=== PATIENT | female | born 1960 | race Two or more races ===

== ENCOUNTER → 2020-08-02 14:58 | Outpatient (BNVA) | payer MEDICARE, MEDICAID, SELFPAY | PROVIDERS: PCP Internal Medicine Medical Oncology; Visit Provider Surgery Vascular Surgery | DX: I83.11 Varicose veins of right lower extremity with inflammation (principal); I73.9 Peripheral vascular disease, unspecified | CPT/HCPCS: 99202 ==

== ENCOUNTER 2020-08-20 17:43 | Outpatient (REF) | payer MEDICARE, MEDICAID, SELFPAY ==
--- NOTE | 2020-08-20 | XR_ITS ---
EXAMINATION: XR FOOT, LEFT CLINICAL INFORMATION: Left foot pain COMPARISON: Radiographs left ankle 07/08/2012 TECHNIQUE: AP, lateral, and oblique views of the left foot. FINDINGS: There is no acute or healing fracture, dislocation, or destructive process. Bulky posterior and plantar calcaneal spurs are present along with faint mineralization in the distal Achilles 1.8 cm length. The retrocalcaneal recess is preserved. There is mild joint narrowing second, third, and fourth toe PIP and DIP joints. There are probable old posttraumatic deformity involving the fifth toe with fusion middle and distal phalanges and attenuated head proximal phalanx. There are borderline degenerative changes great toe MTP and interphalangeal joint. There is no erosive change or chondrocalcinosis. XR/XR foot LT min 3V IMPRESSION: 1. Bulky posterior and plantar calcaneal spurs. Mineralization/tendinosis distal Achilles. 2. Mild degenerative changes with joint narrowing interphalangeal joints. No erosive change. 3. Probable old healed injury fifth toe. No acute or healing fracture or dislocation.
== END 2020-08-20 17:44 | disposition home or self-care (01) ==
LOC: HO.XRAY 17:43
PROVIDERS: PCP Internal Medicine Medical Oncology; Visit Provider Internal Medicine Medical Oncology
DX: M79.672 Pain in left foot (principal)
CPT/HCPCS: 73630

== ENCOUNTER 2020-08-27 08:35 | Outpatient (REF) | payer MEDICARE, MEDICAID, SELFPAY ==
--- NOTE | 2020-08-27 08:42 | US_ITS ---
EXAMINATION: RIGHT and LEFT LOWER EXTREMITY VENOUS ULTRASOUND (Reflux Exam) CLINICAL INDICATION: Right leg pain and varicose veins. COMPARISON: None. TECHNIQUE: Color flow triplex imaging and compression Doppler was performed to evaluate both the deep and the superficial systems bilaterally. To evaluate the superficial system, the examination was performed in the upright position. Color-flow Doppler ultrasound and compression ultrasound were utilized. In addition, maneuvers were utilized to demonstrate reflux. FINDINGS: 1. DEEP VENOUS ULTRASOUND OF THE RIGHT LOWER EXTREMITY: Respiratory variation, normal compression and augmented flow are noted in the right common femoral vein as well as the right popliteal vein and there is no evidence of deep venous thrombosis at these locations. There is no evidence of reflux in the deep system in either the common femoral vein or the popliteal vein. There is no evidence of a Moreland's cyst. 2. SUPERFICIAL ULTRASOUND WITH DOPPLER OF RIGHT LOWER EXTREMITY: The right great saphenous vein at the saphenofemoral junction measures 5 mm, at the mid thigh 3 mm, irtze-[id number]-evxf 2 mm, ujwce-egm-ffxw 2 mm, at mid calf 2 mm and at the ankle measures 2 mm. There is no reflux demonstrated in the right great saphenous vein. The right small saphenous vein measures 2-4 mm and shows no reflux. 3. DEEP VENOUS ULTRASOUND OF THE LEFT LOWER EXTREMITY: Respiratory variation, normal compression and augmented flow are noted in the left common femoral vein as well as the left popliteal vein and there is no evidence of deep venous thrombosis at these locations. There is no evidence of reflux in the deep system in either the common femoral vein or the popliteal vein. . There is no evidence of a Moreland's cyst. 4. SUPERFICIAL ULTRASOUND WITH DOPPLER OF LEFT LOWER EXTREMITY: Left great saphenous vein at the saphenofemoral junction measures 6 mm, at the mid thigh to mm, yuhyl-dcs-mrxy 3 mm, ffbsr-ddq-zxxb 2 mm, at mid calf to mm and at the ankle measures 2 mm. There is no reflux demonstrated in the left great saphenous vein. The left small saphenous vein measures 2 mm and shows no reflux. US/US venous duplex LE BI IMPRESSION: 1. No evidence of reflux or thrombus in the common femoral veins or popliteal veins bilaterally. 2. The saphenous systems are competent bilaterally.
--- NOTE | 2020-08-27 08:42 | US_ITS ---
EXAMINATION: COLOR-FLOW DUPLEX IMAGING OF THE BILATERAL LOWER EXTREMITY ARTERIAL SYSTEM. VELOCITY MEASUREMENTS THROUGHOUT THE FEMORAL ARTERIES WITH ANKLE-BRACHIAL PERIPHERAL ARTERIAL TESTING. CLINICAL INFORMATION: This is a 59-year-old female with peripheral arterial disease. Claudication. Atherosclerosis. Interventional Radiologist: Low Marley M.D., F.S.I.R., F.A.C.R. RIGHT FEMORAL RUNOFF VELOCITIES: The right common femoral artery measures 148 cm/s and triphasic. The right profunda femoral artery is 138 cm/s and is triphasic. Right proximal superficial femoral artery measures 137 cm/s and triphasic. Mid superficial femoral artery is 120 cm/s and triphasic. Distal right superficial femoral artery measures 116 cm/s and is triphasic. Right popliteal velocity measures 77 cm/s and is triphasic. The posterior tibial artery velocity measures 108 cm/s and was triphasic. The right ankle-brachial index is 1.17. The right toe brachial index is 0.71. The waveforms appeared normal at the ankle. The right posterior tibial pressure measures 183 mmHg. LEFT FEMORAL RUNOFF VELOCITIES: The left common femoral artery measures 127 cm/s and biphasic. The left profunda femoral artery is 101 cm/s and is triphasic. Left proximal superficial femoral artery measures 116 cm/s and triphasic. Mid superficial femoral artery is 100 cm/s and biphasic. Distal left superficial femoral artery measures 89 cm/s and is triphasic. Left popliteal velocity measures 73 cm/s and is triphasic. The posterior tibial artery velocity measures 54 cm/s and was monophasic. The left ankle-brachial index is 0.78. The left toe brachial index is 0.23. The waveforms appeared depressed at the ankle. The left posterior tibial pressure measures 112 mmHg. A cardiac arrhythmia is noted during the duplex portion of the study. US/US arterial duplex LE BI IMPRESSION: 1. Abnormal peripheral arterial testing with abnormal left ankle-brachial index and velocity measurements. 2. There is likely a high-grade stenosis in the left distal outflow disease in the left lower extremity. This is likely in the tibial vessels and small vessels in the foot. 3. Normal right lower extremity inflow and outflow. However, the right toe brachial index may be slightly depressed. This may be indicative of small vessel disease on the right.
== END 2020-08-27 08:36 | disposition home or self-care (01) ==
LOC: HO.US 08:35
PROVIDERS: Visit Provider Surgery Vascular Surgery
DX: I87.2 Venous insufficiency (chronic) (peripheral) (principal); I73.9 Peripheral vascular disease, unspecified
CPT/HCPCS: 93923; 93925; 93970

== ENCOUNTER → 2020-09-04 11:00 | Outpatient (BNVA) | payer MEDICARE, MEDICAID, SELFPAY | PROVIDERS: PCP Internal Medicine Medical Oncology; Visit Provider Surgery Vascular Surgery | DX: I83.11 Varicose veins of right lower extremity with inflammation (principal); I73.9 Peripheral vascular disease, unspecified | CPT/HCPCS: 99212 ==

== ENCOUNTER 2020-10-10 10:51 | Outpatient (REF) | payer MEDICARE, MEDICAID, SELFPAY ==
--- NOTE | ~2020-10-10 | MM_ITS ---
EXAMINATION: MM SCREENING DIGITAL BREAST TOMOSYNTHESIS, BILATERAL CLINICAL INFORMATION: Screening. Asymptomatic. No known family history breast cancer. The lifetime risk of breast cancer based on the Tyrer-Cuzick Model is 6%. COMPARISON: Outside mammography 08/23/2018, 08/11/2018, 04/22/2017 ([facility]); and local prior exams 03/11/2016 and 01/05/2015. TECHNIQUE: Digital breast tomosynthesis is performed in both the craniocaudal and mediolateral oblique views along with computer-aided detection (CAD). Synthesized 2D images are generated from the tomosynthesis. FINDINGS: There are scattered areas of fibroglandular density (ACR BI-RADS breast composition Category b). Parenchymal pattern is similar to prior studies. There are stable bilateral asymmetries. No developing density. No interval mass or architectural abnormality. No abnormal calcifications. The skin contours are smooth. MM/MM tomosynthesis screening BI IMPRESSION: No significant changes from prior exams. ASSESSMENT: BI-RADS 2: Benign RECOMMENDATION: Routine annual mammography screening. This patient's information was entered into a reminder system with a target due date for their next mammogram.
== END 2020-10-10 10:52 | disposition home or self-care (01) ==
LOC: HO.MAMMO 10:51
PROVIDERS: Visit Provider Internal Medicine Medical Oncology
DX: Z12.31 Encounter for screening mammogram for malignant neoplasm of breast (principal)
CPT/HCPCS: 77063; 77067

== ENCOUNTER 2020-11-27 11:17 | Outpatient (REF) | payer MEDICARE, MEDICAID, SELFPAY ==
[2020-11-27 12:02] LABS: MANUAL DIFF FLAG NO
[2020-11-27 12:08] LABS: Basophils Absolute Auto 0.1 X10*3/uL (0.0-0.2); Eosinophils Absolute Auto 0.3 X10*3/uL (0.0-0.4); Eosinophils Percent Auto 4.1 % (0-4); Hematocrit 37.3 % (37-47); Hemoglobin 12.1 g/dl (12.0-16.0); Imm Gran Abs Auto 0.03 X10*3/uL (0.00-0.03); Imm Gran Pct Auto 0.4 % (0.0-0.4); Lymphocytes Absolute Auto 2.2 X10*3/uL (1.2-4.9); Lymphocytes Percent Auto 27.1 % (20-40); Mean Corpuscular HGB Conc 32.4 g/dl (31.0-35.0); Mean Corpuscular Hemoglobin 29.6 pg (27.0-33.0); Mean Corpuscular Volume 91.2 fL (80-98); Mean Platelet Volume 9.9 fL (9.4-12.3); Monocytes Absolute Auto 0.5 X10*3/uL (0.1-1.2); Neutrophils Absolute Auto 4.9 X10*3/uL (2.0-8.3); Neutrophils Percent Auto 61.4 % (45-73); Platelet Count 272 X10*3/uL (160-400); Red Blood Count 4.09 X10*6/uL (4.20-5.50); Red Cell Distribution Width 11.7 % (11.0-16.0)
[2020-11-27 12:14] LABS: Estimated Average Glucose 166 mg/dL; Hemoglobin A1c % 7.4 %
[2020-11-27 12:37] LABS: Alanine Aminotransferase 20 U/L (0-31); Albumin Level 4.2 g/dL (3.5-5.0); Alkaline Phosphatase 79 U/L (39-117); Anion Gap 12 (12-20); Aspartate Amino Transferase 13 U/L (5-31); Bilirubin Total 0.4 mg/dL (0.0-1.0); Blood Urea Nitrogen 10 mg/dL (9-16); Carbon Dioxide 30 mmol/L (22-29); Chloride 105 mmol/L (96-108); Cholesterol 147 mg/dL; Estimated Glomerular Filt Rate > 60; Glucose Fasting 141 mg/dL (60-99); HDL Cholesterol 46 mg/dL; LDL Cholesterol Calculated 85 mg/dl; Potassium 4.7 mmol/L (3.3-5.1); Sodium 142 mmol/L (135-145); Total Protein 7.1 g/dL (6.5-8.0); Triglycerides 80 mg/dL
[2020-11-27 12:39] LABS: Creatinine Urine 112.38 mg/dL; Microalbum/Creatinine Ratio Ur 7.1 ug/mg cr
[2020-11-27 12:53] LABS: Erythrocyte Sedimentation Rate 27 MM/HR (0-20)
[2020-11-27 12:56] LABS: Vitamin D 25-OH Total 60.6 ng/mL (>30)
== END 2020-11-27 11:18 | disposition home or self-care (01) ==
LOC: HO.LAB 11:17
PROVIDERS: PCP Internal Medicine Medical Oncology; Visit Provider Internal Medicine Medical Oncology
DX: E78.5 Hyperlipidemia, unspecified (principal); E66.3 Overweight; E11.9 Type 2 diabetes mellitus without complications
CPT/HCPCS: 36415; 80053; 80061; 82043; 82306; 83036; 85025; 85652

== ENCOUNTER 2020-12-31 13:40 | Outpatient (REF) | payer MEDICARE, MEDICAID, SELFPAY ==
[2021-01-03 07:17] LABS: HPV mRNA E6/E7 rflx Not Detected (Not Detected)
== END 2020-12-31 13:41 | disposition home or self-care (01) ==
LOC: HO.LAB 13:40
PROVIDERS: PCP Internal Medicine Medical Oncology; Visit Provider Advanced Practice Midwife
DX: Z01.419 Encounter for gynecological examination (general) (routine) without abnormal findings (principal); Z11.51 Encounter for screening for human papillomavirus (HPV); L72.3 Sebaceous cyst
CPT/HCPCS: 87624; 88142

== ENCOUNTER 2021-02-13 13:11 | Outpatient (REF) | payer MEDICARE, MEDICAID, SELFPAY ==
[2021-02-13 13:42] LABS: MANUAL DIFF FLAG NO
[2021-02-13 14:00] LABS: Basophils Absolute Auto 0.1 X10*3/uL (0.0-0.2); Basophils Percent Auto 0.9 % (0-2); Eosinophils Absolute Auto 0.3 X10*3/uL (0.0-0.4); Eosinophils Percent Auto 3.2 % (0-4); Hematocrit 40.7 % (37-47); Hemoglobin 13.9 g/dl (12.0-16.0); Imm Gran Abs Auto 0.02 X10*3/uL (0.00-0.03); Imm Gran Pct Auto 0.2 % (0.0-0.4); Lymphocytes Absolute Auto 2.4 X10*3/uL (1.2-4.9); Lymphocytes Percent Auto 27.7 % (20-40); Mean Corpuscular HGB Conc 34.2 g/dl (31.0-35.0); Mean Corpuscular Hemoglobin 30.5 pg (27.0-33.0); Mean Corpuscular Volume 89.3 fL (80-98); Mean Platelet Volume 10.2 fL (9.4-12.3); Monocytes Absolute Auto 0.5 X10*3/uL (0.1-1.2); Monocytes Percent Auto 5.8 % (2-11); Neutrophils Absolute Auto 5.4 X10*3/uL (2.0-8.3); Neutrophils Percent Auto 62.2 % (45-73); Platelet Count 267 X10*3/uL (160-400); Red Blood Count 4.56 X10*6/uL (4.20-5.50); Red Cell Distribution Width 11.8 % (11.0-16.0); White Blood Count 8.6 X10*3/uL (4.8-10.8)
[2021-02-13 14:39] LABS: Alanine Aminotransferase 19 U/L (0-31); Albumin Level 4.5 g/dL (3.5-5.0); Alkaline Phosphatase 84 U/L (39-117); Anion Gap 13 (12-20); Aspartate Amino Transferase 16 U/L (5-31); Bilirubin Total 0.6 mg/dL (0.0-1.0); Blood Urea Nitrogen 9 mg/dL (9-16); Calcium 9.5 mg/dL (8.4-10.2); Carbon Dioxide 26 mmol/L (22-29); Chloride 106 mmol/L (96-108); Estimated Glomerular Filt Rate > 60; Glucose Random 161 mg/dL (60-115); Potassium 4.3 mmol/L (3.3-5.1); Sodium 141 mmol/L (135-145); Total Protein 7.7 g/dL (6.5-8.0)
== END 2021-02-13 13:12 | disposition home or self-care (01) ==
LOC: HO.LAB 13:11
PROVIDERS: PCP Internal Medicine Medical Oncology; Visit Provider Internal Medicine Medical Oncology
DX: I74.9 Embolism and thrombosis of unspecified artery (principal); I26.99 Other pulmonary embolism without acute cor pulmonale; I73.9 Peripheral vascular disease, unspecified
CPT/HCPCS: 36415; 80053; 85025

== ENCOUNTER → 2021-02-15 12:51 | Outpatient (REF) | payer MEDICARE, MEDICAID, SELFPAY ==
--- NOTE | 2021-02-15 14:10 | ECG_ITS ---
Hook-up date: 2021-02-15 13:49:00 Duration: 47:59:00 Test Indications: EMB AND THROM OF UNSPEC ARTERY Medications: [id number] QRS complexes 12 Ventricular ectopics which represent <1 % of total QRS comp. 476 Supraventricular ectopics which represent <1 % of total QRS comp. * Paced QRS complexs which represent % of total QRS comp. VENTRICULAR ECTOPY 12 Isolated 0 Bigeminal Cycles 0 Couplets 0 Runs 0 Beats in Runs * Beats LONGEST at * BPM at :: -- * Beats FASTEST at * BPM at :: -- SUPRAVENTRICULAR ECTOPY 397 Isolated 15 Couplets 9 Runs 49 Beats in Runs 8 Beats LONGEST at 113 BPM at 09:58:52 2021-02-16 5 Beats FASTEST at 163 BPM at 02:52:10 2021-02-16 HEART RATES 52 MIN at 07:22:08 2021-02-16 73 AVG 110 MAX at 14:12:58 2021-02-15 LONGEST RR 1.4560 secs at 10:18:25 2021-02-16 S-T LEVELS Channel 1 - 128 mm at 13:49:00 2021-02-15 - 128 mm at 13:49:00 2021-02-15 Channel 2 - 128 mm at 13:49:00 2021-02-15 - 128 mm at 13:49:00 2021-02-15 Channel 3 - 128 mm at 03:30:81 -- - 128 mm at 03:30:81 Basic rhythm Normal sinus rhythm No long pause or profound bradycardia Occasional Premature atrial complexes Few short run of SVE c/w PAT, 5-8 beats, fastest at 163 bpm No sustained Atrial fibrillation No diary submitted I was requested to read this Holter on 03/15/2021 Referred By: Golden Archuleta Overread By: MITCHELL BEAVERS MD
== END ==
LOC: HO.CARD 12:51
PROVIDERS: Visit Provider Internal Medicine Medical Oncology
DX: I26.99 Other pulmonary embolism without acute cor pulmonale (principal); I74.9 Embolism and thrombosis of unspecified artery; I49.1 Atrial premature depolarization
CPT/HCPCS: 93225; 93226

== ENCOUNTER 2021-02-19 14:25 | Outpatient (REF) | payer MEDICARE, MEDICAID, SELFPAY ==
--- NOTE | 2021-02-15 12:54 | CA_ITS ---
Transthoracic Echocardiogram Patient (Last, First, Middle): Melva Thomas, Gender: Female Date of : 1960 Age: 60 Procedure Date: 02/15/2021 Procedure Type: Transthoracic Echocardiogram Location: OP Height: 160.02 cm Weight: 74.39 kg BSA: 1.78 m2 Heart Rate: bpm BP: 130 / 80 mmHg Assembler Corncob Pipes: SAMI Referring MD: Golden Archuleta MD Symptoms: PULMONARY EMBOLISM Study Quality: Fair Conclusions: - Normal left ventricular size, thickness, and systolic function. - Diastolic function is normal for age. - Normal right ventricular cavity size and systolic function. Findings Left Ventricle Normal left ventricular size, thickness, and systolic function. The visually estimated ejection fraction is between 65-70%. There is no evidence of regional wall motion abnormalities. Diastolic function is normal for age. Right Ventricle Normal right ventricular cavity size and systolic function. Atria The left atrium is normal in size. The right atrium is normal in size. Aortic Valve Normal aortic valve structure and function. There is no aortic valve stenosis. There is no aortic valve regurgitation. Mitral Valve Normal mitral valve structure and function. There is no mitral valve regurgitation. There is no mitral valve stenosis. Pulmonic Valve The pulmonic valve is likely normal. Tricuspid Valve Normal tricuspid valve structure. There is trace tricuspid valve regurgitation. Tricuspid regurgitation envelope is inadequate for calculation of right ventricular systolic pressure. Normal right atrial pressure. Great Vessels All visible segments of the aorta are normal in size. The visualized portions of the pulmonary artery and branches are normal. Venous The inferior vena cava is normal in size and collapses greater than 50% with inspiration. Pericardium/Pleural There is no evidence of pericardial effusion. Prior Study Comparison No significant change compared to prior study dated: 06/15/2018. Measurements M-Mode Liner Measurements Normals - Women/Men AOV Cusps: 2.00 1.5-2.6 cm/m2 2D Linear Measurements IVSd: 0.81 0.6-0.9/0.6-1.0 cm LVIDd: 3.82 3.9-5.3/4.2-5.9 cm LVIDd Index: 2.15 2.4-3.2/2.2-3.1 cm/m2 LVIDs: 2.87 2.0-3.6 cm LVPWd: 0.88 0.7-1.1 cm Ao Root: 2.70 2.1-3.5 cm LA Diam: 3.30 2.7-3.8/3.0-4.0 cm LAIDs Index: 1.85 1.5-2.3 cm/m2 LV Mass: 116.10 67-162/88-224 g LV Mass Index: 65.22 43-95/49-115 g/m2 LVOT Diam: 1.80 3.0+(-)1.3 cm 2D Systolic Function EF 4C: 63.40 >55% EF 2C: 58.30 >55% EF BiP: 59.90 >55% Mitral Valve MV Pk E: 0.76 MV PK A: 0.57 MV Decel Time: 331.00 E/A: 1.30 E'Lateral: 9.36 E'Medial: 7.29 E/E' Med: 10.40 E/E' Lat: 8.10 PHT: 97.00 MVA PHT: 2.27 Decel [place]: 2.29 Aortic Valve AoV Pk Иван: 1.81 AoV Mn Иван: 1.31 AoV VTI: 0.39 AoV Pk Grad: 13.00 Aov Mn Grad: 8.00 SUSAN Cont.VTI: 1.53 LVOT LVOT Pk Иван: 1.40 LVOT Mn Иван: 0.94 LVOT VTI: 0.24 LVOT Pk Grad: 8.00 LVOT Mn Grad: 4.00 LVOT Diam: 1.80 LVOT Area: 2.54 Diastolic Function MV Pk E: 0.76 MV Pk A: 0.57 E/A: 1.30 E'Medial: 7.29 E/E' Med: 10.40 E' Laterial: 9.36 E/E' Lat: 8.10 Tricuspid Valve RA Press: 3.00 Great Vessels Aorta Ao Root-2D: 2.70 2.0-3.7 cm Ao Asc: 2.90 2.1-3.4 cm Ao Arch: 2.30 Pulmonary Valve PV Pk Иван: 1.10 Peak PV Grad: 5.00 Updated in Other Vendor System with Status of Final Paul Ocasio MD electronically signed on 02/17/2021 1:45:09 PM with status of Final
--- NOTE | ~2021-02-19 | CT_ITS ---
EXAMINATION: CT ANGIOGRAM OF THE CHEST WITH AND WITHOUT CONTRAST (CT PULMONARY ANGIOGRAM FOR PE) CLINICAL INFORMATION: Reason for Exam EMBOLISM AND THROMBOSIS, PULMONARY EMBOLISM COMPARISON: None TECHNIQUE: Prior to contrast administration, noncontrast localization images were obtained. Subsequently, multidetector volumetric imaging was performed from the thoracic inlet to below the diaphragms following the administration of 80 mL Omnipaque 350 intravenous contrast. No contrast reaction reported Sagittal, coronal, and MIP oblique sagittal reformatted images were obtained on the CT workstation, uploaded to PACS, and reviewed. This CT examination was performed using dose optimization techniques as appropriate, variously including the following: *Automated exposure control *Adjustment of mA and/or kV according to patient size (this includes techniques or standardized protocols for targeted exams where dose is matched to indication/reason for exam; i.e. extremities or head) *Use of iterative reconstruction technique Total exam dose-length product 117 mGy-cm FINDINGS: QUALITY OF STUDY/CONTRAST BOLUS: Satisfactory. PULMONARY ARTERIES: No central or segmental pulmonary emboli. THORACIC AORTA: No aneurysm or dissection. LUNG: The lungs are expanded with focal atelectatic changes in the right lung base. No blurry nodule, mass or consolidation seen. PLEURA: No pleural effusion or pneumothorax. MEDIASTINUM: Normal heart size. No pericardial effusion. No hilar or mediastinal lymphadenopathy. No evidence of septal bowing or right heart strain. CHEST WALL/AXILLA: No axillary or internal mammary lymphadenopathy. OSSEOUS STRUCTURES: No acute or suspicious osseous abnormality. UPPER ABDOMEN: Visualized liver, spleen, pancreas appears unremarkable. No reflux of contrast into the hepatic veins to suggest elevated right heart pressures. CT/CT angio chest PE protocol IMPRESSION: No evidence of PE. No evidence aortic dissection or aneurysm. No evidence of pulmonary nodule, mass or consolidation. Focal subpleural atelectatic changes right lower lobe. VTE: negative
[2021-02-19] MEDS: iohexoL 350 MG/ML 100 ML INFUS..BTL IV (14:57)
== END 2021-02-19 14:26 | disposition home or self-care (01) ==
LOC: HO.CT 14:25
PROVIDERS: Visit Provider Internal Medicine Medical Oncology
DX: I74.9 Embolism and thrombosis of unspecified artery (principal)
CPT/HCPCS: 71275; 93225; 93226; 93306; Q9967

== ENCOUNTER 2021-04-09 06:23 | Day surgery (SDC) | payer MEDICARE, MEDICAID, SELFPAY ==
[2021-04-01 14:38] VITALS: BMI 29.0
--- NOTE | 2021-04-08 09:35 | P.CONAN_ITS ---
Documented by User: Alexus Morrison NP 04/08/21 09:37 HPI - Anesthesia Eval Consult details Narrative: 60yo F for Colonoscopy Medically cleared by Dr Archuleta 04/01/21 Daniel for h/o DVT PMFSH Active Problems Active Problems: All Active Problems (Updated 04/01/21 @ 14:28 by Fabiana Richardson) Colon cancer screening (Acute) Chronic hepatitis C (Acute) NIDDY (non-insulin dependent diabetes mellitus in young) (Acute) Hemorrhoids (Acute) PAD (peripheral artery disease) (Acute) Varicose veins of right lower extremity with inflammation (Acute) Past Medical History Medical History Anxiety Diabetes mellitus Hepatitis History of fibromyalgia Hx of deep venous thrombosis Family History Family History Father HTN (hypertension) Lung cancer Mother Asthma Thyroid disease Surgical History Surgical History History of cholecystectomy History of endometrial ablation Hx of colonoscopy Hx of endoscopy S/P foot joint surgery Social History Social History Alcohol intake: current Alcohol intake frequency: does not drink Patient Tobacco Use Status: Former Tobacco user Quit Date: 04/2020 Tobacco use type: Cigarette Use of substances other than those prescribed or required for medical reasons: No Advance Directives Information Provided: No Advance Directives on File: No Recently lost weight without trying: No Eating poorly because of decreased appetite: No Nutrition Risks: No Nutritional Risk Meds Allergies Allergy/AdvReac Type Severity Reaction Status Date / Time lisinopril Allergy Mild coughing Verified 04/01/21 14:15 hydromorphone [From Dilaudid] AdvReac Intermediate Vomiting Verified 04/01/21 14:15 oxycodone [From Percocet] AdvReac Mild vomiting/dizziness Verified 04/01/21 14:37 (allergic to Percocet name brand) Home Medications Medication Instructions Recorded Confirmed Last Taken Type atorvastatin 10 mg tablet 10 mg PO DAILY 12/31/20 04/01/21 Unknown History cholecalciferol (vitamin D3) 1,250 1,250 mcg PO QWEEK 12/31/20 04/01/21 Unknown History mcg (50,000 unit) capsule gabapentin 300 mg capsule 300 mg PO DAILY 12/31/20 04/01/21 Unknown History glipizide 10 mg tablet 10 mg PO QAM 12/31/20 04/01/21 Unknown History hydroxychloroquine 200 mg tablet 300 mg PO DAILY 12/31/20 Unknown History meloxicam 15 mg tablet 15 mg PO DAILY 12/31/20 04/01/21 Unknown History metformin 1,000 mg tablet 1,000 mg PO BID 12/31/20 04/01/21 Unknown History acetaminophen 500 mg tablet 1 tab PO Q6H PRN 04/01/21 04/01/21 Unknown History apixaban 5 mg tablet (Eliquis) 5 mg PO BID 04/01/21 04/01/21 04/05/21 History oxycodone 5 mg tablet 5 mg PO Q4H PRN 04/01/21 04/01/21 Unknown History Exam Exam Date and Time: April 08, 2021 0935 Height,Weight and Vital Signs: Height 5 ft 3 in Weight 74.389 kg Pertinent Lab Results Pertinent Lab Results: Laboratory Tests 02/13/21 02/13/21 13:20 13:20 WBC 8.6 Hgb 13.9 Hct 40.7 Plt Count 267 Sodium 141 Potassium 4.3 Chloride 106 Carbon Dioxide 26 BUN 9 Creatinine 0.79 Narrative Narrative: ECHO 01/2021 Conclusions: - Normal left ventricular size, thickness, and systolic function. - Diastolic function is normal for age.? - Normal right ventricular cavity size and systolic function.? ? Holter 01/2021 Basic rhythm Normal sinus rhythm No long pause or profound bradycardia Occasional Premature atrial complexes Few short run of SVE c/w PAT, 5-8 beats, fastest at 163 bpm No sustained Atrial fibrillation No diary submitted I was requested to read? this Holter on 03/15/2021 Assessment and Plan Assessment Anesthesia Assessment: Chart Reviewed Documented by User: Janeth Olvera MD 04/09/21 07:27 [facility] Past Medical History Medical History Anxiety Diabetes mellitus Hepatitis History of fibromyalgia Hx of deep venous thrombosis Functional capacity: independent ambulation Patient : No Family History Family History Father HTN (hypertension) Lung cancer Mother Asthma Thyroid disease Family history of problems with anesthesia: No Surgical History Surgical History History of cholecystectomy History of endometrial ablation Hx of colonoscopy Hx of endoscopy S/P foot joint surgery History of Problems with Anesthesia: No Social History Social History Alcohol intake: current Alcohol intake frequency: does not drink Patient Tobacco Use Status: Former Tobacco user Quit Date: 04/2020 Tobacco use type: Cigarette Use of substances other than those prescribed or required for medical reasons: No Advance Directives Information Provided: No Advance Directives on File: No Recently lost weight without trying: No Eating poorly because of decreased appetite: No Nutrition Risks: No Nutritional Risk Meds Allergies Allergy/AdvReac Type Severity Reaction Status Date / Time lisinopril Allergy Mild coughing Verified 04/01/21 14:15 hydromorphone [From Dilaudid] AdvReac Intermediate Vomiting Verified 04/01/21 14:15 oxycodone [From Percocet] AdvReac Mild vomiting/dizziness Verified 04/01/21 14:37 (allergic to Percocet name brand) Home Medications Medication Instructions Recorded Confirmed Last Taken Type atorvastatin 10 mg tablet 10 mg PO DAILY 12/31/20 04/01/21 Unknown History cholecalciferol (vitamin D3) 1,250 1,250 mcg PO QWEEK 12/31/20 04/01/21 Unknown History mcg (50,000 unit) capsule gabapentin 300 mg capsule 300 mg PO DAILY 12/31/20 04/01/21 Unknown History glipizide 10 mg tablet 10 mg PO QAM 12/31/20 04/01/21 Unknown History hydroxychloroquine 200 mg tablet 300 mg PO DAILY 12/31/20 Unknown History meloxicam 15 mg tablet 15 mg PO DAILY 12/31/20 04/01/21 Unknown History metformin 1,000 mg tablet 1,000 mg PO BID 12/31/20 04/01/21 Unknown History acetaminophen 500 mg tablet 1 tab PO Q6H PRN 04/01/21 04/01/21 Unknown History apixaban 5 mg tablet (Eliquis) 5 mg PO BID 04/01/21 04/01/21 04/05/21 History oxycodone 5 mg tablet 5 mg PO Q4H PRN 04/01/21 04/01/21 Unknown History Exam Airway Mallampati Class: II TM Dist: >3cm Neck ROM: Full Heart: RRR Lungs: CTA Assessment and Plan Final Anesthetic Review Family History of Problems with Anesthesia: No History of Problems with Anesthesia: No
[2021-04-09 06:44] LABS: Glucose, Whole Blood 228 mg/dL (60-115)
[2021-04-09 06:47] VITALS: BP 131/66; PULSE 71; RESP 16; TEMP 36.4; O2SAT 98
[2021-04-09] MEDS: Lactated Ringers 1,000 ML 100 ML IVCONT (06:54)
--- NOTE | 2021-04-09 07:05 | MHC.SHP ---
Pre-Procedural Eval Section A Date of Service: 04/09/21 The patient is an INPATIENT: No The History & Physical has been completed within 30 days and I have reviewed it.: No Section B Chief Complaint: Screening Details of Present Illness: Colon cancer screening Relevant Family History (Specify if Yes): No Relevant Social History: Tobacco Use (Former smoker) Present Medications: see Short Stay Collaborative assessment Medical History: Significant History (Diabetes mellitus History of fibromyalgia) History of Previous Operations: Relevant previous surgery/procedure and date(s) (History of cholecystectomy Hx of colonoscopy Hx of endoscopy S/P foot joint surgery) Allergies: Allergies Allergy/AdvReac Type Severity Reaction Status Date / Time lisinopril Allergy Mild coughing Verified 04/01/21 14:15 hydromorphone [From Dilaudid] AdvReac Intermediate Vomiting Verified 04/01/21 14:15 oxycodone [From Percocet] AdvReac Mild vomiting/dizziness Verified 04/01/21 14:37 (allergic to Percocet name brand) Review of Systems Sugical H&P ROS: Negative: Constitution, Cardiovascular, Respiratory and Gastrointestinal Exam Surgical H&P Exam: Normal: Heart, Normal: Lungs, Normal: Extremities and Normal: Abdomen Plan Diagnosis/Plan: Unchanged I have reviewed the history and physical and performed a pertinent physical examination on my patient. No changes have occurred unless specified.
--- NOTE | 2021-04-09 07:29 | P.OP_ITS ---
Operative Note Operative Note Date of Service: 04/09/21 Narrative: Pre-op diagnosis:?Colon cancer screening Post-op diagnosis:?other (colon polyps, diverticulosis, hemorrhoids) Procedure:? COLONOSCOPY TILL CECUM WITH BIOPSIES AND SNARE POLYPECTOMY Consent: Indications for the procedure and potential complications of bleeding, perforation, reaction to medications and missed diagnosis were discussed with the patient and informed consent was obtained. Instrument: Olympus PCF H 190 L variable stiffness pediatric colonoscope Monitoring: Vital signs and clinical assessment, intermittent blood pressure monitoring, continuous EKG monitoring, Pulse oximetry and Carbon Dioxide monitoring were done throughout the procedure. Colon withdrawl time was 14 minutes. Procedure: The patient was placed in the left lateral decubitis position and pre-procedure medications were administered. After a digital rectal examination of the ano-rectum, the video colonoscope was inserted into the rectum and advanced through the colon to the cecum. The colonoscope was slowly withdrawn in a retrograde panoramic fashion and the colon mucosa was carefully examined including a retroflexed view of the rectum. Findings and interventions are described below. Procedure Difficulty: Without difficulty Findings: Terminal Ileum: Not evaluated Cecum:? A 7-8 mm sessile polyp removed with a cold snare Ascending Colon:? Normal Transverse Colon:? Normal Descending Colon:? Moderate diverticulosis Sigmoid Colon:? A 7-8 mm sessile polyp removed with a cold snare and moderate diverticulosis Rectum:? A few 2-3 mm diminutive appearing polyps - 1 removed with cold biopsy Ano-rectum:? Moderate internal hemorrhoids and perianal skin tags Colon preparation: Excellent ? Impression and Post Procedure Diagnosis: Colonoscopy Findings: Three small polyps removed Moderate diverticulosis seen in the left colon Moderate hemorrhoids on retroflexed exam. Plan: Await pathology results Patient has an appointment on 04/30/21 in the GI Clinic with? Emerita Nunez NP . Repeat Colonoscopy interval based on path results - in 3-5 years if polyps are adenomatous and 10 years if polyps are hyperplastic. Above findings were reviewed with the patient and colon polyps and diverticulosis handouts were given in the discharge area Surgeon:?Magda Lee MD Anesthesia:?STACY (Dr Lara) Was an Plastic Press Molder used for this Procedure?:?Yes Plastic Press Molder:?Sonja Light Estimated blood loss (mL):?0 Pathology:?other (A- CECAL POLYP? B- SIGMOID POLYP? C- RECTAL POLYP) Condition:?stable Disposition:?PACU
[2021-04-09 08:03] VITALS: BP 85/40; PULSE 68; RESP 16; TEMP 36.4; O2SAT 96
[2021-04-09 08:13] VITALS: BP 92/57; PULSE 77; RESP 18; TEMP 36.6; O2SAT 98
[2021-04-09 08:17] VITALS: BP 100/62; PULSE 70; RESP 8; TEMP 36.2; O2SAT 96
--- NOTE | 2021-04-09 11:03 | HO.POSTANES ---
Post Anesthesia Evaluation Post Anesthesia Evaluation Vital Signs: Vital Signs Temp Pulse Resp BP Pulse Ox 04/09/21 08:17 97.1 F 70 8 L 100/62 96 04/09/21 08:13 97.8 F 77 18 92/57 L 98 04/09/21 08:03 97.5 F 68 16 85/40 L 96 04/09/21 06:47 97.5 F 71 16 131/66 98 Anesthesia: Monitored Mental Status: Awake Pain Control: Satisfactory Nausea/Vomiting: None Hydration: Adequate Anesthesia-Related Issues: No Anes. Related Issues
== END 2021-04-09 09:14 | disposition home or self-care (01) ==
PROVIDERS: PCP Internal Medicine Medical Oncology; Visit Provider Internal Medicine Gastroenterology
PROC: 0DJD8ZZ Inspection of Lower Intestinal Tract, Via Natural or Artificial Opening Endoscopic (ICD-10-PCS; CPT 45378; principal; 2021-04-09 07:30)
DX: Z12.11 Encounter for screening for malignant neoplasm of colon (principal); D12.0 Benign neoplasm of cecum; D12.5 Benign neoplasm of sigmoid colon; K62.1 Rectal polyp; K57.30 Diverticulosis of large intestine without perforation or abscess without bleeding; K64.8 Other hemorrhoids; K64.4 Residual hemorrhoidal skin tags; E11.9 Type 2 diabetes mellitus without complications; Z79.84 Long term (current) use of oral hypoglycemic drugs; Z79.899 Other long term (current) drug therapy; Z79.01 Long term (current) use of anticoagulants; Z88.8 Allergy status to other drugs, medicaments and biological substances; Z86.19 Personal history of other infectious and parasitic diseases; Z86.718 Personal history of other venous thrombosis and embolism; Z87.891 Personal history of nicotine dependence
CPT/HCPCS: 45385; 45380; 82947; 88305

== ENCOUNTER → 2021-04-11 12:24 | Outpatient (BNVA) | payer MEDICARE, MEDICAID, SELFPAY | PROVIDERS: PCP Internal Medicine Medical Oncology; Visit Provider Dietitian, Registered | DX: E11.9 Type 2 diabetes mellitus without complications (principal); E66.3 Overweight; Z88.8 Allergy status to other drugs, medicaments and biological substances; Z88.5 Allergy status to narcotic agent; Z71.3 Dietary counseling and surveillance | CPT/HCPCS: 97802 ==

== ENCOUNTER → 2021-05-10 15:34 | Outpatient (BNVA) | payer MEDICARE, MEDICAID, SELFPAY | PROVIDERS: PCP Internal Medicine Medical Oncology; Visit Provider Nurse Practitioner | DX: D12.6 Benign neoplasm of colon, unspecified (principal) | CPT/HCPCS: Q3014 ==

== ENCOUNTER → 2021-06-10 13:46 | Outpatient (BNVA) | payer MEDICARE, MEDICAID, SELFPAY | PROVIDERS: PCP Internal Medicine Medical Oncology; Visit Provider Dietitian, Registered | DX: E11.9 Type 2 diabetes mellitus without complications (principal); E66.9 Obesity, unspecified; Z88.6 Allergy status to analgesic agent; Z88.8 Allergy status to other drugs, medicaments and biological substances; Z71.3 Dietary counseling and surveillance | CPT/HCPCS: 97803 ==

== ENCOUNTER → 2021-07-02 15:00 | Outpatient (BNVA) | payer MEDICARE, MEDICAID, SELFPAY | PROVIDERS: PCP Internal Medicine Medical Oncology; Visit Provider Surgery Vascular Surgery | DX: I73.9 Peripheral vascular disease, unspecified (principal) | CPT/HCPCS: 99212 ==

== ENCOUNTER → 2021-09-12 14:21 | Outpatient (BNVA) | payer MEDICARE, MEDICAID, SELFPAY | PROVIDERS: PCP Internal Medicine Medical Oncology; Visit Provider Dietitian, Registered | DX: E11.9 Type 2 diabetes mellitus without complications (principal); E66.3 Overweight; Z68.27 Body mass index [BMI] 27.0-27.9, adult; Z71.3 Dietary counseling and surveillance | CPT/HCPCS: 97803 ==

== ENCOUNTER → 2021-10-01 10:02 | Outpatient (REF) | payer MEDICARE, MEDICAID, SELFPAY ==
--- NOTE | 2021-10-01 | CA_ITS ---
Acquisition Time: 2021-10-01 10:16:37 Total Exercise Time: 00:06:25 Test Indications: Chest Pain Medications: Protocol: DAVID Max HR: 141 BPM 88% of Pred: 160 BPM Max BP: 212/080 mmHG Max Work Load: 7.6 METS Exercise stress test with exercise 6 min 25 sec of David protocol, with moderate shortness of breath, no chest pains, with isolated PACs, with hypertensive response to exercise with max BP 212/80, with EKG showing T wave inversions leads I, aVL and V2 at baseline, with artifact at peak exercise, with J point depressions and upsloping ST segments in early recovery and scooping ST segments in later recovery - unable to rule out ischemia. In recovery her BP retuned to baseline normal. Test reviewed with Dr Ocasio. Message sent to Dr Archuleta with report and recommendation for exercise nuclear stress test for further evaluation. Referred By: Golden Archuleta Overread By: BRINA DALY
== END ==
LOC: HO.CARD 10:02
PROVIDERS: Visit Provider Internal Medicine Medical Oncology
DX: R07.9 Chest pain, unspecified (principal)
CPT/HCPCS: 93017

== ENCOUNTER → 2021-10-10 08:34 | Outpatient (REF) | payer MEDICARE, MEDICAID, SELFPAY ==
--- NOTE | ~2021-10-10 | NM_ITS ---
Myocardial perfusion study Indication: Chest pain to evaluate for myocardial ischemia Technique: The patient was brought in for a Lexiscan perfusion study on 10/10/2021. Patient performed low-level exercise and was injected 0.4 mg of Lexiscan intravenously. Within a minute of injection, 25 mCi of sestamibi was given intravenously. Images were obtained using the SPECT gamma camera interlaced with the gating device. Images were obtained in supine position. Resting perfusion study was performed on 10/11/2021. Patient was administered 25 mCi of sestamibi intravenously at rest. Images were then obtained in supine position. Images obtained with and without CT attenuation. Total DLP 93 mGy-cm. Images were processed with the software and compared side to side in short axis, horizontal long axis and vertical long axis views. Findings: The stress perfusion study showed non attenuated images show uptake in the mid anterior, distal anterior and mildly reduced uptake in the apex of the LV myocardium as well as minimally reduced uptake in the distal septum of the LV myocardium. Attenuation corrected images show mildly reduced apex of the LV myocardium.. The gated study shows normal LV systolic function with calculated LVEF of 67%. LV cavity is normal in size. The gated study shows normal systolic wall thickening and contraction of segments. Resting study shows improved uptake in the distal anterior and apex of the LV myocardium.. Gating at rest reveals normal systolic wall motion with ejection fraction at greater than 70 %. The findings are consistent with possible small area of apical ischemia.. NM/NM franklin perf SPECT rest & str Impression: 1. Myocardial perfusion imaging study shows equivocal for mild intensity small area of apical ischemia 2. Gated LVEF is 67% 3. Transient ischemic dilatation not present EKG is nondiagnostic for ischemia
--- NOTE | 2021-10-10 08:38 | CA_ITS ---
Acquisition Time: 2021-10-10 08:33:51 Total Exercise Time: 00:06:54 Test Indications: ABN STRESS Medications: HCTZ Protocol: DAVID Max HR: 144 BPM 80% of Pred: 180 BPM Max BP: 220/078 mmHG Max Work Load: 8.3 METS Exercise stress test with exercise 6 min 54 sec of David protocol, achieving 78% MPHR, with moderate shortness of breath and request to stop exercise, no chest discomfort, with isolated PVCs, with hypertensive response to exercise with max BP 220/78, with baseline EKG showing T wave inversions leads I, aVL, V2, with nondiagnostic EKG for ischemia due to suboptimal heart rate. Pt assisted to sitting positon. Once breathing and BP back to baseline, testing was changed to a pharmacological stress test with Lexiscan injection, while sitting and kicking her legs, without anginal symptoms, with isolated PVC, with normotensive response to injection, with nondiagnostic EKG for ischemia. In recovery she reported sob and was treated with Aminophylline 75mg IVP to reverse Lexiscan with resolution of symptom. Nuclear images pending. Test revieed with Dr Bills. Referred By: Golden Archuleta Overread By: BRINA DALY
== END ==
LOC: HO.CARD 08:34
PROVIDERS: Visit Provider Internal Medicine Medical Oncology
DX: R07.9 Chest pain, unspecified (principal); I25.9 Chronic ischemic heart disease, unspecified
CPT/HCPCS: 78452; 93017; A9500; J0280; J2785

== ENCOUNTER → 2021-11-06 15:10 | Outpatient (BNVA) | payer MEDICARE, MEDICAID, SELFPAY | PROVIDERS: PCP Internal Medicine Medical Oncology; Visit Provider Internal Medicine | DX: R07.2 Precordial pain (principal); R94.39 Abnormal result of other cardiovascular function study; E11.9 Type 2 diabetes mellitus without complications; M79.7 Fibromyalgia; Z87.891 Personal history of nicotine dependence; Z88.6 Allergy status to analgesic agent; Z88.8 Allergy status to other drugs, medicaments and biological substances; Z79.82 Long term (current) use of aspirin; Z79.84 Long term (current) use of oral hypoglycemic drugs; Z79.891 Long term (current) use of opiate analgesic; Z79.899 Other long term (current) drug therapy | CPT/HCPCS: 93005; 99202 ==

== ENCOUNTER 2021-11-14 15:31 | Outpatient (REF) | payer MEDICARE, MEDICAID, SELFPAY ==
--- NOTE | ~2021-11-14 | MM_ITS ---
EXAMINATION: MM SCREENING DIGITAL BREAST TOMOSYNTHESIS, BILATERAL CLINICAL INFORMATION: Screening. Asymptomatic. The lifetime risk of breast cancer based on the Tyrer-Cuzick Model is 5.2%. COMPARISON: Mammography: October 10, 2020 and studies dating back to August 25, 2012 TECHNIQUE: Digital breast tomosynthesis is performed in both the craniocaudal and mediolateral oblique views along with computer-aided detection (CAD). Synthesized 2D images are generated from the tomosynthesis. FINDINGS: There are scattered areas of fibroglandular density (ACR BI-RADS breast composition Category b). There are no significant masses, abnormal calcifications, or other abnormalities. MM/MM tomosynthesis screening BI IMPRESSION: There are no significant changes from prior study. ASSESSMENT: BI-RADS 1: Negative RECOMMENDATION: Routine annual mammography screening. This patient's information was entered into a reminder system with a target due date for their next mammogram.
== END 2021-11-14 15:32 | disposition home or self-care (01) ==
LOC: HO.MAMMO 15:31
PROVIDERS: Visit Provider Internal Medicine Medical Oncology
DX: Z12.31 Encounter for screening mammogram for malignant neoplasm of breast (principal)
CPT/HCPCS: 77063; 77067

== ENCOUNTER 2021-12-31 12:51 | Outpatient (REF) | payer MEDICARE, MEDICAID, SELFPAY ==
[2021-12-31 14:20] LABS: Anion Gap 11 (12-20); Blood Urea Nitrogen 9 mg/dL (9-16); Carbon Dioxide 27 mmol/L (22-29); Chloride 104 mmol/L (96-108); Estimated Glomerular Filt Rate > 60; Glucose Random 101 mg/dL (60-115); Potassium 4.2 mmol/L (3.3-5.1); Sodium 138 mmol/L (135-145)
== END 2021-12-31 12:52 | disposition home or self-care (01) ==
LOC: HO.LAB 12:51
PROVIDERS: PCP Internal Medicine Medical Oncology; Visit Provider Internal Medicine
DX: R07.2 Precordial pain (principal)
CPT/HCPCS: 36415; 80048

== ENCOUNTER → 2022-01-06 13:09 | Outpatient (BNVA) | payer MEDICARE, MEDICAID, SELFPAY | PROVIDERS: PCP Internal Medicine Medical Oncology; Visit Provider Advanced Practice Midwife | DX: Z01.419 Encounter for gynecological examination (general) (routine) without abnormal findings (principal); N95.1 Menopausal and female climacteric states ==

== ENCOUNTER 2022-01-21 08:54 | Outpatient (REF) | payer MEDICARE, MEDICAID, SELFPAY ==
[2022-01-21 09:38] LABS: MANUAL DIFF FLAG NO
[2022-01-21 10:08] LABS: Basophils Absolute Auto 0.1 X10*3/uL (0.0-0.2); Eosinophils Absolute Auto 0.4 X10*3/uL (0.0-0.4); Eosinophils Percent Auto 5.2 % (0-4); Hematocrit 38.7 % (37.0-47.0); Hemoglobin 12.8 g/dl (12.0-16.0); Imm Gran Abs Auto 0.03 X10*3/uL (0.00-0.03); Imm Gran Pct Auto 0.4 % (0.0-0.4); Lymphocytes Absolute Auto 2.6 X10*3/uL (1.2-4.9); Mean Corpuscular HGB Conc 33.1 g/dl (31.0-35.0); Mean Corpuscular Hemoglobin 29.8 pg (27.0-33.0); Mean Corpuscular Volume 90.2 fL (80.0-98.0); Mean Platelet Volume 10.3 fL (9.4-12.3); Monocytes Absolute Auto 0.4 X10*3/uL (0.1-1.2); Monocytes Percent Auto 5.9 % (2-11); Neutrophils Absolute Auto 3.7 x10*3/uL (2.0-8.3); Neutrophils Percent Auto 51.5 % (45-73); Platelet Count 268 X10*3/uL (160-400); Red Blood Count 4.29 X10*6/uL (4.20-5.50); Red Cell Distribution Width 11.9 % (11.0-16.0); White Blood Count 7.3 X10*3/uL (4.8-10.8)
[2022-01-21 10:31] LABS: Creatinine Urine 63.91 mg/dL; Microalbumin Urine < 5.0 mg/L
[2022-01-21 10:34] LABS: Alanine Aminotransferase 15 U/L (0-31); Albumin Level 3.9 g/dL (3.5-5.0); Alkaline Phosphatase 75 U/L (39-117); Anion Gap 12 (12-20); Aspartate Amino Transferase 12 U/L (5-31); Bilirubin Total 0.4 mg/dL (0.0-1.0); Blood Urea Nitrogen 12 mg/dL (9-16); Calcium 9.9 mg/dL (8.4-10.2); Carbon Dioxide 28 mmol/L (22-29); Chloride 106 mmol/L (96-108); Cholesterol 195 mg/dL; Estimated Glomerular Filt Rate > 60; Glucose Fasting 156 mg/dL (60-99); HDL Cholesterol 41 mg/dL; LDL Cholesterol Calculated 128 mg/dl; Potassium 4.7 mmol/L (3.3-5.1); Sodium 141 mmol/L (135-145); Total Protein 6.9 g/dL (6.5-8.0); Triglycerides 133 mg/dL
[2022-01-21 10:36] LABS: Estimated Average Glucose 160 mg/dL; Hemoglobin A1c % 7.2 %
== END 2022-01-21 08:55 | disposition home or self-care (01) ==
LOC: HO.LAB 08:54
PROVIDERS: PCP Internal Medicine Medical Oncology; Visit Provider Internal Medicine Medical Oncology
DX: M79.7 Fibromyalgia (principal); E78.5 Hyperlipidemia, unspecified; G56.01 Carpal tunnel syndrome, right upper limb; E11.9 Type 2 diabetes mellitus without complications; R07.2 Precordial pain; R94.39 Abnormal result of other cardiovascular function study
CPT/HCPCS: 36415; 80053; 80061; 82043; 83036; 85025; 99212

== ENCOUNTER → 2022-03-13 13:58 | Outpatient (BNVA) | payer MEDICARE, MEDICAID, SELFPAY | PROVIDERS: PCP Internal Medicine Medical Oncology; Visit Provider Dietitian, Registered | DX: E13.9 Other specified diabetes mellitus without complications (principal); Z71.3 Dietary counseling and surveillance | CPT/HCPCS: 97803 ==

== ENCOUNTER 2022-03-24 10:52 | Outpatient (REF) | payer MEDICARE, MEDICAID, SELFPAY ==
[2022-03-24 11:14] LABS: MANUAL DIFF FLAG NO
[2022-03-24 11:42] LABS: Basophils Absolute Auto 0.1 X10*3/uL (0.0-0.2); Basophils Percent Auto 1.3 % (0-2); Eosinophils Absolute Auto 0.3 X10*3/uL (0.0-0.4); Hematocrit 40.7 % (37.0-47.0); Hemoglobin 13.4 g/dl (12.0-16.0); Imm Gran Abs Auto 0.01 X10*3/uL (0.00-0.03); Imm Gran Pct Auto 0.2 % (0.0-0.4); Lymphocytes Absolute Auto 2.2 X10*3/uL (1.2-4.9); Lymphocytes Percent Auto 36.4 % (20-40); Mean Corpuscular HGB Conc 32.9 g/dl (31.0-35.0); Mean Corpuscular Hemoglobin 29.9 pg (27.0-33.0); Mean Corpuscular Volume 90.8 fL (80.0-98.0); Mean Platelet Volume 10.1 fL (9.4-12.3); Monocytes Absolute Auto 0.4 X10*3/uL (0.1-1.2); Monocytes Percent Auto 6.2 % (2-11); Neutrophils Absolute Auto 3.1 x10*3/uL (2.0-8.3); Neutrophils Percent Auto 50.9 % (45-73); Platelet Count 237 X10*3/uL (160-400); Red Blood Count 4.48 X10*6/uL (4.20-5.50); Red Cell Distribution Width 12.1 % (11.0-16.0)
[2022-03-24 12:28] LABS: Estimated Average Glucose 151 mg/dL; Hemoglobin A1c % 6.9 %
[2022-03-24 12:40] LABS: Alanine Aminotransferase 17 U/L (0-31); Albumin Level 4.2 g/dL (3.5-5.0); Alkaline Phosphatase 75 U/L (39-117); Anion Gap 12 (12-20); Aspartate Amino Transferase 14 U/L (5-31); Bilirubin Total 0.7 mg/dL (0.0-1.0); Blood Urea Nitrogen 14 mg/dL (9-16); Carbon Dioxide 28 mmol/L (22-29); Chloride 106 mmol/L (96-108); Cholesterol 224 mg/dL; Estimated Glomerular Filt Rate > 60; Glucose Fasting 154 mg/dL (60-99); HDL Cholesterol 47 mg/dL; LDL Cholesterol Calculated 159 mg/dl; Potassium 4.6 mmol/L (3.3-5.1); Sodium 141 mmol/L (135-145); Total Protein 7.3 g/dL (6.5-8.0); Triglycerides 92 mg/dL
== END 2022-03-24 10:53 | disposition home or self-care (01) ==
LOC: HO.LAB 10:52
PROVIDERS: PCP Internal Medicine Medical Oncology; Visit Provider Internal Medicine Medical Oncology
DX: Z00.00 Encounter for general adult medical examination without abnormal findings (principal); E66.3 Overweight; E11.9 Type 2 diabetes mellitus without complications
CPT/HCPCS: 36415; 80053; 80061; 83036; 85025

== ENCOUNTER 2022-04-04 14:13 | Outpatient (REF) | payer MEDICARE, MEDICAID, SELFPAY | END 2022-04-04 14:14 | disposition home or self-care (01) | LOC: HO.LNP 14:13 | PROVIDERS: Visit Provider Internal Medicine Medical Oncology | DX: L02.91 Cutaneous abscess, unspecified (principal) | CPT/HCPCS: 87071; 87205 ==

== ENCOUNTER 2022-04-11 14:38 | Outpatient (REF) | payer MEDICARE, MEDICAID, SELFPAY ==
--- NOTE | ~2022-04-11 | CT_ITS ---
EXAMINATION: CT CHEST SCREENING CLINICAL INFORMATION: Nicotine dependence. COMPARISON: None. TECHNIQUE: Multidetector volumetric CT imaging of the chest is performed without contrast using low dose technique. Additional 2D coronal and sagittal reformatted images and axial 3D maximum intensity projection (MIP) images are generated on the CT workstation. This CT examination was performed using dose optimization techniques as appropriate, variously including the following: *Automated exposure control *Adjustment of mA and/or kV according to patient size (this includes techniques or standardized protocols for targeted exams where dose is matched to indication/reason for exam; i.e. extremities or head) *Use of iterative reconstruction technique DLP: 50 mGy-cm FINDINGS: LUNGS: The lungs are well expanded with minimal platelike atelectasis right lung base. There is a 3 mm nodule right middle lobe axial image 261/6, pleural-based 3 mm nodule in the lingula image 266/6, 2 mm nodule left upper lobe anterior segment image 213/6. MEDIASTINUM: The thyroid lobes are symmetric and normal. The central trachea and the bronchi are widely patent. Heart size and the great vessels are normal caliber. There is no pericardial effusion. No abnormal-sized mediastinal or hilar lymph nodes seen. PLEURA: There is no pleural effusion. No pleural mass or thickening. AXILLA: There are small scattered shotty lymph nodes. The chest wall is unremarkable. UPPER ABDOMEN: Visualized liver, spleen, pancreas and bilateral adrenal glands are unremarkable. The gallbladder has been removed. OSSEOUS STRUCTURES: There is mild ventral spondylosis mid and lower dorsal spine. CT/CT lung screening IMPRESSION: 3 mm scattered pulmonary nodules, stable compared to CTA chest 02/19/2021. No acute pneumonic process seen. ASSESSMENT: Lung-RADS category 2: Benign RECOMMENDATION: Low-dose annual CT chest.
== END 2022-04-11 14:39 | disposition home or self-care (01) ==
LOC: HO.CT 14:38
PROVIDERS: PCP Internal Medicine Medical Oncology; Visit Provider Physician Assistant Medical
DX: Z12.2 Encounter for screening for malignant neoplasm of respiratory organs (principal); Z87.891 Personal history of nicotine dependence
CPT/HCPCS: 71271; G0296

== ENCOUNTER 2022-07-28 10:26 | Outpatient (REF) | payer MEDICARE, MEDICAID, SELFPAY ==
[2022-07-28 10:39] LABS: MANUAL DIFF FLAG NO
[2022-07-28 12:11] LABS: Basophils Absolute Auto 0.1 X10*3/uL (0.0-0.2); Basophils Percent Auto 1.6 % (0-2); Eosinophils Absolute Auto 0.4 X10*3/uL (0.0-0.4); Eosinophils Percent Auto 5.9 % (0-4); Hematocrit 38.7 % (37.0-47.0); Hemoglobin 12.9 g/dl (12.0-16.0); Imm Gran Abs Auto 0.02 X10*3/uL (0.00-0.03); Imm Gran Pct Auto 0.3 % (0.0-0.4); Lymphocytes Absolute Auto 2.2 X10*3/uL (1.2-4.9); Lymphocytes Percent Auto 34.3 % (20-40); Mean Corpuscular HGB Conc 33.3 g/dl (31.0-35.0); Mean Corpuscular Hemoglobin 29.8 pg (27.0-33.0); Mean Corpuscular Volume 89.4 fL (80.0-98.0); Mean Platelet Volume 10.5 fL (9.4-12.3); Monocytes Absolute Auto 0.4 X10*3/uL (0.1-1.2); Monocytes Percent Auto 6.5 % (2-11); Neutrophils Absolute Auto 3.2 x10*3/uL (2.0-8.3); Neutrophils Percent Auto 51.4 % (45-73); Platelet Count 230 X10*3/uL (160-400); Red Blood Count 4.33 X10*6/uL (4.20-5.50); Red Cell Distribution Width 12.1 % (11.0-16.0); White Blood Count 6.3 X10*3/uL (4.8-10.8)
[2022-07-28 12:27] LABS: Estimated Average Glucose 157 mg/dL; Hemoglobin A1c % 7.1 %
[2022-07-28 12:38] LABS: Alanine Aminotransferase 16 U/L (0-31); Albumin Level 4.2 g/dL (3.5-5.0); Alkaline Phosphatase 68 U/L (39-117); Anion Gap 9 (12-20); Aspartate Amino Transferase 14 U/L (5-31); Bilirubin Total 0.7 mg/dL (0.0-1.0); Blood Urea Nitrogen 14 mg/dL (9-16); Calcium 9.2 mg/dL (8.4-10.2); Carbon Dioxide 30 mmol/L (22-29); Chloride 108 mmol/L (96-108); Cholesterol 212 mg/dL; Estimated Glomerular Filt Rate > 60; Glucose Fasting 145 mg/dL (60-99); HDL Cholesterol 38 mg/dL; LDL Cholesterol Calculated 154 mg/dl; Potassium 4.3 mmol/L (3.3-5.1); Sodium 143 mmol/L (135-145); Triglycerides 100 mg/dL
== END 2022-07-28 10:27 | disposition home or self-care (01) ==
LOC: HO.LAB 10:26
PROVIDERS: PCP Internal Medicine Medical Oncology; Visit Provider Internal Medicine Medical Oncology
DX: M79.7 Fibromyalgia (principal); E78.5 Hyperlipidemia, unspecified; E11.9 Type 2 diabetes mellitus without complications
CPT/HCPCS: 36415; 80053; 80061; 83036; 85025

== ENCOUNTER 2022-12-09 10:11 | Outpatient (REF) | payer MEDICARE, MEDICAID, SELFPAY ==
[2022-12-09 10:33] LABS: MANUAL DIFF FLAG NO
[2022-12-09 13:02] LABS: Basophils Absolute Auto 0.1 X10*3/uL (0.0-0.2); Basophils Percent Auto 1.2 % (0-2); Eosinophils Absolute Auto 0.4 X10*3/uL (0.0-0.4); Eosinophils Percent Auto 5.4 % (0-4); Hematocrit 37.3 % (37.0-47.0); Hemoglobin 12.5 g/dl (12.0-16.0); Imm Gran Abs Auto 0.04 X10*3/uL (0.00-0.03); Imm Gran Pct Auto 0.6 % (0.0-0.4); Lymphocytes Absolute Auto 2.3 X10*3/uL (1.2-4.9); Lymphocytes Percent Auto 34.9 % (20-40); Mean Corpuscular HGB Conc 33.5 g/dl (31.0-35.0); Mean Corpuscular Hemoglobin 30.5 pg (27.0-33.0); Mean Platelet Volume 10.7 fL (9.4-12.3); Monocytes Absolute Auto 0.4 X10*3/uL (0.1-1.2); Monocytes Percent Auto 6.6 % (2-11); Neutrophils Absolute Auto 3.4 x10*3/uL (2.0-8.3); Neutrophils Percent Auto 51.3 % (45-73); Platelet Count 220 X10*3/uL (160-400); Red Cell Distribution Width 12.1 % (11.0-16.0); White Blood Count 6.7 X10*3/uL (4.8-10.8)
[2022-12-09 13:21] LABS: Estimated Average Glucose 154 mg/dL
[2022-12-09 13:50] LABS: Alanine Aminotransferase 19 U/L (0-31); Alkaline Phosphatase 71 U/L (39-117); Anion Gap 13 (12-20); Aspartate Amino Transferase 14 U/L (5-31); Bilirubin Total 0.8 mg/dL (0.0-1.0); Blood Urea Nitrogen 10 mg/dL (9-16); Calcium 8.9 mg/dL (8.4-10.2); Carbon Dioxide 27 mmol/L (22-29); Chloride 106 mmol/L (96-108); Cholesterol 205 mg/dL; Estimated Glomerular Filt Rate > 60; Glucose Fasting 128 mg/dL (60-99); HDL Cholesterol 37 mg/dL; LDL Cholesterol Calculated 150 mg/dl; Potassium 4.3 mmol/L (3.3-5.1); Sodium 142 mmol/L (135-145); Total Protein 6.5 g/dL (6.5-8.0); Triglycerides 91 mg/dL
[2022-12-09 14:51] LABS: Creatinine Urine 66.63 mg/dL; Microalbum/Creatinine Ratio Ur 16.5 ug/mg cr
== END 2022-12-09 10:12 | disposition home or self-care (01) ==
LOC: HO.LAB 10:11
PROVIDERS: PCP Internal Medicine Medical Oncology; Visit Provider Internal Medicine Medical Oncology
DX: E78.5 Hyperlipidemia, unspecified (principal); E66.3 Overweight; E11.40 Type 2 diabetes mellitus with diabetic neuropathy, unspecified; M79.7 Fibromyalgia
CPT/HCPCS: 36415; 80053; 80061; 82043; 83036; 85025

== ENCOUNTER 2023-01-02 10:43 | Outpatient (REF) | payer MEDICARE, MEDICAID, SELFPAY ==
--- NOTE | ~2023-01-02 | MM_ITS ---
EXAMINATION: MM SCREENING DIGITAL BREAST TOMOSYNTHESIS, BILATERAL CLINICAL INFORMATION: Screening. Asymptomatic. The lifetime risk of breast cancer based on the Tyrer-Cuzick Model is 5%. COMPARISON: Mammography: 11/14/2021, 10/10/2020, outside mammography 08/23/2018, 08/11/2018 ([facility] TECHNIQUE: Digital breast tomosynthesis is performed in both the craniocaudal and mediolateral oblique views along with computer-aided detection (CAD). Synthesized 2D images are generated from the tomosynthesis. FINDINGS: There are scattered areas of fibroglandular density (ACR BI-RADS breast composition Category b). Breast tissue composition borders on heterogeneously dense. There are scattered minor bilateral asymmetries similar to prior exams. There are no significant masses, abnormal calcifications, or other abnormalities. No developing density or architectural abnormality. The axilla and skin contours are unremarkable. MM/MM tomosynthesis screening BI IMPRESSION: No mammographic evidence of malignancy. ASSESSMENT: BI-RADS 2: Benign RECOMMENDATION: Routine annual mammography screening. This patient's information was entered into a reminder system with a target due date for their next mammogram.
== END 2023-01-02 10:44 | disposition home or self-care (01) ==
LOC: HO.MAMMO 10:43
PROVIDERS: PCP Internal Medicine Medical Oncology; Visit Provider Internal Medicine Medical Oncology
DX: Z12.31 Encounter for screening mammogram for malignant neoplasm of breast (principal)
CPT/HCPCS: 77063; 77067

== ENCOUNTER 2023-01-22 11:19 | Outpatient (REF) | payer MEDICARE, MEDICAID, SELFPAY ==
[2023-01-22 13:26] LABS: Vitamin D 25-OH Total 78.8 ng/mL (>30)
== END 2023-01-22 11:20 | disposition home or self-care (01) ==
LOC: HO.LAB 11:19
PROVIDERS: PCP Internal Medicine Medical Oncology; Visit Provider Internal Medicine Medical Oncology
DX: E55.9 Vitamin D deficiency, unspecified (principal)
CPT/HCPCS: 36415; 82306

== ENCOUNTER → 2023-02-26 14:27 | Outpatient (BNVA) | payer MEDICARE, MEDICAID, SELFPAY | PROVIDERS: PCP Internal Medicine Medical Oncology; Visit Provider Nurse Practitioner Family | DX: G57.92 Unspecified mononeuropathy of left lower limb (principal); M79.672 Pain in left foot; M47.816 Spondylosis without myelopathy or radiculopathy, lumbar region; G90.529 Complex regional pain syndrome I of unspecified lower limb; G89.29 Other chronic pain | CPT/HCPCS: 99202 ==

== ENCOUNTER 2023-03-31 10:08 | Outpatient (REF) | payer MEDICARE, MEDICAID, SELFPAY ==
[2023-03-31 10:27] LABS: MANUAL DIFF FLAG NO
[2023-03-31 11:01] LABS: Basophils Absolute Auto 0.1 X10*3/uL (0.0-0.2); Basophils Percent Auto 1.2 % (0-2); Eosinophils Absolute Auto 0.4 X10*3/uL (0.0-0.4); Eosinophils Percent Auto 5.4 % (0-4); Hematocrit 39.2 % (37.0-47.0); Hemoglobin 12.9 g/dl (12.0-16.0); Imm Gran Abs Auto 0.02 X10*3/uL (0.00-0.03); Imm Gran Pct Auto 0.3 % (0.0-0.4); Lymphocytes Absolute Auto 2.1 X10*3/uL (1.2-4.9); Lymphocytes Percent Auto 30.5 % (20-40); Mean Corpuscular HGB Conc 32.9 g/dl (31.0-35.0); Mean Corpuscular Hemoglobin 29.9 pg (27.0-33.0); Mean Platelet Volume 10.3 fL (9.4-12.3); Monocytes Absolute Auto 0.4 X10*3/uL (0.1-1.2); Monocytes Percent Auto 5.7 % (2-11); Neutrophils Absolute Auto 3.9 x10*3/uL (2.0-8.3); Neutrophils Percent Auto 56.9 % (45-73); Platelet Count 219 X10*3/uL (160-400); Red Blood Count 4.31 X10*6/uL (4.20-5.50); Red Cell Distribution Width 11.9 % (11.0-16.0); White Blood Count 6.9 X10*3/uL (4.8-10.8)
[2023-03-31 11:39] LABS: Alanine Aminotransferase 14 U/L (0-31); Alkaline Phosphatase 66 U/L (39-117); Anion Gap 10 (12-20); Aspartate Amino Transferase 14 U/L (5-31); Bilirubin Total 0.5 mg/dL (0.0-1.0); Blood Urea Nitrogen 14 mg/dL (9-16); Calcium 9.2 mg/dL (8.4-10.2); Carbon Dioxide 28 mmol/L (22-29); Chloride 107 mmol/L (96-108); Cholesterol 220 mg/dL; Estimated Glomerular Filt Rate > 60; Glucose Fasting 155 mg/dL (60-99); HDL Cholesterol 40 mg/dL; LDL Cholesterol Calculated 156 mg/dl; Magnesium 1.8 mg/dL (1.6-2.6); Potassium 4.3 mmol/L (3.3-5.1); Sodium 141 mmol/L (135-145); Total Protein 7.4 g/dL (6.5-8.0); Triglycerides 122 mg/dL
[2023-03-31 11:44] LABS: Estimated Average Glucose 148 mg/dL; Hemoglobin A1c % 6.8 %
[2023-03-31 13:21] LABS: Creatinine Urine 58.31 mg/dL; Microalbum/Creatinine Ratio Ur 10.2 ug/mg cr
== END 2023-03-31 10:09 | disposition home or self-care (01) ==
LOC: HO.LAB 10:08
PROVIDERS: PCP Internal Medicine Medical Oncology; Visit Provider Internal Medicine Medical Oncology
DX: Z00.00 Encounter for general adult medical examination without abnormal findings (principal); E78.5 Hyperlipidemia, unspecified; E11.9 Type 2 diabetes mellitus without complications; M79.7 Fibromyalgia; I73.00 Raynaud's syndrome without gangrene; I73.9 Peripheral vascular disease, unspecified
CPT/HCPCS: 36415; 80053; 80061; 82043; 83036; 83735; 85025

== ENCOUNTER 2023-04-20 13:03 | Outpatient (AMB) | payer MEDICARE, MEDICAID, SELFPAY ==
--- NOTE | 2023-04-20 13:05 | A.OFFVIS_ITS ---
Intake Vital Signs 04/20/23 13:11 Height 5 ft 3 in Weight 157 lb 6 oz BMI 27.9 BP 146/72 H Blood Pressure Location Lt brachial Position Sitting Pulse 71 Pulse Source Pulse Oximeter Pulse Oximetry (%) 97 Oxygen Delivery Method Room Air Intake Visit Reasons: Follow Up/Procedure Discussion Intake Note: Pain today 03/02. Broom Handle Dipper Required: No Accompanied by: Self / Same As Patient Allergies lisinopril Allergy (Mild, Verified 04/20/23 13:11) coughing acetaminophen [From Percocet] Allergy (Unknown, Verified 04/20/23 13:11) Vomiting oxycodone [From Percocet] Allergy (Unknown, Verified 04/20/23 13:11) Vomiting hydromorphone [From Dilaudid] Adverse Reaction (Intermediate, Verified 04/20/23 13:11) Vomiting Medication List - Last Reconciled 04/20/23 by TREE Vera acetaminophen 1 tab PO Q6H PRN calcium carbonate 500 mg PO DAILY cholecalciferol (vitamin D3) 1,250 mcg PO QWEEK diclofenac sodium 1% grams topical TID gabapentin 600 mg PO TID glipizide 10 mg PO QAM ibuprofen 800 mg PO Q6H PRN lidocaine 5% 1 patch topical DAILY metformin 1,000 mg PO BID HPI HPI Comments History of Present Illness Details Patient presents today for follow up to discuss procedure for lumbar sympathetic nerve block and neuromodulation with SCS trial as well as [facility] record review follow up. She was last seen at [facility] on 12/19/22 for chronic left foot pain and unsuccessful trial of PNS with Nalus. Patient also underwent left L4-L5 TFESI injection in August 2022 with no pain relief. Patient reports her left foot pain is constant extending which is localized to distal dorsal and plantar areas of her foot with extension medially and laterally. It also invol ves her 2nd through 4th toes and occasionally big toe. There is no weakness with flexion or dorsiflexion or foot drop. She continues to attribute her chronic pain due to a blood clot in the popliteal fossa which caused decreased blood flow and chronic foot pain. Patient reports no additional surgery was offered by Vascular services. She also reports widespread pain due to exacerbation of fibromyalgia. She takes Ibuprofen, Tylenol and gabapentin. Denies any recent cough, cold, infection, fever or other significant changes in medical history since last office visit. Patient denies any bladder or bowel incontinence or saddle anesthesia. 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 She also reports skin discoloration in winter time with purplish skin changes. Currently presents with allodynia, severe hyperalgesia, stiffness and sweating between her toes 2nd-4th, no temperature changes, normal capillary refill in both feet. Pain affects her daily activities, functioning, sleep, mood and social interactions. Denies any fever, weight changes, bladder or bowel incontinence or saddle anesthesia. Patient reports she received vascular surgery consultations and treatments at [facility] in [address] Garibay at [facility] in 2020. Patient also underwent nerve testing for left LE at [facility] Carrasco, this report is not available today. She was followed by [facility] Pain management for chronic pain and received multiple back injections, including ESIs, nerve blocks and peripheral nerve stimulation with SPRINT for LLE pain twice without pain relief. She did have a period when the pain in her toes of left foot was completely resolved per PCP provider notes early spring 2021. Patient has significant smoking history with smoking onset 9yo, 1/2ppd x 50yrs, 25 pyh - quit 04/2020 and currently follows with Pulmonology services for annual LDCT. Recent left foot MRI and lumbar spine xray imaging reports are noted below. Ibuprofen and gabapentin has been providing partial symptomatic relief. Patient?s symptoms are consistent with Complex regional pain syndrome of left lower extremity and arthritis joint pain. I offered this patient to treat her CRPS with a LiquiGlide spinal cord stimulator trial. Location Left foot and toes, minimal axial low back discomfort Duration Chronic for 3-4 years, history of Characteristics of symptom or complaint Dull, aching, shock-like, stabbing Aggravating or associated factors Walking, touching, cold weather Relieving factors Ibuprofen, gabapentin, lidocaine patches Treatment [facility]-left sciatic PNS trials x2, lumbar SAYRA and other back injections [facility] Medical History Anxiety Chronic hepatitis C History of fibromyalgia NIDDY (non-insulin dependent diabetes mellitus in young) Personal history of nicotine dependence Tubular adenoma of colon (~2020) Surgical History History of cholecystectomy History of colonoscopy History of endometrial ablation History of endoscopy History of foot surgery Family History Father HTN (hypertension) Lung cancer Mother Asthma Thyroid disease Cardiac arrest Family/Other Breast cancer Social History Alcohol intake: current Alcohol intake frequency: does not drink Patient Tobacco Use Status: Former Tobacco user Quit Date: 04/2020 Tobacco use type: Cigarette Years Smoked: (onset 9yo, 1/2ppd x 50yrs, 25pyh - quit 04/2020) Review of Systems Const All systems reviewed & are unremarkable except as noted in HPI and below Physical Exam Vital Signs: Last Vital Signs Pulse 71 04/20/23 13:11 BP 146/72 H 04/20/23 13:11 Pulse Ox 97 04/20/23 13:11 Oxygen Delivery Method Room Air 04/20/23 13:11 BMI result Body Mass Index 27.9 General: Appears afebrile. Alert and oriented. Mood and affect appropriate. Follows and participates in conversation appropriately. Respiratory effort is unlabored. No cough. Able to transition from sit to stand unassisted. Ambulates with normal heel strike and toe off on the right and difficulty on the left due to pain. Extrem General: Yes capillary refill normal, Yes no clubbing, cyanosis or edema and Yes no calf tenderness Left lower extremity: foot (Hyperalgesia and allodynia big toe and 2nd-4th toes and between the toes. ) Details: normal capillary refill, tenderness Location: of the dorsal foot and of the plantar foot and vascular exam Details: dorsalis pedis pulse present, posterior tibial pulse present and normal capillary refill; not cool and no cyanosis; no unusual warmth, no ecchymosis and no crepitus Assessment & Plan Assessment & Plan (1) Neuropathy of left lower extremity: Code(s): G57.92 - Unspecified mononeuropathy of left lower limb (2) Chronic pain in left foot: Code(s): M79.672 - Pain in left foot; G89.29 - Other chronic pain (3) CRPS 1, lower extremity: Code(s): G90.529 - Complex regional pain syndrome I of unspecified lower limb (4) Lumbar spondylosis: Code(s): M47.816 - Spondylosis without myelopathy or radiculopathy, lumbar region Plan Patient?s symptoms are consistent with Complex regional pain syndrome of left lower extremity and arthritic joint pain. Reviewed with patient neuromodulation with SCS trial and Lumbar Sympathetic Block. [facility] records reviewed, reports was scanned into patient's chart. Schedule Left Lumbar Sympathetic Block with local and fluoroscopy. If this only provides limited relief, we will consider SCS trial as next steps. Discussed need for psychology clearance prior to SCS trial. Expectations, risks and benefits were reviewed. Patient is aware he will be contacted to schedule this procedure. All questions were answered and the patient is in agreement of plan. All questions were answered and the patient is in agreement with the treatment plan. Follow up after injection and sooner if needed. Coding Level of Care Code Est Pt Level 4 (20719) Diagnoses Neuropathy of left lower extremity G57.92 Chronic pain in left foot M79.672; G89.29 CRPS 1, lower extremity G90.529 Lumbar spondylosis M47.816
[2023-04-20 13:11] VITALS: BP 146/72; PULSE 71; O2SAT 97; BMI 27.9
== END 2023-04-20 13:36 | disposition home or self-care (01) ==
PROVIDERS: PCP Internal Medicine Medical Oncology; Visit Provider Nurse Practitioner Family
DX: G57.92 Unspecified mononeuropathy of left lower limb (principal); M79.672 Pain in left foot; G90.529 Complex regional pain syndrome I of unspecified lower limb; M47.816 Spondylosis without myelopathy or radiculopathy, lumbar region
CPT/HCPCS: 99214

== ENCOUNTER → 2023-04-20 13:03 | Outpatient (BNVA) | payer MEDICARE, MEDICAID, SELFPAY | PROVIDERS: PCP Internal Medicine Medical Oncology; Visit Provider Nurse Practitioner Family | DX: G90.522 Complex regional pain syndrome I of left lower limb (principal); G57.92 Unspecified mononeuropathy of left lower limb; M47.816 Spondylosis without myelopathy or radiculopathy, lumbar region | CPT/HCPCS: 99212 ==

== ENCOUNTER → 2023-05-07 09:25 | Outpatient (BNVA) | payer MEDICARE, MEDICAID, SELFPAY | PROVIDERS: PCP Internal Medicine Medical Oncology; Visit Provider Nurse Practitioner Family ==

== ENCOUNTER 2023-05-25 09:27 | Outpatient (AMB) | payer MEDICARE, MEDICAID, SELFPAY ==
--- NOTE | 2023-05-25 09:30 | MHC.OFFVIS ---
Intake Vital Signs 05/25/23 09:31 Height 5 ft 3 in Weight 148 lb BMI 26.2 Blood Pressure Location Lt brachial Position Sitting Respiration 14 Pulse 69 Pulse Source Pulse Oximeter Pulse Oximetry (%) 98 Oxygen Delivery Method Room Air Intake Visit Reasons: follow up about injections Allergies lisinopril Allergy (Mild, Verified 05/25/23 09:32) coughing oxycodone [From Percocet] Allergy (Unknown, Verified 05/25/23 09:32) Vomiting hydromorphone [From Dilaudid] Adverse Reaction (Intermediate, Verified 05/25/23 09:32) Vomiting Medication List - Last Reconciled 05/25/23 by Shirin Prater LPN acetaminophen 1 tab PO Q6H PRN calcium carbonate 500 mg PO DAILY cholecalciferol (vitamin D3) 1,250 mcg PO QWEEK diclofenac sodium 1% grams topical TID gabapentin 600 mg PO TID glipizide 10 mg PO QAM ibuprofen 800 mg PO Q6H PRN lidocaine 5% 1 patch topical DAILY metformin 1,000 mg PO BID HPI follow up about injections HPI Details 62-year-old female who presents today to the office for a follow-up about injections. The patient reports intermittent swelling and discoloration of her left first three toes for the past two years. She noticed a blood clot in her lower extremities about two years ago, and she received vascular surgery consultations and treatments at [facility] in 2021, as well as Dr. Garibay at [facility] in 2020. She had two rounds of PNS with Nalu without any benefits. The patient also underwent a left L4-L5 TFESI injection in August 2022 with no pain relief. She was followed by [facility] Pain Management for chronic pain and received multiple back injections, including ESIs and nerve blocks for her foot pain without pain relief. She takes Ibuprofen, Tylenol, and gabapentin. 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) Personal history of nicotine dependence Tubular adenoma of colon (~2020) Surgical History History of cholecystectomy History of colonoscopy History of endometrial ablation History of endoscopy History of foot surgery Family History Father HTN (hypertension) Lung cancer Mother Asthma Thyroid disease Cardiac arrest Family/Other Breast cancer Social History Alcohol intake: current Alcohol intake frequency: does not drink Patient Tobacco Use Status: Former Tobacco user Quit Date: 04/2020 Tobacco use type: Cigarette Years Smoked: (onset 9yo, 1/2ppd x 50yrs, 25pyh - quit 04/2020) Review of Systems Const All systems reviewed & are unremarkable except as noted in HPI and below Physical Exam Vital Signs: Last Vital Signs Pulse 69 05/25/23 09:31 Resp 14 05/25/23 09:31 Pulse Ox 98 05/25/23 09:31 Oxygen Delivery Method Room Air 05/25/23 09:31 BMI result Body Mass Index 26.2 General: Appears afebrile. Alert and oriented. Mood and affect appropriate. Follows and participates in conversation appropriately. Respiratory effort is unlabored. Able to transition from sit to stand unassisted. Ambulates with bilaterally normal heel strike and toe off. Discoloration and tenderness of the 1st 3 Left foot toes. Office Procedures Nerve Block Details: Left posterior tibial nerve block, ultrasound guided After obtaining written consent, pre-procedure blood pressure and heart rate were stable and recorded in the nursing record. The patient was placed supine on the table. The lower leg area was widely prepped with chloraprep, allowed to dry. Using ultrasound, the appropriate landmarks including the posterior tibial artery and nerve were identified. A 25 gauge 1.5 in needle was advanced under ultrasound guidance to the target and 3 cc of lidocaine 1% was injected around the nerve. The needle was removed, skin cleansed and a sterile bandage was applied. The patient tolerated the procedure well and no complications were encountered. Following the procedure the patient's vital signs and foot strength were stable. The patient was discharged home in good condition with post-procedural instructions. Time Out: Immediately prior to the procedure, the following was verbally confirmed that there is a signed consent form and that the correct patient, planned procedure, site and side are consistent with documentation and that necessary equipment and/or blood products are available prior to the start of the case. Complications: none EBL: <1 cc Note: An ultrasound image of the injection was taken and stored in the permanent record. Procedure code (CPT) selection complete Results Reviewed Results Reviewed: No imaging is available for review. Assessment & Plan Assessment & Plan (1) CRPS 1, lower extremity: Code(s): G90.529 - Complex regional pain syndrome I of unspecified lower limb Qualifiers: Laterality: left Qualified Code(s): G90.522 - Complex regional pain syndrome I of left lower limb (2) Chronic pain in left foot: Code(s): M79.672 - Pain in left foot; G89.29 - Other chronic pain Plan The patient had multiple questions about her treatment options, all of which were answered to her satisfaction. The patient is status post left posterior tibial nerve block, ultrasound guided for potential procedure planning of peripheral nerve stimulation in the future. Unfortunately I did not see good sonoanatomy for tibial nerve for electrode placement in the lower leg so if we do proceed with PNS, I will target the popliteal fossa for the tibial nerve at that level. For now we will proceed with it left lumbar sympathetic block as previously planned and the patient is in agreement. She has exhausted multiple other treatment modalities including oral medications, physical therapy and temporal neuromodulation with a Nalu device. Scribed for Dr. Parish by Karthik Naik, medical coding technician, on 05/25/2023. I, Dr. Parish, have personally reviewed and agree with the information entered by the scribe. Coding Level of Care Code Est Pt Level 4 (92782) Diagnoses Complex regional pain syndrome type 1 of left lower extremity G90.522 Laterality: left Chronic pain in left foot M79.672; G89.29
[2023-05-25 09:31] VITALS: PULSE 69; RESP 14; O2SAT 98; BMI 26.2
== END 2023-05-25 10:30 | disposition home or self-care (01) ==
PROVIDERS: PCP Internal Medicine Medical Oncology; Visit Provider Internal Medicine
DX: G90.522 Complex regional pain syndrome I of left lower limb (principal); M79.672 Pain in left foot
CPT/HCPCS: 64450; 76942; 99214

== ENCOUNTER → 2023-05-25 09:27 | Outpatient (BNVA) | payer MEDICARE, MEDICAID, SELFPAY | PROVIDERS: PCP Internal Medicine Medical Oncology; Visit Provider Internal Medicine | DX: G90.522 Complex regional pain syndrome I of left lower limb (principal); M79.672 Pain in left foot; M79.7 Fibromyalgia | CPT/HCPCS: 64450; 99212 ==

== ENCOUNTER 2023-07-23 10:32 | Outpatient (REF) | payer MEDICARE, MEDICAID, SELFPAY ==
--- NOTE | 2023-07-23 | ECG_ITS ---
Test Reason : R07.9 CHEST PAIN R05.9 COUGH Blood Pressure : / mmHG Vent. Rate : 065 BPM Atrial Rate : 065 BPM P-R Int : 114 ms QRS Dur : 072 ms QT Int : 404 ms P-R-T Axes : 048 056 050 degrees QTc Int : 420 ms Normal sinus rhythm Normal ECG When compared with ECG of 04-FEB-2019 15:17, No significant change was found Referred By: Golden Archuleta Electronically Signed By:MITCHELL BEAVERS MD
--- NOTE | ~2023-07-23 | XR_ITS ---
EXAMINATION: XR CHEST CLINICAL INFORMATION: Chest pain COMPARISON: For 11/28/2019 TECHNIQUE: 2 views of the chest were obtained. FINDINGS: No significant abnormality is noted involving the heart, lungs, mediastinum, bony thorax or soft tissues. XR/XR chest 2V IMPRESSION: Unremarkable examination.
== END 2023-07-23 10:33 | disposition home or self-care (01) ==
LOC: HO.XRAY 10:32
PROVIDERS: PCP Internal Medicine Medical Oncology; Visit Provider Internal Medicine Medical Oncology
DX: R07.9 Chest pain, unspecified (principal); R05.9 Cough, unspecified
CPT/HCPCS: 71046; 93005

== ENCOUNTER → 2023-07-23 10:32 | Outpatient (BNV) | payer MEDICARE, MEDICAID, SELFPAY | PROVIDERS: PCP Internal Medicine Medical Oncology; Visit Provider Internal Medicine Cardiovascular Disease | DX: R07.9 Chest pain, unspecified (principal) | CPT/HCPCS: 93010 ==

== ENCOUNTER 2023-07-24 10:00 | Outpatient (AMB) | payer MEDICARE, MEDICAID, SELFPAY ==
--- NOTE | 2023-07-24 10:11 | A.OFFVIS_ITS ---
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 Required: No Information Interpreted: non-clinical & clinical Supervisor Phosphatic Fertilizer: Supervisor Phosphatic Fertilizer Present (Carrie ALFARO) Accompanied by: Self / Same As Patient Allergies lisinopril Allergy (Mild, Verified 07/24/23 10:18) coughing oxycodone [From Percocet] Allergy (Unknown, Verified 07/24/23 10:18) Vomiting hydromorphone [From Dilaudid] Adverse Reaction (Intermediate, Verified 07/24/23 10:18) Vomiting Post menopausal: Yes HPI HPI Comments History of Present Illness Details She is a postmenopausal woman presenting for her annual cellular tower climber examination. She is doing well with concerns: small bump that comes and goes on her right labia, not bothersome today. Attempting to eat a healthy diet with calcium and vitamin D and stays active with exercise. Currently sexually active. Denies any vaginal dryness or irritation. Last pap smear; 12/2020-neg. Last mammogram; 12/2022. Colonoscopy is UTD. Denies any family history of breast, ovarian or colon cancer. [facility] Medical History Personal history of nicotine dependence Tubular adenoma of colon (~2020) Anxiety History of fibromyalgia NIDDY (non-insulin dependent diabetes mellitus in young) Chronic hepatitis C Surgical History History of foot surgery History of endoscopy History of colonoscopy History of endometrial ablation History of cholecystectomy Family History Father HTN (hypertension) Lung cancer Mother Asthma Thyroid disease Cardiac arrest Family/Other Breast cancer Social History Household Members: None Housing: Condominium Alcohol intake: current Alcohol intake frequency: does not drink Patient Tobacco Use Status: Former Tobacco user Quit Date: 04/2020 Tobacco use type: Cigarette Years Smoked: (onset 9yo, 1/2ppd x 50yrs, 25pyh - quit 04/2020) Current occupational status: employed Current occupation: [employer] Sexual orientation: Straight/Heterosexual Gender identity: Female Female Reproductive History Menstrual Menopause type: natural Total pregnancies: 2 Number of Living Children: 2 Date of last pap smear: 12/31/20 Date of Mammogram: 01/02/23 Review of Systems Const All systems reviewed & are unremarkable except as noted in HPI and below Reports as per HPI Eyes Reports no additional complaints ENT Reports no additional complaints Card Reports no additional complaints Resp Reports no additional complaints GI Reports as per HPI and Reports no additional complaints Reports as per HPI Musc Reports no additional complaints Skin/Breast Reports as per HPI Neuro Reports no additional complaints Psych Reports no additional complaints Endo Reports no additional complaints Sami/Lymph Reports no additional complaints Aller/Immun Reports no additional complaints Physical Exam Vital Signs: Last Vital Signs BP 118/66 07/24/23 10:13 BMI result Body Mass Index 27.1 Const General: cooperative, healthy appearing, no acute distress, well developed and alert Orientation/consciousness: patient oriented x3 HEENT Head: Yes normal to inspection Eyes General: appearance normal, both eyes and all related structures Neck Neck: Yes normal visual inspection Thyroid: Thyroid normal Chest Chest palpation & inspection: normal inspection of the chest and other (no puckering, dimpling, peau de orange, retraction, discharge, masses) Breast/axilla inspection: normal inspection of the breasts Breast/axilla palpation: normal palpation of the breasts Resp Effort & Inspection: normal respiratory effort GI Inspection: Yes normal to inspection Palpation (GI): Soft to palpation Rectal Exam - Female: deferred Other: External labia no sebaceous gland inflammation noted General: Yes bladder normal to palpation External Female Exam: normal external appearance and normal appearance of the urethra Speculum Exam - Vagina: normal appearance of the vagina, normal palpation, normal vaginal discharge and vagina atrophic Speculum Exam - Cervix: normal appearance of the cervix and normal palpation Bimanual exam- vagina & uterus: normal bimanual exam, normal palpation, uterine size normal, bladder normal to palpation, normal palpation and non-tender Bimanual Exam- Adnexa, other: no masses Skin General skin exam: no rashes or lesions noted Rashes: no rashes Neuro General: patient oriented x3 Cognition (Neuro): normal cognition Extrem General: Yes normal to inspection Psych Attitude: cooperative Thought process: Normal thought process present Assessment & Plan Assessment & Plan (1) Encounter for well woman exam with routine gynecological exam: Code(s): Z01.419 - Encounter for gynecological examination (general) (routine) without abnormal findings Plan Discussed: Current recommendations for pap smears per ASCCP guidelines. Breast awareness, periodic self breast exams and yearly mammogram. Maintain a healthy lifestyle, well balanced diet including Calcium 1,200 mg and Vitamin D 600 IU daily, and routine exercise. Contact the office with any postmenopausal bleeding. Reassured small sebaceous cyst on the labia are common, can use a warm compress if it becomes inflamed, if it becomes infected she should call for an appointment evaluation here in the office. All of her questions and concerns were addressed to the best of my ability. RTO in 1 year for annual cellular tower climber exam. Coding Level of Care Code Est Pt Prev Care 40-64y(01073) Diagnoses Encounter for well woman exam with routine gynecological exam Z01.419
[2023-07-24 10:13] VITALS: BP 118/66; BMI 27.1
== END 2023-07-24 10:42 | disposition home or self-care (01) ==
LOC: HO.HWS 10:00
PROVIDERS: PCP Internal Medicine Medical Oncology; Visit Provider Advanced Practice Midwife
DX: Z01.419 Encounter for gynecological examination (general) (routine) without abnormal findings (principal)
CPT/HCPCS: G0101

== ENCOUNTER → 2023-07-24 10:00 | Outpatient (BNVA) | payer MEDICARE, MEDICAID, SELFPAY | PROVIDERS: PCP Internal Medicine Medical Oncology; Visit Provider Advanced Practice Midwife | DX: Z01.419 Encounter for gynecological examination (general) (routine) without abnormal findings (principal) | CPT/HCPCS: G0101 ==

== ENCOUNTER 2023-09-28 09:05 | Outpatient (REF) | payer MEDICARE, MEDICAID, SELFPAY ==
[2023-09-28 09:32] LABS: MANUAL DIFF FLAG NO
[2023-09-28 10:12] LABS: Color Urine Yellow; Glucose Urine UA Negative (Negative); Leukocyte Esterase Urine Negative (Negative); Nitrite Urine Negative (Negative); PH 6.5 (5.0-9.0); Specific Gravity - Urine 1.015 (1.005-1.025); Urine Blood Negative (Negative); Urine Ketones Negative (Negative); Urine Protein Negative (Neg-Trace)
[2023-09-28 10:15] LABS: Appearance Urine Clear
[2023-09-28 10:15] LABS: Basophils Absolute Auto 0.1 X10*3/uL (0.0-0.2); Eosinophils Absolute Auto 0.3 X10*3/uL (0.0-0.4); Hematocrit 36.2 % (37.0-47.0); Hemoglobin 12.3 g/dl (12.0-16.0); Imm Gran Abs Auto 0.04 X10*3/uL (0.00-0.03); Imm Gran Pct Auto 0.4 % (0.0-0.4); Lymphocytes Percent Auto 20.8 % (20-40); Mean Corpuscular Hemoglobin 30.3 pg (27.0-33.0); Mean Corpuscular Volume 89.2 fL (80.0-98.0); Mean Platelet Volume 10.5 fL (9.4-12.3); Monocytes Absolute Auto 0.6 X10*3/uL (0.1-1.2); Monocytes Percent Auto 6.2 % (2-11); Neutrophils Absolute Auto 6.4 x10*3/uL (2.0-8.3); Neutrophils Percent Auto 68.6 % (45-73); Platelet Count 211 X10*3/uL (160-400); Red Blood Count 4.06 X10*6/uL (4.20-5.50); Red Cell Distribution Width 11.9 % (11.0-16.0); White Blood Count 9.4 X10*3/uL (4.8-10.8)
[2023-09-28 10:22] LABS: Estimated Average Glucose 157 mg/dL; Hemoglobin A1c % 7.1 % (<6.0)
[2023-09-28 10:38] LABS: C Reactive Protein < 0.10 mg/dL (< or = 0.50)
[2023-09-28 10:44] LABS: Alanine Aminotransferase 16 U/L (0-31); Albumin Level 3.8 g/dL (3.5-5.0); Alkaline Phosphatase 73 U/L (39-117); Anion Gap 15 (12-20); Aspartate Amino Transferase 14 U/L (5-31); Bilirubin Total 0.4 mg/dL (0.0-1.0); Blood Urea Nitrogen 18 mg/dL (9-16); Calcium 9.1 mg/dL (8.4-10.2); Carbon Dioxide 26 mmol/L (22-29); Chloride 104 mmol/L (96-108); Cholesterol 192 mg/dL (<200); Estimated Glomerular Filt Rate > 60; Glucose Fasting 161 mg/dL (60-99); HDL Cholesterol 38 mg/dL (>40); LDL Cholesterol Calculated 135 mg/dL (<100); Magnesium 1.7 mg/dL (1.6-2.6); Sodium 141 mmol/L (135-145); Total Protein 6.5 g/dL (6.5-8.0); Triglycerides 98 mg/dL (<150)
[2023-09-29 11:27] LABS: Complement C3 128 mg/dL (83-193)
[2023-09-29 19:49] LABS: Anti DNA DS Antibody <1 IU/mL
== END 2023-09-28 09:06 | disposition home or self-care (01) ==
LOC: HO.LAB 09:05
PROVIDERS: PCP Internal Medicine Medical Oncology; Referring Provider Internal Medicine Medical Oncology; Visit Provider Internal Medicine Rheumatology
DX: M13.0 Polyarthritis, unspecified (principal); M36.8 Systemic disorders of connective tissue in other diseases classified elsewhere; E66.3 Overweight; E11.9 Type 2 diabetes mellitus without complications; E55.9 Vitamin D deficiency, unspecified
CPT/HCPCS: 36415; 80053; 80061; 81003; 83036; 83735; 85025; 86140; 86160; 86225

== ENCOUNTER 2023-10-05 09:45 | Outpatient (REF) | payer MEDICARE, MEDICAID, SELFPAY ==
[2023-10-05 11:42] LABS: Erythrocyte Sedimentation Rate 26 MM/HR (0-20)
== END 2023-10-05 09:46 | disposition home or self-care (01) ==
LOC: HO.LAB 09:45
PROVIDERS: PCP Internal Medicine Medical Oncology; Visit Provider Internal Medicine Rheumatology
DX: M13.0 Polyarthritis, unspecified (principal); M36.8 Systemic disorders of connective tissue in other diseases classified elsewhere
CPT/HCPCS: 36415; 85652

== ENCOUNTER 2023-11-13 13:57 | Inpatient (IN) | payer MEDICARE, MEDICAID, SELFPAY ==
--- NOTE | ~2023-11-13 | XR_ITS ---
EXAMINATION: XR CHEST CLINICAL INFORMATION: Chest pain COMPARISON: 07/23/2023 TECHNIQUE: Frontal view of the chest was obtained. FINDINGS: Lungs are well expanded and clear. No pleural effusion or pneumothorax. Cardiac silhouette is normal in size. The hilar contours are normal. Multilevel osteophyte formation of the thoracic spine. No acute skeletal findings. XR/XR chest 1V IMPRESSION: No acute pulmonary disease compared to 07/23/2023.
--- NOTE | 2023-11-13 14:03 | ED_ITS ---
HPI - Chest Pain General Chief Complaint: Chest Pain Stated Complaint: CP, RELIEF W/NITRO+ASP PER EMS Source: patient, EMS and old records reviewed Mode of arrival: EMS Limitations: no limitations History of Present Illness HPI narrative: 62 yo female with PMH of DM, hepatitis, anxiety, DVT in past not on current anticoagulation, prior chest pain workups by cardiology with normal ECHO and negative coronary CTA in 2021 here with c/o intermittent chest pain brought about by movements since Thursday with dyspnea that radiates down both arms. Relieved with nitro. Today was the worse episode after trying to move cleaning supplies. Resolved with nitro paste from EMS did not resolve with SL she tried to take at home. MD complaint: chest pain Onset (ago): day(s) (Thursday) Timing of current episode: episodic Prior episodes: Yes Onset: during rest and during exertion Pain location: substernal Pain radiation: right arm and left arm Severity: moderate Quality: tightness and heaviness Relieving factors: nothing Exacerbating factors: exertion Associated symptoms: dyspnea Treatment prior to arrival: aspirin and nitroglycerin Related Data Home Medications Medication Instructions Recorded Confirmed cholecalciferol (vitamin D3) 1,250 1,250 mcg PO QWEEK 12/31/20 05/25/23 mcg (50,000 unit) capsule glipizide 10 mg tablet 10 mg PO QAM 12/31/20 05/25/23 metformin 1,000 mg tablet 1,000 mg PO BID 12/31/20 05/25/23 acetaminophen 500 mg tablet 1 tab PO Q6H PRN Pain 04/01/21 05/25/23 ibuprofen 800 mg tablet 800 mg PO Q6H PRN 07/02/21 05/25/23 diclofenac sodium 1 % topical gel g topical TID 02/26/23 05/25/23 lidocaine 5 % topical patch 1 patch topical DAILY 02/26/23 05/25/23 gabapentin 300 mg capsule 600 mg PO TID 04/20/23 05/25/23 Previous Rx's Medication Instructions Recorded calcium carbonate 500 mg calcium 500 mg PO DAILY #90 tabs 01/08/23 (1,250 mg) tablet Allergies Allergy/AdvReac Type Severity Reaction Status Date / Time lisinopril Allergy Mild coughing Verified 07/24/23 10:18 oxycodone [From Percocet] Allergy Unknown Vomiting Verified 07/24/23 10:18 hydromorphone [From Dilaudid] AdvReac Intermediate Vomiting Verified 07/24/23 10:18 Review of Systems Review of Systems: Constitutional : No Weight loss, No Fever, No Chills ENT/Mouth : No sore throat, No Rhinorrhea Eyes: No Eye Pain, No Swelling Cardiovascular : pos Chest Pain, pos SOB, no Dyspnea on Exertion, No Orthopnea, No Edema, No Palpitations Respiratory : No Cough, No Sputum Gastrointestinal : no Nausea, No Vomiting, No Diarrhea, No abdominal Pain, No Hematochezia, No Melena Genitourinary : No Dysuria, No Urinary Frequency Musculoskeletal : No joint pain, No Myalgias, No Joint Swelling Skin : No Skin Lesions, No rash Neuro : No Weakness, No Numbness, No Dizziness, No Headache Psych : No Anxiety/Panic, No Depression All other systems reviewed and are negative [facility] Past Medical History Attestation statement: The following information was validated with the patient. Source: old records reviewed Medical History Personal history of nicotine dependence Tubular adenoma of colon (~2020) Anxiety History of fibromyalgia NIDDY (non-insulin dependent diabetes mellitus in young) Chronic hepatitis C Surgical History History of foot surgery History of endoscopy History of colonoscopy History of endometrial ablation History of cholecystectomy Family History Family History Father HTN (hypertension) Lung cancer Mother Asthma Thyroid disease Cardiac arrest Family/Other Breast cancer Social History Social History Household Members: None Housing: Condominium Alcohol intake: current Alcohol intake frequency: does not drink Patient Tobacco Use Status: Former Tobacco user Quit Date: 04/2020 Tobacco use type: Cigarette Years Smoked: (onset 9yo, 1/2ppd x 50yrs, 25pyh - quit 04/2020) Advance Directives: Yes Advance Directives on File: Yes Advance Directives Date on File: 04/09/21 Current occupational status: employed 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 Oriented X3. No acute distress. Eyes: Pupils equal, round and reactive to light. ENT: Pharynx normal. Neck: Normal inspection. Neck supple. CVS: Normal heart rate and rhythm. Pulses normal. Respiratory: No respiratory distress. Breath sounds normal. Abdomen: Soft and nontender. Skin: Skin warm and dry. Normal skin color. Normal skin turgor. Extremities: No lower extremity edema. No calf ttp Neuro: Oriented X 3. No motor deficit. No sensory deficit. Course Course Course Narrative: signed out to Dr. Singh pending labs and repeat troponin Medical Decision Making Medical Decision Making MDM Narrative: 62 yo female with PMH of DM, hepatitis, anxiety, DVT in past not on current anticoagulation, prior chest pain workups by cardiology with normal ECHO and negative coronary CTA in 2021 per Cardiology notes she comes in with worsening chest pain brought on by exertion with associated dyspnea since Thursday that goes down both arms relieved by nitro. She was given nitro paste by EMS and 324mg aspirin. She has never had pain down both arms. She had prior DVT but it is not pleuritic and she has no hypoxia doubt VTE, distal pulses intact and pain is intermittent dissection unlikely. At this time pain free will obtain EKG, troponin x 2, CXR possible ACS. Her pain is not reproduceable. Differential Diagnosis Differential Diagnoses: The differential diagnosis associated with the presentation includes ACS, chest pain Admission/Observation Consideration of admission/observation: Escalation of care including admission/observation considered Lab Data [facility] Lab Attestation statement: I reviewed the patient's lab results. Independent Interpretation I performed an independent interpretation of an: EKG and Plain X-Ray Interpretation: Rate: 60 Rhythm: NSR [place]: normal Normal P waves. Normal ZION. Normal QRS complex. Poor R wave progression ST T wave : normal no SOLO qTC: 408 prior studies: no acute ischemia The study has been interpreted contemporaneously by me. . Radiology Impression Discussion of test interpretation with radiology: I have reviewed the radiologist's reading. Independent Historian Clinical information obtained from an independent historian. History obtained from or confirmed by: EMS External Record Review External record reviewed: Office record and Outpatient record Discharge Plan Discharge Clinical Impression: Precordial chest pain Patient Disposition: Still a Patient Prescriptions: No Action calcium carbonate 500 mg calcium (1,250 mg) tablet 500 mg PO DAILY Qty: 90 4RF acetaminophen 500 mg tablet 1 tab PO Q6H PRN (Reason: Pain) metformin 1,000 mg tablet 1,000 mg PO BID cholecalciferol (vitamin D3) 1,250 mcg (50,000 unit) capsule 1,250 mcg PO QWEEK glipizide 10 mg tablet 10 mg PO QAM gabapentin 300 mg capsule 600 mg PO TID ibuprofen 800 mg tablet 800 mg PO Q6H PRN lidocaine 5 % adhesive patch,medicated 1 patch topical DAILY diclofenac sodium 1 % gel topical TID
[2023-11-13 14:10] VITALS: BP 157/63; BP 164/63; PULSE 67; PULSE 68; RESP 17; TEMP 36.7; O2SAT 98; O2SAT 99; BMI 27.8
--- NOTE | 2023-11-13 14:21 | ECG_ITS ---
Test Reason : chest pain Blood Pressure : / mmHG Vent. Rate : 060 BPM Atrial Rate : 060 BPM P-R Int : 088 ms QRS Dur : 080 ms QT Int : 408 ms P-R-T Axes : 093 012 026 degrees QTc Int : 408 ms Sinus rhythm with short [place] Cannot rule out Anterior infarct , age undetermined Abnormal ECG When compared with ECG of 23-JUL-2023 10:37, No significant change was found Referred By: Yaneth Corea Electronically Signed By:FRACISCO CHEEMA
[2023-11-13 15:30] LABS: MANUAL DIFF FLAG NO
[2023-11-13 15:33] LABS: Basophils Absolute Auto 0.1 X10*3/uL (0.0-0.2); Basophils Percent Auto 1.1 % (0-2); Eosinophils Absolute Auto 0.4 X10*3/uL (0.0-0.4); Eosinophils Percent Auto 4.6 % (0-4); Hematocrit 37.1 % (37.0-47.0); Hemoglobin 12.7 g/dl (12.0-16.0); Imm Gran Abs Auto 0.02 X10*3/uL (0.00-0.03); Imm Gran Pct Auto 0.3 % (0.0-0.4); Lymphocytes Absolute Auto 2.5 X10*3/uL (1.2-4.9); Lymphocytes Percent Auto 33.1 % (20-40); Mean Corpuscular HGB Conc 34.2 g/dl (31.0-35.0); Mean Corpuscular Hemoglobin 30.5 pg (27.0-33.0); Monocytes Absolute Auto 0.4 X10*3/uL (0.1-1.2); Monocytes Percent Auto 5.5 % (2-11); Neutrophils Absolute Auto 4.2 x10*3/uL (2.0-8.3); Neutrophils Percent Auto 55.4 % (45-73); Platelet Count 196 X10*3/uL (160-400); Red Blood Count 4.17 X10*6/uL (4.20-5.50); Red Cell Distribution Width 11.9 % (11.0-16.0); White Blood Count 7.6 X10*3/uL (4.8-10.8)
[2023-11-13 15:44] VITALS: BP 138/71; PULSE 62; RESP 14; TEMP 36.2; O2SAT 96
[2023-11-13 15:47] LABS: Alanine Aminotransferase 22 U/L (0-31); Albumin Level 3.9 g/dL (3.5-5.0); Alkaline Phosphatase 76 U/L (39-117); Anion Gap 12 (12-20); Aspartate Amino Transferase 17 U/L (5-31); Bilirubin Direct 0.1 mg/dL (0.0-0.5); Bilirubin Total 0.3 mg/dL (0.0-1.0); Blood Urea Nitrogen 15 mg/dL (9-16); Carbon Dioxide 26 mmol/L (22-29); Chloride 104 mmol/L (96-108); Creatinine Clr Calc Pharmacy 76.6; Estimated Glomerular Filt Rate > 60; Glucose Random 178 mg/dL (60-115); Lipase 31 U/L (8-78); Magnesium 1.9 mg/dL (1.6-2.6); Potassium 4.1 mmol/L (3.3-5.1); Sodium 138 mmol/L (135-145)
[2023-11-13 15:52] LABS: B Type Natriuretic Peptide 128 pg/mL (<100)
[2023-11-13 15:56] LABS: Troponin-I High Sensitivity 1165.7 ng/L (<3.5-17.0)
[2023-11-13] MEDS: ondansetron HCL 4 MG/2 ML VIAL IVPUSH (16:17)
[2023-11-13] MEDS: Atorvastatin Calcium 80 MG TABLET PO (16:22)
[2023-11-13] MEDS: Heparin Sodium,Porcine 5,000 UNIT/ML VIAL 4000 UNIT IVPUSH (16:22)
[2023-11-13 16:26] LABS: Prothrombin Time 11.6 SEC (11.1-13.3)
[2023-11-13 16:34] LABS: Partial Thromboplastin Time 29.6 SEC (26.0-36.8)
--- NOTE | 2023-11-13 16:46 | PHA.MEDREC ---
Pharmacy Consult ? Medication Reconciliation Pharmacy has completed the medication reconciliation. Confirmed medication with patient and through claim history. Patient reports she is no longer taking glipizide 10mg because she doesnt like to take to many pills Also she reports that she should be taking Metformin 1000mg TID but is only taking BID.
[2023-11-13] MEDS: Heparin Sodium,Porcine/1/2NS 25,000 UNIT/250 ML IV.SOLN 8.55 UNIT IVCONT (16:49)
--- NOTE | 2023-11-13 16:51 | PM.IMHP ---
History of Present Illness Date of Service: 11/13/23 Attending physician on admission: Gm Parish Chief Complaint: Chest pain Pt is a 62-year-old female with a PMH significant for?ihr-wihpiuf-pjkravdqe diabetes type 2 with neuropathy, fibromyalgia, and chronic back pain who presents to the ED for evaluation of intermittent chest pain x4 days. Pt states symptoms began on Thursday when she developed central chest pain that radiated to both shoulders. Describes pain as ?intense? and ?sharp? and episodes would last between 2-5 minutes long and were often associated with shortness of breath. Saw PCP who prescribed nitroglycerin which helped alleviate symptoms. Today chest pain intensified and episodes lasted up to 10 minutes long, which prompted her to the ED for further evaluation. Had 1 episode of nausea but no vomiting in the ED. denies any other symptoms: No headache, diaphoresis, increased anxiety. Denies fever, chills, abdominal pain. Workup in the ED found negative EKG but initial troponin of 1065.7. Cardiology was consulted and suggested admitting the patient to the hospital for treatment with heparin drip and eventual transfer later this week to [facility] for cardiac catheterization. In the ED pt was slightly hypertensive up to 164/63, vitals otherwise WNL. Labs were significant for initial troponin 1165.7, otherwise grossly unremarkable. No leukocytosis. Stable H&H. No significant electrolyte abnormalities. Renal and hepatic function WNL. CXR showed no acute pulmonary disease. EKG demonstrated sinus rhythm with short [place], but no evidence of significant ST elevations or depressions. Pt was treated with ondansetron, statin, and started on heparin drip. Pt will be admitted to the hospital for treatment and further evaluation of NSTEMI. Review of Systems Review of Systems: Chest pain radiating to shoulders bilaterally Shortness of breath Nausea, no vomiting Denies diaphoresis, headache, increased anxiety No fever, chills, abdominal pain [facility] Medical History Personal history of nicotine dependence Tubular adenoma of colon (~2020) Anxiety History of fibromyalgia NIDDY (non-insulin dependent diabetes mellitus in young) Chronic hepatitis C Family History Father HTN (hypertension) Lung cancer Mother Asthma Thyroid disease Cardiac arrest Family/Other Breast cancer Surgical History History of foot surgery History of endoscopy History of colonoscopy History of endometrial ablation History of cholecystectomy Social History Household Members: Other Housing: Condominium Do you presently have visiting nurse or other home services: No Alcohol intake: current Alcohol intake frequency: does not drink Patient Tobacco Use Status: Former Tobacco user Quit Date: 04/2020 Tobacco use type: Cigarette Years Smoked: (onset 9yo, 1/2ppd x 50yrs, 25pyh - quit 04/2020) Smoked in Last 30 Days: No Use of substances other than those prescribed or required for medical reasons: No Currently Displaying Signs/Symptoms of Drug Intoxication Withdrawal: No Have you been hit, kicked, punched, or otherwise hurt by someone within the past year? 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 Sexual orientation: Straight/Heterosexual Gender identity: Female Meds Allergies Allergy/AdvReac Type Severity Reaction Status Date / Time lisinopril Allergy Mild coughing Verified 07/24/23 10:18 oxycodone [From Percocet] Allergy Unknown Vomiting Verified 07/24/23 10:18 hydromorphone [From Dilaudid] AdvReac Intermediate Vomiting Verified 07/24/23 10:18 Active Medications: Current Medications Heparin Sodium (Porcine) (Heparin Sodium,Porcine 5,000 Unit/Ml Vial) 2,800 unit 40 unit/kg (2800 unit) IVPUSH PROTOCOL BOLUS PRN; Protocol PRN Reason: 40 unit/kg - Heparin Protocol Heparin Sodium (Porcine) (Heparin Sodium,Porcine 5,000 Unit/Ml Vial) 5,700 unit 80 unit/kg (5700 unit) IVPUSH PROTOCOL BOLUS PRN; Protocol PRN Reason: 80 unit/kg - Heparin Protocol Heparin Sodium/Sodium Chloride (Heparin Sodium,Porcine/1/2ns) 25,000 unit in 250 mls @ 0 mls/hr IVCONT .Q0M LEROY; Protocol Home Medications Medication Instructions Recorded Confirmed Last Taken Type cholecalciferol (vitamin D3) 1,250 1,250 mcg PO MO 12/31/20 11/13/23 11/09/23 History mcg (50,000 unit) capsule metformin 1,000 mg tablet 1,000 mg PO BID 12/31/20 11/13/23 11/13/23 History acetaminophen 500 mg tablet 1 tab PO Q6H PRN Pain 04/01/21 11/13/23 Unknown History diclofenac sodium 1 % topical gel 2 g topical BID PRN Pain 02/26/23 11/13/23 11/13/23 History lidocaine 5 % topical patch 1 patch topical DAILY PRN Pain 02/26/23 11/13/23 Unknown History gabapentin 300 mg capsule 600 mg PO TID PRN Pain 04/20/23 11/13/23 11/13/23 History calcium carbonate 500 mg calcium 500 mg PO DAILY 11/13/23 11/13/23 11/13/23 History (1,250 mg) tablet ([place] Calcium 500) magnesium oxide 400 mg (241.3 mg 400 mg PO BID 11/13/23 11/13/23 11/13/23 History magnesium) tablet Physical Exam Vital Signs and Narrative: Vital Signs: Last Vital Signs Temp 97.1 F 11/13/23 15:44 Pulse 62 11/13/23 15:44 Resp 14 11/13/23 15:44 BP 138/71 11/13/23 15:44 Pulse Ox 96 11/13/23 15:44 O2 Del Method Room Air 11/13/23 15:44 BMI result Body Mass Index 27.8 Constitutional: Alert, in no acute distress. Mental Status: Oriented to person, place and time. Eyes: Pupils are equal, round, and reactive to light. Ear, Nose, and Throat: Oropharynx clear, mucous membranes moist. Ears and nose without deformities. Trachea midline. Respiratory: Clear to auscultation bilaterally. No wheezing, rales, or rhonchi. Cardiovascular: S1, S2 regular. No murmurs, rubs, or gallops. Gastrointestinal: Abdomen soft, non-tender, non-distended. Normal bowel sounds. Neurologic: Cranial nerves II-XII are grossly intact bilaterally. No focal neurological deficits. Moves all extremities spontaneously. Skin: Warm, dry. Musculoskeletal: No cyanosis or clubbing. Extremities: No edema. Psychiatric: Normal mood and affect. Results Labs 11/14/23 04:55 11/13/23 15:26 Labs: Laboratory Results - last 24 hr 11/13/23 11/13/23 15:26 16:13 MCV 89.0 MCH 30.5 MCHC 34.2 RDW 11.9 Plt Count 196 MPV 10.0 Immature Gran % (Auto) 0.3 Neut % (Auto) 55.4 Lymph % (Auto) 33.1 [place] % (Auto) 5.5 Eos % (Auto) 4.6 H Baso % (Auto) 1.1 Lymph # (Auto) 2.5 [place] # (Auto) 0.4 Eos # (Auto) 0.4 Baso # (Auto) 0.1 Abs Immat Gran (auto) 0.02 Absolute Neuts (auto) 4.2 Absolute Nucleated RBC 0.000 Nucleated RBC % (auto) 0.0 PT 12.0 11.6 INR 1.0 1.0 APTT 29.6 Anion Gap 12 Estim Creat Clear Calc 76.6 Estimated GFR > 60 Random Glucose 178 H Calcium 10.0 D Magnesium 1.9 Total Bilirubin 0.3 Direct Bilirubin 0.1 AST 17 ALT 22 Alkaline Phosphatase 76 Troponin I High Sens 1165.7 H* B-Natriuretic Peptide 128 H Total Protein 7.0 Albumin 3.9 Lipase 31 Imaging Radiologist's Impressions: Impressions Chest X-Ray 11/13/23 14:42 IMPRESSION: No acute pulmonary disease compared to 07/23/2023. Assessment and Plan (1) NSTEMI (non-ST elevated myocardial infarction): Status: Acute Plan Pt is a 62-year-old female with a PMH significant for?jhv-fqrfqjo-bzoozmdou diabetes type 2 with neuropathy, fibromyalgia, and chronic back pain who presents to the ED for evaluation of intermittent chest pain x4 days. Pt will be admitted to the hospital for treatment and further evaluation of NSTEMI. Acute NSTEMI Pt with intermittent chest pain x4 days, initial troponin 1165.7 with repeat 1129.2 EKG showed sinus bradycardia with short [place] but no evidence of significant ST elevations or depressions Patient is started on heparin drip in the ED, will continue Metoprolol 12.5 mg p.o. b.i.d. Nitro paste 0.5 in Q 6 Will start on aspirin, statin Echocardiogram Lipid panel Cardiology consult Monitor on telemetry Tfu-ijmlfln-qgaclswqz type [address] on sliding scale insulin Diabetic diet Peripheral neuropathy Continue gabapentin Full Code Attending:?Dr. Parish DVT Prophylaxis: On heparin drip Pt will require a hospitalization of at least two nights for treatment of NSTEMI. Patient will require hospitalization?for treatment with heparin drip with likely transfer to [facility] for cardiac catheterization. Patient will require close monitoring of blood levels and cardiac function, as well as specialist consultation with Cardiology. Quality Stroke Does the patient have a stroke diagnosis?: No VTE Prior VTE?: No VTE Risk Level:: Medical - moderate - high VTE Device Contraindication: Treatment Not Indicated VTE Drug Contraindication: N/A - Med Ordered
--- NOTE | 2023-11-13 17:38 | ECG_ITS ---
Test Reason : cp Blood Pressure : / mmHG Vent. Rate : 058 BPM Atrial Rate : 058 BPM P-R Int : 106 ms QRS Dur : 072 ms QT Int : 412 ms P-R-T Axes : 077 023 032 degrees QTc Int : 404 ms Sinus bradycardia with short MA Otherwise normal ECG When compared with ECG of 13-NOV-2023 15:01, No significant change was found Referred By: Yaneth Corea Electronically Signed By:FRACISCO CHEEMA
[2023-11-13 18:10] LABS: D Dimer High Sensitivity < 150 NG/ML
[2023-11-13 18:30] LABS: Troponin-I High Sensitivity 1129.2 ng/L (<3.5-17.0)
[2023-11-13 20:37] VITALS: BP 136/64; PULSE 64; RESP 17; O2SAT 98
[2023-11-13 20:44] LABS: Glucose, Whole Blood 269 mg/dL (60-115)
[2023-11-13] MEDS: Insulin Lispro 100 UNIT/ML 3 ML VIAL SUBCUT (20:45)
[2023-11-13] MEDS: Metoprolol Tartrate 12.5 MG HALFTAB PO (20:46)
[2023-11-13] MEDS: Magnesium Oxide 400 MG TABLET PO (20:46)
[2023-11-13] MEDS: Acetaminophen 325 MG TABLET 650 MG PO (20:46)
[2023-11-13 22:18] LABS: PTT Heparin Drip 69.7 SEC (53-77.9)
--- NOTE | 2023-11-13 23:04 | PC.NURSE ---
pt is a 62 year old female, A0X3 and ambulatory. Comes in with CPx 4 day. States pain in intense and sharp, located midsternal, non radiating. PMH- NIDDM2, fibro, back pain. Trops elevated at 1165/1129 and heparin drip initiated at 12 units . IV access 20 in both wrists . Pt has cardio consult, echo, and on a diabetic diet.
[2023-11-13 23:42] VITALS: BP 115/59; PULSE 52; RESP 12; TEMP 36.4; O2SAT 96
--- NOTE | 2023-11-14 | ECG_ITS ---
Test Reason : Nstemi Blood Pressure : / mmHG Vent. Rate : 073 BPM Atrial Rate : 073 BPM P-R Int : 124 ms QRS Dur : 068 ms QT Int : 382 ms P-R-T Axes : 060 031 032 degrees QTc Int : 420 ms Normal sinus rhythm Possible Anterior infarct , age undetermined Abnormal ECG When compared with ECG of 13-NOV-2023 17:36, No significant change was found Referred By: Gm Parish Electronically Signed By:FRACISCO CHEEMA
[2023-11-14 02:44] VITALS: BP 113/61; PULSE 51; RESP 16; TEMP 36.3; O2SAT 96
[2023-11-14 03:03] VITALS: BP 136/71; PULSE 59; RESP 18; TEMP 36.6; O2SAT 95
[2023-11-14 03:12] VITALS: BMI 28.5
[2023-11-14] MEDS: Acetaminophen 325 MG TABLET 650 MG PO (05:02)
[2023-11-14] MEDS: Nitroglycerin 2 % Oint 1 GM Packet 0.5 INCH TRANSDERMA (05:02)
[2023-11-14 05:04] LABS: Hematocrit 36.3 % (37.0-47.0); Hemoglobin 12.1 g/dl (12.0-16.0); Mean Corpuscular HGB Conc 33.3 g/dl (31.0-35.0); Mean Corpuscular Hemoglobin 30.2 pg (27.0-33.0); Mean Corpuscular Volume 90.5 fL (80.0-98.0); Mean Platelet Volume 10.3 fL (9.4-12.3); Platelet Count 189 X10*3/uL (160-400); Red Blood Count 4.01 X10*6/uL (4.20-5.50); Red Cell Distribution Width 11.9 % (11.0-16.0); White Blood Count 8.7 X10*3/uL (4.8-10.8)
[2023-11-14 05:12] LABS: PTT Heparin Drip 67.5 SEC (53-77.9)
[2023-11-14 05:19] LABS: Cholesterol 197 mg/dL (<200); HDL Cholesterol 40 mg/dL (>40); LDL Cholesterol Calculated 136 mg/dL (<100); Triglycerides 108 mg/dL (<150)
--- NOTE | 2023-11-14 07:00 | CA_ITS ---
Transthoracic Echocardiogram Patient (Last, First, Middle): Melva Thomas, Gender: Female Date of : 1960 Age: 62 Procedure Date: 11/14/2023 Procedure Type: Transthoracic Echocardiogram Location: [facility] [place] Height: 165.1 cm Weight: 72.58 kg BSA: 1.80 m2 Heart Rate: bpm BP: 115 / 60 mmHg Tapper Supervisor: Referring MD: Yaneth Corea DO Symptoms: chest pain elevated troponin Study Quality: Adequate ECG Rhythm: Sinus Conclusions: - The left ventricular systolic function is normal. The calculated ejection fraction is 65% by biplane method. - No obvious valvular pathology seen on this study. Findings Left Ventricle Normal left ventricular cavity size. There is mildly increased left ventricular wall thickness. The left ventricular systolic function is normal. The calculated ejection fraction is 65% by biplane method. There is no evidence of regional wall motion abnormalities. Diastolic function is normal for age. Right Ventricle Normal right ventricular cavity size and systolic function. Atria Both atria are normal in size. Aortic Valve There is a normal trileaflet aortic valve. There is no aortic valve stenosis. There is no aortic valve regurgitation. Mitral Valve The mitral valve appears normal. There is no mitral valve regurgitation. There is no mitral valve stenosis. Pulmonic Valve The pulmonic valve is likely normal. Tricuspid Valve There is trace tricuspid valve regurgitation. There is no evidence of pulmonary hypertension. Great Vessels The asc aorta is normal in size. Venous The inferior vena cava is normal in size and collapses greater than 50% with inspiration. Pericardium/Pleural There is no evidence of pericardial effusion. Prior Study Comparison No significant change compared to prior study dated: 02/15/2021. Recommendations, Care & Conclusions No obvious valvular pathology seen on this study. Measurements 2D Linear Measurements IVSd: 1.18 0.6-0.9/0.6-1.0 cm LVIDd: 4.22 3.9-5.3/4.2-5.9 cm LVIDd Index: 2.34 2.4-3.2/2.2-3.1 cm/m2 LVIDs: 2.60 2.0-3.6 cm LVPWd: 1.14 0.7-1.1 cm Ao Root: 2.60 2.1-3.5 cm LA Diam: 4.00 2.7-3.8/3.0-4.0 cm LAIDs Index: 2.22 1.5-2.3 cm/m2 LV Mass: 212.76 67-162/88-224 g LV Mass Index: 118.20 43-95/49-115 g/m2 LVOT Diam: 2.00 3.0+(-)1.3 cm 2D Systolic Function EF 4C: 67.00 >55% EF 2C: 62.30 >55% EF BiP: 65.40 >55% Mitral Valve MV Pk E: 0.80 MV PK A: 0.58 MV Decel Time: 134.00 E/A: 1.40 E'Lateral: 9.46 E'Medial: 8.38 E/E' Med: 9.50 E/E' Lat: 8.40 PHT: 39.00 MVA PHT: 5.64 Decel Giles: 5.96 Aortic Valve AoV Pk Иван: 1.45 AoV Mn Ивна: 0.85 AoV VTI: 0.32 AoV Pk Grad: 8.00 Aov Mn Grad: 4.00 SUSAN Cont.VTI: 2.52 LVOT LVOT Pk Иван: 1.20 LVOT Mn Иван: 0.67 LVOT VTI: 0.26 LVOT Pk Grad: 6.00 LVOT Mn Grad: 2.00 LVOT Diam: 2.00 LVOT Area: 3.14 Diastolic Function MV Pk E: 0.80 MV Pk A: 0.58 E/A: 1.40 E'Medial: 8.38 E/E' Med: 9.50 E' Laterial: 9.46 E/E' Lat: 8.40 Right Ventricle TAPSE (mm): 22.00 TVS' Иван: 13.00 Tricuspid Valve TR Pk Иван: 2.55 TR Pk Grad: 26.00 RA Press: 3.00 RVSP: 29.00 Great Vessels Aorta Ao Root-2D: 2.60 2.0-3.7 cm Ao Asc: 2.70 2.1-3.4 cm Pulmonary Valve PV Pk Иван: 0.99 Peak PV Grad: 4.00 Updated in Other Vendor System with Status of Final Vito Noonan MD electronically signed on 11/14/2023 12:30:30 PM with status of Final
[2023-11-14 07:10] LABS: Glucose, Whole Blood 165 mg/dL (60-115)
[2023-11-14 07:15] VITALS: BP 115/60; PULSE 64; RESP 18; TEMP 37.4; O2SAT 95
[2023-11-14] MEDS: Magnesium Oxide 400 MG TABLET PO (08:28)
[2023-11-14] MEDS: Insulin Lispro 100 UNIT/ML 3 ML VIAL SUBCUT ×2 (08:28→11:41)
[2023-11-14] MEDS: Aspirin 81 MG TAB.CHEW PO (08:28)
[2023-11-14] MEDS: Metoprolol Tartrate 12.5 MG HALFTAB PO (08:28)
[2023-11-14] MEDS: 0.9 % Sodium Chloride Flush 3 ML SYRINGE IVFLUSH (08:29)
--- NOTE | 2023-11-14 08:51 | MHC.CM.PN ---
IMM 11/14/23, Pt is independent, no home health services or medical equipment, HCP on file and confirmed: Fabiana Lipscomb, PCP confirmed: Golden Archuleta. DC plan is for pt to transfer to [facility]. CM to follow and assist as needed with DC planning.
--- NOTE | 2023-11-14 09:37 | PM.CNCAR ---
History of Present Illness History of Present Illness Date of Service: 11/14/23 Chief complaint: NSTEMI Narrative: This is a cardiology consultation regarding non ST-elevation myocardial infarction. Patient presents with history of chest pain for the last few days. She states that since Thursday she has been having substernal chest discomfort that is going to both shoulders. Apparently got nitroglycerin through PCP that was helping her. As they would not go away she came to the ER. Troponins were quite high at over a 1000 and she was then admitted. In the past, she underwent a complete workup for coronary disease including coronary CTA. That did not show any evidence of coronary disease. Hence not clear about the etiology for these troponins. Currently she seems comfortable but few hours back, she again had the same discomfort in the hospital. Review of Systems Review of Systems: Yes all other systems are reviewed and are negative Constitutional: Constitutional: Reports as per HPI and Reports no additional constitutional complaints Eyes: Eyes: Reports as per HPI and Denies no additional eye complaints ENT: Denies system reviewed and no additional complaints, except as documented and Reports as per HPI Cardiovascular: Cardiovascular: Reports as per HPI, Reports no additional cardiovascular complaints, Denies acrocyanosis, Denies cool extremities, Reports chest pain, Denies leg edema, Denies lightheadedness, Denies palpitations and Denies dyspnea Respiratory: Respiratory: Reports as per HPI, Denies no additional respiratory complaints and Denies dyspnea Gastrointestinal: Gastrointestinal: Reports as per HPI and Denies no additional gastrointestinal complaints Genitourinary: Genitourinary: Reports as per HPI Musculoskeletal: Musculoskeletal: Reports no additional musculoskeletal complaints and Reports as per HPI Integumentary/Breasts: Skin/Breast: Reports system reviewed and no additional complaints, except as docu Neurologic: Reports system reviewed and no additional complaints, except as documented and Reports as per HPI Psychiatric: Psychiatric: Reports no additional psychiatric complaints and Reports as per HPI Endocrine: Endocrine: Reports no additional endocrine complaints, Reports as per HPI and Denies palpitations Hematologic/Lymphatic: Hematologic/Lymphatic: Reports no additional hematologic/lymphatic complaints and Reports as per HPI Allergic/Immunologic: Allergic/Immunologic: Reports no additional allergic/immunologic complaints and Reports as per HPI [facility] Past Medical History Medical History Personal history of nicotine dependence Tubular adenoma of colon (~2020) Anxiety History of fibromyalgia NIDDY (non-insulin dependent diabetes mellitus in young) Chronic hepatitis C Family History Family History Father HTN (hypertension) Lung cancer Mother Asthma Thyroid disease Cardiac arrest Family/Other Breast cancer Surgical History Surgical History History of foot surgery History of endoscopy History of colonoscopy History of endometrial ablation History of cholecystectomy Social History Social History Household Members: Other Housing: Condominium Do you presently have visiting nurse or other home services: No Alcohol intake: current Alcohol intake frequency: does not drink Patient Tobacco Use Status: Former Tobacco user Quit Date: 04/2020 Tobacco use type: Cigarette Years Smoked: (onset 9yo, 1/2ppd x 50yrs, 25pyh - quit 04/2020) Smoked in Last 30 Days: No Use of substances other than those prescribed or required for medical reasons: No Currently Displaying Signs/Symptoms of Drug Intoxication Withdrawal: No Have you been hit, kicked, punched, or otherwise hurt by someone within the past year? 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 Sexual orientation: Straight/Heterosexual Gender identity: Female Meds Allergies Allergy/AdvReac Type Severity Reaction Status Date / Time lisinopril Allergy Mild coughing Verified 07/24/23 10:18 oxycodone [From Percocet] Allergy Unknown Vomiting Verified 07/24/23 10:18 hydromorphone [From Dilaudid] AdvReac Intermediate Vomiting Verified 07/24/23 10:18 Active Medications: Current Medications Acetaminophen (Acetaminophen 325 Mg Tablet) 650 mg PO Q6H PRN PRN Reason: Pain, Mild (Pain Scale 1-3) Last Admin: 11/14/23 05:02 Dose: 650 mg Aspirin (Aspirin 81 Mg Tab.Chew) 81 mg PO DAILY [facility] Last Admin: 11/14/23 08:28 Dose: 81 mg Atorvastatin Calcium (Atorvastatin Calcium 40 Mg Tablet) 40 mg PO BEDTIME [facility] Benzonatate (Benzonatate 100 Mg Capsule) 100 mg PO TID PRN PRN Reason: Cough Calcium Carbonate (Calcium Carbonate 500 Mg Tablet) 500 mg PO DAILY [facility] Last Admin: 11/14/23 08:28 Dose: 500 mg Dextrose (Dextrose 50 % 25 Gm/50 Ml Syringe) 25 gm IVPUSH Q15M PRN; Protocol PRN Reason: per Hypoglycemia Standing Ord. Docusate Sodium (Docusate Sodium 100 Mg Capsule) 100 mg PO DAILY PRN PRN Reason: Constipation Gabapentin (Gabapentin 300 Mg Capsule) 600 mg PO TID PRN PRN Reason: Pain, Mild (Pain Scale 1-3) Glucose (Glucose Gel 15 Gm Gel..Gram.) 15 gm PO Q15M PRN; Protocol PRN Reason: per Hypoglycemia Standing Ord. Heparin Sodium (Porcine) (Heparin Sodium,Porcine 5,000 Unit/Ml Vial) 2,800 unit 40 unit/kg (2800 unit) IVPUSH PROTOCOL BOLUS PRN; Protocol PRN Reason: 40 unit/kg - Heparin Protocol Heparin Sodium (Porcine) (Heparin Sodium,Porcine 5,000 Unit/Ml Vial) 5,700 unit 80 unit/kg (5700 unit) IVPUSH PROTOCOL BOLUS PRN; Protocol PRN Reason: 80 unit/kg - Heparin Protocol Heparin Sodium/Sodium Chloride (Heparin Sodium,Porcine/1/2ns) 25,000 unit in 250 mls @ 0 mls/hr IVCONT .Q0M [facility]; Protocol Last Titration: 11/14/23 05:17 Dose: 12 units/kg/hr, 8.55 mls/hr Insulin Human Lispro (Insulin Lispro 100 Unit/Ml 3 Ml Vial) 0 unit SUBCUT QIDACHS [facility]; Protocol Last Admin: 11/14/23 08:28 Dose: 2 unit Lidocaine (Lidocaine 4 % Patch Adh..Patch) 1 patch TRANSDERMA DAILY PRN PRN Reason: Pain, Mild (Pain Scale 1-3) Magnesium Oxide (Magnesium Oxide 400 Mg Tablet) 400 mg PO BID [facility] Last Admin: 11/14/23 08:28 Dose: 400 mg Melatonin (Melatonin 3 Mg Tablet) 6 mg PO BEDTIME PRN PRN Reason: Insomnia Metoprolol Tartrate (Metoprolol Tartrate 12.5 Mg Halftab) 12.5 mg PO BID [facility]; Protocol Last Admin: 11/14/23 08:28 Dose: 12.5 mg Nitroglycerin (Nitroglycerin 2 % Oint 1 Gm Packet) 0.5 inch TRANSDERMA RQ6H WHILE AWAKE PRN PRN Reason: Chest Pain Last Admin: 11/14/23 05:02 Dose: 0.5 inch Ondansetron HCl (Ondansetron Hcl 4 Mg/2 Ml Vial) 4 mg IVPUSH Q8H PRN PRN Reason: Nausea and Vomiting Sodium Chloride (0.9 % Sodium Chloride Flush 3 Ml Syringe) 3 ml IVFLUSH QSHIFT [facility] Last Admin: 11/14/23 08:29 Dose: 3 ml Home Medications Medication Instructions Recorded Confirmed Last Taken Type cholecalciferol (vitamin D3) 1,250 1,250 mcg PO MO 12/31/20 11/13/23 11/09/23 History mcg (50,000 unit) capsule metformin 1,000 mg tablet 1,000 mg PO BID 12/31/20 11/13/23 11/13/23 History acetaminophen 500 mg tablet 1 tab PO Q6H PRN Pain 04/01/21 11/13/23 Unknown History ibuprofen 800 mg tablet 800 mg PO Q6H PRN Pain 07/02/21 11/13/23 11/13/23 History diclofenac sodium 1 % topical gel 2 g topical BID PRN Pain 02/26/23 11/13/23 11/13/23 History lidocaine 5 % topical patch 1 patch topical DAILY PRN Pain 02/26/23 11/13/23 Unknown History gabapentin 300 mg capsule 600 mg PO TID PRN Pain 04/20/23 11/13/23 11/13/23 History calcium carbonate 500 mg calcium 500 mg PO DAILY 11/13/23 11/13/23 11/13/23 History (1,250 mg) tablet (Oyster Shell Calcium 500) magnesium oxide 400 mg (241.3 mg 400 mg PO BID 11/13/23 11/13/23 11/13/23 History magnesium) tablet Physical Exam Vital Signs: Vital Signs: Last Vital Signs Temp 99.3 F 11/14/23 07:15 Pulse 64 11/14/23 07:15 Resp 18 11/14/23 07:15 BP 115/60 11/14/23 07:15 Pulse Ox 95 11/14/23 07:15 O2 Del Method Room Air 11/14/23 07:15 BMI result Body Mass Index 28.5 Const: General: comfortable and no acute distress Orientation/consciousness: patient oriented x3 HEENT: Other: Unremarkable Head: Yes normal to inspection Neck: Neck: Yes normal visual inspection Chest: Chest palpation & inspection: normal inspection of the chest Resp: Auscultation: clear to auscultation bilaterally Cardio: Palpation: normal PMI Heart sounds: S1 normal heart sound present, S2 normal heart sound present, no gallops, no murmurs and no rubs GI: Palpation (GI): Soft to palpation Back/Spine/Pelvis: Other: unremarkable Skin: General skin exam: no rashes or lesions noted Neuro: General: patient oriented x3 Extrem: General: Yes normal to inspection Psych: Mental Status: mental status grossly normal Objective Labs and Meds 11/14/23 04:55 11/13/23 15:26 Lab results: Laboratory Results - last 24 hr 11/13/23 11/13/23 11/13/23 15:26 16:13 17:56 WBC 7.6 RBC 4.17 L Hgb 12.7 Hct 37.1 MCV 89.0 MCH 30.5 MCHC 34.2 RDW 11.9 Plt Count 196 MPV 10.0 Immature Gran % (Auto) 0.3 Neut % (Auto) 55.4 Lymph % (Auto) 33.1 Finney % (Auto) 5.5 Eos % (Auto) 4.6 H Baso % (Auto) 1.1 Lymph # (Auto) 2.5 Finney # (Auto) 0.4 Eos # (Auto) 0.4 Baso # (Auto) 0.1 Abs Immat Gran (auto) 0.02 Absolute Neuts (auto) 4.2 Absolute Nucleated RBC 0.000 Nucleated RBC % (auto) 0.0 Hold Purple Top PT 12.0 11.6 INR 1.0 1.0 APTT 29.6 aPTT Heparin Protocol D-Dimer High Sensitivty < 150 Sodium 138 Potassium 4.1 Chloride 104 Carbon Dioxide 26 Anion Gap 12 BUN 15 Creatinine 0.72 Estim Creat Clear Calc 76.6 Estimated GFR > 60 POC Glucose Random Glucose 178 H Calcium 10.0 D Magnesium 1.9 Total Bilirubin 0.3 Direct Bilirubin 0.1 AST 17 ALT 22 Alkaline Phosphatase 76 Total Creatine Kinase 64 Troponin I High Sens 1165.7 H* 1129.2 H* B-Natriuretic Peptide 128 H Total Protein 7.0 Albumin 3.9 Triglycerides Cholesterol LDL Cholesterol, Calc HDL Cholesterol Lipase 31 11/13/23 11/13/23 11/14/23 20:36 22:03 04:55 WBC 8.7 RBC 4.01 L Hgb 12.1 Hct 36.3 L MCV 90.5 MCH 30.2 MCHC 33.3 RDW 11.9 Plt Count 189 MPV 10.3 Immature Gran % (Auto) Neut % (Auto) Lymph % (Auto) Finney % (Auto) Eos % (Auto) Baso % (Auto) Lymph # (Auto) Finney # (Auto) Eos # (Auto) Baso # (Auto) Abs Immat Gran (auto) Absolute Neuts (auto) Absolute Nucleated RBC 0.000 Nucleated RBC % (auto) 0.0 Hold Purple Top PT INR APTT aPTT Heparin Protocol 69.7 67.5 D-Dimer High Sensitivty Sodium Potassium Chloride Carbon Dioxide Anion Gap BUN Creatinine Estim Creat Clear Calc Estimated GFR POC Glucose 269 H Random Glucose Calcium Magnesium Total Bilirubin Direct Bilirubin AST ALT Alkaline Phosphatase Total Creatine Kinase Troponin I High Sens B-Natriuretic Peptide Total Protein Albumin Triglycerides 108 Cholesterol 197 LDL Cholesterol, Calc 136 H HDL Cholesterol 40 L Lipase 11/14/23 11/14/23 11/14/23 05:34 05:35 07:02 WBC RBC Hgb Hct MCV MCH MCHC RDW Plt Count MPV Immature Gran % (Auto) Neut % (Auto) Lymph % (Auto) Finney % (Auto) Eos % (Auto) Baso % (Auto) Lymph # (Auto) Finney # (Auto) Eos # (Auto) Baso # (Auto) Abs Immat Gran (auto) Absolute Neuts (auto) Absolute Nucleated RBC Nucleated RBC % (auto) Hold Purple Top SEE NOTE PT 12.0 INR 1.0 APTT aPTT Heparin Protocol D-Dimer High Sensitivty Sodium Potassium Chloride Carbon Dioxide Anion Gap BUN Creatinine Estim Creat Clear Calc Estimated GFR POC Glucose 165 H Random Glucose Calcium Magnesium Total Bilirubin Direct Bilirubin AST ALT Alkaline Phosphatase Total Creatine Kinase Troponin I High Sens B-Natriuretic Peptide Total Protein Albumin Triglycerides Cholesterol LDL Cholesterol, Calc HDL Cholesterol Lipase ECG Interpretation: EKGs reviewed. Essentially sinus bradycardia with no significant ischemic changes. Imaging Radiologist's impression: Impressions Chest X-Ray 11/13/23 14:42 IMPRESSION: No acute pulmonary disease compared to 07/23/2023. Assessment and Plan (1) NSTEMI (non-ST elevated myocardial infarction): Status: Acute Plan Coronary CTA from 2021 showed normal coronary arteries. Troponin levels this admission are 1165 and 1129. She still gets intermittent chest pains going to both shoulders, but otherwise seems quite comfortable during my conversation. Chest x-ray seems unremarkable. Etiology for the elevated troponin seems unclear. Differential includes coronary vasospasm, coronary artery dissection and non coronary etiologies like myocarditis/pericarditis extra. Echocardiogram pending today. She needs a diagnostic catheterization for further evaluation. If this is unremarkable, then get cardiac MRI. Procedures Date of Service Date of Service: 11/14/23
[2023-11-14 10:54] LABS: Glucose, Whole Blood 209 mg/dL (60-115)
[2023-11-14 11:01] VITALS: BP 118/58; PULSE 64; RESP 18; TEMP 36.9; O2SAT 96
--- NOTE | 2023-11-14 11:14 | PM.DS ---
DS: Providers Provider Date of Service: 11/14/23 Date of admission: 11/13/23 18:44 Date of discharge: 11/14/23 Primary care physician: Golden Archuleta MD Consults: 11/13/23 16:02 Consult to Cardiology Stat Consulting Provider: [facility] [place] Cardiovascular Services Reason for consultation: chest pain, NSTEMI Has provider been notified: Yes 11/14/23 07:40 Consult to Cardiology Routine Consulting Provider: [facility] [place] Cardiovascular Services Reason for consultation: nstemi Has provider been notified: No Attending physician on discharge: Gm Parish Discharging clinician: Gm Parish DS: Diagnosis Discharge Diagnosis (1) NSTEMI (non-ST elevated myocardial infarction): Status: Acute DS: Summary Hospital Course Hospital Course: 62-year-old female with a PMH significant for?[id number] diabetes type 2 with neuropathy, fibromyalgia, and chronic back pain who presents to the ED for evaluation of intermittent chest pain x4 days. Pt states symptoms began on Thursday when she developed central chest pain that radiated to both shoulders. Describes pain as ?intense? and ?sharp? and episodes would last between 2-5 minutes long and were often associated with shortness of breath. Saw PCP who prescribed nitroglycerin which helped alleviate symptoms. Today chest pain intensified and episodes lasted up to 10 minutes long, which prompted her to the ED for further evaluation. Had 1 episode of nausea but no vomiting in the ED. denies any other symptoms: No headache, diaphoresis, increased anxiety. Denies fever, chills, abdominal pain. Workup in the ED found negative EKG but initial troponin of 1065.7. Cardiology was consulted and suggested admitting the patient to the hospital for treatment with heparin drip and eventual transfer later this week to [facility] [place] for cardiac catheterization. In the ED pt was slightly hypertensive up to 164/63, vitals otherwise WNL. Labs were significant for initial troponin 1165.7, otherwise grossly unremarkable. No leukocytosis. Stable H&H. No significant electrolyte abnormalities. Renal and hepatic function WNL. CXR showed no acute pulmonary disease. EKG demonstrated sinus rhythm with short FL, but no evidence of significant ST elevations or depressions. Pt was treated with ondansetron, statin, and started on heparin drip. Pt will be admitted to the hospital for treatment and further evaluation of NSTEMI. Hospital course: Time Attestation Total time managing care of this patient today: 45 mintues. Discharge Coordination Time (in mins): 45 min Quality: Safe Use of Opioids Does Pt have an Active Cancer Diagnosis on the Problem List?: No Quality: Stroke Does the patient have a stroke diagnosis?: No Physical Exam Vital Signs: Vital Signs: Last Vital Signs Temp 98.4 F 11/14/23 11:01 Pulse 64 11/14/23 11:01 Resp 18 11/14/23 11:01 BP 118/58 L 11/14/23 11:01 Pulse Ox 96 11/14/23 11:01 O2 Del Method Room Air 11/14/23 11:01 BMI result Body Mass Index 28.5 Appearance: Alert.? Oriented X3. cvs: rrr, [id number] , no murmur res:air entry fair ,has mild wheezing ,cough abd: no rebound or guarding ,nd,nt,bs present . ext pulses present , no cyanosis . neuro: axo3 , nonfocal. DS: Data Data Completed and Pending Labs on day of discharge: Laboratory Results - last 24 hr 11/13/23 11/13/23 11/13/23 15:26 16:13 17:56 WBC 7.6 RBC 4.17 L Hgb 12.7 Hct 37.1 MCV 89.0 MCH 30.5 MCHC 34.2 RDW 11.9 Plt Count 196 MPV 10.0 Immature Gran % (Auto) 0.3 Neut % (Auto) 55.4 Lymph % (Auto) 33.1 Burnett % (Auto) 5.5 Eos % (Auto) 4.6 H Baso % (Auto) 1.1 Lymph # (Auto) 2.5 Burnett # (Auto) 0.4 Eos # (Auto) 0.4 Baso # (Auto) 0.1 Abs Immat Gran (auto) 0.02 Absolute Neuts (auto) 4.2 Absolute Nucleated RBC 0.000 Nucleated RBC % (auto) 0.0 Hold Purple Top PT 12.0 11.6 INR 1.0 1.0 APTT 29.6 aPTT Heparin Protocol D-Dimer High Sensitivty < 150 Sodium 138 Potassium 4.1 Chloride 104 Carbon Dioxide 26 Anion Gap 12 BUN 15 Creatinine 0.72 Estim Creat Clear Calc 76.6 Estimated GFR > 60 POC Glucose Random Glucose 178 H Calcium 10.0 D Magnesium 1.9 Total Bilirubin 0.3 Direct Bilirubin 0.1 AST 17 ALT 22 Alkaline Phosphatase 76 Total Creatine Kinase 64 Troponin I High Sens 1165.7 H* 1129.2 H* B-Natriuretic Peptide 128 H Total Protein 7.0 Albumin 3.9 Triglycerides Cholesterol LDL Cholesterol, Calc HDL Cholesterol Lipase 31 11/13/23 11/13/23 11/14/23 20:36 22:03 04:55 WBC 8.7 RBC 4.01 L Hgb 12.1 Hct 36.3 L MCV 90.5 MCH 30.2 MCHC 33.3 RDW 11.9 Plt Count 189 MPV 10.3 Immature Gran % (Auto) Neut % (Auto) Lymph % (Auto) Burnett % (Auto) Eos % (Auto) Baso % (Auto) Lymph # (Auto) Burnett # (Auto) Eos # (Auto) Baso # (Auto) Abs Immat Gran (auto) Absolute Neuts (auto) Absolute Nucleated RBC 0.000 Nucleated RBC % (auto) 0.0 Hold Purple Top PT INR APTT aPTT Heparin Protocol 69.7 67.5 D-Dimer High Sensitivty Sodium Potassium Chloride Carbon Dioxide Anion Gap BUN Creatinine Estim Creat Clear Calc Estimated GFR POC Glucose 269 H Random Glucose Calcium Magnesium Total Bilirubin Direct Bilirubin AST ALT Alkaline Phosphatase Total Creatine Kinase Troponin I High Sens B-Natriuretic Peptide Total Protein Albumin Triglycerides 108 Cholesterol 197 LDL Cholesterol, Calc 136 H HDL Cholesterol 40 L Lipase 11/14/23 11/14/23 11/14/23 05:34 05:35 07:02 WBC RBC Hgb Hct MCV MCH MCHC RDW Plt Count MPV Immature Gran % (Auto) Neut % (Auto) Lymph % (Auto) Burnett % (Auto) Eos % (Auto) Baso % (Auto) Lymph # (Auto) Burnett # (Auto) Eos # (Auto) Baso # (Auto) Abs Immat Gran (auto) Absolute Neuts (auto) Absolute Nucleated RBC Nucleated RBC % (auto) Hold Purple Top SEE NOTE PT 12.0 INR 1.0 APTT aPTT Heparin Protocol D-Dimer High Sensitivty Sodium Potassium Chloride Carbon Dioxide Anion Gap BUN Creatinine Estim Creat Clear Calc Estimated GFR POC Glucose 165 H Random Glucose Calcium Magnesium Total Bilirubin Direct Bilirubin AST ALT Alkaline Phosphatase Total Creatine Kinase Troponin I High Sens B-Natriuretic Peptide Total Protein Albumin Triglycerides Cholesterol LDL Cholesterol, Calc HDL Cholesterol Lipase 11/14/23 10:47 WBC RBC Hgb Hct MCV MCH MCHC RDW Plt Count MPV Immature Gran % (Auto) Neut % (Auto) Lymph % (Auto) Burnett % (Auto) Eos % (Auto) Baso % (Auto) Lymph # (Auto) Burnett # (Auto) Eos # (Auto) Baso # (Auto) Abs Immat Gran (auto) Absolute Neuts (auto) Absolute Nucleated RBC Nucleated RBC % (auto) Hold Purple Top PT INR APTT aPTT Heparin Protocol D-Dimer High Sensitivty Sodium Potassium Chloride Carbon Dioxide Anion Gap BUN Creatinine Estim Creat Clear Calc Estimated GFR POC Glucose 209 H Random Glucose Calcium Magnesium Total Bilirubin Direct Bilirubin AST ALT Alkaline Phosphatase Total Creatine Kinase Troponin I High Sens B-Natriuretic Peptide Total Protein Albumin Triglycerides Cholesterol LDL Cholesterol, Calc HDL Cholesterol Lipase Imaging Chest x-ray: Radiologist's impression: ITS Impressions Chest X-Ray 11/13/23 14:42 IMPRESSION: No acute pulmonary disease compared to 07/23/2023. Discharge Plan Discharge Anticipated Discharge Date/Time: 11/14/23 11:05 Patient Disposition: [facility] Discharge Diagnosis: nstemi Referrals: Golden Archuleta MD [Primary Care Provider] - 1 Week Discharge Medications: New atorvastatin 40 mg Tablet 40 mg PO BEDTIME Qty: 1 0RF aspirin 81 mg Tablet,Chewable 81 mg PO DAILY Qty: 1 0RF Nitro-Bid 2 % Ointment 0.5 inch transdermal RQ6H WHILE AWAKE PRN (Reason: Chest Pain) Qty: 1 0RF insulin lispro [Admelog U-100 Insulin lispro] 100 unit/mL Solution See Protocol subcut QIDACHS Qty: 1 0RF Protocol: Insulin Correction Scale Less than or equal to 110 ---- Give (units): 0 111 to 150 Give (units): 0 151 to 200 Give (units): 2 201 to 250 Give (units): 4 251 to 300 Give (units): 6 301 to 350 Give (units): 8 Greater than 350 Give (units): 10 Call MD if Blood Glucose > : 350 heparin(porcine) in 0.45% NaCl 25,000 unit/250 mL Parenteral Solution 25,000 unit continuous IV infusion .Q0M Qty: 1 0RF Rx Instructions: continue current rate , moniter pt/ptt as per protocol. metoprolol tartrate 25 mg tablet 12.5 mg PO BID Qty: 1 0RF Continued acetaminophen 500 mg tablet 1 tab PO Q6H PRN (Reason: Pain) magnesium oxide 400 mg (241.3 mg magnesium) tablet 400 mg PO BID calcium carbonate [Oyster Shell Calcium 500] 500 mg calcium (1,250 mg) Tablet 500 mg PO DAILY cholecalciferol (vitamin D3) 1,250 mcg (50,000 unit) capsule 1,250 mcg PO MO gabapentin 300 mg capsule 600 mg PO TID PRN (Reason: Pain) lidocaine 5 % adhesive patch,medicated 1 patch topical DAILY PRN (Reason: Pain) diclofenac sodium 1 % gel 2 g topical BID PRN (Reason: Pain) Held metformin 1,000 mg tablet 1,000 mg PO BID Hold Instructions: Resume on 11/18/23. Discontinued ibuprofen 800 mg tablet 800 mg PO Q6H PRN (Reason: Pain) Discharge Orders: Discharge Order (Routine); Ordered 11/14/23 Ordered By: Gm Parish Diet: Advance to usual diet Activity on Discharge: As tolerated Stand Alone Forms: Patient Portal Discharge page Care Plan Goals: Patient was admitted to hospital sec to chest pain ,has hx of dm type 2 on metformin,hx of smoking :found to have troponins 1100 range and ekg seems sinus bradycardia with short FL but no evidence of significant ST elevations or depressions,cxr fine : patient was started on iv heparin ,asa,statin,bb,ntg : chest pain seems improving. case d/w cardiology- patient need to [facility] for cardiac workup and possible cardiac cath for further management. Health Concerns: as above. Plan of Treatment: as above. Assessment: as above.
[2023-11-14] MEDS: Heparin Sodium,Porcine/1/2NS 25,000 UNIT/250 ML IV.SOLN 8.55 UNIT IVCONT (15:04)
== END 2023-11-14 15:15 | disposition short-term general hospital (02) | DRG 282 ==
LOC: HO.ED 16:08 → HO.EDOVER 18:55 → HO.IMC 11-14 02:18
PROVIDERS: Internal Medicine; Admitting Provider Student in an Organized Health Care Education/Training Program; Emergency Provider Emergency Medicine; PCP Internal Medicine Medical Oncology; Visit Provider Internal Medicine
DX: I21.4 Non-ST elevation (NSTEMI) myocardial infarction (principal); E11.42 Type 2 diabetes mellitus with diabetic polyneuropathy; Z87.891 Personal history of nicotine dependence; Z79.84 Long term (current) use of oral hypoglycemic drugs; Z79.899 Other long term (current) drug therapy
CPT/HCPCS: 36415; 71045; 80048; 80061; 80076; 82550; 82947; 83690; 83735; 83880; 84484; 85025; 85027; 85379; 85610; 85730; 93005; 93306; 99285; J1644; J2405; Q9957

== ENCOUNTER → 2023-11-13 14:21 | Outpatient (BNV) | payer MEDICARE, MEDICAID, SELFPAY | PROVIDERS: Admitting Provider Student in an Organized Health Care Education/Training Program; Emergency Provider Emergency Medicine; PCP Internal Medicine Medical Oncology; Visit Provider Internal Medicine | DX: R07.9 Chest pain, unspecified (principal) | CPT/HCPCS: 93010 ==

== ENCOUNTER 2023-11-13 18:44 | Outpatient (BNV) | payer MEDICARE, MEDICAID, SELFPAY | END 2023-11-14 07:00 | PROVIDERS: Admitting Provider Student in an Organized Health Care Education/Training Program; Emergency Provider Emergency Medicine; PCP Internal Medicine Medical Oncology; Visit Provider Internal Medicine | DX: I36.1 Nonrheumatic tricuspid (valve) insufficiency (principal); R07.9 Chest pain, unspecified | CPT/HCPCS: 93010; 93306 ==

== ENCOUNTER → 2023-11-13 18:44 | Outpatient (BNV) | payer MEDICARE, MEDICAID, SELFPAY | PROVIDERS: Admitting Provider Student in an Organized Health Care Education/Training Program; Emergency Provider Emergency Medicine; PCP Internal Medicine Medical Oncology; Visit Provider Internal Medicine | DX: I21.4 Non-ST elevation (NSTEMI) myocardial infarction (principal) | CPT/HCPCS: 99223; 99239 ==

== ENCOUNTER → 2023-11-13 18:44 | Outpatient (BNV) | payer MEDICARE, MEDICAID, SELFPAY | PROVIDERS: Admitting Provider Student in an Organized Health Care Education/Training Program; Emergency Provider Emergency Medicine; PCP Internal Medicine Medical Oncology; Visit Provider Internal Medicine | DX: I21.4 Non-ST elevation (NSTEMI) myocardial infarction (principal) | CPT/HCPCS: 99223 ==

== ENCOUNTER 2023-11-30 16:11 | Outpatient (REF) | payer MEDICARE, MEDICAID, SELFPAY ==
--- NOTE | ~2023-11-30 | US_ITS ---
EXAMINATION: US VENOUS ULTRASOUND WITH DOPPLER LOWER EXTREMITY, LEFT CLINICAL INFORMATION: Left leg rule out DVT, COMPARISON: None available. TECHNIQUE: Ultrasound of the deep veins is performed from the hip to the calf with compression sonography and color and pulse Doppler assessment. Spectral analysis with color-flow imaging is performed. FINDINGS: There is normal venous compression and respiratory variation and augmented flow. The visualized common femoral vein, superficial femoral vein, profunda femoral vein, popliteal vein, and the trifurcation region shows no evidence of deep venous thrombosis. There is no significant popliteal fossa cyst. Prominent groin lymph nodes measuring up to 2.2.cm. If the patient's symptoms persist, followup ultrasound in 5 days 7 days might be of value to exclude proximal propagation from a non-visualized calf vein. US/US venous duplex LE IMPRESSION: No DVT demonstrated in the left lower extremity.
== END 2023-11-30 16:12 | disposition home or self-care (01) ==
LOC: HO.XRAY 16:11
PROVIDERS: PCP Internal Medicine Medical Oncology; Visit Provider Internal Medicine Medical Oncology
DX: I82.402 Acute embolism and thrombosis of unspecified deep veins of left lower extremity (principal)
CPT/HCPCS: 93971

== ENCOUNTER 2023-12-08 | Outpatient (REF) | payer MEDICARE, MEDICAID, SELFPAY | END 2023-12-08 00:01 | disposition home or self-care (01) | LOC: CF | PROVIDERS: PCP Internal Medicine Medical Oncology; Visit Provider Internal Medicine | DX: R07.9 Chest pain, unspecified (principal); R05.9 Cough, unspecified; E66.3 Overweight | CPT/HCPCS: 99212 ==

== ENCOUNTER 2023-12-08 14:40 | Outpatient (AMB) | payer MEDICARE, MEDICAID, SELFPAY ==
[2023-12-08 14:41] VITALS: BP 110/60; PULSE 67; BMI 27.8
--- NOTE | 2023-12-08 14:41 | A.OFFVIS_ITS ---
Intake Vital Signs 12/08/23 14:41 Height 5 ft 3 in Weight 156 lb 15.506 oz BMI 27.8 BP 110/60 Blood Pressure Location Lt brachial Position Sitting Pulse 67 Intake Visit Reasons: ED [facility] /heart attack Fire Watcher Required: No Accompanied by: Daughter Allergies lisinopril Allergy (Mild, Verified 07/24/23 10:18) coughing oxycodone [From Percocet] Allergy (Unknown, Verified 07/24/23 10:18) Vomiting hydromorphone [From Dilaudid] Adverse Reaction (Intermediate, Verified 07/24/23 10:18) Vomiting Medication List - Last Reconciled 12/08/23 by Vito Noonan MD acetaminophen 1 tab PO Q6H PRN amlodipine 2.5 mg PO DAILY aspirin 81 mg PO DAILY atorvastatin 40 mg PO BEDTIME calcium carbonate (Oyster Shell Calcium 500) 500 mg PO DAILY cholecalciferol (vitamin D3) 1,250 mcg PO MO diclofenac sodium 1% 2 grams topical BID PRN gabapentin 600 mg PO TID PRN lidocaine 5% 1 patch topical DAILY PRN magnesium oxide 400 mg PO BID metformin 1,000 mg PO BID nitroglycerin 2% (Nitro-Bid) 0.5 inches transdermal RQ6H WHILE AWAKE PRN nitroglycerin 0.4 mg sublingual Q5M PRN HPI HPI Comments History of Present Illness Details Melva returns for follow-up after recent hospitalization. She presented to the hospital with substernal chest pain radiating to both shoulders. High sensitivity troponins were over a 1000. She was diagnosed with NSTEMI and sent to [facility] for cardiac catheterization. Diagnosed to have just vasospasm but not obstructive CAD. She still gets on and off chest pains but not as bad. Gets better with nitroglycerin sublingually. She was also started on amlodipine and she states that is also helping a lot. Some nighttime palpitations but not daily. [facility] Medical History Coronary vasospasm Personal history of nicotine dependence Tubular adenoma of colon (~2020) Anxiety History of fibromyalgia NIDDY (non-insulin dependent diabetes mellitus in young) Chronic hepatitis C Surgical History History of foot surgery History of endoscopy History of colonoscopy History of endometrial ablation History of cholecystectomy Family History Father HTN (hypertension) Lung cancer Mother Asthma Thyroid disease Cardiac arrest Family/Other Breast cancer Social History Household Members: Other Housing: Condominium Do you presently have visiting nurse or other home services: No Alcohol intake: current Alcohol intake frequency: does not drink Patient Tobacco Use Status: Former Tobacco user Quit Date: 04/2020 Tobacco use type: Cigarette Years Smoked: (onset 9yo, 1/2ppd x 50yrs, 25pyh - quit 04/2020) Advance Directives Date on File: 04/09/21 Current occupational status: employed Current occupation: [employer] Sexual orientation: Straight/Heterosexual Gender identity: Female Review of Systems Const Denies chills, Reports fatigue, Denies fever(s), Denies frequent falls, Denies weakness, Denies weight gain and Denies weight loss ENT Denies dizziness Card Reports chest pain, Denies leg edema, Reports lightheadedness, Denies palpitations, Reports dyspnea and Reports dyspnea on exertion Resp Denies cough, Reports dyspnea and Reports dyspnea on exertion GI Denies hematochezia Musc Denies abnormal gait, Denies muscle weakness, Denies numbness, Denies radiating pain into limb and Denies tingling Neuro Denies abnormal gait, Denies dizziness, Denies frequent falls, Denies numbness, Denies tingling and Denies weakness Endo Reports fatigue and Denies palpitations Physical Exam Vital Signs: Last Vital Signs Pulse 67 12/08/23 14:41 BP 110/60 12/08/23 14:41 BMI result Body Mass Index 27.8 Const General: comfortable and no acute distress Orientation/consciousness: patient oriented x3 HEENT Other: Unremarkable Head: Yes normal to inspection Neck Neck: Yes normal visual inspection Chest Chest palpation & inspection: normal inspection of the chest Resp Auscultation: clear to auscultation bilaterally Cardio Palpation: normal PMI Heart sounds: S1 normal heart sound present, S2 normal heart sound present, no gallops, no murmurs and no rubs GI Palpation (GI): Soft to palpation Back/Spine/Pelvis Other: unremarkable Skin General skin exam: no rashes or lesions noted Neuro General: patient oriented x3 Extrem General: Yes normal to inspection Psych Mental Status: mental status grossly normal Assessment & Plan Assessment & Plan (1) NSTEMI (non-ST elevated myocardial infarction): Code(s): I21.4 - Non-ST elevation (NSTEMI) myocardial infarction (2) Coronary vasospasm: Code(s): I20.1 - Angina pectoris with documented spasm Plan During the recent hospitalization, high sensitivity troponins were > 1000. Coronary CTA however in the past had shown essentially normal coronary arteries. In the cardiac catheterization, no obstructive CAD. There is evidence of LAD vasospasm. Okay to continue aspirin. She seems better off with amlodipine and hence that is reasonable to continue. Continue statins. Check lipids. She is describing some nonspecific tiredness. If lipids are reasonable, then may be able to cut back as she does not really have any significant plaque burden. Otherwise, she is complaining of some nighttime palpitations and hence we can get a Holter. Discussed with daughter who came for appointment. Orders: Orders Lipid Panel Today E78.5 - Hyperlipidemia, unspecified, I21.4 - Non-ST elevation (NSTEMI) myocardial infarction Liver Panel Today I21.4 - Non-ST elevation (NSTEMI) myocardial infarction, I25.10 - Atherosclerotic heart disease of [place] coronary artery without angina pectoris ECG 7 day holter monitor Today R00.2 - Palpitations Medications: New nitroglycerin do not exceed 3 doses per episode 0.4 mg sublingual Q5M PRN 30 tabs 5RF chest pain R07.2 - Precordial pain Coding Level of Care Code Est Pt Level 4 (95784) Diagnoses NSTEMI (non-ST elevated myocardial infarction) I21.4 Coronary vasospasm I20.1
== END 2023-12-08 15:11 | disposition home or self-care (01) ==
PROVIDERS: PCP Internal Medicine Medical Oncology; Visit Provider Internal Medicine
DX: I21.4 Non-ST elevation (NSTEMI) myocardial infarction (principal); I20.1 Angina pectoris with documented spasm
CPT/HCPCS: 99214

== ENCOUNTER 2023-12-10 10:37 | Outpatient (REF) | payer MEDICARE, MEDICAID, SELFPAY ==
[2023-12-10 10:56] LABS: MANUAL DIFF FLAG NO
[2023-12-10 11:16] LABS: Basophils Absolute Auto 0.1 X10*3/uL (0.0-0.2); Basophils Percent Auto 1.1 % (0-2); Eosinophils Absolute Auto 0.3 X10*3/uL (0.0-0.4); Eosinophils Percent Auto 4.3 % (0-4); Hematocrit 39.4 % (37.0-47.0); Hemoglobin 13.3 g/dl (12.0-16.0); Imm Gran Abs Auto 0.02 X10*3/uL (0.00-0.03); Imm Gran Pct Auto 0.3 % (0.0-0.4); Lymphocytes Percent Auto 28.8 % (20-40); Mean Corpuscular HGB Conc 33.8 g/dl (31.0-35.0); Mean Corpuscular Hemoglobin 30.3 pg (27.0-33.0); Mean Corpuscular Volume 89.7 fL (80.0-98.0); Mean Platelet Volume 10.3 fL (9.4-12.3); Monocytes Absolute Auto 0.4 X10*3/uL (0.1-1.2); Monocytes Percent Auto 6.3 % (2-11); Neutrophils Absolute Auto 4.2 x10*3/uL (2.0-8.3); Neutrophils Percent Auto 59.2 % (45-73); Platelet Count 301 X10*3/uL (160-400); Red Blood Count 4.39 X10*6/uL (4.20-5.50); Red Cell Distribution Width 11.8 % (11.0-16.0)
[2023-12-10 11:25] LABS: Estimated Average Glucose 174 mg/dL; Hemoglobin A1c % 7.7 % (<6.0)
[2023-12-10 11:44] LABS: Alanine Aminotransferase 28 U/L (0-31); Albumin Level 4.2 g/dL (3.5-5.0); Alkaline Phosphatase 75 U/L (39-117); Anion Gap 10 (12-20); Aspartate Amino Transferase 18 U/L (5-31); Bilirubin Total 0.5 mg/dL (0.0-1.0); Blood Urea Nitrogen 13 mg/dL (9-16); Calcium 9.7 mg/dL (8.4-10.2); Carbon Dioxide 29 mmol/L (22-29); Chloride 106 mmol/L (96-108); Cholesterol 124 mg/dL (<200); Estimated Glomerular Filt Rate > 60; Glucose Fasting 168 mg/dL (60-99); HDL Cholesterol 34 mg/dL (>40); LDL Cholesterol Calculated 75 mg/dL (<100); Magnesium 1.9 mg/dL (1.6-2.6); Potassium 4.4 mmol/L (3.3-5.1); Sodium 141 mmol/L (135-145); Total Protein 7.6 g/dL (6.5-8.0); Triglycerides 77 mg/dL (<150)
== END 2023-12-10 10:38 | disposition home or self-care (01) ==
LOC: HO.LAB 10:37
PROVIDERS: PCP Internal Medicine Medical Oncology; Visit Provider Internal Medicine Medical Oncology
DX: E66.3 Overweight (principal); E78.5 Hyperlipidemia, unspecified; E11.40 Type 2 diabetes mellitus with diabetic neuropathy, unspecified
CPT/HCPCS: 36415; 80053; 80061; 83036; 83735; 85025

== ENCOUNTER → 2023-12-11 12:38 | Outpatient (REF) | payer MEDICARE, MEDICAID, SELFPAY ==
--- NOTE | 2023-12-11 12:40 | HM_ITS ---
Conclusion: 1. Patient was monitored for total period of 6 days and 23 hours 2. Baseline was normal sinus rhythm with average heart of 71 beats per minute 3. Occasional PACs noted with frequent short SVT events, longest lasting 12 beats and the fastest at 157 beats per minute 4. No significant pauses noted 5. Patient marked the counter 5 times with symptoms of palpitations correlating with normal sinus rhythm, PACs and couplets MTDD
== END ==
LOC: HO.CARD 12:38
PROVIDERS: PCP Internal Medicine Medical Oncology; Visit Provider Internal Medicine
DX: R00.2 Palpitations (principal)
CPT/HCPCS: 93242

== ENCOUNTER → 2023-12-11 12:40 | Outpatient (BNV) | payer MEDICARE, MEDICAID, SELFPAY | PROVIDERS: PCP Internal Medicine Medical Oncology; Visit Provider Internal Medicine Cardiovascular Disease | DX: I49.1 Atrial premature depolarization (principal) | CPT/HCPCS: 93244 ==

== ENCOUNTER 2024-01-12 09:50 | Outpatient (REF) | payer MEDICARE, MEDICAID, SELFPAY | END 2024-01-12 09:51 | disposition home or self-care (01) | LOC: HO.MAMMO 09:50 | PROVIDERS: PCP Internal Medicine Medical Oncology; Visit Provider Internal Medicine Medical Oncology | DX: Z12.31 Encounter for screening mammogram for malignant neoplasm of breast (principal) | CPT/HCPCS: 77063; 77067 ==

== ENCOUNTER → 2024-01-12 10:00 | Outpatient (BNV) | payer MEDICARE, MEDICAID, SELFPAY | PROVIDERS: PCP Internal Medicine Medical Oncology; Visit Provider Radiology Diagnostic Radiology | DX: Z12.31 Encounter for screening mammogram for malignant neoplasm of breast (principal) | CPT/HCPCS: 77063; 77067 ==

== ENCOUNTER 2024-02-19 13:27 | Outpatient (REF) | payer MEDICARE, MEDICAID, SELFPAY ==
--- NOTE | ~2024-02-19 | CT_ITS ---
EXAMINATION: CT LOW-DOSE SCREENING CHEST WITHOUT CONTRAST CLINICAL INFORMATION: Personal history of nicotine dependence. The patient has a 25 pack-year history of smoking, having quit 4 years ago. COMPARISON: X-ray chest 11/13/2023. CT chest 04/11/2022. TECHNIQUE: Multidetector volumetric CT imaging of the chest is performed on a Siemens SOMATOM Definition scanner without contrast using low dose technique. Additional 2D coronal and sagittal reformatted images and axial 3D maximum intensity projection (MIP) images are generated on the CT workstation. This CT examination was performed using dose optimization techniques as appropriate, variously including the following: *Automated exposure control. *Adjustment of mA and/or kV according to patient size (this includes techniques or standardized protocols for targeted exams where dose is matched to indication/reason for exam; i.e. extremities or head). *Use of iterative reconstruction technique. TOTAL EXAM DLP: 43 mGy-cm CTDIvol: 1.40 mGy FINDINGS: PULMONARY NODULES: Some tiny pulmonary nodules are present, the largest in the right middle lobe measuring 3 mm (5:268 compare prior 6:262), all unchanged. Spann images of all have been saved. No new, increasing-sized or concerning pulmonary nodules are seen. LUNGS: Lungs bilaterally symmetrically expanded. Mild emphysematous changes are present along with mild bronchial thickening. No focal lung nodule or mass. No effusion or pneumothorax. Central airways patent. MEDIASTINUM: No mediastinal, hilar or axillary adenopathy or free fluid collection. CORONARY ARTERY CALCIFICATION: None visualized on this study. THYROID GLAND: Unremarkable to the extent seen. CARDIOVASCULAR STRUCTURES: Aortic and heart size normal. No pericardial effusion. CHEST WALL/AXILLA: Unremarkable. UPPER ABDOMEN: Included portions of the solid organs in the upper abdomen unremarkable on noncontrast imaging. Small subcapsular calcification present at the posterior right lobe of liver. OSSEOUS STRUCTURES: No suspicious focal findings. CT/CT lung screening IMPRESSION: 1. No evidence of pulmonary malignancy. 2. Mild emphysema. 3. Incidental findings (s category): No incidental findings. ASSESSMENT: Lung-RADS Category 2: Benign appearance or behavior of nodules. N/A. RECOMMENDATION: Continued routine annual low-dose CT lung screening in 1 year is recommended. An order for CT CHEST LOW DOSE CANCER SCREENING ([id number]) can be placed.
== END 2024-02-19 13:28 | disposition home or self-care (01) ==
LOC: HO.CT 13:27
PROVIDERS: PCP Internal Medicine Medical Oncology; Visit Provider Physician Assistant Medical
DX: Z12.2 Encounter for screening for malignant neoplasm of respiratory organs (principal); Z87.891 Personal history of nicotine dependence
CPT/HCPCS: 71271

== ENCOUNTER 2024-02-29 13:49 | Outpatient (AMB) | payer MEDICARE, MEDICAID, SELFPAY ==
[2024-02-29 13:50] VITALS: BP 108/60; PULSE 72; BMI 27.4
--- NOTE | 2024-02-29 13:50 | MHC.OFFVIS ---
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 Accompanied by: Self / Same As Patient Allergies lisinopril Allergy (Mild, Verified 07/24/23 10:18) coughing oxycodone [From Percocet] Allergy (Unknown, Verified 07/24/23 10:18) Vomiting hydromorphone [From Dilaudid] Adverse Reaction (Intermediate, Verified 07/24/23 10:18) Vomiting Medication List - Last Reconciled 02/29/24 by Vito Noonan MD acetaminophen 1 tab PO Q6H PRN amlodipine 2.5 mg PO DAILY aspirin 81 mg PO DAILY 90 days atorvastatin 80 mg PO BEDTIME 90 days calcium carbonate (Oyster Shell Calcium 500) 500 mg PO DAILY cholecalciferol (vitamin D3) 1,250 mcg PO MO diclofenac sodium 1% 2 grams topical BID PRN gabapentin 600 mg PO TID PRN lidocaine 5% 1 patch topical DAILY PRN magnesium oxide 400 mg PO BID metformin 1,000 mg PO BID nitroglycerin 2% (Nitro-Bid) 0.5 inches transdermal RQ6H WHILE AWAKE PRN nitroglycerin 0.4 mg sublingual Q5M PRN HPI Comments Details: Melva returns for follow-up after recent hospitalization. She presented to the hospital with substernal chest pain radiating to both shoulders. High sensitivity troponins were over a 1000. She was diagnosed with NSTEMI and sent to [facility] for cardiac catheterization. Diagnosed to have just vasospasm but not obstructive CAD. She was also started on amlodipine and she states that is also helping a lot. She was complaining of palpitations and completed a Holter which was unremarkable. Otherwise, nonspecific tiredness. History of obstructive sleep apnea but does not use CPAP. She states that she underwent lab work at [place] and was told to have abnormal LFTs. We need to review that. [facility] Medical History (Updated 02/29/24 @ 14:08 by Vito Noonan MD) JOSE (obstructive sleep apnea) Coronary vasospasm Personal history of nicotine dependence Tubular adenoma of colon (~2020) Anxiety History of fibromyalgia NIDDY (non-insulin dependent diabetes mellitus in young) Chronic hepatitis C Surgical History History of foot surgery History of endoscopy History of colonoscopy History of endometrial ablation History of cholecystectomy Family History Father HTN (hypertension) Lung cancer Mother Asthma Thyroid disease Cardiac arrest Family/Other Breast cancer Social History Household Members: Other Housing: Condominium Do you presently have visiting nurse or other home services: No Alcohol intake: current Alcohol intake frequency: does not drink Patient Tobacco Use Status: Former Tobacco user Tobacco use type: Cigarette Years Smoked: (onset 9yo, 1/2ppd x 50yrs, 25pyh - quit 04/2020) Advance Directives Date on File: 04/09/21 Current occupational status: employed 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 Sexual orientation: Straight/Heterosexual Gender identity: Female Review of Systems Const All systems reviewed & are unremarkable except as noted in HPI and below Denies chills, Denies fatigue, Denies fever(s), Denies weight gain and Denies weight loss Eyes Reports as per HPI and Denies no additional complaints ENT Denies no additional complaints and Reports as per HPI Card Denies chest pain, Denies leg edema, Denies lightheadedness, Denies palpitations, Denies dyspnea on exertion and Denies orthopnea Resp Denies cough and Denies dyspnea on exertion GI Reports melena, Denies hematochezia and Denies change in stool character Reports as per HPI Musc Denies muscle weakness and Denies radiating pain into limb Skin/Breast Reports system reviewed and no additional complaints, except as documented Neuro Reports no additional complaints and Reports as per HPI Psych Reports no additional complaints and Reports as per HPI Endo Denies fatigue and Denies palpitations Sami/Lymph Reports no additional complaints and Reports as per HPI Aller/Immun Reports no additional complaints and Reports as per HPI Physical Exam Vital Signs: Last Vital Signs Pulse 72 02/29/24 13:50 BP 108/60 02/29/24 13:50 BMI result Body Mass Index 27.4 Const General: comfortable and no acute distress Orientation/consciousness: patient oriented x3 HEENT Other: Unremarkable Head: Yes normal to inspection Neck Neck: Yes normal visual inspection Chest Chest palpation & inspection: normal inspection of the chest Resp Auscultation: clear to auscultation bilaterally Cardio Palpation: normal PMI Heart sounds: S1 normal heart sound present, S2 normal heart sound present, no gallops, no murmurs and no rubs GI Palpation (GI): Soft to palpation Back/Spine/Pelvis Other: unremarkable Skin General skin exam: no rashes or lesions noted Neuro General: patient oriented x3 Extrem General: Yes normal to inspection Psych Mental Status: mental status grossly normal Assessment & Plan Assessment & Plan (1) NSTEMI (non-ST elevated myocardial infarction): Code(s): I21.4 - Non-ST elevation (NSTEMI) myocardial infarction Category: Medical (2) Coronary vasospasm: Code(s): I20.1 - Angina pectoris with documented spasm Category: Medical (3) JOSE (obstructive sleep apnea): Code(s): G47.33 - Obstructive sleep apnea (adult) (pediatric) Category: Medical Plan During the recent hospitalization, high sensitivity troponins were >1000. Coronary CTA however in the past had shown essentially normal coronary arteries. In the cardiac catheterization, no obstructive CAD. There is evidence of LAD vasospasm. Okay to continue aspirin. She seems better off with amlodipine and hence that is reasonable to continue. With regard to statins, she is on atorvastatin 80 mg daily. Patient states she was told to have abnormal LFTs on recent labs from [place]. If that is true, may have to stop statins especially as she really does not have any significant CAD. May just use lower dose in the future. With regard to the Holter, underlying sinus rhythm with occasional PACs, short bursts of SVT. Palpitations correlate with sinus rhythm, PACs. As the BP is already on the lower side and she is also complaining of tiredness. Will hold off any further meds at this time. With regard to untreated obstructive sleep apnea, that could certainly tiredness. She states she can not tolerate a CPAP mask. Will refer to sleep Medicine for formal evaluation. Orders: Referrals Sleep Medicine Referral G47.33 - Obstructive sleep apnea (adult) (pediatric) Coding Level of Care Code Est Pt Level 4 (03257) Diagnoses NSTEMI (non-ST elevated myocardial infarction) I21.4 Coronary vasospasm I20.1 JOSE (obstructive sleep apnea) G47.33
== END 2024-02-29 14:12 | disposition home or self-care (01) ==
PROVIDERS: PCP Internal Medicine Medical Oncology; Visit Provider Internal Medicine
DX: I21.4 Non-ST elevation (NSTEMI) myocardial infarction (principal); I20.1 Angina pectoris with documented spasm; G47.33 Obstructive sleep apnea (adult) (pediatric)
CPT/HCPCS: 99214

== ENCOUNTER → 2024-02-29 13:49 | Outpatient (BNVA) | payer MEDICARE, MEDICAID, SELFPAY | PROVIDERS: PCP Internal Medicine Medical Oncology; Visit Provider Internal Medicine | DX: I21.4 Non-ST elevation (NSTEMI) myocardial infarction (principal); I20.1 Angina pectoris with documented spasm; G47.33 Obstructive sleep apnea (adult) (pediatric); Z79.899 Other long term (current) drug therapy | CPT/HCPCS: 99212 ==

== ENCOUNTER 2024-04-18 10:06 | Outpatient (REF) | payer MEDICARE, MEDICAID, SELFPAY ==
[2024-04-18 10:33] LABS: MANUAL DIFF FLAG NO
[2024-04-18 10:56] LABS: Basophils Absolute Auto 0.1 X10*3/uL (0.0-0.2); Basophils Percent Auto 1.5 % (0-2); Eosinophils Absolute Auto 0.3 X10*3/uL (0.0-0.4); Eosinophils Percent Auto 5.2 % (0-4); Hematocrit 40.8 % (37.0-47.0); Hemoglobin 13.8 g/dl (12.0-16.0); Imm Gran Abs Auto 0.01 X10*3/uL (0.00-0.03); Imm Gran Pct Auto 0.2 % (0.0-0.4); Lymphocytes Absolute Auto 1.9 X10*3/uL (1.2-4.9); Lymphocytes Percent Auto 31.8 % (20-40); Mean Corpuscular HGB Conc 33.8 g/dl (31.0-35.0); Mean Corpuscular Hemoglobin 30.6 pg (27.0-33.0); Mean Corpuscular Volume 90.5 fL (80.0-98.0); Mean Platelet Volume 10.2 fL (9.4-12.3); Monocytes Absolute Auto 0.4 X10*3/uL (0.1-1.2); Monocytes Percent Auto 6.9 % (2-11); Neutrophils Absolute Auto 3.3 x10*3/uL (2.0-8.3); Neutrophils Percent Auto 54.4 % (45-73); Platelet Count 262 X10*3/uL (160-400); Red Blood Count 4.51 X10*6/uL (4.20-5.50); Red Cell Distribution Width 11.9 % (11.0-16.0); White Blood Count 6.1 X10*3/uL (4.8-10.8)
[2024-04-18 11:54] LABS: Alanine Aminotransferase 26 U/L (0-31); Alkaline Phosphatase 91 U/L (39-117); Anion Gap 10 (12-20); Aspartate Amino Transferase 16 U/L (5-31); Bilirubin Total 0.6 mg/dL (0.0-1.0); Blood Urea Nitrogen 16 mg/dL (9-16); Calcium 9.4 mg/dL (8.4-10.2); Carbon Dioxide 28 mmol/L (22-29); Chloride 106 mmol/L (96-108); Cholesterol 214 mg/dL (<200); Estimated Glomerular Filt Rate > 60; Gamma Glutamyl Transpeptidase 64 U/L (7-33); Glucose Fasting 232 mg/dL (60-99); HDL Cholesterol 41 mg/dL (>40); LDL Cholesterol Calculated 145 mg/dL (<100); Potassium 4.4 mmol/L (3.3-5.1); Sodium 140 mmol/L (135-145); Total Protein 7.4 g/dL (6.5-8.0); Triglycerides 144 mg/dL (<150)
== END 2024-04-18 10:07 | disposition home or self-care (01) ==
LOC: HO.LAB 10:06
PROVIDERS: PCP Internal Medicine Medical Oncology; Visit Provider Internal Medicine Medical Oncology
DX: E78.5 Hyperlipidemia, unspecified (principal); E66.3 Overweight; E11.9 Type 2 diabetes mellitus without complications; M79.2 Neuralgia and neuritis, unspecified; G47.30 Sleep apnea, unspecified
CPT/HCPCS: 36415; 80053; 80061; 82977; 85025

== ENCOUNTER → 2024-05-25 13:22 | Outpatient (BNVA) | payer MEDICARE, MEDICAID, SELFPAY | PROVIDERS: PCP Internal Medicine Medical Oncology; Visit Provider Psychiatry & Neurology Neurology ==

== ENCOUNTER 2024-06-10 10:29 | Outpatient (AMB) | payer MEDICARE, MEDICAID, SELFPAY ==
[2024-06-10 10:31] VITALS: BP 110/62; PULSE 78; O2SAT 97; BMI 27.3
--- NOTE | 2024-06-10 10:31 | A.OFFVIS_ITS ---
Vital Signs 06/10/24 10:31 Height 5 ft 3 in Weight 154 lb BMI 27.3 BP 110/62 Blood Pressure Location Rt brachial Position Sitting Pulse 78 Pulse Source Doppler Pulse Oximetry (%) 97 Oxygen Delivery Method Room Air Intake Visit Reasons: sleep apnea Allergies lisinopril Allergy (Mild, Verified 06/10/24 10:36) coughing hydromorphone [From Dilaudid] Adverse Reaction (Intermediate, Verified 06/10/24 10:36) Vomiting Percocet Adverse Reaction (Severe, Uncoded 06/10/24 10:37) Vomiting HPI HPI sleep apnea: Details: 63-year-old lady, former 25+ pack-year smoker, quit 2018 with underlying emphysema and moderate obstructive sleep apnea diagnosed with home sleep study in 2021 referred for further follow-up. Patient states that she has tried CPAP therapy and returned to machine after initial diagnosis secondary to inability to comply with the CPAP requirements. She is interested in trying CPAP therapy again. Patient also states that she has family history of COPD and lung cancer. She is undergoing lung cancer screening program here at [facility]. She does not have recent pulmonary function testing. Patient denies any exertional dyspnea. She is currently not using any inhaled bronchodilators. [facility] Medical History (Updated 06/10/24 @ 11:19 by Martir Marie MD) JOSE (obstructive sleep apnea) Coronary vasospasm Personal history of nicotine dependence Tubular adenoma of colon (~2020) Anxiety History of fibromyalgia NIDDY (non-insulin dependent diabetes mellitus in young) Chronic hepatitis C Surgical History History of foot surgery History of endoscopy History of colonoscopy History of endometrial ablation History of cholecystectomy Family History Father HTN (hypertension) Lung cancer Mother Asthma Thyroid disease Cardiac arrest Family/Other Breast cancer Social History Household Members: Other Housing: Condominium Do you presently have visiting nurse or other home services: No Alcohol intake: current Alcohol intake frequency: does not drink Patient Tobacco Use Status: Former Tobacco user Tobacco use type: Cigarette Years Smoked: (onset 9yo, 1/2ppd x 50yrs, 25pyh - quit 04/2020) Advance Directives Date on File: 04/09/21 Current occupational status: employed 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 Sexual orientation: Straight/Heterosexual Gender identity: Female Review of Systems Const Reports daytime sleepiness, Denies excessive sweating, Reports fatigue, Denies fever(s), Denies lethargy, Denies malaise, Denies night sweats, Denies snoring and Denies weight loss Eyes Denies blurry vision and Denies itchy eyes ENT Denies nasal congestion, Denies post nasal drip, Denies sinus pain, Denies sinus pressure and Denies other ( Thrush) Card Denies chest pain, Denies pedal edema, Denies dyspnea, Denies orthopnea and Denies paroxysmal nocturnal dyspnea Resp Denies cough, Denies hemoptysis, Denies excessive phlegm production, Denies dyspnea, Denies snoring and Denies wheezing GI Denies abdominal pain and Denies heartburn Musc Denies myalgias, Denies arthralgias and Denies joint swelling Skin/Breast Denies rash Neuro Denies memory loss and Denies seizure-like activity Psych Denies abnormal sleep pattern, Denies anxiety and Denies memory loss Endo Denies excessive sweating, Reports fatigue and Denies heat intolerance Sami/Lymph Denies easy bruising Aller/Immun Denies itchy eyes, Denies seasonal rhinorrhea and Denies wheezing Physical Exam Vital Signs: Last Vital Signs Pulse 78 06/10/24 10:31 BP 110/62 06/10/24 10:31 Pulse Ox 97 06/10/24 10:31 Oxygen Delivery Method Room Air 06/10/24 10:31 BMI result Body Mass Index 27.3 Const General: no acute distress and alert Nutritional Appearance: not obese Orientation/consciousness: Other orientation findings ( oriented) HEENT Head: Yes atraumatic Eyes General: appearance normal, both eyes and all related structures Sclerae: sclerae normal EOM: EOMs intact bilaterally Neck Neck: Yes supple Lymphatic: no lymphadenopathy noted Resp Effort & Inspection: normal respiratory effort and no use of accessory muscles Auscultation: clear to auscultation bilaterally Cardio Rate: regular rate Rhythm: regular rhythm Heart sounds: no gallops, no murmurs and no rubs Skin General skin exam: other ( warm) Extrem General: No clubbing, No cyanosis and No edema Assessment & Plan Assessment & Plan (1) Pulmonary emphysema: Code(s): J43.9 - Emphysema, unspecified Category: Medical Plan: Will obtain full PFT. (2) JOSE (obstructive sleep apnea): Code(s): G47.33 - Obstructive sleep apnea (adult) (pediatric) Category: Medical Plan: Results of sleep study reviewed, underlying moderate obstructive sleep apnea. Will request APAP. (3) Personal history of nicotine dependence: Comment: (onset 9yo, 1/2ppd x 50yrs, 25pyh - quit 04/2020) Code(s): Z87.891 - Personal history of nicotine dependence Category: Medical Plan: Results of lung cancer screening CT chest reviewed - no worrisome pulmonary nodules, underlying emphysema. Continue with yearly screening, next in February of 2025. Coding Level of Care Code New Pt Level 4 (46958) Complex EM visit Add On G2211 Diagnoses Pulmonary emphysema J43.9 JOSE (obstructive sleep apnea) G47.33 Personal history of nicotine dependence Z87.891
== END 2024-06-10 11:13 | disposition home or self-care (01) ==
PROVIDERS: PCP Internal Medicine Medical Oncology; Visit Provider Internal Medicine Pulmonary Disease
DX: J43.9 Emphysema, unspecified (principal); G47.33 Obstructive sleep apnea (adult) (pediatric); Z87.891 Personal history of nicotine dependence
CPT/HCPCS: 99204; G2211

== ENCOUNTER → 2024-06-10 | Outpatient (BNVA) | payer MEDICARE, MEDICAID, SELFPAY | PROVIDERS: PCP Internal Medicine Medical Oncology; Visit Provider Internal Medicine Pulmonary Disease | DX: J43.9 Emphysema, unspecified (principal); G47.33 Obstructive sleep apnea (adult) (pediatric); Z87.891 Personal history of nicotine dependence | CPT/HCPCS: 99202 ==

== ENCOUNTER 2024-07-12 08:55 | Outpatient (REF) | payer MEDICARE, MEDICAID, SELFPAY ==
[2024-07-12 09:23] LABS: MANUAL DIFF FLAG NO
[2024-07-12 09:39] LABS: Basophils Absolute Auto 0.1 X10*3/uL (0.0-0.2); Basophils Percent Auto 1.1 % (0-2); Eosinophils Absolute Auto 0.4 X10*3/uL (0.0-0.4); Eosinophils Percent Auto 5.5 % (0-4); Hematocrit 40.2 % (37.0-47.0); Hemoglobin 13.5 g/dl (12.0-16.0); Imm Gran Abs Auto 0.01 X10*3/uL (0.00-0.03); Imm Gran Pct Auto 0.1 % (0.0-0.4); Lymphocytes Percent Auto 27.5 % (20-40); Mean Corpuscular HGB Conc 33.6 g/dl (31.0-35.0); Mean Corpuscular Hemoglobin 30.5 pg (27.0-33.0); Mean Platelet Volume 10.5 fL (9.4-12.3); Monocytes Absolute Auto 0.6 X10*3/uL (0.1-1.2); Monocytes Percent Auto 7.7 % (2-11); Neutrophils Absolute Auto 4.2 x10*3/uL (2.0-8.3); Neutrophils Percent Auto 58.1 % (45-73); Platelet Count 228 X10*3/uL (160-400); Red Blood Count 4.42 X10*6/uL (4.20-5.50); Red Cell Distribution Width 11.8 % (11.0-16.0); White Blood Count 7.3 X10*3/uL (4.8-10.8)
[2024-07-12 09:47] LABS: Estimated Average Glucose 217 mg/dL; Hemoglobin A1C 275.9373 umol/L; Hemoglobin A1c % 9.2 % (<6.0); Total Hemoglobin (HGBA1C) 3580.3849 umol/L
[2024-07-12 11:10] LABS: Alanine Aminotransferase 30 U/L (0-31); Alkaline Phosphatase 76 U/L (39-117); Anion Gap 8 (12-20); Aspartate Amino Transferase 21 U/L (5-31); Bilirubin Total 0.8 mg/dL (0.0-1.0); Blood Urea Nitrogen 10 mg/dL (9-16); Calcium 9.2 mg/dL (8.4-10.2); Carbon Dioxide 30 mmol/L (22-29); Chloride 107 mmol/L (96-108); Cholesterol 123 mg/dL (<200); Estimated Glomerular Filt Rate > 60; Glucose Fasting 214 mg/dL (60-99); HDL Cholesterol 37 mg/dL (>40); LDL Cholesterol Calculated 71 mg/dL (<100); Magnesium 1.8 mg/dL (1.6-2.6); Potassium 4.5 mmol/L (3.3-5.1); Sodium 140 mmol/L (135-145); Total Protein 7.2 g/dL (6.5-8.0); Triglycerides 77 mg/dL (<150); Vitamin D 25-OH Total 40.9 ng/mL (>30)
[2024-07-12 11:15] LABS: Creatinine Urine 221.86 mg/dL; Microalbum/Creatinine Ratio Ur 4.9 ug/mg cr (<30)
== END 2024-07-12 08:56 | disposition home or self-care (01) ==
LOC: HO.LAB 08:55
PROVIDERS: PCP Internal Medicine Medical Oncology; Visit Provider Internal Medicine Medical Oncology
DX: E66.3 Overweight (principal); E11.9 Type 2 diabetes mellitus without complications; E55.9 Vitamin D deficiency, unspecified; E11.40 Type 2 diabetes mellitus with diabetic neuropathy, unspecified
CPT/HCPCS: 36415; 80053; 80061; 82043; 82306; 82570; 83036; 83735; 85025

== ENCOUNTER 2024-09-07 10:27 | Outpatient (AMB) | payer MEDICARE, MEDICAID, SELFPAY ==
[2024-09-07 10:31] VITALS: BP 124/70; PULSE 63; BMI 27.1
--- NOTE | 2024-09-07 10:31 | MHC.OFFVIS ---
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 Accompanied by: Self / Same As Patient Allergies lisinopril Allergy (Mild, Verified 06/10/24 10:36) coughing hydromorphone [From Dilaudid] Adverse Reaction (Intermediate, Verified 06/10/24 10:36) Vomiting Percocet Adverse Reaction (Severe, Uncoded 06/10/24 10:37) Vomiting Medication List - Last Reconciled 09/07/24 by Vito Noonan MD acetaminophen 1 tab PO Q6H PRN amlodipine 2.5 mg PO DAILY aspirin 81 mg PO DAILY 90 days atorvastatin 20 mg PO QPM calcium carbonate (Oyster Shell Calcium 500) 500 mg PO DAILY cholecalciferol (vitamin D3) 1,250 mcg PO MO diclofenac sodium 1% 2 grams topical BID PRN gabapentin 600 mg PO TID PRN lidocaine 5% 1 patch topical DAILY PRN magnesium oxide 400 mg PO BID metformin 1,000 mg PO BID nitroglycerin 0.4 mg sublingual Q5M PRN HPI Comments Details: Melva returns for follow-up. To recall, she presented to the hospital with substernal chest pain radiating to both shoulders. High sensitivity troponins were >1000. She was diagnosed with NSTEMI and sent to [facility] for cardiac catheterization. Diagnosed to have just vasospasm but not obstructive CAD. She was also started on amlodipine and she states that is also helping a lot. She was complaining of palpitations and completed a Holter which was unremarkable. Otherwise, nonspecific tiredness. History of obstructive sleep apnea but does not use CPAP. Since last seen, she has had occasional chest pains but takes nitroglycerin feels better. Hence could be vasospasm. Otherwise, getting along fine. [facility] Medical History (Updated 06/10/24 @ 11:19 by Martir Marie MD) JOSE (obstructive sleep apnea) Coronary vasospasm Personal history of nicotine dependence Tubular adenoma of colon (~2020) Anxiety History of fibromyalgia NIDDY (non-insulin dependent diabetes mellitus in young) Chronic hepatitis C Surgical History History of foot surgery History of endoscopy History of colonoscopy History of endometrial ablation History of cholecystectomy Family History Father HTN (hypertension) Lung cancer Mother Asthma Thyroid disease Cardiac arrest Family/Other Breast cancer Social History Household Members: Other Housing: Condominium Do you presently have visiting nurse or other home services: No Alcohol intake: current Alcohol intake frequency: does not drink Patient Tobacco Use Status: Former Tobacco user Tobacco use type: Cigarette Years Smoked: (onset 9yo, 1/2ppd x 50yrs, 25pyh - quit 04/2020) Advance Directives Date on File: 04/09/21 Current occupational status: employed Current occupation: [employer] Sexual orientation: Straight/Heterosexual Gender identity: Female Review of Systems Const Denies chills, Reports fatigue, Denies fever(s), Denies weight gain and Denies weight loss ENT Denies dizziness Card Reports chest pain, Denies leg edema, Denies lightheadedness, Denies palpitations, Reports dyspnea, Denies dyspnea on exertion, Denies orthopnea and Denies other Resp Denies cough, Reports dyspnea and Denies dyspnea on exertion GI Denies hematochezia and Denies change in stool character Musc Denies abnormal gait, Denies muscle weakness, Denies numbness, Denies radiating pain into limb and Denies tingling Neuro Denies abnormal gait, Denies dizziness, Denies numbness and Denies tingling Endo Reports fatigue and Denies palpitations Physical Exam Vital Signs: Last Vital Signs Pulse 63 09/07/24 10:31 BP 124/70 09/07/24 10:31 BMI result Body Mass Index 27.1 Const General: comfortable and no acute distress Orientation/consciousness: patient oriented x3 HEENT Other: Unremarkable Head: Yes normal to inspection Neck Neck: Yes normal visual inspection Chest Chest palpation & inspection: normal inspection of the chest Resp Auscultation: clear to auscultation bilaterally Cardio Palpation: normal PMI Heart sounds: S1 normal heart sound present, S2 normal heart sound present, no gallops, no murmurs and no rubs GI Palpation (GI): Soft to palpation Back/Spine/Pelvis Other: unremarkable Skin General skin exam: no rashes or lesions noted Neuro General: patient oriented x3 Extrem General: Yes normal to inspection Psych Mental Status: mental status grossly normal Office Procedures EKG Details: EKG with underlying sinus rhythm at 63/Min; sinus arrhythmias; no significant ST-T changes and otherwise unremarkable. [place]. [id number], Complete Assessment & Plan Assessment & Plan (1) NSTEMI (non-ST elevated myocardial infarction): Code(s): I21.4 - Non-ST elevation (NSTEMI) myocardial infarction Category: Medical (2) Coronary vasospasm: Code(s): I20.1 - Angina pectoris with documented spasm Category: Medical (3) JOSE (obstructive sleep apnea): Code(s): G47.33 - Obstructive sleep apnea (adult) (pediatric) Category: Medical Plan During hospitalization 10/2023, high sensitivity troponins were >1000. Coronary CTA however in the past had shown essentially normal coronary arteries. In the cardiac catheterization, no obstructive CAD. There is evidence of LAD vasospasm. She can continue low-dose aspirin but not clear if she actually needs to do this long-term. Continue amlodipine for possible health vasospasm. She can use sublingual nitroglycerin as necessary. Okay for low-dose statins but she does not have any significant CAD. Hence mainly for primary prevention. With regard to the Holter, underlying sinus rhythm with occasional PACs, short bursts of SVT. Palpitations correlate with sinus rhythm, PACs. As the BP is already on the lower side and she is also complaining of tiredness. Will hold off any further meds at this time-no recent concerns. With regard to obstructive sleep apnea, pending CPAP per patient. Medications: Refilled aspirin 81 mg PO DAILY 90 tabs 3RF 90 days Coding Level of Care Code Est Pt Level 4 (50657) Diagnoses NSTEMI (non-ST elevated myocardial infarction) I21.4 Coronary vasospasm I20.1 JOSE (obstructive sleep apnea) G47.33 CPT Codes EKG - CPT: 44770-[id number], Complete ([id number])
== END 2024-09-07 10:55 | disposition home or self-care (01) ==
PROVIDERS: PCP Internal Medicine Medical Oncology; Visit Provider Internal Medicine
DX: I21.4 Non-ST elevation (NSTEMI) myocardial infarction (principal); I20.1 Angina pectoris with documented spasm; G47.33 Obstructive sleep apnea (adult) (pediatric)
CPT/HCPCS: 93010; 99214

== ENCOUNTER → 2024-09-07 10:27 | Outpatient (BNVA) | payer MEDICARE, MEDICAID, SELFPAY | PROVIDERS: PCP Internal Medicine Medical Oncology; Visit Provider Internal Medicine | DX: I25.2 Old myocardial infarction (principal); I21.4 Non-ST elevation (NSTEMI) myocardial infarction; I20.1 Angina pectoris with documented spasm; G47.33 Obstructive sleep apnea (adult) (pediatric) | CPT/HCPCS: 93005; 99212 ==

== ENCOUNTER 2024-09-19 11:56 | Outpatient (REF) | payer MEDICARE, MEDICAID, SELFPAY ==
[2024-09-19 12:14] LABS: MANUAL DIFF FLAG NO
[2024-09-19 12:39] LABS: Basophils Absolute Auto 0.1 X10*3/uL (0.0-0.2); Basophils Percent Auto 1.2 % (0-2); Eosinophils Absolute Auto 0.4 X10*3/uL (0.0-0.4); Hematocrit 38.8 % (37.0-47.0); Hemoglobin 12.7 g/dl (12.0-16.0); Imm Gran Abs Auto 0.03 X10*3/uL (0.00-0.03); Imm Gran Pct Auto 0.4 % (0.0-0.4); Lymphocytes Absolute Auto 2.3 X10*3/uL (1.2-4.9); Lymphocytes Percent Auto 31.2 % (20-40); Mean Corpuscular HGB Conc 32.7 g/dl (31.0-35.0); Mean Corpuscular Hemoglobin 29.9 pg (27.0-33.0); Mean Corpuscular Volume 91.3 fL (80.0-98.0); Mean Platelet Volume 10.9 fL (9.4-12.3); Monocytes Absolute Auto 0.5 X10*3/uL (0.1-1.2); Monocytes Percent Auto 6.7 % (2-11); Neutrophils Absolute Auto 4.1 x10*3/uL (2.0-8.3); Neutrophils Percent Auto 55.5 % (45-73); Platelet Count 240 X10*3/uL (160-400); Red Blood Count 4.25 X10*6/uL (4.20-5.50); Red Cell Distribution Width 11.7 % (11.0-16.0); White Blood Count 7.4 X10*3/uL (4.8-10.8)
[2024-09-19 12:46] LABS: Estimated Average Glucose 217 mg/dL; Hemoglobin A1C 237.0716 umol/L; Hemoglobin A1c % 9.2 % (<6.0)
[2024-09-19 13:18] LABS: Alanine Aminotransferase 53 U/L (0-31); Albumin Level 3.9 g/dL (3.5-5.0); Alkaline Phosphatase 135 U/L (39-117); Anion Gap 10 (12-20); Aspartate Amino Transferase 33 U/L (5-31); Bilirubin Total 0.4 mg/dL (0.0-1.0); Blood Urea Nitrogen 16 mg/dL (9-16); Carbon Dioxide 26 mmol/L (22-29); Chloride 103 mmol/L (96-108); Estimated Glomerular Filt Rate > 60; Potassium 4.4 mmol/L (3.3-5.1); Sodium 135 mmol/L (135-145); Total Protein 7.2 g/dL (6.5-8.0)
[2024-09-19 13:20] LABS: Glucose Random 357 mg/dL (60-115)
--- OUTSIDE RECORDS SUMMARY | 2024-09-19 16:57 | XMS_ITS | Clinical Summary ---
Author Organization [facility] Address [address] [place] [address] Care Team Providers Care Wheel Alignment Mechanic Name Role Phone Golden Archuleta Primary Care Provider [phone] Allergies Active Allergy Reactions Criticality Noted Date Comments Lisinopril Cough 01/13/2022 Oxycodone-Acetaminophen Nausea 01/16/2021 Medications gabapentin (NEURONTIN) 300 mg capsule Take 300 mg by mouth 3 times a day. Active metFORMIN (GLUCOPHAGE) 1,000 mg tablet Take 1,000 mg by mouth 2 times a day with meals. 1 Active hydrOXYchloroQU INE (PLAQUENIL) 200 mg tablet Take 300 mg by mouth daily. 1 Active atorvastatin (LIPITOR) 10 mg tablet 1 Active cholecalciferol (VITAMIN D3) 1,250 mcg (50,000 unit) capsule Take 50,000 Units by mouth once a week. 1 Active glipiZIDE (GLUCOTROL) 10 mg tablet TAKE 1 TABLET BY MOUTH 30 MINUTES BEFORE BREAKFAST ONCE A DAY FOR 30 DAYS 1 Active diclofenac (VOLTAREN) 1% gel APPLY 4 G TOPICALLY 2 TIMES DAILY. 1 Active oxyCODONE IR (ROXICODONE) 5 mg tablet Take 5 mg by mouth every 6 hours as needed. 1 Active Eliquis 5 mg tablet TAKE 2 TABLETS (10 MG TOTAL) BY MOUTH EVERY 12 HOURS. 120 tablet 2 1 Active Additional Information Patient not taking.Reported on 07/09/2022 acetaminophen (TYLENOL) 500 mg tablet Take 500 mg by mouth every 6 hours as needed. 1 Active amLODIPine (NORVASC) 2.5 mg tablet TAKE 1 TABLET DAILY. TOTAL DOSE 7.5MG DAILY 1 Active lidocaine (XYLOCAINE) 5% ointment APPLY TO AFFECTED AREA EVERY DAY NEEDED 1 Active nitroglycerin (NITROSTAT) 0.4 mg SL tablet 2 Active Freestyle lancets 28 gauge USE DIRECTED TO CHECK BLOOD SUGAR THURSDAY, THURSDAY, THURSDAY 30 DAYS 90 2 Active Freestyle Lite test strips USE TO TEST ON THURSDAY, THURSDAY, AND Thursday 2 Active aspirin chewable tablet 81 mg TAKE 1 TABLET BY MOUTH EVERY DAY FOR 30 DAYS 2 Active ibuprofen (MOTRIN) 800 mg tablet Take 1 tablet (800 mg total) by mouth every 8 hours as needed for pain. 90 tablet 2 Active Active Problems Problem Noted Date Diagnosed Date Complex regional pain syndro me type 2 of left lower extremity 05/02/2021 Overview (05/02/2021): Added automatically from request for surgery [id number] Chronic foot pain, left 05/02/2021 Overview (05/02/2021): Added automatically from request for surgery [id number] Peripheral neuralgia 05/02/2021 Overview (05/02/2021): Added automatically from request for surgery [id number] Blue toe syndrome of left lower extremity 2020 Assessment & Plan (01/24/2021 8:27 PM EDT): Ms. Frye continues to be symptomatic despite imaging evidence that the site of thrombosis is now clear. This suggest that the thrombus has further embolized into her microvasculature by this point as it her body has broken it down. Unfortunately there are no effective surgical interventions to retrieve this thrombus. However, we expect that with continued use of therapeutic anticoagulation, these smaller emboli will slowly be broken down by her body. The question remains as to the source of this thrombus. There is high clinical suspicion for embolism from another source given the absence of local atherosclerotic disease in her LLE arterial tree. To this end, she should undergo a full thromboembolism workup including TTE, CTA of her chest and extended holter monitoring for arrhythmia. We have recommended that this workup be conducted through her PCP who is in a better position to coordinate this investigation and any further steps in management. In the interim, we would also recommend continuance of her eliquis for prevention of further thrombotic events. The above findings and recommendations were discussed with the patient at length and her questions were answered. She has expressed her agreement with the plan. Going forward, follow-up with Vascular Surgery can be on an as needed basis only. Assessment & Plan (01/16/2021 12:37 PM EDT): Melva Thomas is a 60 y.o. female with PMHx significant for noninsulin- dependent diabetes type 2, fibromyalgia, hyperlipidemia, previous tobacco abuse who recently quit in April 2020, who presents left toes 1-3 discoloration and pain concerning for blue toe syndrome. Based on my evaluation the patient I recommend that she started on full therapeutic anticoagulation which I prescribed Eliquis for. I also urged the patient to be started on a daily aspirin. In addition I recommend oxycodone as needed for pain control in addition to [id number] ibuprofen. I will refer the patient to hematology for possible hypercoagulable work-up. I plan to review the patient's CT angio from [facility] at her next in-person clinic visit and determine at that point if she would need further CT scans identify any embolic sources. In addition I would recommend her PCP to order a possible Holter monitor and echo to look for cardiac sources for embolic disease. Given the patient has palpable pedal pulses I do not believe she has any need for urgent or emergent surgical intervention at this point. I did express to the patient she should call our offices should her symptoms progress or worsen despite starting her Eliquis and oxycodone as needed for pain. Peripheral arterial disease 01/10/2021 Assessment & Plan (01/10/2021 8:03 PM EDT): Melva Thomas is a 60 y.o. female with PMHx significant for noninsulin- dependent diabetes type 2, fibromyalgia, hyperlipidemia, previous tobacco abuse who recently quit in April 2020, who presents as a referral for peripheral arterial disease. The patient reports that she has not ongoing left toe pain for over a year with more recent discoloration at the tips of her third toe. The significant pain that she is having requires her to take ibuprofen daily. Based on the patient's presentation and CT angio report from [facility] I am concerned for embolic disease resulting in blue toe syndrome that may be causing some ischemic pain in the patient's left foot. However the patient does not want to be started on any anticoagulation without a clear diagnosis for an embolic disease. I did review the CT report that she showed me from [facility] demonstrating a question of thrombus in her left popliteal artery however I am unable to give further information since I do not have access to the images. The patient reports that she will try to obtain the CT images from [facility] for me to review. In the interim I have asked her to have a left lower extremity duplex ultrasound to assess for any popliteal artery aneurysm or thrombus that could be causing embolic disease to her left foot. Plan to follow up with the patient in 1 week to revisit the progress of her symptoms in addition to obtain further imaging to help diagnose the etiology of the patient's left foot rest pain despite having palpable DP and PT pulses. Family History Medical History Relation Name Comments Cancer Father Hypertension Father Lung cancer Father Diabetes Maternal Grandmother Myocardial Infarction Maternal Grandmother Coronary artery disease Mother Diabetes Mother Relation Name Status Comments Father Maternal Grandmother Mother Social History Tobacco Use Types Packs/Day Years Used Date Smoking Tobacco: Former Cigarettes Q uit: 05/13/2020 Smokeless Tobacco: Never Comments Unknown Sex and Gender Information Value Date Recorded Sex Assigned at Female 03/06/2021 4:14 PM EDT Legal Sex Female 1:31 PM EDT Gender Identity Female 03/06/2021 4:14 PM EDT Sexual Orientation Straight 03/06/2021 4: 14 PM EDT Last Filed Vital Signs Vital Sign Reading Time Taken Comments Blood Pressure 156/73 09/09/2022 3:34 PM EST Pulse 65 09/09/2022 3:34 PM EST Temperature 35.8 ??C (96.4 ??F) 09/09/2022 3:20 PM ES T Respiratory Rate 16 03/07/2021 4:28 PM EDT Oxygen Saturation 96% 09/09/2022 3:34 PM EST Inhaled Oxygen Concentration - - Weight 73.9 kg (163 lb) 03/07/2021 4:28 PM EDT Height 160 cm (5' 3 ) 03/07/2021 4:28 PM EDT Body Mass Index 28.87 03/07/2021 4:28 PM EDT Plan of Treatment Health Maintenance Due Date Last Done Comments Cervical Cancer Screening 1960 Cologuard 1960 Colon Cancer Screening 1960 Colonoscopy 1960 FOBT / Fit Test 1960 HIV Screening 1960 HPV and Pap Smear 1960 Hepatitis C Screening 1960 Pap Smear 1960 Sigmoidoscopy 1960 DTaP,Tdap,and Td Vaccines (1 - Tdap) [address] Lung Cancer Screening (Baseline) 2010 COVID-19 Vaccine ( season) 2024 08/04/2021, 01/18/2021, 12/21/2020 Influenza Vaccine (#1) 2024 , 07/11/2021, 05/29/2020, Additional history exists Alcohol/Substance Use Screening 08/24/2024 Depression Screening and Follow-Up 08/24/2024 Social Drivers of Health Annual Screening 08/24/2024 RSV Vaccine (60+ years old and patients) (1 - 1-dose 75+ series) 12/14/2035 Pneumococcal Vaccine: Pediatric (0-5 Years) and At-Risk Patients (6-64 Years) Aged Out 05/26/2018, 05/25/2018 No longer eligibl e based on patient's age to complete this topic Zoster Vaccines Completed 03/10/2022, 01/08/2022 Hepatitis B Vaccines Aged Out No long er eligible based on patient's age to complete this topic Insurance MEDICARE [facility] Care Teams Wheel Alignment Mechanic Relationship Specialty Start Date End Date Golden Archuleta [address] [place] [id number] PCP - General Hematology 03/14/21
--- OUTSIDE RECORDS SUMMARY | 2024-09-19 16:57 | XMS_ITS | Encounter Summary ---
Author Organization [facility] Address [address] [place] [address] Care Team Providers Care Carton Stapler Name Role Phone Golden Archuleta MD Primary Care Provider [phone] Reason for Visit * Reason Comments Follow-up Right foot pain Encounter Details Date Type Department Care Team ([facility] st Contact Info) Description 09/15/2024 10:00 AM EST Office Visit Orthopedic Surgery - [place] [address] [phone] Erich Harrison, DPM [address] [address] Diabetic mononeuropathy simplex (CMS/HCC) (Primary Dx); Type II diabetes mellitus with peripheral circulatory disorder (CMS/HCC); Metatarsalgia of both feet; Corns and callosities; Pain in toe of left foot; Pain in toe of right foot; Dermatophytosis of nail Social History Tobacco Use Types Packs/Day Years Used Date Smoking Tobacco: Former Smokeless Tobacco: Never Tobacco Cessation:Counseling Given: Not Answered Alcohol Use Standard Drinks/Week Comments Yes 0 (1 standard drink = 0.6 oz pur e alcohol) Sex and Gender Information Value Date Recorded Sex Assigned at Not on file Gender Identity Not on file Sexual Orientation Not on file Job Start Date Occupation Industry Not on file Not on file Not on file documented as of this encounter Last Filed Vital Signs Vital Sign Reading Time Taken Comments Blood Pressure - - Pulse - - Temperature - - Respiratory Rate - - Oxygen Saturation - - Inhaled Oxygen Concentration - - Weight 72.1 kg (159 lb) 09/15/2024 10:08 AM EST Height 160 cm (5' 2.99 ) 09/15/2024 10:08 AM EST Body Mass Index 28.17 09/15/2024 10:08 AM EST documented in this encounter Ordered Prescriptions Prescription Sig Dispensed Refills Start Date End Da te diclofenac (Voltaren Arthritis Pain) 1 % topical gel Apply 4 g topically 2 (two) times a day. 240 g 1 09/15/2024 11/14/2024 lidocaine (LIDODERM) 5 % patchIndications:Diabetic mononeuropathy simplex (CMS/HCC) Apply 1 patch topically 1 (one) time each day. Remove & discard patch within 12 hours or as directed by . 90 each 09/15/2024 12/14/2024 documented in this encounter Progress Notes * Erich Harrison, DPM - 09/15/2024 10:00 AM EST S: Patient presents still complaining of numbness burning tending to her feet suffering from both type2 diabetes peripheral neuropathy and fibromyalgia she has been pursuing nerve spine stimulator states that she has been using the lidocaine patches topically and the Voltaren gel topically with significant improvement in pain discomfort she states she needs refills of both his medications does follow with pain specialist notes her nails elongated painful thickened she has calluses of both feet states been more bothersome recently in the cooler weather Last MD visit 06/01/2024 Dr Golden Archuelta MD ROS: GENERAL: Pt denies nausea, fever, vomiting, chills, or shortness of breath. Pt in NAD. CARDIOLOGY: pt denies chest pain, palpitations LUNGS: pt denies shortness of breath MUSCULOSKELETAL: See HPI, otherwise no joint pain or swelling, back pain, or muscle pain. SKIN: see HPI, otherwise no lesions, rash or itching NEURO: No persistent headache, weakness or numbness The remainder of the review of systems is noncontributory PAST MEDICAL HISTORY: Patient Active Problem List Diagnosis Code T2DM (type 2 diabetes mellitus) ([facility]) E11.9 Peripheral neuritis G62.9 Fibromyalgia M79.7 Carpal tunnel syndrome G56.00 Hammer toe M20.40 Atypical chest pain R07.89 PAD (peripheral artery disease) ([facility]) I73.9 SOCIAL HISTORY: Social History Tobacco Use Smoking status: Former Smokeless tobacco: Never Substance Use Topics Alcohol use: Yes Comment: social settings History Last Reviewed by Valerie Gunter on 06/17/2022 at 3:11 PM Sections Reviewed Tobacco ACTIVE MEDICATIONS: Current Outpatient Medications Medication Sig Dispense Refill lidocaine (LIDODERM) 5 % Place 1 Patch onto the skin every 24 hours for 112 days. Apply for no morethan 12 hours in any 24 hour period. 28 Patch 3 clotrimazole (LOTRIMIN) 1 % cream Apply to skin and toenails daily for 12 weeks 45 g 3 Diclofenac Sodium 1 % Gel Apply 4 g topically 2 times daily. 100 g 2 clotrimazole (LOTRIMIN) 1 % cream Apply to skin and toenails daily for 12 weeks 45 g 3 lidocaine (LIDODERM) 5 % Place 1 Patch onto the skin every 24 hours for 28 days. Apply for no more than 12 hours in any 24 hour period. 28 Patch 0 nitroGLYCERIN (NITROSTAT) 0.4 MG SL tablet DIRECTED SUBLINGUAL EVERY 5 MINUTES NEEDED FOR CHEST PAIN 28 DAYS ibuprofen (ADVIL,MOTRIN) 800 MG tablet TAKE 1 TABLET BY MOUTH EVERY 6 HOURS NEEDED FOR 30 DAYS *WITH FOOD OR MILK* glipiZIDE (GLUCOTROL) 10 MG tablet TAKE 1 TABLET BY MOUTH 30 MINUTES BEFORE BREAKFAST ONCE A DAY FOR 30 DAYS Aspirin Low Dose 81 MG chewable tablet TAKE 1 TABLET BY MOUTH EVERY DAY FOR 30 DAYS ammonium lactate (LAC-HYDRIN) 12 % lotion Apply to soles of feet daily. At night wear socks to bed 400 g 2 lidocaine (XYLOCAINE) 5 % ointment APPLY TO AFFECTED AREA EVERY DAY NEEDED clotrimazole (LOTRIMIN) 1 % cream Apply to skin daily for 6 weeks 30 g 3 hydrocortisone 1 % cream Apply 1 Applicator topically 2 times daily. To skin on feet 100 g 0 Diclofenac Sodium 1 % Gel Apply 4 g topically 2 times daily. 100 g 2 Acetaminophen 500 MG Cap Take by mouth. gabapentin (NEURONTIN) 300 MG capsule Take 300 mg by mouth 2 times daily. metformin (GLUCOPHAGE) 1000 MG tablet Take 1,000 mg by mouth 2 times daily (with meals). Glucose Blood (FREESTYLE LITE) Strip by In Vitro route. Cholecalciferol 125 MCG (5000 UT) Cap Take by mouth. No current facility-administered medications for this visit. ALLERGIES: Percocet [oxycodone-acetaminophen] PHYSICAL EXAM: Height 5' 3 (1.6 m), weight 159 lb (72.1 kg). Estimated body mass index is 28.17 kg/m?? as calculated from the following: Height as of this encounter: 5' 3 (1.6 m). Weight as of this encounter: 159 lb (72.1 kg). BMI PLAN BMI BMI is greater than 25.0 (above the normal range) - see Plan PODIATRIC EXAMINATION: GENERAL: Patient appears well nourished, with NAD. VASCULAR: Dorsalis pedis pulses are1 /4 bilaterally and Posterior tibial pulses are 1 /4 right 0/4 left. Capillary filling time within normal limits the digits. No pallor on elevation or rubor on dependency. Positive hair growth. No varicosities. Denies rest pain or claudication pain. NEUROLOGICAL: Sharp/dull sensation intact, protective sensation intact 10/10 with 5.07 semmes jones bilaterally, vibratory sensation with tuning fork intact to the tibial tuberosity. ORTHOPEDIC: Good muscle strength 5/5 of all flexors and extensors. Dorsi flexion of ankle ,10 degrees, plantar flexion WNL. No muscle atrophy. Negative heel squeeze pain, Negative lateral calcaneal wall pain, typically improved posterior heelpain. Significantly improved positive pain of the achilles insertion. Negative tinells. Positive pain of the posterior tibial tendon. No palpable fibrous mass mid arch. DERMATOLOGICAL:. Normal skin formation without interdigital macerations Hyperkeratotic tissues of first metatarsal both feet bilaterally Toenails: Left Toenail(s) 1-5: Crumbling upon debridement, subungual debris, discoloration, dystrophy, elongation, mycotic appearance, onychomycosis, pain and thickening. Right Toenail(s) 1-5: Crumbling upon debridement, subungual debris, discoloration, dystrophy, elongation, mycotic appearance, onychomycosis, pain and thickening. Annular scaling bilateral feet BIOMECHANICS: STJ ROM wnl, MTJ ROM wnl, 1st MPJ ROM wnl. With hammering of the right great toe localized callus formation irritation and pain underneath the first metatarsal of the right foot Irritation metatarsophalangeal joint both feet IMAGING: [facility] CRISTELA/[id number] Imaging Result Report Patient: Melva Thomas Date of Service: 11/25/21 Patient Gender: Female Ordering Provider: Erich Harrison : 1960 Final ORTHO X-RAY FOOT (3 VIEWS) Exam Date: 11/25/2021 3:50 PM Ordering Diagnosis: Foot pain, right Right foot weightbearing 3 views Findings Early signs of osteoarthritis of first metatarsophalangeal joint with signs of metatarsal squaring without significant erosions of the chondral space Rectus foot type without significant deformity Lateral view there is retro and infracalcaneal spurring Impression Mild osteoarthritis with calcaneal spurring right foot Reading Physician: Signed by: Erich Harrison DPM on 11/25/2021 4:20 PM This report was sent to: Erich Harrison at 175 [facility] [address] [place] [id number]. IMPRESSION: 1. Diabetic mononeuropathy simplex (CMS/HCC) 2. Type II diabetes mellitus with peripheral circulatory disorder (CMS/HCC) 3. Metatarsalgia of both feet 4. Corns and callosities 5. Pain in toe of left foot 6. Pain in toe of right foot 7. Dermatophytosis of nail PLAN: Follow-up with previously prescribed insoles and orthotics for both feet help treat metatarsalgia both feet Voltaren gel prescribed Lidocaine patches prescribed Other alternative topicals were discussed including capsaicin cream as well as Voltaren gel benefits and risk of this medication were reviewed capsaicin cream does have an increased risk of irritation of skin and causing dermatitis patient states she like to continue with lidocaine patches and think about the other options there is were reviewed with her in detail for neuritis of her feet discussed also alternatives including gabapentin Lyrica and SSRIs Compounding cream was discussed as an option patient states like to think about it but is not interested in pain anything [id number] Recommend she continues to follow-up with pain management for further treatment options for chronicneuritis both feet Patient can follow-up in 1-3 months Debridement of thick toenails 6-10: Verbal informed consent was obtained from the patient. Greater than 6 nails were aseptically debrided in thickness and length with nail nippers Hyperkeratotic tissue debrided pared with a number #15 scalpel blade x2 Erich Harrison DPM documented in this encounter Plan of Treatment Upcoming Encounters Date Type Department Care Team ([facility] st Contact Info) Description 12/14/2024 10:15 AM EDT Office Visit Orthopedic Surgery - [place] [address] [phone] Erich Harriosn, DPTrent [address] [address] documented as of this encounter Visit Diagnoses Diagnosis Diabetic mononeuropathy simplex (CMS/HCC)- Primary Type II or unspecified type diabetes mellitus with neurological manifestations, not stated as uncontrolled Type II diabetes mellitus with peripheral circulatory disorder (CMS/HCC) Type II or unspecified type diabetes mellitus with peripheral circulatory disorders, not stated as uncontrolled Metatarsalgia of both feet Corns and callosities Pain in toe of left foot Pain in soft tissues of limb Pain in toe of right foot Pain in soft tissues of limb Dermatophytosis of nail documented in this encounter Care Teams Carton Stapler Relationship Specialty Start Date End Date Golden Archuleta MD [address] [address] PCP - General 10/04/07 documented as of this encounter
--- OUTSIDE RECORDS SUMMARY | 2024-09-19 16:57 | XMS_ITS | Referral Summary ---
Author Organization [facility] Address [address] [place] [address] Care Team Providers Care Final Assembly And Packing Supervisor Name Role Phone Golden Archuleta Primary Care Provider [phone] Allergies Active Allergy Reactions Criticality Noted Date [...] (05/02/2021): Added automatically from request for surgery [id number] Chronic foot pain, left 05/02/2021 Overview (05/02/2021): Added automatically from request for surgery [id number] Peripheral neuralgia 05/02/2021 Overview (05/02/2021): Added automatically from request for surgery [id number] Blue toe syndrome of left lower extremity [...] needed for pain control in addition to [id number] ibuprofen. I will refer the patient to hematology for possible hypercoagulable work-up. I plan to review the patient's CT angio from [facility] at her next in-person clinic visit [...] patient's presentation and CT angio report from [facility] I am concerned for embolic disease resulting in blue toe syndrome that may be causing some ischemic pain in the patient's left foot. However the patient does not want to be started on any anticoagulation without a clear diagnosis for an embolic disease. I did review the CT report that she showed me from [facility] demonstrating a question of thrombus in her left popliteal artery however I am unable to give further information since I do not have access to the images. The patient reports that she will try to obtain the CT images from [facility] for me to review. In the [...] despite having palpable DP and PT pulses. Social History Tobacco Use Types Packs/Day Years [...] 03/07/2021 4:28 PM EDT Plan of Treatment Not [place] [id number] MEDICARE [facility] Care Teams Final Assembly And Packing Supervisor Relationship Specialty Start Date End Date Golden Archuleta [facility] [address] [place] [address] PCP - General Hematology 03/14/21
--- OUTSIDE RECORDS SUMMARY | 2024-09-19 16:57 | XMS_ITS ---
Author Organization Golden Archuleta III, MD Address [address] [place] [address] Care Team Providers Care Alterations Supervisor Name Role Phone Golden Archuleta Primary Care Provider REASON FOR VISIT Message Social History Sex Assigned At : Social History Observation Description Sex Assigned At Female Encounters Encounter Location Date Provider Diagnosis Golden Archuleta III, MD [address] [place] [address] [place] [phone] 08/05/2024 Golden Archuleta Plan Of Treatment Next Appt Details Provider Name:Golden Archuleta, 10/25/2024 10:30:00 AM, [address] [facility] [place], [address], Provider Name:Golden Archuleta, 04/03/2025 03:00:00 PM, [address] [facility] [place], [place], [phone], Progress Notes * Arnold THOMASGeneOB: (63 yo F)Acc No.[id number]:08/05/2024 Patient:?Melva THOMAS :1960???Age:63 Y???Sex:Female Address:[address] [place] [address] [place] [address] * true * Date:? Generated for Delam mendoza/Bertin/eTransmitting on:?09/19/2024 04:57 PM EST
--- OUTSIDE RECORDS SUMMARY | 2024-09-19 16:58 | XMS_ITS | Clinical Summary ---
Author Organization [facility] Address [address] [place] [address] Phone Care Team Providers Care Rn Gastroenterology Name Role Phone Golden Archuleta MD Primary Care Provider [phone] Allergies Active Allergy Reactions Criticality Noted Date Comments Lisinopril 11/12/2020 Oxycodone-Acetaminophen 11/12/2020 Medications Medication Sig Dispensed Refills Start Date End Date Status acetaminophen (TYLENOL) 500 mg capsule Take?by mouth. Active ammonium lactate (LAC-HYDRIN) 12 % lotion Apply to soles of feet daily. At night wear socks to bed 10/14/2021 Active aspirin 81 mg chewable tablet TAKE 1 TABLET BY MOUTH EVERY DAY FOR 30 DAYS 10/01/2021 Active cholecalciferol (VITAMIN D-3) 125 mcg (5,000 unit) capsule Take?by mouth. Active clotrimazole (LOTRIMIN) 1 % cream Apply to skin and toenails daily for 12 weeks 01/11/2024 Active diclofenac (VOLTAREN) 1 % topical gel Apply 4 g topically 2 times daily. 10/12/2023 Active gabapentin (NEURONTIN) 300 mg capsule Take 300 mg by mouth 2 times daily. Active glipiZIDE (GLUCOTROL) 10 mg tablet TAKE 1 TABLET BY MOUTH 30 MINUTES BEFORE BREAKFAST ONCE A DAY FOR 30 DAYS 07/21/2021 Active hydrocortisone 1 % topical cream Apply 1 Applicator topically 2 times daily. To skin on feet 05/23/2021 Active ibuprofen (ADVIL,MOTRIN) 800 mg tablet TAKE 1 TABLET BY MOUTH EVERY 6 HOURS NEEDED FOR 30 DAYS *WITH FOOD OR MILK* 09/25/2021 Active metFORMIN (GLUCOPHAGE) 1,000 mg tablet Take 1,000 mg by mouth 2 times daily (with meals). Active nitroglycerin (NITROSTAT) 0.4 mg SL tablet DIRECTED SUBLINGUAL EVERY 5 MINUTES NEEDED FOR CHEST PAIN 28 DAYS 10/01/2021 Active lidocaine (XYLOCAINE) 5 % ointment APPLY TO AFFECTED AREA EVERY DAY NEEDED 05/13/2021 Active blood sugar diagnostic (FreeStyle Lite Strips) test strip by In Vitro route. Active lidocaine (LIDODERM) 5 % patchIndications:Diab etic mononeuropathy simplex (CMS/HCC) Apply 1 patch topically 1 (one) time each day. Remove & discard patch within 12 hours or as directed by . 90 each 09/15/2024 12/14/2024 Active diclofenac (Voltaren Arthritis Pain) 1 % topical gel Apply 4 g topically 2 (two) times a day. 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 T2DM (type 2 diabetes mellitus) 10/16/2021 Encounters Date Type Department Care Team Description 09/15/2024 10:00 AM EST Office Visit Orthopedic Surgery - [address] [address] Erich Harrison, DPM Diabetic mononeuropathy simplex (CMS/HCC) (Primary Dx); Type II diabetes mellitus with peripheral circulatory disorder (CMS/HCC); Metatarsalgia of both feet; Corns and callosities; Pain in toe of left foot; Pain in toe of right foot; Dermatophytosis of nail from Last 3 Months Surgical History Surgery Date Site/Laterality Comments OTHER SURGICAL HISTORY PROCEDURE: DENIES PREVIOUS SURGERY FOOT SURGERY PROCEDURE: [place] UNLISTED PROCEDURE FOOT/TOES Medical History Medical History Date Comments Atypical chest pain DX:Atypical chest pain Hammer toe DX:Hammer toe Carpal tunnel syndrome DX:Carpal tunnel syndrome Sciatica DX:Sciatica Fibromyalgia DX:Fibromyalgia Diabetes (CMS/HCC) DX:Diabetes ( HCC) Family History Medical History Relation Name Comments Diabetes Other Hypertension Other Other: cancer Other Thyroid disease Other Relation Name Status Comments Other Social History Tobacco Use Types Packs/Day Years [...] file Not on file Not on file Obstetrics History Last Filed Vital Signs Vital Sign Reading Time Taken Comments Blood Pressure 130/70 02/03/2022 2:24 PM EDT Pulse 64 02/03/2022 2:24 PM EDT Temperature - - Respiratory Rate - - Oxygen Saturation - - Inhaled Oxygen Concentration - - Weight 72.1 kg (159 lb) 09/15/2024 10:08 AM EST Height 160 cm (5' 2.99 ) 09/15/2024 10:08 AM EST Body Mass Index 28.17 09/15/2024 10:08 AM EST Plan of Treatment Upcoming Encounters Date Type Department Care Team (Late st Contact Info) Description 12/14/2024 10:15 AM EDT Office Visit Orthopedic Surgery - [place] [address] [address] Erich Harrison, DPM [address] [address] Health Maintenance Due Date Last Done Comments Breast Cancer Screening 1960 Diabetes: Annual Foot Exam 1970 Diabetes: Annual Retina Eye Exam 1970 DTaP,Tdap,and Td Vaccines (1 - Tdap) 12/14/1979 Cervical Cancer Screening: Pap Smear 1981 RSV Immunization Patients 60+ Years Old (1 - Risk 60-74 years 1-dose series) 2020 Cholesterol Screening (Lipid Panel) 07/26/2022 Colorectal Cancer Screening: Colonoscopy 07/26/2022 Depression Screening 07/26/2022 HIV Screening 07/26/2022 Hepatitis C Screening 07/26/2022 Medicare Annual Wellness Visit 07/26/2022 Social Influencers of Health Screening 07/26/2022 Diabetes: Annual Urine Albumin-Creatinine Ratio (uACR) 08/03/2022 Diabetes: Blood Sugar Control Test (HGBA1C) 08/03/2022 Diabetes: Annual GFR (Glomerular Filtration Rate) 04/14/2023 04/14/2022 COVID-19 Vaccine ( season) 2024 08/04/2021, 01/18/2021, 12/21/2020 Hypertension/CHF/CAD Annual BMP Blood Test 09/16/2024 04/14/2022 Hepatitis A Vaccines Aged Out 09/20/2018, 03/17/20 18 No longer eligible based on patient's age to complete this topic Hepatitis B Vaccines Completed 09/20/2018, 05/20/2018, 03/17/2018 Zoster Vaccines Completed 03/10/2022, 01/08/2022 Pneumococcal Vaccine: Pediatrics (0 to 5 Years) and At-Risk Patients (6 to 64 Years) Completed 04/14/2023, 05/26/2018, 05/25/2018 Influenza Vaccine Completed 05/24/2024, , 06/23/2022, Additional history exists HIB Vaccines Aged Out No longer eligi ble based on patient's age to complete this topic HPV Vaccines Aged Out No longer eligi ble based on patient's age to complete this topic IPV Vaccines Aged Out No longer eligi ble based on patient's age to complete this topic MMR Vaccines Aged Out No longer eligi ble based on patient's age to complete this topic Meningococcal ACWY Vaccine Aged Out N o longer eligible based on patient's age to complete this topic RSV Immunization Patients Under 20 months Aged Out No longer eligible based on patient's age to complete this topic Varicella Vaccines Aged Out No longer eligible based on patient's age to complete this topic Care Teams Rn Gastroenterology Relationship Specialty Start Date End Date Golden Archuleta MD [address] [facility] [address] [place] [address] PCP - General 10/04/07
--- OUTSIDE RECORDS SUMMARY | 2024-09-19 16:58 | XMS_ITS ---
Author Organization Golden Archuleta III, MD Address [address] [place] [address] [place] [address] Care Team Providers Care Computer Graphic Designer Name Role Phone Golden Archuleta Primary Care Provider REASON FOR VISIT Transfer Rx Medications Medication SIG (Take, Route, Frequency, Duration) Notes Start Date End Date Status FreeStyle Lite Test - Check blood sugar Thursday, Thursday and Thursday for 90 days DX: E11.9 Diabetes Mellitus Active FreeStyle Lancets - to check blood sugars thursday, thursday, thursday for 90 days DX: E11.9 Diabetes Mellitus 04/09/2023 Active Social History Sex Assigned At : Social History Observation Description Sex Assigned At Female Encounters Encounter Location Date Provider Diagnosis Golden Archuleta III, MD [address] [place] [address] [place] [address] 08/29/2024 Golden Archuleta Plan Of Treatment Medication Medication Name Sig Start Date Stop Date Notes FreeStyle Lite Test - Check blood sugar Thursday, Thursday and Thursday for 90 days DX: E11.9 Diabetes Mellitus FreeStyle Lancets - to check blood sugar s thursday, thursday, thursday for 90 days 04/09/2023 DX: E11.9 Diabetes Mellitus Next Appt Details Provider Name:Golden Archuleta, 10/25/2024 10:30:00 AM, [address] [place] [address] [address], [place], [address], Provider Name:Golden Archuleta, 04/03/2025 03:00:00 PM, [address] [place] [address] [address], [place], [address], Progress Notes * Deshaun THOMASOB: (63 yo F)Acc No.[id number]:08/29/2024 Patient:?JOSEF Melva :1960???Age:63 Y???Sex:Female Address:[address] [place] [address] * Refills? Refill FreeStyle Lite Test Strip, -, 100 Strip, Check blood sugar Thursday, Thursday and Thursday, 90 days, Refills=3 Refill FreeStyle Lancets Miscellaneous, -, 100 Lancet, to check blood sugars thursday, thursday, thursday, 90 days, Refills=3 * true * Date:? Generated for Delma mendoza/Bertin/eTransmitting on:?09/19/2024 04:57 PM EST
--- OUTSIDE RECORDS SUMMARY | 2024-09-19 16:58 | XMS_ITS ---
Author Organization Golden Archuleta III, MD Address [address] [facility] [address] Care Team Providers Care Assembly Machine Feeder Name Role Phone Golden Archuleta Primary Care Provider [phone] REASON FOR VISIT Critical Labs Social History Sex Assigned At : Social History Observation Description Sex Assigned At Female Encounters Encounter Location Date Provider Diagnosis Golden Archuleta III, MD [address] [place] [address] [place] [address] 09/19/2024 Golden Archuleta Plan Of Treatment Next Appt Details Provider Name:Golden Archuleta, 10/25/2024 10:30:00 AM, [address] [facility] [place], [address], Provider Name:Golden Archuleta, 04/03/2025 03:00:00 PM, [address] [facility] [address], [place], [address], Progress Notes * Deshaun THOMASOB: (63 yo F)Acc No.[id number]:09/19/2024 Patient:?JOSEF Melva :1960???Age:63 Y???Sex:Female Address:[address] [place] [address] [place] [address] * * Date:?
== END 2024-09-19 11:57 | disposition home or self-care (01) ==
LOC: HO.LAB 11:56
PROVIDERS: PCP Internal Medicine Medical Oncology; Visit Provider Internal Medicine Medical Oncology
DX: E66.3 Overweight (principal); E11.9 Type 2 diabetes mellitus without complications
CPT/HCPCS: 36415; 80053; 83036; 85025

== ENCOUNTER 2024-10-03 15:34 | Outpatient (REF) | payer MEDICARE, MEDICAID, SELFPAY | END 2024-10-03 15:35 | disposition home or self-care (01) | LOC: HO.XRAY 15:34 | PROVIDERS: PCP Internal Medicine Medical Oncology; Visit Provider Internal Medicine Medical Oncology | DX: R05.1 Acute cough (principal) | CPT/HCPCS: 71046 ==

== ENCOUNTER → 2024-10-03 15:38 | Outpatient (BNV) | payer MEDICARE, MEDICAID, SELFPAY | PROVIDERS: PCP Internal Medicine Medical Oncology; Visit Provider Radiology Diagnostic Radiology | DX: J18.9 Pneumonia, unspecified organism (principal) | CPT/HCPCS: 71046 ==

== ENCOUNTER 2024-10-11 09:57 | Outpatient (REF) | payer MEDICARE, MEDICAID, SELFPAY ==
--- NOTE | 2024-10-11 10:03 | PFT_ITS ---
Flows: FEV1: 87 % of predicted at 2.25 L FVC: 87 % of predicted at 2.91 L FEV1/FVC: 78 % Bronchodilator response: Present in small to medium airways only Volumes: Total lung capacity: 83 % of predicted at 4.55 L Residual volume: 86 % of predicted at 1.70 L Slow vital capacity: 81 % of predicted at 2.86 L Expiratory reserve volume: 82 % of predicted at 0.72 L Diffusion capacity: Mildly decreased, corrects to normal after adjustment for alveolar ventilation. Impression: No obstructive or restrictive ventilatory defect. Bronchodilator response is present in small to medium airways only. Decreased diffusion capacity suggests emphysema. MTDD
--- OUTSIDE RECORDS SUMMARY | 2024-10-11 10:45 | XMS_ITS | Clinical Summary ---
Author Organization [facility] Address [address] [place] [address] Care Team Providers Care Throw Out Clerk Name Role Phone Golden Archuleta Primary Care Provider [phone] Allergies Active Allergy Reactions Criticality Noted Date [...] (05/02/2021): Added automatically from request for surgery [id number] Chronic foot pain, left 05/02/2021 Overview (05/02/2021): Added automatically from request for surgery [id number] Peripheral neuralgia 05/02/2021 Overview (05/02/2021): Added automatically from request for surgery [id number] Blue toe syndrome of left lower extremity [...] needed for pain control in addition to [id number] ibuprofen. I will refer the patient to hematology for possible hypercoagulable work-up. I plan to review the patient's CT angio from [facility] at her next in-person clinic visit [...] patient's presentation and CT angio report from [facility] I am concerned for embolic disease resulting in blue toe syndrome that may be causing some ischemic pain in the patient's left foot. However the patient does not want to be started on any anticoagulation without a clear diagnosis for an embolic disease. I did review the CT report that she showed me from [facility] demonstrating a question of thrombus in her left popliteal artery however I am unable to give further information since I do not have access to the images. The patient reports that she will try to obtain the CT images from [facility] for me to review. In the [...] 2000 CT Lung Cancer Screening (Baseline) 2010 Pneumococcal Vaccine: 50+ Years (3 of 3 - PCV20 or PCV21) 05/26/2023 05/26/2018, 05/25/2018 COVID-19 Vaccine (4 - season) 2024 08/04/2021, 01/18/2021, 12/21/2020 Influenza Vaccine (#1) 2024 , 07/11/2021, 05/29/2020, Additional history exists Alcohol/Substance Use Screening 08/24/2024 Depression Screening and Follow-Up 08/24/2024 Social Drivers of Health Annual Screening 08/24/2024 RSV Vaccine (60+ years old and patients) (1 - 1-dose 75+ series) 12/14/2035 Pneumococcal Vaccine: Pediatric (0-5 Years) and At-Risk Patients (6-50 Years) Aged Out 05/26/2018, 05/25/2018 No longer eligibl e based on patient's age to complete this topic Zoster Vaccines Completed 03/10/2022, 01/08/2022 Hepatitis B Vaccines Aged Out No long er eligible based on patient's age to complete this topic Insurance MEDICARE [facility] Care Teams Throw Out Clerk Relationship Specialty Start Date End Date Golden Archuleta [address] [place] [address] [place] [address] PCP - General Hematology 03/14/21
--- OUTSIDE RECORDS SUMMARY | 2024-10-11 10:45 | XMS_ITS | Referral Summary ---
Author Organization [facility] Address [address] [place] [address] Care Team Providers Care Laborer Wrecking And Salvaging Name Role Phone Golden Archuleta Primary Care Provider [phone] Allergies Active Allergy Reactions Criticality Noted Date [...] (05/02/2021): Added automatically from request for surgery [id number] Chronic foot pain, left 05/02/2021 Overview (05/02/2021): Added automatically from request for surgery [id number] Peripheral neuralgia 05/02/2021 Overview (05/02/2021): Added automatically from request for surgery [id number] Blue toe syndrome of left lower extremity [...] needed for pain control in addition to [id number] ibuprofen. I will refer the patient to hematology for possible hypercoagulable work-up. I plan to review the patient's CT angio from [facility] at her next in-person clinic visit and [...] patient's presentation and CT angio report from [facility] I am concerned for embolic disease resulting in blue toe syndrome that may be causing some ischemic pain in the patient's left foot. However the patient does not want to be started on any anticoagulation without a clear diagnosis for an embolic disease. I did review the CT report that she showed me from [facility] demonstrating a question of thrombus in her left popliteal artery however I am unable to give further information since I do not have access to the images. The patient reports that she will try to obtain the CT images from [facility] for me to review. In the interim [...] Not [place] [id number] MEDICARE [facility] Care Teams Laborer Wrecking And Salvaging Relationship Specialty Start Date End Date Golden Archuleta [facility] [place] [address] PCP - General Hematology 03/14/21
--- OUTSIDE RECORDS SUMMARY | 2024-10-11 10:45 | XMS_ITS ---
Author Organization Golden Archuleta III, MD Address [address] [facility] [place] [address] Care Team Providers Care Kier Tender Name Role Phone Golden Archuleta Primary Care Provider [phone] REASON FOR VISIT Message Social History Sex Assigned At : Social History Observation Description Sex Assigned At Female Encounters Encounter Location Date Provider Diagnosis Golden Archuleta III, MD [address] [place] [address] [place] [address] 10/05/2024 Golden Archuleta Plan Of Treatment Next Appt Details Provider Name:Golden Archuleta, 10/25/2024 10:30:00 AM, [address] [facility] [place], [address], Provider Name:Golden Archuleta, 04/03/2025 03:00:00 PM, [address] [facility] [address], [place], [address], Progress Notes * Arnold THOMASGeneOB: (63 yo F)Acc No.[id number]:10/05/2024 Patient:?Melva THOMAS :1960???Age:63 Y???Sex:Female Address:[address] [place] [address] * true * Date:? Generated for Delma mendoza/Bertin/eTransmitting on:?10/11/2024 10:45 AM EST
--- OUTSIDE RECORDS SUMMARY | 2024-10-11 10:45 | XMS_ITS | Encounter Summary ---
Author Organization [facility] Address [address] [place] [address] Care Team Providers Care High School Math Tutor Name Role Phone Golden Archuleta MD Primary Care Provider [phone] Reason for Visit * Reason Comments Follow-up Right foot pain Encounter Details Date Type Department Care Team ([facility] st Contact Info) Description 09/15/2024 10:00 AM EST Office Visit Orthopedic Surgery - [place] [address] [phone] Erich Harrison, DPM [address] [address] Diabetic mononeuropathy simplex (CMS/HCC) (Primary Dx); Type [...] drink = 0.6 oz pur e alcohol) Comments Unknown Sex and Gender Information Value Date Recorded Sex Assigned at Not on file Legal Sex Female 8:22 PM EST Gender Identity Not on file Sexual Orientation Not on file documented as of this [...] in this encounter Ordered Prescriptions Prescription Sig Dispense Quantity Refills Last Filled Start Date End Date diclofenac (Voltaren Arthritis Pain) 1 % topical gel Apply 4 g topically 2 (two) times a day. 240 g 1 09/15/2024 5 lidocaine (LIDODERM) 5 % patchIndications:Racheal betic mononeuropathy simplex (CMS/HCC) Apply 1 patch topically 1 (one) time each day. Remove & discard patch within 12 hours or as directed by . 90 each 09/15/2024 5 documented in this encounter Progress Notes * Erich Harrison DPM - 09/15/2024 10:00 AM EST S: [...] weather Last MD visit 06/01/2024 Dr Golden Archuleta MD ROS: GENERAL: Pt denies nausea, fever, [...] Diagnosis Code T2DM (type 2 diabetes mellitus) ([facility]) E11.9 Peripheral neuritis G62.9 Fibromyalgia M79.7 Carpal tunnel syndrome G56.00 Hammer toe M20.40 Atypical chest pain R07.89 PAD (peripheral artery disease) ([facility]) I73.9 SOCIAL HISTORY: Social History Tobacco Use [...] foot Irritation metatarsophalangeal joint both feet IMAGING: [facility] CRISTELA/175 Imaging Result Report Patient: Melva Thomas [...] report was sent to: Erich Harrison at [address] [place] [address] [place] [address]. IMPRESSION: 1. Diabetic mononeuropathy simplex (CMS/HCC) 2. [...] but is not interested in pain anything [id number] Recommend she continues to follow-up with pain [...] Upcoming Encounters Date Type Department Care Team ([facility] st Contact Info) Description 12/14/2024 10:15 AM EDT Office Visit Orthopedic Surgery - [place] [address] [phone] Erich Harrison, DPM [address] [address] documented as of this encounter Visit Diagnoses [...] nail documented in this encounter Care Teams High School Math Tutor Relationship Specialty Start Date End Date Golden Archuleta MD [address] [place] [address] PCP - General 10/04/07 documented as of this encounter
--- OUTSIDE RECORDS SUMMARY | 2024-10-11 10:46 | XMS_ITS ---
Author Organization Golden Archuleta III, MD Address [address] [facility] [address] Care Team Providers Care Financial Assistance Specialist Name Role Phone Golden Archuleta Primary Care Provider Social History Sex Assigned At : Social History Observation Description Sex Assigned At Female Encounters Encounter Location Date Provider Diagnosis Golden Archuleta III, MD [address] [place] [address] [place] [address] 10/04/2024 Golden Archuleta Plan Of Treatment Next Appt Details Provider Name:Golden Archuleta, 10/25/2024 10:30:00 AM, [address] [place] [address] [place], [address], Provider Name:Golden Archuleta, 04/03/2025 03:00:00 PM, [address] [place] [address] [address] [place], [address], Progress Notes * Pippa THOMASNaziaOB: (63 yo F)Acc No.[id number]:10/04/2024 Patient:?Melva THOMAS :1960???Age:63 Y???Sex:Female Address:[address] [place] [address] * true * Date:? Generated for Danai reji/Bertin/eTransmitting on:?10/11/2024 10:46 AM EST
--- OUTSIDE RECORDS SUMMARY | 2024-10-11 10:46 | XMS_ITS | Clinical Summary ---
Author Organization 175 [facility] Address [address] [place] [address] Phone Care Team Providers Care Anthropology Instructor Name Role Phone Golden Archuleta MD Primary Care Provider [phone] Allergies Active Allergy Reactions Criticality Noted Date Comments Lisinopril 11/12/2020 Oxycodone-Acetaminophen 11/12/2020 Medications acetaminophen (TYLENOL) 500 mg capsule Take?by mouth. Active ammonium lactate (LAC-HYDRIN) 12 % lotion Apply to soles of feet daily. At night wear socks to bed 2 Active aspirin 81 mg chewable tablet TAKE 1 TABLET BY MOUTH EVERY DAY FOR 30 DAYS 2 Active cholecalciferol (VITAMIN D-3) 125 mcg (5,000 unit) capsule Take?by mouth. Active clotrimazole (LOTRIMIN) 1 % cream Apply to skin and toenails daily for 12 weeks 4 Active diclofenac (VOLTAREN) 1 % topical gel Apply 4 g topically 2 times daily. 4 Active gabapentin (NEURONTIN) 300 mg capsule Take 300 mg by mouth 2 times daily. Active glipiZIDE (GLUCOTROL) 10 mg tablet TAKE 1 TABLET BY MOUTH 30 MINUTES BEFORE BREAKFAST ONCE A DAY FOR 30 DAYS 1 Active hydrocortisone 1 % topical cream Apply 1 Applicator topically 2 times daily. To skin on feet 1 Active ibuprofen (ADVIL,MOTRIN) 800 mg tablet TAKE 1 TABLET BY MOUTH EVERY 6 HOURS NEEDED FOR 30 DAYS *WITH FOOD OR MILK* 2 Active metFORMIN (GLUCOPHAGE) 1,000 mg tablet Take 1,000 mg by mouth 2 times daily (with meals). Active nitroglycerin (NITROSTAT) 0.4 mg SL tablet DIRECTED SUBLINGUAL EVERY 5 MINUTES NEEDED FOR CHEST PAIN 28 DAYS 2 Active lidocaine (XYLOCAINE) 5 % ointment APPLY TO AFFECTED AREA EVERY DAY NEEDED 1 Active blood sugar diagnostic (FreeStyle Lite Strips) test strip by In Vitro route. Active lidocaine (LIDODERM) 5 % patchIndications:D iabetic mononeuropathy simplex (CMS/HCC) Apply 1 patch topically 1 (one) time each day. Remove & discard patch within 12 hours or as directed by . 90 each 5 025 Active diclofenac (Voltaren Arthritis Pain) 1 % topical gel Apply 4 g topically 2 (two) times a day. 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 T2DM (type 2 diabetes mellitus) 10/16/2021 Encounters Date Type Department Care Team Description 09/15/2024 10:00 AM EST Office Visit Orthopedic Surgery - [address] [phone] Erich Harrison, DPM Diabetic mononeuropathy simplex (CMS/HCC) (Primary Dx); Type II diabetes mellitus with peripheral circulatory disorder (CMS/HCC); Metatarsalgia of both feet; Corns and callosities; Pain in toe of left foot; Pain in toe of right foot; Dermatophytosis of nail from Last 3 Months Surgical History Surgery Date Site/Laterality Comments OTHER SURGICAL HISTORY PROCEDURE: DENIES PREVIOUS SURGERY FOOT SURGERY PROCEDURE: [place] UNLISTED PROCEDURE FOOT/TOES Medical History Medical History [...] on file Sexual Orientation Not on file Obstetrics History Last Filed [...] AM EDT Office Visit Orthopedic Surgery - [place] [address] [phone] Erich Harrison, DPM [address] [address] Health Maintenance Due Date Last Done Comments [...] Zoster Vaccines Completed 03/10/2022, 01/08/2022 Pneumococcal Vaccine: 50+ Years Completed 04/14/2023, 05/26/2018, 05/25/2018 Pneumococcal Vaccine: Pediatrics (0 to 5 Years) [...] patient's age to complete this topic Meningococcal B Vacine Aged Out No lo nger eligible based on patient's age to complete this topic RSV Immunization Patients Under 20 months Aged Out No longer eligible based on patient's age to complete this topic Varicella Vaccines Aged Out No longer eligible based on patient's age to complete this topic Insurance MEDICARE MEDICAID - [place] Care Teams Anthropology Instructor Relationship Specialty Start Date End Date Golden Archuleta MD [address] [address] PCP - General 10/04/07
[2024-10-11 10:47] VITALS: PULSE 62; O2SAT 97
== END 2024-10-11 09:58 | disposition home or self-care (01) ==
LOC: HO.RESP 09:57
PROVIDERS: PCP Internal Medicine Medical Oncology; Visit Provider Internal Medicine Pulmonary Disease
DX: J43.9 Emphysema, unspecified (principal)
CPT/HCPCS: 94010; 94640; 94727; 94729

== ENCOUNTER → 2024-10-11 10:03 | Outpatient (BNV) | payer MEDICARE, MEDICAID, SELFPAY | PROVIDERS: PCP Internal Medicine Medical Oncology; Visit Provider Internal Medicine Pulmonary Disease | DX: J43.9 Emphysema, unspecified (principal) | CPT/HCPCS: 94060; 94727; 94729 ==

== ENCOUNTER 2024-10-21 09:57 | Outpatient (REF) | payer MEDICARE, MEDICAID, SELFPAY ==
[2024-10-21 10:16] LABS: MANUAL DIFF FLAG NO
[2024-10-21 10:40] LABS: Basophils Absolute Auto 0.1 X10*3/uL (0.0-0.2); Eosinophils Absolute Auto 0.2 X10*3/uL (0.0-0.4); Eosinophils Percent Auto 2.9 % (0-4); Hematocrit 37.7 % (37.0-47.0); Hemoglobin 12.7 g/dl (12.0-16.0); Imm Gran Abs Auto 0.02 X10*3/uL (0.00-0.03); Imm Gran Pct Auto 0.3 % (0.0-0.4); Lymphocytes Percent Auto 26.8 % (20-40); Mean Corpuscular HGB Conc 33.7 g/dl (31.0-35.0); Mean Corpuscular Hemoglobin 30.6 pg (27.0-33.0); Mean Corpuscular Volume 90.8 fL (80.0-98.0); Mean Platelet Volume 10.7 fL (9.4-12.3); Monocytes Absolute Auto 0.4 X10*3/uL (0.1-1.2); Monocytes Percent Auto 5.8 % (2-11); Neutrophils Absolute Auto 4.6 x10*3/uL (2.0-8.3); Neutrophils Percent Auto 63.2 % (45-73); Platelet Count 242 X10*3/uL (160-400); Red Blood Count 4.15 X10*6/uL (4.20-5.50); Red Cell Distribution Width 11.9 % (11.0-16.0); White Blood Count 7.3 X10*3/uL (4.8-10.8)
[2024-10-21 10:49] LABS: Estimated Average Glucose 214 mg/dL; Hemoglobin A1c % 9.1 % (<6.0)
--- OUTSIDE RECORDS SUMMARY | 2024-10-21 10:59 | XMS_ITS ---
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 Name Role Phone Golden Archuleta Primary Care Provider [phone] Allergies Allergen (clinical drug ingredient) Drug/Non Drug Allergy documented on EMR Reaction Allergy Type Onset Date Status acetaminophen / oxycodone Percocet nausea Drug Allergy Active Lisinopril cough Drug Allergy Active REASON FOR VISIT Viral syndrome, Refractory cough, Diabetes, Fibromyalgia, Low back pain Medications Medication SIG (Take, Route, Frequency, Duration) Notes Start Date End Date Status Tamiflu 75 MG 1 capsule Orally Twice a day 09/29/2024 Active FreeStyle Lancets - to check blood sugars thursday, thursday, thursday DX: E11.9 Diabetes Mellitus 04/09/2023 Active guaiFENesin-Codeine 100-10 MG/5ML 10 mL as needed Orally every 4 hrs 10/03/2024 Active Azithromycin [address] directed Orally 2 Tablets on the first day, one tablet the rest of the days 10/03/2024 Active guaiFENesin-DM 100-10 MG/5ML 10 mL as needed Orally every 4 hrs 10/04/2024 Active amLODIPine Besylate 2.5 MG 1 tablet Orally Once a day Active Aspirin 81 MG 1 tablet Orally Once a day Active Lidocaine 5 % PLACE 1 PATCH ONTO SKIN EVERY 24 HOURS X112 DAYS. APPLY FOR NO MORE THAN 12 HOURS PER 24-HR PERIOD. External Active Magnesium Oxide 400 MG 1 tablet as neede d Orally Once a day 03/28/2024 Active FreeStyle Lite Test - Check blood sugar Thursday, Thursday and Thursday DX: E11.9 Diabetes Mellitus Active Accu-Chek [place] Plus - as directed In Vitro use to check blood sugars Thursday/Thursday/ [place] 09/09/2022 Active Gabapentin 600 MG TAKE 1 TABLET BY MOUTH THREE TIMES A DAY FOR 30 DAYS Active CVS Prep 70 % Use 3 times a week Active metFORMIN HCl 1000 MG TAKE 1 TABLET BY MOUTH TWICE A DAY WITH MEALS Active Oyster Shell Calcium 500 MG TAKE 1 TABLET BY MOUTH EVERY DAY Oral Active glipiZIDE 10 MG TAKE 1 TABLET BY MOUTH EVERY MORNING 30 MINUTES BEFORE BREAKFAST Active Acetaminophen Extra Strength 500 MG TAKE 1 TABLET BY MOUTH EVERY 6 HOURS NEEDED Oral Active Vitamin D 25 MCG (1000 UT) 1 tablet Orally Once a day 08/22/2023 Active Accu-Chek [place] Plus w/Device as directed In Vitro use to check blood sugars Thursday/Thursday/ [place] 09/09/2022 Active Diclofenac Sodium 1 % APPLY 4 G TOPICALL Y 2 TIMES DAILY. External Active Ibuprofen 800 MG 1 tablet with food or milk Orally every 6 hrs Active Social History Sex Assigned At : Social History Observation Description Sex Assigned At Female Vital Signs Height 63 in 10/07/2024 Weight 154 lbs 10/07/2024 BMI 27.28 kg/m2 10/07/2024 Encounters Encounter Location Date Provider Diagnosis Golden Archuleta III, MD [address] [place] [address] [place], [place] [id number] 10/07/2024 Golden Archuleta DM (diabetes mellitu s) E11.9 ; Neuropathic pain M79.2 ; Steatosis, liver K76.0 ; Overweight E66.3 ; Fibromyalgia M79.7 ; Other and unspecified hyperlipidemia E78.5 and Former smoker Z87.891 Assessments Encounter Date Diagnosis (ICD Code) Assessment Notes Treat ment Notes Treatment Clinical Notes 10/07/2024 DM (diabetes mellitus) (ICD-10 - E11.9) She will be diligent about checking her blood glucose levels twice a day while she is ill. She will report by telephone on a daily basis she is doing. At this time she is able to eat and drink normally. She will be followed carefully In the office. 10/07/2024 Neuropathic pain (ICD-10 - M79.2) The pain is localized to the left leg below the knee. She finds the best relief from ibuprofen and gabapentin. I have made her aware of the danger of diabetic taking ibuprofen chronically. Her kidney function has remained normal however. 10/07/2024 Steatosis, liver (ICD-10 - K76.0) Her liver function tests have elevated slightly. This is likely due to fat deposition in the liver as well as the recent viral infection. These values will be followed carefully and investigative they do not return to normal. 10/07/2024 Overweight (ICD-10 - E66.3) Her weight is stable. Her body mass index is 27. We reviewed the elements of a diabetic weight loss diet today. 10/07/2024 Fibromyalgia (ICD-10 - M79.7) This has been stable, but present. She is currently under the pain management at [facility]. 10/07/2024 Other and unspecifie d hyperlipidemia (ICD-10 - E78.5) The current fasting lipid profile shows a total cholesterol to be well within the target range. No change in treatment is needed. 10/07/2024 Former smoker (ICD-1 0 - Z87.891) She reports that she has stopped smoking within the last 5 days. She seems motivated to continue abstinence. Plan Of Treatment Medication Medication Name Sig Start Date Stop Date Notes Tamiflu 75 MG 1 capsule Orally Twice a day 09/29/2024 FreeStyle Lancets - to check blood sugars thursday, thursday, thursday04/09/2023 DX: E11.9 Diabetes Mellitus guaiFENesin-Codeine 100-10 MG/5ML 10 mL as needed Orally every 4 hrs 10/03/[address] directed Orally 2 Tablets on the first day, one tablet the rest of the days 10/03/2024 guaiFENesin-DM 100-10 MG/5ML 10 mL as needed Orally every 4 hrs 10/04/2024 amLODIPine Besylate 2.5 MG 1 tablet Orally Once a day Aspirin 81 MG 1 tablet Orally Once a day Lidocaine 5 % PLACE 1 PATCH ONTO SKIN EVERY 24 HOURS X112 DAYS. APPLY FOR NO MORE THAN 12 HOURS PER 24-HR PERIOD. External Magnesium Oxide 400 MG 1 tablet as neede d Orally Once a day 03/28/2024 FreeStyle Lite Test - Check blood sugar Thursday, Thursday and Thursday DX: E11.9 Diabetes Mellitus Accu-Chek Wales[place] Plus - as directed In Vi tro use to check blood sugars Thursday/Thursday/Thu09/09/2022 Gabapentin 600 MG TAKE 1 TABLET BY MOUTH THREE TIMES A DAY FOR 30 DAYS CVS Prep 70 % Use 3 times a week metFORMIN HCl 1000 MG TAKE 1 TABLET BY MOUTH TWICE A DAY WITH MEALS Oyster Shell Calcium 500 MG TAKE 1 TABLET BY MOUTH EVERY DAY Oral glipiZIDE 10 MG TAKE 1 TABLET BY MOUTH EVERY MORNING 30 MINUTES BEFORE BREAKFAST Acetaminophen Extra Strength 500 MG TAKE 1 TABLET BY MOUTH EVERY 6 HOURS NEEDED Oral Vitamin D 25 MCG (1000 UT) 1 tablet Orally Once a day 08/22/2023 Accu-Chek [place] Plus w/Device as directed In Vitro use to check blood sugars Thursday/Thursday/Thu09/09/2022 Diclofenac Sodium 1 % APPLY 4 G TOPICALL Y 2 TIMES DAILY. External Ibuprofen 800 MG 1 tablet with food or milk Orally every 6 hrs Pending Test Test Name Order Date PROFILE, RANDOM (COMPREHENSIVE METABOLIC ) 10/07/2024 GGT 10/07/2024 CBC w DIFF 10/07/2024 Hemoglobin A1c 10/07/2024 Next Appt Details Follow Up: as scheduled, Oct 4th, Reason: OV review labs, To discuss blood work results and monitor blood sugar levels Provider Name:Golden Archuleta, 10/25/2024 10:30:00 AM, [address] [facility] [address], [place], [address], Provider Name:Golden Archuleta, 04/03/2025 03:00:00 PM, [address], [place], [address], Progress Notes * Deshaun THOMASOB: (63 yo F)Acc No.[id number]:10/07/2024 Patient:?Melva THOMAS Provider:?Golden Archuleta MD :1960???Age:63 Y???Sex:Female D ate:10/07/2024 Address:[address] [place], [place] [id number] Subjective: * Chief Complaints: * ???Viral syndromeRefractory coughDiabetesFibromyalgiaLow back pain * HPI: ???:?Telehealth?Location of provider rendering services:?{...} [address] [facility] [address] [facility] [address] ?Location of patient:?address listed in demographics for today's visit ?Patient identification confirmed using:?Name, ?Telehealth method:?Telephone only. Patient not visible to care provider. ?Consent:?Patient verbally consented to treatment, Patient verbally consented to billing insurance company, Patient informed of any privacy concerns related to method of visit ?Total time spent with patient (mins)?22 ?This telehealth visit took place with the patient at home and me in my office.? She gave consent for billing.? We spent 22 minutes during the conversation. The patient, a 63-year-old female, has been experiencing high blood sugar levels, with a recent reading of 357. She also has an A1C level of 9.2. The patient has been taking medication, but it is unclear what symptoms she has been experiencing. She has also been concerned about some results from her recent blood work, particularly her liver tests. The doctor reassured her that her liver tests were normal, but her blood sugar levels were too high. The patient plans to start exercising to help manage her blood sugar levels. Blood Sugar Level is 357. * ROS:?General/Constitutional:?pain?Both wrists, left leg below-knee, Intermittent low back.?Chills?denies.?Fatigue?admits.?Fever?denies.?ENT:?Decreased hearing?denies.?Respiratory:?Cough?Resolved.?Cardiovascular:?Chest pain with exertion?denies.?Dyspnea on exertion?denies.?Shortness of breath?denies.?Gastrointestinal:?Constipation?occasional.?Decreased appetite?denies.?Diarrhea?denies.?Heartburn?controlled with medications.?Nausea?denies.?Rectal bleeding?denies.?Vomiting?denies.?Hematology:?bruising?denies.?petechiae?denies.?Swollen glands?none have been noted.?Genitourinary:?Frequent urination?at night.?Musculoskeletal:?Muscle aches?Left leg below-knee.?Painful joints?denies.?Sciatica?denies.?Weakness?denies.?Skin:?Itching?denies.?Rash?denies.?Skin lesion(s)?denies.?Neurologic:?Difficulty speaking?denies.?Dizziness?denies.?Headache?denies.?Low back pain?that is chronic.?Psychiatric:?Depressed mood?which is mild.? * Medical History:? * Surgical History:?hammertoe repair 12/2009No history * Hospitalization/Major Diagno stic Procedure:?No history * Family History:?Father: dece ased, lung cancer, hypertension, diagnosed with HTN, Cancer.?Mother: alive 83 yrs, thyroid.?Siblings: .?Maternal uncle: type II diabetes.?Maternal aunt: alzheimer.?3 brother(s) , 7 sister(s) . 2 daughter(s) - healthy. .? One sibling of suicide and on of an accident. Mother had thyroid disease. Father is hypertensive and of lung cancer. She is not aware of any family history of mental illness or addiction or substance abuse other than the use of tobacco. Niece 09/2022 cardiac arrest. * Social History:?She is slngle and working and lives in [place]. She was born in [place], [place]. {'Exercise': 'The patient reported having a bike at home for exercise.', 'Diet': 'The patient reported plans to start drinking a natural tea that was previously helpful for her blood sugar.'}. * Medications:?TakingIbuprofen 800 MG Tablet 1 tablet with food or milk Orally every 6 hrs glipiZIDE 10 MG Tablet TAKE 1 TABLET BY MOUTH EVERY MORNING 30 MINUTES BEFORE BREAKFAST Vitamin D 25 MCG (1000 UT) Tablet 1 tablet Orally Once a day Acetaminophen Extra Strength 500 MG Tablet TAKE 1 TABLET BY MOUTH EVERY 6 HOURS NEEDED Oral Diclofenac Sodium 1 % Gel APPLY 4 G TOPICALLY 2 TIMES DAILY. External Accu-Chek Waleska Plus w/Device Kit as directed In Vitro use to check blood sugars Thursday/Thursday/Thursday Accu-Chek Waleska Plus - Strip as directed In Vitro use to check blood sugars Thursday/Thursday/Thursday CVS Prep 70 % Pad Use 3 times a week Gabapentin 600 MG Tablet TAKE 1 TABLET BY MOUTH THREE TIMES A DAY FOR 30 DAYS Oyster Shell Calcium 500 MG Tablet TAKE 1 TABLET BY MOUTH EVERY DAY Oral metFORMIN HCl 1000 MG Tablet TAKE 1 TABLET BY MOUTH TWICE A DAY WITH MEALS Aspirin 81 MG Tablet Delayed Release 1 tablet Orally Once a day amLODIPine Besylate 2.5 MG Tablet 1 tablet Orally Once a day Magnesium Oxide 400 MG Tablet 1 tablet as needed Orally Once a day Lidocaine 5 % Patch PLACE 1 PATCH ONTO SKIN EVERY 24 HOURS X112 DAYS. APPLY FOR NO MORE THAN 12 HOURS PER 24-HR PERIOD. External FreeStyle Lite Test - Strip Check blood sugar Thursday, Thursday and Thursday , Notes to Pharmacist: DX: E11.9 Diabetes MellitusFreeStyle Lancets - Miscellaneous to check blood sugars thursday, thursday, thursday , Notes to Pharmacist: DX: E11.9 Diabetes MellitusTamiflu 75 MG Capsule 1 capsule Orally Twice a day Azithromycin [address] directed Orally 2 Tablets on the first day, one tablet the rest of the days guaiFENesin-Codeine 100-10 MG/5ML Solution 10 mL as needed Orally every 4 hrs guaiFENesin-DM 100-10 MG/5ML Syrup 10 mL as needed Orally every 4 hrs , stop date 11/01/2024Medication List reviewed and reconciled with the patientTaking Ibuprofen 800 MG Tablet 1 tablet with food or milk Orally every 6 hrs Taking glipiZIDE 10 MG Tablet TAKE 1 TABLET BY MOUTH EVERY MORNING 30 MINUTES BEFORE BREAKFAST Taking Vitamin D 25 MCG (1000 UT) Tablet 1 tablet Orally Once a day Taking Acetaminophen Extra Strength 500 MG Tablet TAKE 1 TABLET BY MOUTH EVERY 6 HOURS NEEDED Oral Taking Diclofenac Sodium 1 % Gel APPLY 4 G TOPICALLY 2 TIMES DAILY. External Taking Accu-Chek Waleska Plus w/Device Kit as directed In Vitro use to check blood sugars Thursday/Thursday/Thursday Taking Accu-Chek Waleska Plus - Strip as directed In Vitro use to check blood sugars Thursday/Thursday/Thursday Taking CVS Prep 70 % Pad Use 3 times a week Taking Gabapentin 600 MG Tablet TAKE 1 TABLET BY MOUTH THREE TIMES A DAY FOR 30 DAYS Taking Oyster Shell Calcium 500 MG Tablet TAKE 1 TABLET BY MOUTH EVERY DAY Oral Taking metFORMIN HCl 1000 MG Tablet TAKE 1 TABLET BY MOUTH TWICE A DAY WITH MEALS Taking Aspirin 81 MG Tablet Delayed Release 1 tablet Orally Once a day Taking amLODIPine Besylate 2.5 MG Tablet 1 tablet Orally Once a day Taking Magnesium Oxide 400 MG Tablet 1 tablet as needed Orally Once a day Taking Lidocaine 5 % Patch PLACE 1 PATCH ONTO SKIN EVERY 24 HOURS X112 DAYS. APPLY FOR NO MORE THAN 12 HOURS PER 24-HR PERIOD. External Taking FreeStyle Lite Test - Strip Check blood sugar Thursday, Thursday and Thursday , Notes to Pharmacist: DX: E11.9 Diabetes MellitusTaking FreeStyle Lancets - Miscellaneous to check blood sugars thursday, thursday, thursday , Notes to Pharmacist: DX: E11.9 Diabetes MellitusTaking Tamiflu 75 MG Capsule 1 capsule Orally Twice a day Taking Azithromycin [address] directed Orally 2 Tablets on the first day, one tablet the rest of the days Taking guaiFENesin-Codeine 100-10 MG/5ML Solution 10 mL as needed Orally every 4 hrs Taking guaiFENesin-DM 100-10 MG/5ML Syrup 10 mL as needed Orally every 4 hrs , stop date 11/01/2024Medication List reviewed and reconciled with the patient * Allergies:?Percocet: nauseaL isinopril: coughno[Allergies Verified] Objective: * Vitals:?Ht: 63, Wt: 154, BMI :27.28, Ht-cm: 160.02, Wt-k.85. * ???Past Orders: Lab:Complete Blood Count Aut o Diff * Collection Date 09/19/2024 07/12/2024 04/18/2024 Collection Time 12:09 PM 09:22 AM 10:31 AM Order Date 09/19/2024 07/12/2024 04/18/2024 White Blood Count 7.4 (Ref Range: 4.8-10.8 X10*3/uL) 7.3 (Ref Range: 4.8-10.8 X10*3/uL) 6.1 (Ref Range: 4.8-10.8 X10*3/uL) Red Blood Count 4.25 (Ref Range: 4.20-5.50 X10*6/uL) 4.42 (Ref Range: 4.20-5.50 X10*6/uL) 4.51 (Ref Range: 4.20-5.50 X10*6/uL) Hemoglobin 12.7 (Ref Range: 12.0-16.0 g/dl) 13.5 (Ref Range: 12.0-16.0 g/dl) 13.8 (Ref Range: 12.0-16.0 g/dl) Hematocrit 38.8 (Ref Range: 37.0-47.0 %) 40.2 (Ref Range: 37.0-47.0 %) 40.8 (Ref Range: 37.0-47.0 %) Mean Corpuscular Volume 91.3 (Ref Range: 80.0-98.0 fL) 91.0 (Ref Range: 80.0-98.0 fL) 90.5 (Ref Range: 80.0-98.0 fL) Mean Corpuscular Hemoglobin 29.9 (Ref Range: 27.0-33.0 pg) 30.5 (Ref Range: 27.0-33.0 pg) 30.6 (Ref Range: 27.0-33.0 pg) Mean Corpuscular HGB Conc 32.7 (Ref Range: 31.0-35.0 g/dl) 33.6 (Ref Range: 31.0-35.0 g/dl) 33.8 (Ref Range: 31.0-35.0 g/dl) Red Cell Distribution Width 11.7 (Ref Range: 11.0-16.0 %) 11.8 (Ref Range: 11.0-16.0 %) 11.9 (Ref Range: 11.0-16.0 %) Platelet Count 240 (Ref Range: 160-400 X10*3/uL) 228 (Ref Range: 160-400 X10*3/uL) 262 (Ref Range: 160-400 X10*3/uL) Mean Platelet Volume 10.9 (Ref Range: 9.4-12.3 fL) 10.5 (Ref Range: 9.4-12.3 fL) 10.2 (Ref Range: 9.4-12.3 fL) Neutrophils Percent Auto 55.5 (Ref Range: 45-73 %) 58.1 (Ref Range: 45-73 %) 54.4 (Ref Range: 45-73 %) Imm Gran Pct Auto 0.4 (Ref Range: 0.0-0.4 %) 0.1 (Ref Range: 0.0-0.4 %) 0.2 (Ref Range: 0.0-0.4 %) Lymphocytes Percent Auto 31.2 (Ref Range: 20-40 %) 27.5 (Ref Range: 20-40 %) 31.8 (Ref Range: 20-40 %) Monocytes Percent Auto 6.7 (Ref Range: 2-11 %) 7.7 (Ref Range: 2-11 %) 6.9 (Ref Range: 2-11 %) Eosinophils Percent Auto 5.0?H (Ref Range: 0-4 %) 5.5?H (Ref Range: 0-4 %) 5.2?H (Ref Range: 0-4 %) Basophils Percent Auto 1.2 (Ref Range: 0-2 %) 1.1 (Ref Range: 0-2 %) 1.5 (Ref Range: 0-2 %) NRBC Pct Auto 0.0 (Ref Range: 0.0-0.2 /100WBC) 0.0 (Ref Range: 0.0-0.2 /100WBC) 0.0 (Ref Range: 0.0-0.2 /100WBC) Neutrophils Absolute Auto 4.1 (Ref Range: 2.0-8.3 x10*3/uL) 4.2 (Ref Range: 2.0-8.3 x10*3/uL) 3.3 (Ref Range: 2.0-8.3 x10*3/uL) Imm Gran Abs Auto 0.03 (Ref Range: 0.00-0.03 X10*3/uL) 0.01 (Ref Range: 0.00-0.03 X10*3/uL) 0.01 (Ref Range: 0.00-0.03 X10*3/uL) Lymphocytes Absolute Auto 2.3 (Ref Range: 1.2-4.9 X10*3/uL) 2.0 (Ref Range: 1.2-4.9 X10*3/uL) 1.9 (Ref Range: 1.2-4.9 X10*3/uL) Monocytes Absolute Auto 0.5 (Ref Range: 0.1-1.2 X10*3/uL) 0.6 (Ref Range: 0.1-1.2 X10*3/uL) 0.4 (Ref Range: 0.1-1.2 X10*3/uL) Eosinophils Absolute Auto 0.4 (Ref Range: 0.0-0.4 X10*3/uL) 0.4 (Ref Range: 0.0-0.4 X10*3/uL) 0.3 (Ref Range: 0.0-0.4 X10*3/uL) Basophils Absolute Auto 0.1 (Ref Range: 0.0-0.2 X10*3/uL) 0.1 (Ref Range: 0.0-0.2 X10*3/uL) 0.1 (Ref Range: 0.0-0.2 X10*3/uL) NRBC Abs Auto 0.000 (Ref Range: 0.0-0.012 X10*3/uL) 0.000 (Ref Range: 0.0-0.012 X10*3/uL) 0.000 (Ref Range: 0.0-0.012 X10*3/uL) * Lab:Comprehensive Met. Panel * Collection Date 09/19/2024 02/13/2021 Collection Time 12:09 PM 01:20 PM Order Date 09/19/2024 02/13/2021 Sodium 135 (Ref Range: 135-145 mmol/L) 141 (Ref Range: 135-145 mmol/L) Bilirubin Total 0.4 (Ref Range: 0.0-1.0 mg/dL) 0.6 (Ref Range: 0.0-1.0 mg/dL) Aspartate Amino Transferase 33?H (Ref Range: 5-31 U/L) 16 (Ref Range: 5-31 U/L) Alanine Aminotransferase 53?H (Ref Range: 0-31 U/L) 19 (Ref Range: 0-31 U/L) Total Protein 7.2 (Ref Range: 6.5-8.0 g/dL) 7.7 (Ref Range: 6.5-8.0 g/dL) Albumin Level 3.9 (Ref Range: 3.5-5.0 g/dL) 4.5 (Ref Range: 3.5-5.0 g/dL) Alkaline Phosphatase 135?H (Ref Range: 39-117 U/L) 84 (Ref Range: 39-117 U/L) Potassium 4.4 (Ref Range: 3.3-5.1 mmol/L) 4.3 (Ref Range: 3.3-5.1 mmol/L) Chloride 103 (Ref Range: 96-108 mmol/L) 106 (Ref Range: 96-108 mmol/L) Carbon Dioxide 26 (Ref Range: 22-29 mmol/L) 26 (Ref Range: 22-29 mmol/L) Anion Gap 10?L (Ref Range: 12-20) 13 (Ref Range: 12-20) Blood Urea Nitrogen 16 (Ref Range: 9-16 mg/dL) 9 (Ref Range: 9-16 mg/dL) Creatinine 0.82 (Ref Range: 0.5-1.4 mg/dL) 0.79 (Ref Range: 0.5-1.4 mg/dL) Estimated Glomerular Filt Rate > 60 > 60 Glucose Random 357?HH (Ref Range: 60-115 mg/dL) 161?H (Ref Range: 60-115 mg/dL) Calcium 9.0 (Ref Range: 8.4-10.2 mg/dL) 9.5 (Ref Range: 8.4-10.2 mg/dL) * Lab:Hemoglobin A1c * Collection Date 09/19/2024 07/12/2024 12/10/2023 Collection Time 12:09 PM 09:22 AM 10:56 AM Order Date 09/19/2024 07/12/2024 12/10/2023 Hemoglobin A1c % 9.2?H (Ref Range: <6.0 %) 9.2?H (Ref Range: <6.0 %) 7.7?H (Ref Range: <6.0 %) Estimated Average Glucose 217 (Ref Range: mg/dL) 217 (Ref Range: mg/dL) 174 (Ref Range: mg/dL) * Lab:Microalbumin, Random * Collection Date 07/12/2024 03/31/2023 12/09/2022 Collection Time 09:20 AM 10:30 AM 10:29 AM Order Date 07/12/2024 03/31/2023 12/09/2022 Creatinine Urine 221.86 (Ref Range: mg/dL) 58.31 (Ref Range: mg/dL) 66.63 (Ref Range: mg/dL) Microalbumin Urine 11.0 (Ref Range: mg/L) 6.0 (Ref Range: mg/L) 11.0 (Ref Range: mg/L) Microalbum Creatinine Ratio Ur 4.9 (Ref Range: <30 ug/mg cr) 10.2 (Ref Range: ug/mg cr) 16.5 (Ref Range: ug/mg cr) * Lab:Vitamin D 25-OH Total * Collection Date 07/12/2024 01/22/2023 11/27/2020 Collection Time 09:22 AM 11:27 AM 11:36 AM Order Date 07/12/2024 01/22/2023 11/27/2020 Vitamin D 25-OH Total 40.9 (Ref Range: >30 ng/mL) 78.8 (Ref Range: >30 ng/mL) 60.6 (Ref Range: >30 ng/mL) * Lab:Lipid Panel * Collection Date 07/12/2024 04/18/2024 12/10/2023 Collection Time 09:22 AM 10:31 AM 10:56 AM Order Date 07/12/2024 04/18/2024 12/10/2023 Triglycerides 77 (Ref Range: <150 mg/dL) 144 (Ref Range: <150 mg/dL) 77 (Ref Range: <150 mg/dL) Cholesterol 123 (Ref Range: <200 mg/dL) 214?H (Ref Range: <200 mg/dL) 124 (Ref Range: <200 mg/dL) LDL Cholesterol Calculated 71 (Ref Range: <100 mg/dL) 145?H (Ref Range: <100 mg/dL) 75 (Ref Range: <100 mg/dL) HDL Cholesterol 37?L (Ref Range: >40 mg/dL) 41 (Ref Range: >40 mg/dL) 34?L (Ref Range: >40 mg/dL) * Lab:Magnesium * Collection Date 07/12/2024 12/10/2023 09/28/2023 Collection Time 09:22 AM 10:56 AM 09:30 AM Order Date 07/12/2024 12/10/2023 09/22/2023 Magnesium 1.8 (Ref Range: 1.6-2.6 mg/dL) 1.9 (Ref Range: 1.6-2.6 mg/dL) 1.7 (Ref Range: 1.6-2.6 mg/dL) * Lab:Comprehensive [place]. Pane l Fast * Collection Date 07/12/2024 04/18/2024 12/10/2023 Collection Time 09:22 AM 10:31 AM 10:56 AM Order Date 07/12/2024 04/18/2024 12/10/2023 Sodium 140 (Ref Range: 135-145 mmol/L) 140 (Ref Range: 135-145 mmol/L) 141 (Ref Range: 135-145 mmol/L) Bilirubin Total 0.8 (Ref Range: 0.0-1.0 mg/dL) 0.6 (Ref Range: 0.0-1.0 mg/dL) 0.5 (Ref Range: 0.0-1.0 mg/dL) Aspartate Amino Transferase 21 (Ref Range: 5-31 U/L) 16 (Ref Range: 5-31 U/L) 18 (Ref Range: 5-31 U/L) Alanine Aminotransferase 30 (Ref Range: 0-31 U/L) 26 (Ref Range: 0-31 U/L) 28 (Ref Range: 0-31 U/L) Total Protein 7.2 (Ref Range: 6.5-8.0 g/dL) 7.4 (Ref Range: 6.5-8.0 g/dL) 7.6 (Ref Range: 6.5-8.0 g/dL) Albumin Level 4.0 (Ref Range: 3.5-5.0 g/dL) 4.0 (Ref Range: 3.5-5.0 g/dL) 4.2 (Ref Range: 3.5-5.0 g/dL) Alkaline Phosphatase 76 (Ref Range: 39-117 U/L) 91 (Ref Range: 39-117 U/L) 75 (Ref Range: 39-117 U/L) Potassium 4.5 (Ref Range: 3.3-5.1 mmol/L) 4.4 (Ref Range: 3.3-5.1 mmol/L) 4.4 (Ref Range: 3.3-5.1 mmol/L) Chloride 107 (Ref Range: 96-108 mmol/L) 106 (Ref Range: 96-108 mmol/L) 106 (Ref Range: 96-108 mmol/L) Carbon Dioxide 30?H (Ref Range: 22-29 mmol/L) 28 (Ref Range: 22-29 mmol/L) 29 (Ref Range: 22-29 mmol/L) Anion Gap 8?L (Ref Range: 12-20) 10?L (Ref Range: 12-20) 10?L (Ref Range: 12-20) Blood Urea Nitrogen 10 (Ref Range: 9-16 mg/dL) 16 (Ref Range: 9-16 mg/dL) 13 (Ref Range: 9-16 mg/dL) Creatinine 0.78 (Ref Range: 0.5-1.4 mg/dL) 0.78 (Ref Range: 0.5-1.4 mg/dL) 0.77 (Ref Range: 0.5-1.4 mg/dL) Estimated Glomerular Filt Rate > 60 > 60 > 60 Glucose Fasting 214?H (Ref Range: 60-99 mg/dL) 232?H (Ref Range: 60-99 mg/dL) 168?H (Ref Range: 60-99 mg/dL) Calcium 9.2 (Ref Range: 8.4-10.2 mg/dL) 9.4 (Ref Range: 8.4-10.2 mg/dL) 9.7 (Ref Range: 8.4-10.2 mg/dL) Assessment: * Assessment: 1.?DM (diabetes mellitus) - E11.9 (Primary)???Notes :She will be diligent about checking her blood glucose levels twice a day while she is ill. She will report by telephone on a daily basis she is doing. At this time she is able to eat and drink normally. She will be followed carefully In the office.???2.?Neuropathic pain - M79.2???Notes :The pain is localized to the left leg below the knee.? She finds the best relief from ibuprofen and gabapentin.? I have made her aware of the danger of diabetic taking ibuprofen chronically.? Her kidney function has remained normal however.???3.?Steatosis, liver - K76.0???Notes :Her liver function tests have elevated slightly.? This is likely due to fat deposition in the liver as well as the recent viral infection.? These values will be followed carefully and investigative they do not return to normal.???4.?Overweight - E66.3???Notes :Her weight is stable. Her body mass index is 27. We reviewed the elements of a diabetic weight loss diet today.???5.?Fibromyalgia - M79.7???Notes :This has been stable, but present. She is currently under the pain management at [facility].???6.?Other and unspecified hyperlipidemia - E78.5???Notes :The current fasting lipid profile shows a total cholesterol to be well within the target range. No change in treatment is needed.???7.?Former smoker - Z87.891???Notes :She reports that she has stopped smoking within the last 5 days. She seems motivated to continue abstinence.??? Plan: * Treatment: 2.?Neuropathic pain?LAB: PROFILE, RANDOM (COMPREHENSIVE METABOLIC) ?LAB: GGT ?LAB: CBC w DIFF ?LAB: Hemoglobin A1c 3.?Steatosis, liver?LAB: GGT 4.?Others? Continue Ibuprofen Tablet, 800 MG, 1 tablet with food or milk, Orally, every 6 hrs;?Continue glipiZIDE Tablet, 10 MG, TAKE 1 TABLET BY MOUTH EVERY MORNING 30 MINUTES BEFORE BREAKFAST;?Continue Vitamin D Tablet, 25 MCG (1000 UT), 1 tablet, Orally, Once a day;?Continue Acetaminophen Extra Strength Tablet, 500 MG, TAKE 1 TABLET BY MOUTH EVERY 6 HOURS NEEDED, Oral;?Continue Diclofenac Sodium Gel, 1 %, APPLY 4 G TOPICALLY 2 TIMES DAILY., External;?Continue Accu-Chek Waleska Plus Kit, w/Device, as directed, In Vitro, use to check blood sugars Thursday/Thursday/Thursday;?Continue Accu-Chek Waleska Plus Strip, -, as directed, In Vitro, use to check blood sugars Thursday/Thursday/Thursday;?Continue CVS Prep Pad, 70 %, Use 3 times a week;?Continue Gabapentin Tablet, 600 MG, TAKE 1 TABLET BY MOUTH THREE TIMES A DAY FOR 30 DAYS;?Continue Oyster Shell Calcium Tablet, 500 MG, TAKE 1 TABLET BY MOUTH EVERY DAY, Oral;?Continue metFORMIN HCl Tablet, 1000 MG, TAKE 1 TABLET BY MOUTH TWICE A DAY WITH MEALS;?Continue Aspirin Tablet Delayed Release, 81 MG, 1 tablet, Orally, Once a day;?Continue amLODIPine Besylate Tablet, 2.5 MG, 1 tablet, Orally, Once a day;?Continue Magnesium Oxide Tablet, 400 MG, 1 tablet as needed, Orally, Once a day;?Continue FreeStyle Lite Test Strip, -, Check blood sugar Thursday, Thursday and Thursday, Notes to Pharmacist: DX: E11.9 Diabetes Mellitus;?Continue FreeStyle Lancets Miscellaneous, -, to check blood sugars thursday, thursday, thursday, Notes to Pharmacist: DX: E11.9 Diabetes Mellitus;?Continue Tamiflu Capsule, 75 MG, 1 capsule, Orally, Twice a day;?Continue Azithromycin Tablet, 250 MG, the way directed, Orally, 2 Tablets on the first day, one tablet the rest of the days;?Continue guaiFENesin-Codeine Solution, 100-10 MG/5ML, 10 mL as needed, Orally, every 4 hrs.?? * Procedure Codes:? * Preventive Medicine:? ??Counseling:?Care goal follow-up plan:?Counseling for abnormal BMI given?Yes ?Above Normal BMI Follow-up?Dietary management education, guidance, and counseling, Dietary needs education, Exercise promotion: strength training, Exercise promotion: stretching, Feeding regime, Giving encouragement to exercise, Lifestyle education regarding diet, Nutrition / feeding management, Nutrition therapy, Prescribed activity/exercise education, Prescribed diet education, Prescribed dietary intake, Special diet education, Weight monitoring , Intervention, Order not done: Medical or Other reason not done ?Smoking/Tobacco Use?Patient counseled on the dangers of tobacco use and urged to quit.?10/07/2024 ??DM Care Plan:?Patient Lifestyle Goals?Patient wants to be able to manage diabetes without too much effort.?Treatment Goals?HbA1C < 7.0, Blood Sugars less than < 115.?Barriers?no barriers.?Self-Managment Goals?Work on weight loss, with a goal of losing 1 lb per week.? * Follow Up:?as scheduled, [facility] 4th (Reason: OV review labs, To discuss blood work results and monitor blood sugar levels) * Images: * Sign off status: Completed true * Provider:?Golden Archuleta MD Date:?09/24 Generated for Delma mendoza/Bertin/Tamiitting on:?10/21/2024 10:59 AM EST History and Physical Notes * HPI (History of Present Illness) Category Sub-Category Detail Notes Telehealth Location of [facility] rendering services:: {...} [address] [facility] [address] Location of patient:: address listed in demographics for today's visit Patient identification confirmed using:: Name, Telehealth method:: Telephone only. Sonali ent not visible to care provider. Consent:: Patient verbally c onsented to treatment, Patient verbally consented to billing insurance company, Patient informed of any privacy concerns related to method of visit Total time spent with patient (mins): 22
--- OUTSIDE RECORDS SUMMARY | 2024-10-21 10:59 | XMS_ITS | Referral Summary ---
Author Organization [facility] Address [address] [place] [address] Care Team Providers Care Fire Alarm Inspector Name Role Phone Golden Archuleta Primary Care Provider [phone] Allergies Active Allergy Reactions Criticality Noted Date [...] (05/02/2021): Added automatically from request for surgery [id number] Chronic foot pain, left 05/02/2021 Overview (05/02/2021): Added automatically from request for surgery [id number] Peripheral neuralgia 05/02/2021 Overview (05/02/2021): Added automatically from request for surgery [id number] Blue toe syndrome of left lower extremity [...] needed for pain control in addition to latslh-lzo-afmff ibuprofen. I will refer the patient to hematology for possible hypercoagulable work-up. I plan to review the patient's CT angio from [facility] at her next in-person clinic visit and [...] patient's presentation and CT angio report from [facility] I am concerned for embolic disease resulting in blue toe syndrome that may be causing some ischemic pain in the patient's left foot. However the patient does not want to be started on any anticoagulation without a clear diagnosis for an embolic disease. I did review the CT report that she showed me from [facility] demonstrating a question of thrombus in her left popliteal artery however I am unable to give further information since I do not have access to the images. The patient reports that she will try to obtain the CT images from [facility] for me to review. In the interim [...] [place] [id number] [facility] Care Teams Fire Alarm Inspector Relationship Specialty Start Date End Date Golden Archuleta [facility] [address] [place] [address] PCP - General Hematology 03/14/21
--- OUTSIDE RECORDS SUMMARY | 2024-10-21 10:59 | XMS_ITS | Clinical Summary ---
Author Organization [facility] Address [address] [place] [address] Care Team Providers Care Route Sales Representative Name Role Phone Golden Archuleta Primary Care Provider [phone] Allergies Active Allergy Reactions Criticality Noted Date [...] (05/02/2021): Added automatically from request for surgery [id number] Chronic foot pain, left 05/02/2021 Overview (05/02/2021): Added automatically from request for surgery [id number] Peripheral neuralgia 05/02/2021 Overview (05/02/2021): Added automatically from request for surgery [id number] Blue toe syndrome of left lower extremity [...] needed for pain control in addition to whrokp-fjw-mtbcb ibuprofen. I will refer the patient to hematology for possible hypercoagulable work-up. I plan to review the patient's CT angio from [facility] at her next in-person clinic visit [...] patient's presentation and CT angio report from [facility] I am concerned for embolic disease resulting in blue toe syndrome that may be causing some ischemic pain in the patient's left foot. However the patient does not want to be started on any anticoagulation without a clear diagnosis for an embolic disease. I did review the CT report that she showed me from [facility] demonstrating a question of thrombus in her left popliteal artery however I am unable to give further information since I do not have access to the images. The patient reports that she will try to obtain the CT images from [facility] for me to review. In the [...] patients) (1 - 1-dose 75+ series) 12/14/2035 Zoster Vaccines Completed 03/10/2022, 01/08/2022 Hepatitis B Vaccines Aged Out No long er eligible based on patient's age to complete this topic Insurance MEDICARE [facility] Care Teams Route Sales Representative Relationship Specialty Start Date End Date Golden Archuleta [address] [place] [id number] PCP - General Hematology 03/14/21
--- OUTSIDE RECORDS SUMMARY | 2024-10-21 10:59 | XMS_ITS ---
Author Organization Golden Archuleta III, MD Address [address] [place] [address] Care Team Providers Care Head Wood Grinder Name Role Phone Golden Archuleta Primary Care Provider REASON FOR VISIT Message Social History Sex Assigned At : Social History Observation Description Sex Assigned At Female Encounters Encounter Location Date Provider Diagnosis Golden Archuleta III, MD [address] [place] [address] [place] [address] 10/05/2024 Golden Archuleta Plan Of Treatment Next Appt Details Provider Name:Golden Archuleta, 10/25/2024 10:30:00 AM, [address] [facility] [place], [address], Provider Name:Golden Archuleta, 04/03/2025 03:00:00 PM, [address] [facility] [address], [place], [address], Progress Notes * Arnold THOMASGeneOB: (63 yo F)Acc No.[id number]:10/05/2024 Patient:?Melva THOMAS :1960???Age:63 Y???Sex:Female Address:[address] [place] [address] * true * Date:? Generated for Delma mendoza/Bertin/eTransmitting on:?10/21/2024 10:58 AM EST
--- OUTSIDE RECORDS SUMMARY | 2024-10-21 10:59 | XMS_ITS ---
Author Organization Golden Archuleta III, MD Address [address] [place] [address] Care Team Providers Care Production Broaching Machine Operator Name Role Phone Golden Archuleta Primary Care Provider [phone] REASON FOR VISIT Message Social History Sex Assigned At : Social History Observation Description Sex Assigned At Female Encounters Encounter Location Date Provider Diagnosis Golden Archuleta III, MD [address] [place] [address] [place] [address] 10/17/2024 Golden Archuleta Plan Of Treatment Next Appt Details Provider Name:Golden Archuleta, 10/25/2024 10:30:00 AM, [address] [facility] [place], [address], Provider Name:Golden Archuleta, 04/03/2025 03:00:00 PM, [address] [facility] [address], [place], [address], Progress Notes * Arnold THOMASGeneOB: (63 yo F)Acc No.[id number]:10/17/2024 Patient:?Melva THOMAS :1960???Age:63 Y???Sex:Female Address:[address] [place] [address] * true * Date:? Generated for Delma mendoza/Bertin/eTransmitting on:?10/21/2024 10:59 AM EST
--- OUTSIDE RECORDS SUMMARY | 2024-10-21 10:59 | XMS_ITS | Clinical Summary ---
Author Organization [facility] Address [address] [place] [address] Phone Care Team Providers Care Director Of Student Financial Aid Name Role Phone Golden Archuleta MD Primary Care Provider [phone] Allergies Active Allergy Reactions Criticality Noted Date [...] AM EST Office Visit Orthopedic Surgery - [address] [phone] Erich Hrarison, DPM Diabetic mononeuropathy simplex (CMS/HCC) (Primary Dx); Type II diabetes mellitus with peripheral circulatory disorder (CMS/HCC); Metatarsalgia of both feet; Corns and callosities; Pain in toe of left foot; Pain in toe of right foot; Dermatophytosis of nail from Last 3 Months Surgical History Surgery Date Site/Laterality Comments OTHER SURGICAL HISTORY PROCEDURE: DENIES PREVIOUS SURGERY FOOT SURGERY PROCEDURE: MD UNLISTED PROCEDURE FOOT/TOES Medical History Medical History [...] AM EDT Office Visit Orthopedic Surgery - [place] [address] [address] Erich Harrison, DPM [address] [address] Health Maintenance Due Date Last Done Comments [...] Insurance MEDICARE [place]ICAID - [place] Care Teams Director Of Student Financial Aid Relationship Specialty Start Date End Date Golden Archuleta MD [address] [address] PCP - General 10/04/07
[2024-10-21 11:11] LABS: Alanine Aminotransferase 16 U/L (0-31); Albumin Level 3.9 g/dL (3.5-5.0); Anion Gap 10 (12-20); Aspartate Amino Transferase 18 U/L (5-31); Bilirubin Total 0.6 mg/dL (0.0-1.0); Blood Urea Nitrogen 12 mg/dL (9-16); Calcium 9.5 mg/dL (8.4-10.2); Carbon Dioxide 27 mmol/L (22-29); Chloride 106 mmol/L (96-108); Estimated Glomerular Filt Rate > 60; Gamma Glutamyl Transpeptidase 27 U/L (7-33); Glucose Random 263 mg/dL (60-115); Sodium 139 mmol/L (135-145); Total Protein 7.5 g/dL (6.5-8.0)
[2024-10-21 11:21] LABS: Alkaline Phosphatase 75 U/L (39-117)
== END 2024-10-21 09:58 | disposition home or self-care (01) ==
LOC: HO.LAB 09:57
PROVIDERS: PCP Internal Medicine Medical Oncology; Visit Provider Internal Medicine Medical Oncology
DX: E11.9 Type 2 diabetes mellitus without complications (principal); M79.2 Neuralgia and neuritis, unspecified; K76.0 Fatty (change of) liver, not elsewhere classified
CPT/HCPCS: 36415; 80053; 82977; 83036; 85025

== ENCOUNTER 2024-10-25 11:16 | Outpatient (AMB) | payer MEDICARE, MEDICAID, SELFPAY ==
[2024-10-25 11:28] VITALS: BP 108/67; PULSE 67; O2SAT 98; BMI 26.9
--- NOTE | 2024-10-25 11:28 | A.OFFVIS_ITS ---
Vital Signs 10/25/24 11:28 Height 5 ft 3 in Weight 152 lb BMI 26.9 BP 108/67 Blood Pressure Location Rt brachial Position Sitting Pulse 67 Pulse Source Doppler Pulse Oximetry (%) 98 Oxygen Delivery Method Room Air Intake Visit Reasons: Sleep apnea/PFT Follow Up Allergies lisinopril Allergy (Mild, Verified 10/25/24 11:33) coughing hydromorphone [From Dilaudid] Adverse Reaction (Intermediate, Verified 10/25/24 11:33) Vomiting Percocet Adverse Reaction (Severe, Uncoded 06/10/24 10:37) Vomiting HPI HPI Sleep apnea/PFT Follow Up: Details: 63-year-old lady, former 25+ pack-year smoker, quit 2018 with underlying emphysema and moderate obstructive sleep apnea diagnosed with home sleep study in 2021 referred for further follow-up. Patient states that she has tried CPAP therapy and returned to machine after initial diagnosis secondary to inability to comply with the CPAP requirements. She is interested in trying CPAP therapy again. Patient also states that she has family history of COPD and lung cancer. She is undergoing lung cancer screening program here at [facility]. Patient denies any exertional dyspnea. She is currently not using any inhaled bronchodilators. After the last office visit patient has completed her pulmonary function test that showed mild decrease in diffusion capacity but no fixed obstructive ventilatory defect. She was prescribed CPAP machine, however she was not able to receive it secondary to insurance requirements for a new sleep study. She denies recent exacerbations. [facility] Medical History (Updated 06/10/24 @ 11:19 by Martir Marie MD) JOSE (obstructive sleep apnea) Coronary vasospasm Personal history of nicotine dependence Tubular adenoma of colon (~2020) Anxiety History of fibromyalgia NIDDY (non-insulin dependent diabetes mellitus in young) Chronic hepatitis C Surgical History History of foot surgery History of endoscopy History of colonoscopy History of endometrial ablation History of cholecystectomy Family History Father HTN (hypertension) Lung cancer Mother Asthma Thyroid disease Cardiac arrest Family/Other Breast cancer Social History Household Members: Other Housing: Condominium Do you presently have visiting nurse or other home services: No Alcohol intake: current Alcohol intake frequency: does not drink Patient Tobacco Use Status: Former Tobacco user Tobacco use type: Cigarette Years Smoked: (onset 9yo, 1/2ppd x 50yrs, 25pyh - quit 04/2020) Advance Directives Date on File: 04/09/21 Current occupational status: employed 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 Sexual orientation: Straight/Heterosexual Gender identity: Female Review of Systems Const Reports daytime sleepiness, Denies excessive sweating, Reports fatigue, Denies fever(s), Denies lethargy, Denies malaise, Denies night sweats, Denies snoring and Denies weight loss Eyes Denies blurry vision and Denies itchy eyes ENT Denies nasal congestion, Denies post nasal drip, Denies sinus pain, Denies sinus pressure and Denies other ( Thrush) Card Denies chest pain, Denies pedal edema, Denies dyspnea, Denies orthopnea and Denies paroxysmal nocturnal dyspnea Resp Denies cough, Denies hemoptysis, Denies excessive phlegm production, Denies dyspnea, Denies snoring and Denies wheezing GI Denies abdominal pain and Denies heartburn Musc Denies myalgias, Denies arthralgias and Denies joint swelling Skin/Breast Denies rash Neuro Denies memory loss and Denies seizure-like activity Psych Denies abnormal sleep pattern, Denies anxiety and Denies memory loss Endo Denies excessive sweating, Reports fatigue and Denies heat intolerance Sami/Lymph Denies easy bruising Aller/Immun Denies itchy eyes, Denies seasonal rhinorrhea and Denies wheezing Physical Exam Vital Signs: Last Vital Signs Pulse 67 10/25/24 11:28 BP 108/67 10/25/24 11:28 Pulse Ox 98 10/25/24 11:28 Oxygen Delivery Method Room Air 10/25/24 11:28 BMI result Body Mass Index 26.9 Const General: no acute distress and alert Nutritional Appearance: not obese Orientation/consciousness: Other orientation findings ( oriented) HEENT Head: Yes atraumatic Eyes General: appearance normal, both eyes and all related structures Sclerae: sclerae normal EOM: EOMs intact bilaterally Neck Neck: Yes supple Lymphatic: no lymphadenopathy noted Resp Effort & Inspection: normal respiratory effort and no use of accessory muscles Auscultation: clear to auscultation bilaterally Cardio Rate: regular rate Rhythm: regular rhythm Heart sounds: no gallops, no murmurs and no rubs Skin General skin exam: other ( warm) Extrem General: No clubbing, No cyanosis and No edema Assessment & Plan Assessment & Plan (1) JOSE (obstructive sleep apnea): Code(s): G47.33 - Obstructive sleep apnea (adult) (pediatric) Category: Medical Plan: Per patient's insurance regulations patient requires new sleep study. Will obtain home sleep study. (2) Pulmonary emphysema: Code(s): J43.9 - Emphysema, unspecified Category: Medical Plan: Results of pulmonary function test reviewed underlying mildly decreased diffusion capacity with no fixed obstructive ventilatory defect. Currently asymptomatic. Continue to monitor clinically. (3) Personal history of nicotine dependence: Comment: (onset 9yo, 1/2ppd x 50yrs, 25pyh - quit 04/2020) Code(s): Z87.891 - Personal history of nicotine dependence Category: Medical Plan: Results of lung cancer screening CT chest reviewed, no worrisome nodules at this time. Continue with yearly screening, ordered. Orders: Orders RT home sleep study Today G47.33 - Obstructive sleep apnea (adult) (pediatric) CT lung screening 02/24/25 Z87.891 - Personal history of nicotine dependence Coding Level of Care Code Est Pt Level 4 (78654) Complex EM visit Add On G2211 Diagnoses JOSE (obstructive sleep apnea) G47.33 Pulmonary emphysema J43.9 Personal history of nicotine dependence Z87.891
--- OUTSIDE RECORDS SUMMARY | 2024-10-25 14:10 | XMS_ITS | Referral Summary ---
Author Organization [facility] Address [address] [place] [address] Care Team Providers Care Senior Brand Manager Name Role Phone Golden Archuleta Primary Care Provider [phone] Allergies Active Allergy Reactions Criticality Noted Date [...] (05/02/2021): Added automatically from request for surgery [id number] Chronic foot pain, left 05/02/2021 Overview (05/02/2021): Added automatically from request for surgery [id number] Peripheral neuralgia 05/02/2021 Overview (05/02/2021): Added automatically from request for surgery [id number] Blue toe syndrome of left lower extremity [...] needed for pain control in addition to smsdja-rqo-wlbhn ibuprofen. I will refer the patient to hematology for possible hypercoagulable work-up. I plan to review the patient's CT angio from [facility] at her next in-person clinic visit [...] patient's presentation and CT angio report from [facility] I am concerned for embolic disease resulting in blue toe syndrome that may be causing some ischemic pain in the patient's left foot. However the patient does not want to be started on any anticoagulation without a clear diagnosis for an embolic disease. I did review the CT report that she showed me from [facility] demonstrating a question of thrombus in her left popliteal artery however I am unable to give further information since I do not have access to the images. The patient reports that she will try to obtain the CT images from [facility] for me to review. In the [...] [place] [id number] MEDICARE [facility] Care Teams Senior Brand Manager Relationship Specialty Start Date End Date Golden Archuleta [address] [place] [address] [place] [address] PCP - General Hematology 03/14/21
--- OUTSIDE RECORDS SUMMARY | 2024-10-25 14:10 | XMS_ITS | Clinical Summary ---
Author Organization [facility] Address [address] [place] [address] Care Team Providers Care Patient Case Coordinator Name Role Phone Golden Archuleta Primary Care Provider [phone] Allergies Active Allergy Reactions Criticality Noted Date [...] (05/02/2021): Added automatically from request for surgery [id number] Chronic foot pain, left 05/02/2021 Overview (05/02/2021): Added automatically from request for surgery [id number] Peripheral neuralgia 05/02/2021 Overview (05/02/2021): Added automatically from request for surgery [id number] Blue toe syndrome of left lower extremity [...] needed for pain control in addition to uzmwrp-kyv-rvvpi ibuprofen. I will refer the patient to hematology for possible hypercoagulable work-up. I plan to review the patient's CT angio from [facility] at her next in-person clinic visit [...] patient's presentation and CT angio report from [facility] I am concerned for embolic disease resulting in blue toe syndrome that may be causing some ischemic pain in the patient's left foot. However the patient does not want to be started on any anticoagulation without a clear diagnosis for an embolic disease. I did review the CT report that she showed me from [facility] demonstrating a question of thrombus in her left popliteal artery however I am unable to give further information since I do not have access to the images. The patient reports that she will try to obtain the CT images from [facility] for me to review. In the [...] age to complete this topic Insurance MEDICARE [facility] Care Teams Patient Case Coordinator Relationship Specialty Start Date End Date Golden Archuleta [address] [place] [id number] PCP - General Hematology 03/14/21
--- OUTSIDE RECORDS SUMMARY | 2024-10-25 14:11 | XMS_ITS ---
Author Organization Golden Archuleta III, MD Address [address] [place] [address] [place] [address] Care Team Providers Care Career Development Counselor Name Role Phone Golden Archuleta Primary Care Provider Allergies Allergen (clinical drug ingredient) Drug/Non Drug [...] Vitro use to check blood sugars Thursday/Thursday/ hendersony 09/09/2022 Active Gabapentin 600 MG TAKE 1 [...] Date Provider Diagnosis Golden Archuleta III, MD [address] [place] [address] [place], [place] [address] 10/07/2024 Golden Archuleta DM (diabetes mellitu s) [...] is currently under the pain management at [facility]. 10/07/2024 Other and unspecifie d hyperlipidemia (ICD-10 [...] tablet Orally Once a day 08/22/2023 Accu-Chek Waleska Plus w/Device as directed In [...] monitor blood sugar levels Provider Name:Golden Archuleta, 12/20/2024 10:30:00 AM, [address] [facility] [address], [place], [address], Provider Name:Golden Archuleta, 04/03/2025 03:00:00 PM, [address], [place], [address], Progress Notes * Deshaun THOMASOB: (63 yo F)Acc No.[id number]:10/07/2024 Patient:?Melva THOMAS Provider:?Golden Archuleta MD :1960???Age:63 Y???Sex:Female D ate:10/07/2024 Address:[address] [place], [place] [id number] Subjective: * Chief Complaints: * ???Viral syndromeRefractory coughDiabetesFibromyalgiaLow back pain * HPI: ???:?Telehealth?Location of provider rendering services:?{...} [address] [facility] [address] [facility] [place] [address] ?Location of patient:?address listed in demographics for [...] is slngle and working and lives in [place]. She was born in [place], [place]. {'Exercise': 'The patient reported having [...] 1.7 (Ref Range: 1.6-2.6 mg/dL) * Lab:[facility] Pane l Fast * Collection Date 07/12/2024 [...] is currently under the pain management at [facility].???6.?Other and unspecified hyperlipidemia - E78.5???Notes :The current [...] lb per week.? * Follow Up:?as scheduled, [facility] 4th (Reason: OV review labs, To discuss blood work results and monitor blood sugar levels) * Images: * Sign off status: Completed true * Provider:?Golden Archuleta MD Date:?09/24 Generated for Delma mendoza/Bertin/Tamiitting on:?10/25/2024 02:10 PM EST History and Physical Notes * HPI (History of Present Illness) Category Sub-Category Detail Notes Telehealth Location of [facility] rendering services:: {...} [address] [facility] [place] [address] Location of patient:: address listed in demographics [...]
--- OUTSIDE RECORDS SUMMARY | 2024-10-25 14:11 | XMS_ITS ---
Author Organization Golden Archuleta III, MD Address [address] [place] [address] Care Team Providers Care Manager Supply Name Role Phone Golden Archuleta Primary Care Provider [phone] Allergies Allergen (clinical drug ingredient) Drug/Non Drug Allergy documented on EMR Reaction Allergy Type Onset Date Status acetaminophen / oxycodone Percocet nausea Drug Allergy Active Lisinopril cough Drug Allergy Active REASON FOR VISIT follow up Medications Medication SIG (Take, Route, Frequency, Duration) Notes Start Date End Date Status FreeStyle Lite Test - Check blood sugar Thursday, Thursday and Thursday DX: E11.9 Diabetes Mellitus Active Lidocaine 5 % PLACE 1 PATCH ONTO SKIN EVERY 24 HOURS X112 DAYS. APPLY FOR NO MORE THAN 12 HOURS PER 24-HR PERIOD. External Active FreeStyle Lancets - to check blood sugars thursday, thursday, thursday DX: E11.9 Diabetes Mellitus 04/09/2023 Active Magnesium Oxide 400 MG 1 tablet as neede d Orally Once a day 03/28/2024 Active amLODIPine Besylate 2.5 MG 1 tablet Orally Once a day Active Aspirin 81 MG 1 tablet Orally Once a day Active Gabapentin 600 MG TAKE 1 TABLET BY MOUTH THREE TIMES A DAY FOR 30 DAYS Active metFORMIN HCl 1000 MG TAKE 1 TABLET BY MOUTH TWICE A DAY WITH MEALS Active Oyster Shell Calcium 500 MG TAKE 1 TABLET BY MOUTH EVERY DAY Oral Active Diclofenac Sodium 1 % APPLY 4 G TOPICALL Y 2 TIMES DAILY. External Active Accu-Chek [place] Plus - as directed In Vitro use to check blood sugars 09/09/2022 Active Accu-Chek [place] Plus w/Device as directed In Vitro use to check blood sugars Thursday/09/09/2022 Active Acetaminophen Extra Strength 500 MG TAKE 1 TABLET BY MOUTH EVERY 6 HOURS NEEDED Oral Active CVS Prep 70 % Use 3 times a week Active glipiZIDE 10 MG TAKE 1 TABLET BY MOUTH EVERY MORNING 30 MINUTES BEFORE BREAKFAST Active Ibuprofen 800 MG 1 tablet with food or milk Orally every 6 hrs Active Vitamin D 25 MCG (1000 UT) 1 tablet Orally Once a day 08/22/2023 Active guaiFENesin-Codeine 100-10 MG/5ML 10 mL as needed Orally every 4 hrs 10/03/2024 Active guaiFENesin-DM 100-10 MG/5ML 10 mL as needed Orally every 4 hrs 10/04/2024 Active Tamiflu 75 MG 1 capsule Orally Twice a day 09/29/2024 Active Azithromycin [address] directed Orally 2 Tablets on the first day, one tablet the rest of the days 10/03/2024 Active Social History Sex Assigned At : Social History Observation Description Sex Assigned At Female Vital Signs Temperature 96.6 degrees Fahrenheit 10/26/19 25 Blood pressure systolic 87 mm Hg 10/26/19 25 Blood pressure diastolic 75 mm Hg 025 Heart Rate 66 /min 10/25/2024 Height 63 in 10/25/2024 Weight 152 lbs 10/25/2024 BMI 26.92 kg/m2 10/25/2024 Encounters Encounter Location Date Provider Diagnosis Golden Archuleta III, MD [address] [place] [address] [address] [place] [id number] 10/25/2024 Golden Archuleta DM (diabetes mellitus) E11.9 and Overweight E66.3 Assessments Encounter Date Diagnosis (ICD Code) Assessment Notes Treatment Notes Treatment Clinical Notes 10/25/2024 DM (diabetes mellitus) (ICD-10 - E11.9) She will be diligent about checking her blood glucose levels twice a day while she is ill. She will report by telephone on a daily basis she is doing. At this time she is able to eat and drink normally. She will be followed carefully In the office. 10/25/2024 Overweight (ICD-10 - E66.3) Plan Of Treatment Medication Medication Name Sig Start Date Stop Date Notes FreeStyle Lite Test - Check blood sugar Thursday, Thursday and Thursday DX: E11.9 Diabetes Mellitus Lidocaine 5 % PLACE 1 PATCH ONTO SKIN EVERY 24 HOURS X112 DAYS. APPLY FOR NO MORE THAN 12 HOURS PER 24-HR PERIOD. External FreeStyle Lancets - to check blood sugars thursday, thursday, thursday04/09/2023 DX: E11.9 Diabetes Mellitus Magnesium Oxide 400 MG 1 tablet as neede d Orally Once a day 03/28/2024 amLODIPine Besylate 2.5 MG 1 tablet Orally Once a day Aspirin 81 MG 1 tablet Orally Once a day Gabapentin 600 MG TAKE 1 TABLET BY MOUTH THREE TIMES A DAY FOR 30 DAYS metFORMIN HCl 1000 MG TAKE 1 TABLET BY MOUTH TWICE A DAY WITH MEALS Oyster Shell Calcium 500 MG TAKE 1 TABLET BY MOUTH EVERY DAY Oral Diclofenac Sodium 1 % APPLY 4 G TOPICALL Y 2 TIMES DAILY. External Accu-Chek [place] Plus - as directed In Vi tro use to check blood sugars Thursday/Thursday/Thu09/09/2022 Accu-Chek [place] Plus w/Device as directed In Vitro use to check blood sugars Thursday/Thursday/Thu09/09/2022 Acetaminophen Extra Strength 500 MG TAKE 1 TABLET BY MOUTH EVERY 6 HOURS NEEDED Oral CVS Prep 70 % Use 3 times a week glipiZIDE 10 MG TAKE 1 TABLET BY MOUTH EVERY MORNING 30 MINUTES BEFORE BREAKFAST Ibuprofen 800 MG 1 tablet with food or milk Orally every 6 hrs Vitamin D 25 MCG (1000 UT) 1 tablet Orally Once a day 08/22/2023 guaiFENesin-Codeine 100-10 MG/5ML 10 mL as needed Orally every 4 hrs 10/03/2024 guaiFENesin-DM 100-10 MG/5ML 10 mL as needed Orally every 4 hrs 10/04/2024 Tamiflu 75 MG 1 capsule Orally Twice a day 09/29/[address] directed Orally 2 Tablets on the first day, one tablet the rest of the days 10/03/2024 Pending Test Test Name Order Date PROFILE, RANDOM (COMPREHENSIVE METABOLIC ) 10/25/2024 CBC w DIFF 10/25/2024 Hemoglobin A1c 10/25/2024 Next Appt Details Follow Up: 2 Months, Reason: OV Provider Name:Golden Archuleta, 12/20/2024 10:30:00 AM, [address] [place] [address] [address], [place], [address], Provider Name:Golden Archuleta, 04/03/2025 03:00:00 PM, [address] [place] [address] [address], [place], [address], Progress Notes * Arnold THOMASeDOB: 1 (63 yo F)Acc No.[id number]:10/25/2024 Progress Notes Patient:?Melva THOMAS Provider:?Golden Archuleta MD :1960???Age:63 Y???Sex:Female D ate:10/25/2024 Address:[address] [place], [place] [id number] Subjective: * Chief Complaints: * ???1. Follow up. * HPI: ???COVID-19 Screening:?rlq abd pain, adolfo pin in heaa middle lupper head, declines memds for dm, decllines meds for dm wangts to lose weight and exercise, denied trulicity. ?Questions?Have you had any new onset fever, chills, cough, congestion, sore throat, shortness of breath, muscle aches??No * ROS:?General/Constitutional:?pain?left foot is better.?Chills?denies.?Fatigue?admits.?Fever?denies.?ENT:?Decreased hearing?denies.?Respiratory:?Cough?denies.?Cardiovascular:?Chest pain with exertion?denies.?Dyspnea on exertion?denies.?Shortness of breath?denies.?Gastrointestinal:?Constipation?denies.?Decreased appetite?denies.?Diarrhea?denies.?Heartburn?denies.?Nausea?denies.?Rectal bleeding?denies.?Vomiting?denies.?Hematology:?bruising?denies.?petechiae?denies.?Swollen glands?none have been noted.?Genitourinary:?Frequent urination?denies.?Musculoskeletal:?Muscle aches?denies.?Painful joints?denies.?Sciatica?denies.?Weakness?denies.?Skin:?Itching?denies.?Rash?denies.?Skin lesion(s)?denies.?Neurologic:?Difficulty speaking?denies.?Dizziness?denies.?Headache?denies.?Low back pain?denies.?Psychiatric:?Depressed mood?denies.? * Medical History:?Atypical ch est pain, Left fifth hammer toe, 2007 hematochezia, AODM, Carpal tunnel syndrome, Hemorrhoids, Right sciatica 2013, Lisinopril-induced cough and, Fibromyalgia, Lisinopril-induced cough, {'Diabetes': 'The patient has a history of diabetes and is currently on Metformin.', 'Hyperglycemia': 'The patient's blood sugar level was measured at 214, indicating hyperglycemia.', 'Achilles Tendonitis': 'The patient was diagnosed with Achilles tendonitis during the current visit.'}. * Surgical History:?hammertoe repair 12/2009, No history . * Hospitalization/Major Diagno stic Procedure:?No history . * Family History:?Father: dece ased, lung cancer, [...] is slngle and working and lives in [place]. She was born in [place], [place]. {'Exercise': 'The patient reported having a bike at home for exercise.', 'Diet': 'The patient reported plans to start drinking a natural tea that was previously helpful for her blood sugar.'}. * Medications:?Taking Ibuprofe n 800 MG Tablet 1 tablet with food or milk Orally every 6 hrs , Taking Vitamin D 25 MCG (1000 UT) Tablet 1 tablet Orally Once a day , Taking Acetaminophen Extra Strength 500 MG Tablet TAKE 1 TABLET BY MOUTH EVERY 6 HOURS NEEDED Oral , Taking Diclofenac Sodium 1 % Gel APPLY 4 G TOPICALLY 2 TIMES DAILY. External , Taking Accu-Chek Waleska Plus w/Device Kit as directed In Vitro use to check blood sugars Thursday/Thursday/Thursday , Taking Accu-Chek [place] Plus - Strip as directed In Vitro use to check blood sugars Thursday/Thursday/Thursday , Taking CVS Prep 70 % Pad Use 3 times a week , Taking Gabapentin 600 MG Tablet TAKE 1 TABLET BY MOUTH THREE TIMES A DAY FOR 30 DAYS , Taking Oyster Shell Calcium 500 MG Tablet TAKE 1 TABLET BY MOUTH EVERY DAY Oral , Taking metFORMIN HCl 1000 MG Tablet TAKE 1 TABLET BY MOUTH TWICE A DAY WITH MEALS , Taking Aspirin 81 MG Tablet Delayed Release 1 tablet Orally Once a day , Taking amLODIPine Besylate 2.5 MG Tablet 1 tablet Orally Once a day , Taking Magnesium Oxide 400 MG Tablet 1 tablet as needed Orally Once a day , Taking Lidocaine 5 % Patch PLACE 1 PATCH ONTO SKIN EVERY 24 HOURS X112 DAYS. APPLY FOR NO MORE THAN 12 HOURS PER 24-HR PERIOD. External , Taking FreeStyle Lite Test - Strip Check blood sugar Thursday, Thursday and Thursday , Notes to Pharmacist: DX: E11.9 Diabetes Mellitus, Taking FreeStyle Lancets - Miscellaneous to check blood sugars thursday, thursday, thursday , Notes to Pharmacist: DX: E11.9 Diabetes Mellitus, Taking Tamiflu 75 MG Capsule 1 capsule Orally Twice a day , Taking Azithromycin [address] directed Orally 2 Tablets on the first day, one tablet the rest of the days , Taking guaiFENesin-Codeine 100-10 MG/5ML Solution 10 mL as needed Orally every 4 hrs , Taking guaiFENesin-DM 100-10 MG/5ML Syrup 10 mL as needed Orally every 4 hrs , Discontinued glipiZIDE 10 MG Tablet TAKE 1 TABLET BY MOUTH EVERY MORNING 30 MINUTES BEFORE BREAKFAST , Medication List reviewed and reconciled with the patient * Allergies:?Percocet: nausea, Lisinopril: cough. Objective: * Vitals:?Ht: 63, Wt: 152, BMI :26.92, BP: 87/75, HR: 66, Temp: 96.6, Ht-cm: 160.02, Wt-k.95. * ???Past Orders: Lab:Complete Blood Count Aut o Diff * Collection Date 10/21/2024 09/19/2024 07/12/2024 Collection Time 10:15 AM 12:09 PM 09:22 AM Order Date 10/21/2024 09/19/2024 07/12/2024 White Blood Count 7.3 (Ref Range: 4.8-10.8 X10*3/uL) 7.4 (Ref Range: 4.8-10.8 X10*3/uL) 7.3 (Ref Range: 4.8-10.8 X10*3/uL) Red Blood Count 4.15?L (Ref Range: 4.20-5.50 X10*6/uL) 4.25 (Ref Range: 4.20-5.50 X10*6/uL) 4.42 (Ref Range: 4.20-5.50 X10*6/uL) Hemoglobin 12.7 (Ref Range: 12.0-16.0 g/dl) 12.7 (Ref Range: 12.0-16.0 g/dl) 13.5 (Ref Range: 12.0-16.0 g/dl) Hematocrit 37.7 (Ref Range: 37.0-47.0 %) 38.8 (Ref Range: 37.0-47.0 %) 40.2 (Ref Range: 37.0-47.0 %) Mean Corpuscular Volume 90.8 (Ref Range: 80.0-98.0 fL) 91.3 (Ref Range: 80.0-98.0 fL) 91.0 (Ref Range: 80.0-98.0 fL) Mean Corpuscular Hemoglobin 30.6 (Ref Range: 27.0-33.0 pg) 29.9 (Ref Range: 27.0-33.0 pg) 30.5 (Ref Range: 27.0-33.0 pg) Mean Corpuscular HGB Conc 33.7 (Ref Range: 31.0-35.0 g/dl) 32.7 (Ref Range: 31.0-35.0 g/dl) 33.6 (Ref Range: 31.0-35.0 g/dl) Red Cell Distribution Width 11.9 (Ref Range: 11.0-16.0 %) 11.7 (Ref Range: 11.0-16.0 %) 11.8 (Ref Range: 11.0-16.0 %) Platelet Count 242 (Ref Range: 160-400 X10*3/uL) 240 (Ref Range: 160-400 X10*3/uL) 228 (Ref Range: 160-400 X10*3/uL) Mean Platelet Volume 10.7 (Ref Range: 9.4-12.3 fL) 10.9 (Ref Range: 9.4-12.3 fL) 10.5 (Ref Range: 9.4-12.3 fL) Neutrophils Percent Auto 63.2 (Ref Range: 45-73 %) 55.5 (Ref Range: 45-73 %) 58.1 (Ref Range: 45-73 %) Imm Gran Pct Auto 0.3 (Ref Range: 0.0-0.4 %) 0.4 (Ref Range: 0.0-0.4 %) 0.1 (Ref Range: 0.0-0.4 %) Lymphocytes Percent Auto 26.8 (Ref Range: 20-40 %) 31.2 (Ref Range: 20-40 %) 27.5 (Ref Range: 20-40 %) Monocytes Percent Auto 5.8 (Ref Range: 2-11 %) 6.7 (Ref Range: 2-11 %) 7.7 (Ref Range: 2-11 %) Eosinophils Percent Auto 2.9 (Ref Range: 0-4 %) 5.0?H (Ref Range: 0-4 %) 5.5?H (Ref Range: 0-4 %) Basophils Percent Auto 1.0 (Ref Range: 0-2 %) 1.2 (Ref Range: 0-2 %) 1.1 (Ref Range: 0-2 %) NRBC Pct Auto 0.0 (Ref Range: 0.0-0.2 /100WBC) 0.0 (Ref Range: 0.0-0.2 /100WBC) 0.0 (Ref Range: 0.0-0.2 /100WBC) Neutrophils Absolute Auto 4.6 (Ref Range: 2.0-8.3 x10*3/uL) 4.1 (Ref Range: 2.0-8.3 x10*3/uL) 4.2 (Ref Range: 2.0-8.3 x10*3/uL) Imm Gran Abs Auto 0.02 (Ref Range: 0.00-0.03 X10*3/uL) 0.03 (Ref Range: 0.00-0.03 X10*3/uL) 0.01 (Ref Range: 0.00-0.03 X10*3/uL) Lymphocytes Absolute Auto 2.0 (Ref Range: 1.2-4.9 X10*3/uL) 2.3 (Ref Range: 1.2-4.9 X10*3/uL) 2.0 (Ref Range: 1.2-4.9 X10*3/uL) Monocytes Absolute Auto 0.4 (Ref Range: 0.1-1.2 X10*3/uL) 0.5 (Ref Range: 0.1-1.2 X10*3/uL) 0.6 (Ref Range: 0.1-1.2 X10*3/uL) Eosinophils Absolute Auto 0.2 (Ref Range: 0.0-0.4 X10*3/uL) 0.4 (Ref Range: 0.0-0.4 X10*3/uL) 0.4 (Ref Range: 0.0-0.4 X10*3/uL) Basophils Absolute Auto 0.1 (Ref Range: 0.0-0.2 X10*3/uL) 0.1 (Ref Range: 0.0-0.2 X10*3/uL) 0.1 (Ref Range: 0.0-0.2 X10*3/uL) NRBC Abs Auto 0.000 (Ref Range: 0.0-0.012 X10*3/uL) 0.000 (Ref Range: 0.0-0.012 X10*3/uL) 0.000 (Ref Range: 0.0-0.012 X10*3/uL) * Lab:Hemoglobin A1c * Collection Date 10/21/2024 09/19/2024 07/12/2024 Collection Time 10:15 AM 12:09 PM 09:22 AM Order Date 10/21/2024 09/19/2024 07/12/2024 Hemoglobin A1c % 9.1?H (Ref Range: <6.0 %) 9.2?H (Ref Range: <6.0 %) 9.2?H (Ref Range: <6.0 %) Estimated Average Glucose 214 (Ref Range: mg/dL) 217 (Ref Range: mg/dL) 217 (Ref Range: mg/dL) * Lab:Gamma Glutamyl Transpept idase * Collection Date 10/21/2024 04/18/2024 Collection Time 10:15 AM 10:31 AM Order Date 10/21/2024 04/18/2024 Gamma Glutamyl Transpeptidase 27 (Ref Range: 7-33 U/L) 64?H (Ref Range: 7-33 U/L) * Lab:Comprehensive Met. Panel * Collection Date 10/21/2024 09/19/2024 02/13/2021 Collection Time 10:15 AM 12:09 PM 01:20 PM Order Date 10/21/2024 09/19/2024 02/13/2021 Sodium 139 (Ref Range: 135-145 mmol/L) 135 (Ref Range: 135-145 mmol/L) 141 (Ref Range: 135-145 mmol/L) Bilirubin Total 0.6 (Ref Range: 0.0-1.0 mg/dL) 0.4 (Ref Range: 0.0-1.0 mg/dL) 0.6 (Ref Range: 0.0-1.0 mg/dL) Aspartate Amino Transferase 18 (Ref Range: 5-31 U/L) 33?H (Ref Range: 5-31 U/L) 16 (Ref Range: 5-31 U/L) Alanine Aminotransferase 16 (Ref Range: 0-31 U/L) 53?H (Ref Range: 0-31 U/L) 19 (Ref Range: 0-31 U/L) Total Protein 7.5 (Ref Range: 6.5-8.0 g/dL) 7.2 (Ref Range: 6.5-8.0 g/dL) 7.7 (Ref Range: 6.5-8.0 g/dL) Albumin Level 3.9 (Ref Range: 3.5-5.0 g/dL) 3.9 (Ref Range: 3.5-5.0 g/dL) 4.5 (Ref Range: 3.5-5.0 g/dL) Alkaline Phosphatase 75 (Ref Range: 39-117 U/L) 135?H (Ref Range: 39-117 U/L) 84 (Ref Range: 39-117 U/L) Potassium 4.0 (Ref Range: 3.3-5.1 mmol/L) 4.4 (Ref Range: 3.3-5.1 mmol/L) 4.3 (Ref Range: 3.3-5.1 mmol/L) Chloride 106 (Ref Range: 96-108 mmol/L) 103 (Ref Range: 96-108 mmol/L) 106 (Ref Range: 96-108 mmol/L) Carbon Dioxide 27 (Ref Range: 22-29 mmol/L) 26 (Ref Range: 22-29 mmol/L) 26 (Ref Range: 22-29 mmol/L) Anion Gap 10?L (Ref Range: 12-20) 10?L (Ref Range: 12-20) 13 (Ref Range: 12-20) Blood Urea Nitrogen 12 (Ref Range: 9-16 mg/dL) 16 (Ref Range: 9-16 mg/dL) 9 (Ref Range: 9-16 mg/dL) Creatinine 0.68 (Ref Range: 0.5-1.4 mg/dL) 0.82 (Ref Range: 0.5-1.4 mg/dL) 0.79 (Ref Range: 0.5-1.4 mg/dL) Estimated Glomerular Filt Rate > 60 > 60 > 60 Glucose Random 263?H (Ref Range: 60-115 mg/dL) 357?HH (Ref Range: 60-115 mg/dL) 161?H (Ref Range: 60-115 mg/dL) Calcium 9.5 (Ref Range: 8.4-10.2 mg/dL) 9.0 (Ref Range: 8.4-10.2 mg/dL) 9.5 (Ref Range: 8.4-10.2 mg/dL) * Imaging:XR chest 2V * Performed Date 10/03/2024 07/23/2023 03:38 PM 11:00 AM Order Date 10/03/2024 07/23/2023 * Examination: ???General Examination: ?GENERAL APPEARANCE:?pleasant, well nourished, well developed, in no acute distress, calm and relaxed.?HEAD:?atraumatic, normocephalic.?EYES:?eomi, perrla, anicteric, conjugate.?EARS:?normal.?NOSE:?septum intact.?ORAL CAVITY:?normal, unremarkable.?NECK/THYROID:?no jugular venous distention, no carotid bruit, thyroid normal.?LYMPH NODES:?no enlarged lymph nodes,spleen normal.?SKIN:?no suspicious lesions, anicteric.?HEART:?no clicks, gallops, murmurs, or rubs, regular rhythm, S1, S2 normal, no s3, or vascular bruits.?LUNGS:?clear to auscultation .?BREASTS:??no masses palpable bilaterally.?ABDOMEN:?bowel sounds normal, no ascites, no organomegaly, no mass.?RECTAL EXAM:?not examined.?MUSCULOSKELETAL:?extremities unremarkable, no clubbing, cyanosis or edema.?PERIPHERAL PULSES:?normal.?NEUROLOGIC:?alert and oriented, cranial nerves 2-12 grossly intact, deep tendon reflexes 2+ symmetrical, motor strength normal upper and lower extremities, sensory exam intact.?PSYCH:?alert, oriented.? Assessment: * Assessment: 1.?DM (diabetes mellitus) - E11.9???Notes :She will be diligent about checking her blood glucose levels twice a day while she is ill. She will report by telephone on a daily basis she is doing. At this time she is able to eat and drink normally. She will be followed carefully In the office.???2.?Overweight - E66.3??? Plan: * Treatment: 2.?Overweight?LAB: PROFILE, RANDOM (COMPREHENSIVE METABOLIC) ?LAB: CBC w DIFF ?LAB: Hemoglobin A1c 3.?Others? Continue Ibuprofen Tablet, 800 MG, 1 tablet [...] as needed, Orally, every 4 hrs.?? * Preventive Medicine:? ??Counseling:?Care goal follow-up plan:?Counseling [...] done: Medical or Other reason not done * Follow Up:?2 Months (Reason: OV) * Images: * The named appointment provid er may or may not be the originator of this progress note, and it is not deemed complete until electronically signed by the appointment provider. Sign off status: Pending * Provider:?Golden Archuleta MD Date:?11/2024 Generated for Delma mendoza/Bertin/Mary Anne on:?10/25/2024 02:10 PM EST History and Physical Notes * HPI (History of Present Illness) Category Sub-Category Detail Notes COVID-19 Screening Questions Have you had any new onset fever, chills, cough, congestion, sore throat, shortness of breath, muscle aches?: No Examination Category Sub-Category Detail Notes General Examination GENERAL APPEARANCE: pleasant , well nourished, well developed, in no acute distress, calm and relaxed HEAD: atraumatic, normocep halic EYES: eomi, perrla, anicte carmelo, conjugate EARS: normal NOSE: septum intact NECK/THYROID: no jugular venous di stention, no carotid bruit, thyroid normal HEART: no clicks, gallops, murmurs, or rubs, regular rhythm, S1, S2 normal, no s3, or vascular bruits LUNGS: clear to auscultatio n ABDOMEN: bowel sounds normal, no ascites, no organomegaly, no mass NEUROLOGIC: alert and oriented, cranial nerves 2-12 grossly intact, deep tendon reflexes 2+ symmetrical, motor strength normal upper and lower extremities, sensory exam intact SKIN: no suspicious lesion s, anicteric PERIPHERAL PULSES: normal BREASTS: no masses palpable b ilaterally MUSCULOSKELETAL: extremities unremark able, no clubbing, cyanosis or edema LYMPH NODES: no enlarged lymph no von,spleen normal RECTAL EXAM: not examined PSYCH: alert, oriented ORAL CAVITY: normal, unremarkable
--- OUTSIDE RECORDS SUMMARY | 2024-10-25 14:11 | XMS_ITS ---
Author Organization Golden Archuleta III, MD Address [address] [place] [address] Care Team Providers Care Food And Beverage Server Name Role Phone Golden Archuleta Primary Care Provider [phone] REASON FOR VISIT Message Social History Sex Assigned At : Social History Observation Description Sex Assigned At Female Encounters Encounter Location Date Provider Diagnosis Golden Archuleta III, MD [address] [place] [address] [place] [address] 10/17/2024 Golden Archuleta Plan Of Treatment Next Appt Details Provider Name:Golden Archuleta, 12/20/2024 10:30:00 AM, [address] [facility] [place], [address], Provider Name:Golden Archuleta, 04/03/2025 03:00:00 PM, [address] [facility] [address], [place], [address], Progress Notes * Arnold THOMASGeneOB: (63 yo F)Acc No.[id number]:10/17/2024 Patient:?Melva THOMAS :1960???Age:63 Y???Sex:Female Address:[address] [place] [address] [place] [address] * true * Date:? Generated for Delma mendoza/Bertin/eTransmitting on:?10/25/2024 02:10 PM EST
--- OUTSIDE RECORDS SUMMARY | 2024-10-25 14:11 | XMS_ITS | Clinical Summary ---
Author Organization [address] [facility] Address [address] [place] [address] Phone Care Team Providers Care Refueler Name Role Phone Golden Archuleta MD Primary Care Provider [phone] Allergies Active Allergy Reactions Criticality Noted Date [...] AM EST Office Visit Orthopedic Surgery - [address] [id number] Erich Harrison, DPM Diabetic mononeuropathy simplex (CMS/HCC) (Primary Dx); Type II diabetes mellitus with peripheral circulatory disorder (CMS/HCC); Metatarsalgia of both feet; Corns and callosities; Pain in toe of left foot; Pain in toe of right foot; Dermatophytosis of nail from Last 3 Months Surgical History Surgery Date Site/Laterality Comments OTHER SURGICAL HISTORY PROCEDURE: DENIES PREVIOUS SURGERY FOOT SURGERY PROCEDURE: SD UNLISTED PROCEDURE FOOT/TOES Medical History Medical History [...] AM EDT Office Visit Orthopedic Surgery - [place] [address] [address] Erich Harrison, DPM [address] [address] Health Maintenance Due Date Last Done Comments [...] Insurance MEDICARE MEDICAID - [place] Care Teams Refueler Relationship Specialty Start Date End Date Golden Archuleta MD [address] [address] PCP - General 10/04/07
== END 2024-10-25 11:48 | disposition home or self-care (01) ==
PROVIDERS: PCP Internal Medicine Medical Oncology; Visit Provider Internal Medicine Pulmonary Disease
DX: G47.33 Obstructive sleep apnea (adult) (pediatric) (principal); J43.9 Emphysema, unspecified; Z87.891 Personal history of nicotine dependence
CPT/HCPCS: 99214; G2211

== ENCOUNTER → 2024-10-25 11:16 | Outpatient (BNVA) | payer MEDICARE, MEDICAID, SELFPAY | PROVIDERS: PCP Internal Medicine Medical Oncology; Visit Provider Internal Medicine Pulmonary Disease | DX: G47.33 Obstructive sleep apnea (adult) (pediatric) (principal); J43.9 Emphysema, unspecified; Z87.891 Personal history of nicotine dependence | CPT/HCPCS: 99212 ==

== ENCOUNTER 2024-11-22 12:43 | Outpatient (REF) | payer MEDICARE, MEDICAID, SELFPAY ==
--- OUTSIDE RECORDS SUMMARY | 2024-11-22 15:54 | XMS_ITS | Patient Health Record ---
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 Name Role Phone Golden Archuleta Primary Care Provider [phone] Allergies Allergen (clinical drug ingredient) Drug/Non Drug Allergy documented on EMR Reaction Allergy Type Onset Date Status acetaminophen / oxycodone Percocet nausea Drug Allergy Active lisinopril Lisinopril cough Drug Allergy Activ e Results Component Value Reference Range Notes URINE DIP STICK Reviewed date:03/28/2024 03:03:10 PM Interpretation: Performing Lab: Notes/Report: SG 1.010 1.005 - 1.025 pH 6.0 5.0 - 9.0 SIDRA Negative Negative - NIT Negative Negative - PRO 15 Negative - Trace GLU 500 (30) Negative - KET Negative Negative - UBG 0.2 0.1 - 1.8 MARII Negative 0.2 - 1.3 BLD 5-10 Negative - US venous duplex LE LT Reviewed date:12/03/2023 07:55:01 PM Interpretation: Performing Lab: Notes/Report: [facility] [address] [place] [address] Ultrasound Report Signed Patient: Melva Thomas MR#: [id number] [birth year] : 1960 Acct:[id number] Age/Sex: 62 / F ADM Date: 11/30/23 Loc: OLU Attending Dr: Golden Archuleta MD Ordering Physician: Golden Archuleta MD Date of Service: 11/30/23 Procedure(s): US venous duplex LE LT Accession Number(s): [id number] cc: Golden Archuleta MD EXAMINATION: US VENOUS ULTRASOUND WITH DOPPLER LOWER EXTREMITY, LEFT CLINICAL INFORMATION: Left leg rule out DVT, COMPARISON: None available. TECHNIQUE: Ultrasound of the deep veins is performed from the hip to the calf with compression sonography and color and pulse Doppler assessment. Spectral analysis with color-flow imaging is performed. FINDINGS: There is normal venous compression and respiratory variation and augmented flow. The visualized common femoral vein, superficial femoral vein, profunda femoral vein, popliteal vein, and the trifurcation region shows no evidence of deep venous thrombosis. There is no significant popliteal fossa cyst. Prominent groin lymph nodes measuring up to 2.2.cm. If the patient's symptoms persist, followup ultrasound in 5 days 7 days might be of value to exclude proximal propagation from a non-visualized calf vein. US/US venous duplex LE LT IMPRESSION: No DVT demonstrated in the left lower extremity. Dictated By: Ivon Berrios MD Signed By: <Electronically signed by Ivon Berrios MD in OV> 11/30/23 1806 DD/ 1719 TD/TT: Business Services Clerk: [place] [facility] [address] [place] [address] Ultrasound Report Signed Patient: Melva Thomas MR#: [id number] [birth year] : 1960 Acct:[id number] Age/Sex: 62 / F ADM Date: 11/30/23 Loc: OLU Attending Dr: Golden Archuleta MD Ordering Physician: Golden Archuleta MD Date of Service: 11/30/23 Procedure(s): US venous duplex LE LT Accession Number(s): [id number] cc: Golden Archuleta MD EXAMINATION: US VENOUS ULTRASOUND WITH DOPPLER LOWER EXTREMITY, LEFT CLINICAL INFORMATION: Left leg rule out DVT, COMPARISON: None available. TECHNIQUE: Ultrasound of the de ep veins is performed from the hip to the calf with compression sonograp hy and color and pulse Doppler assessment. Spectral analysis with color-flow imaging is performed. FINDINGS: There is normal veno us compression and respiratory variation and augmented flow. The visualized common femoral vein, superficial femoral vein, profunda femor al vein, popliteal vein, and the trifurcation region shows no evidence of deep venous thrombosis. There is no significant poplitea l fossa cyst. Prominent groin lymp h nodes measuring up to 2.2.cm. If the patient's symptoms persist, followup ultrasound in 5 days 7 days might be of value to exclude proximal propagation from a non-visualized calf vein. US/US venous duplex LE LT IMPRESSION: No DVT demonstrated in the left lower extremity. Dictated By: Ivon Berrios MD Signed By: <Electronically signed by Ivon Brerios MD in OV> 11/30/23 1806 DD/ 1719 TD/TT: Business Services Clerk: [place] Complete Blood Count Auto Di ff Reviewed date:12/15/2023 10:12:47 AM Interpretation: Performing Lab:[facility], [address] [place] [phone] Notes/Report: White Blood Count 7.0 4.8-10.8 X10*3/uL Red Blood Count 4.39 4.20-5.50 X10*6/uL Hemoglobin 13.3 12.0-16.0 g/dl Hematocrit 39.4 37.0-47.0 % Mean Corpuscular Volume 89.7 80.0-98.0 fL Mean Corpuscular Hemoglobin 30.3 27.0-33.0 pg Mean Corpuscular HGB Conc 33.8 31.0-35.0 g/dl Red Cell Distribution Width 11.8 11.0-16.0 % Platelet Count 301 160-400 X10*3/uL Mean Platelet Volume 10.3 9.4-12.3 fL Neutrophils Percent Auto 59.2 45-73 % Imm Gran Pct Auto 0.3 0.0-0.4 % Lymphocytes Percent Auto 28.8 20-40 % Monocytes Percent Auto 6.3 2-11 % Eosinophils Percent Auto 4.3 0-4 % Basophils Percent Auto 1.1 0-2 % NRBC Pct Auto 0.0 0.0-0.2 /100WBC Neutrophils Absolute Auto 4.2 2.0-8.3 x10*3/uL Imm Gran Abs Auto 0.02 0.00-0.03 X10*3/uL Lymphocytes Absolute Auto 2.0 1.2-4.9 X10*3/uL Monocytes Absolute Auto 0.4 0.1-1.2 X10*3/uL Eosinophils Absolute Auto 0.3 0.0-0.4 X10*3/uL Basophils Absolute Auto 0.1 0.0-0.2 X10*3/uL NRBC Abs Auto 0.000 0.0-0.012 X10*3/uL Comprehensive [place]. Panel Fa st Reviewed date:12/15/2023 10:12:47 AM Interpretation: Performing Lab:[facility], [address] [place] [phone] Notes/Report: Sodium 141 135-145 mmol/L Potassium 4.4 3.3-5.1 mmol/L Chloride 106 96-108 mmol/L Carbon Dioxide 29 22-29 mmol/L Anion Gap 10 12-20 Blood Urea Nitrogen 13 9-16 mg/dL Creatinine 0.77 0.5-1.4 mg/dL Estimated Glomerular Filt Rate > 60 NOTE: For -Slovenian individuals, multiply the result by 1.210. Chronic Kidney Disease: Estimated GFR < 60 mL/min/1.73m2 Severe Kidney Disease: Estimated GFR < 15 mL/min/1.73m2 Glucose Fasting 168 60-99 mg/dL A fasting glucose of 126 mg/dl or greater on more than one occasion is considered diagnostic of diabetes. Calcium 9.7 8.4-10.2 mg/dL Bilirubin Total 0.5 0.0-1.0 mg/dL Aspartate Amino Transferase 18 5-31 U/L Alanine Aminotransferase 28 0-31 U/L Total Protein 7.6 6.5-8.0 g/dL Albumin Level 4.2 3.5-5.0 g/dL Alkaline Phosphatase 75 39-117 U/L Magnesium Reviewed date:12/15/2023 10:12:47 AM Interpretation: Performing Lab:[facility], [address] [place] [phone] Notes/Report: Magnesium 1.9 1.6-2.6 mg/dL Lipid Panel Reviewed date:12/15/2023 10:12:47 AM Interpretation: Performing Lab:[address] [address] Notes/Report: Triglycerides 77 <150 mg/dL Desirable Triglyceride: less than 150 mg/dL Borderline High Triglyceride 150-199 mg/dL High Triglyceride: 200-499 mg/dL Very High Triglyceride: greater than or equal to 5OO mg/dL Cholesterol 124 <200 mg/dL Desirable Cholesterol: less than 200 mg/dL Borderline High Cholesterol: 200-239 mg/dL High Cholesterol: greater than 239 mg/dL LDL Cholesterol Calculated 75 <100 mg/dL Desirable LDL: less than 100 mg/dL Near Optimal/Above Optimal LDL: 110-129 mg/dL Borderline High LDL: 130-159 mg/dL High LDL: 160-189 mg/dL Very High LDL: greater than or equal to 190 mg/dL HDL Cholesterol 34 >40 mg/dL Desirable HDL: greater than 40 mg/dL Note: This HDL assay may give artificially low results in patients with liver disease. Hemoglobin A1c Reviewed date:12/15/2023 10:12:47 AM Interpretation: Performing Lab:[address] [address] Notes/Report: Hemoglobin A1c % 7.7 <6.0 % Hemoglobin A1C Reference Range Adults: 4.8 - 6.0 % Non diabetic: < 6.0 % Goal: < 7.0 % Additional Action Suggested: > 8.0 % Note: Hemoglobin A1c results are invalid for patients with abnormal amounts of HbF. Blood transfusions may impact the HbA1c concentration in the patient sample. Estimated Average Glucose 174 eAG = Estimated average glucose which is %A1C expressed as average glucose, using the formula of the [id number] Average Glucose study (ADAG), Diabetes Care, Vol.31,#8, Mar. 2007 MM tomosynthesis screening B I Reviewed date:04/10/2024 08:53:37 AM Interpretation: Performing Lab: Notes/Report: [address] [place] [address] Mammography Report Signed Patient: Melva Thomas MR#: [id number] [birth year] : 1960 Acct:[id number] Age/Sex: 63 / F ADM Date: 01/12/24 Loc: BRAD Attending Dr: Golden Archuleta MD Ordering Physician: Golden Archuleta MD Results: 1Negativ e Date of Service: 01/12/24 Follow Up: 1 Year From Orig ina Mammogram Procedure(s): MM tomosynthesis screening BI Accession Number(s): [id number] cc: Golden Archuleta MD EXAMINATION: MM SCREENING DIGITAL BREAST TOMOSYNTHESIS, BILATERAL CLINICAL INFORMATION: Screening. Asymptomatic. COMPARISON: Mammography: This study is compared with prior exams dating back to 2018. TECHNIQUE: Digital breast tomosynthesis is performed in both the craniocaudal and mediolateral oblique views along with computer-aided detection (CAD). Synthesized 2D images are generated from the tomosynthesis. FINDINGS: There are scattered areas of fibroglandular density (ACR BI-RADS breast composition Category b). There are no significant masses, abnormal calcifications, or other abnormalities. MM/MM tomosynthesis screening BI IMPRESSION: No mammographic evidence of malignancy. ASSESSMENT: BI-RADS BI-RADS 1 - Negative RECOMMENDATION: Routine annual mammography screening. 1 year F/U This examination should not preclude the clinical evaluation of a suspicious palpable abnormality. This patient's information was entered into a reminder system with a target due date for their next mammogram. Dictated By: Elena Umaña MD Signed By: <Electronically signed by Elena Umaña MD in OV> 02/12/24 0836 DD/ 1011 TD/TT: Business Services Clerk: [address] [place] [address] Mammography Report Signed Patient: Melva Thomas MR#: [id number] [birth year] : 1960 Acct:[id number] Age/Sex: 63 / F ADM Date: 01/12/24 Loc: HO.MAMMO Attending Dr: Golden Archuleta MD Ordering Physician: Golden Archuleta MD Results: 1Negativ e Date of Service: 01/12/24 Follow Up: 1 Year From Orig ina Mammogram Procedure(s): MM tomosynthesis screening BI Accession Number(s): [id number] cc: Golden Archuleta MD EXAMINATION: MM SCREENING DIGITAL BREAST TOMOSYNTHESIS, BILATERAL CLINICAL INFORMATION: Screening. Asymptomatic. COMPARISON: Mammography: This study is compared with prior exams dating back to 2018. TECHNIQUE: Digital breast tomosynthesis is performed in both the craniocaudal and mediolateral oblique views along with computer-aided detection (CAD). Synthesized 2D image s are generated from the tomosynthesis. FINDINGS: There are scattered areas of fibroglandular density (ACR BI-RADS breast composition Category b). There are no significant masses, abnormal calcifications, or other abnormalities. MM/MM tomosynthesis screening BI IMPRESSION: No mammographic evidence of malignancy. ASSESSMENT: BI-RADS BI-RADS 1 - Negative RECOMMENDATION: Routine annual mammography screening. 1 year F/U This examination should not preclude the clinical evaluation of a suspicious palpable abnormality. This patient's information was entered into a reminder system with a target due date for their next mammogram. Dictated By: Elena Umaña MD Signed By: <Electronically signed by Elena Umaña MD in OV> 02/12/24 0836 DD/ 1011 TD/TT: Business Services Clerk: MAMMOGRAM DIGITAL BILATERAL SCREEN Reviewed date:03/10/2024 09:40:30 AM Interpretation:undefined Performing Lab: Notes/Report: undefined CT lung screening Reviewed date:04/10/2024 08:53:37 AM Interpretation: Performing Lab: Notes/Report: [address] [address] [address] Scan Report Signed Patient: Melva Thomas MR#: [id number] [birth year] : 1960 Acct:[id number] Age/Sex: 63 / F ADM Date: 02/19/24 Loc: HO.CT Attending Dr: Marisela Plascencia PA-C Ordering Physician: Marisela Plascencia PA-C Date of Service: 02/19/24 Procedure(s): CT lung screening Accession Number(s): [id number] cc: Golden Archuleta MD; Marisela Plascencia PA-C EXAMINATION: CT LOW-DOSE SCREENING CHEST WITHOUT CONTRAST CLINICAL INFORMATION: Personal history of nicotine dependence. The patient has a 25 pack-year history of smoking, having quit 4 years ago. COMPARISON: X-ray chest 11/13/2023. CT chest 04/11/2022. TECHNIQUE: Multidetector volumetric CT imaging of the chest is performed on a Siemens SOMATOM Definition scanner without contrast using low dose technique. Additional 2D coronal and sagittal reformatted images and axial 3D maximum intensity projection (MIP) images are generated on the CT workstation. This CT examination was performed using dose optimization techniques as appropriate, variously including the following: *Automated exposure control. *Adjustment of mA and/or kV according to patient size (this includes techniques or standardized protocols for targeted exams where dose is matched to indication/reason for exam; i.e. extremities or head). *Use of iterative reconstruction technique. TOTAL EXAM DLP: 43 mGy-cm CTDIvol: 1.40 mGy FINDINGS: PULMONARY NODULES: Some tiny pulmonary nodules are present, the largest in the right middle lobe measuring 3 mm (5:268 compare prior 6:262), all unchanged. Spann images of all have been saved. No new, increasing-sized or concerning pulmonary nodules are seen. LUNGS: Lungs bilaterally symmetrically expanded. Mild emphysematous changes are present along with mild bronchial thickening. No focal lung nodule or mass. No effusion or pneumothorax. Central airways patent. MEDIASTINUM: No mediastinal, hilar or axillary adenopathy or free fluid collection. CORONARY ARTERY CALCIFICATION: None visualized on this study. THYROID GLAND: Unremarkable to the extent seen. CARDIOVASCULAR STRUCTURES: Aortic and heart size normal. No pericardial effusion. CHEST WALL/AXILLA: Unremarkable. UPPER ABDOMEN: Included portions of the solid organs in the upper abdomen unremarkable on noncontrast imaging. Small subcapsular calcification present at the posterior right lobe of liver. OSSEOUS STRUCTURES: No suspicious focal findings. CT/CT lung screening IMPRESSION: 1. No evidence of pulmonary malignancy. 2. Mild emphysema. 3. Incidental findings (s category): No incidental findings. ASSESSMENT: Lung-RADS Category 2: Benign appearance or behavior of nodules. N/A. RECOMMENDATION: Continued routine annual low-dose CT lung screening in 1 year is recommended. An order for CT CHEST LOW DOSE CANCER SCREENING ([id number]) can be placed. Dictated By: Robin Sherman MD Signed By: <Electronically signed by Robin Sherman MD in OV> 03/14/24 2313 DD/ 1353 TD/TT: Business Services Clerk: [place] [address] CT Scan Report Signed Patient: Melva Thomas MR#: [id number] 89 : 1960 Acct:[id number] Age/Sex: 63 / F ADM Date: 02/19/24 Loc: HO.CT Attending Dr: Marisela Plascencia PA-C Ordering Physician: Marisela Plascencia PA-C Date of Service: 02/19/24 Procedure(s): CT ann g screening Accession Number(s): [id number] cc: Golden Archuleta MD; Marisela Plascencia PA-C EXAMINATION: CT LOW-DOSE SCREENIN G CHEST WITHOUT CONTRAST CLINICAL INFORMATION: Personal history of nicotine dependence. The patient has a 25 pack-year history of smoking, having quit 4 years ago. COMPARISON: X-ray chest 11/13/2023. CT chest 04/11/2022. TECHNIQUE: Multidetector volumetric CT imaging of the chest is performed on a Siemens SOMATOM Definition scanner without contrast using low dose technique. Additiona l 2D coronal and sagittal reformatted images and axial 3D maximum intensity projection (MIP) images are generated on the CT workstation. This CT examination was performed using dose optimization techniques as appropriate, various ly including the following: *Automated exposure control. *Adjustment of mA and/or kV according to patient size (this includes techniques or standardized protocols for targeted exams where dose is matched to indication/reason for exam; i.e. extremities or head). *Use of iterative reconstruction technique. TOTAL EXAM DLP: 43 mGy-cm CTDIvol: 1.40 mGy FINDINGS: PULMONARY NODULES: Some tiny pulmonary nodules are present, the largest in the right middle lobe measuring 3 mm (5:268 compare prior 6:262), all unchanged. Spann images of all have been saved. No new, increasing-sized or concerning pulmonary nodules are seen. LUNGS: Lungs bilaterally symmetrically expanded. Mild emphysematous changes are present along with mild bronchial thickening. No focal lung nodule or mass. No effusion or pneumothorax. Central airways patent. MEDIASTINUM: No mediastinal, hilar or axillary adenopathy or free fluid collection. CORONARY ARTERY CALCIFICATION: None visualized on this study. THYROID GLAND: Unremarkable to the extent seen. CARDIOVASCULAR STRUCTURES: Aortic and heart size normal. No pericardial effusion. CHEST WALL/AXILLA: Unremarkable. UPPER ABDOMEN: Included portions of the solid organs in the upper abdomen unremarkable on noncontrast imaging. Small subcapsular calcification presen t at the posterior right lobe of liver. OSSEOUS STRUCTURES: No suspicious focal findings. CT/CT lung screening IMPRESSION: 1. No evidence of pulmonary malignancy. 2. Mild emphysema. 3. Incidental findin gs (s category): No incidental findings. ASSESSMENT: Lung-RADS Category 2 : Benign appearance or behavior of nodules. N/A. RECOMMENDATION: Continued routine annual low-dose CT lung screening in 1 year is recommended. An orde r for CT CHEST LOW DOSE CANCER SCREENING ([id number]) can be placed. Dictated By: Robin Sherman MD Signed By: <Electronically signed by Robin Sherman MD in OV> 03/14/24 2313 DD/ 1353 TD/TT: Business Services Clerk: JOSE A Complete Blood Count Auto Di ff Reviewed date:04/18/2024 12:02:00 PM Interpretation: Performing Lab:[facility], [address] [place] [phone] Notes/Report: White Blood Count 6.1 4.8-10.8 X10*3/uL Red Blood Count 4.51 4.20-5.50 X10*6/uL Hemoglobin 13.8 12.0-16.0 g/dl Hematocrit 40.8 37.0-47.0 % Mean Corpuscular Volume 90.5 80.0-98.0 fL Mean Corpuscular Hemoglobin 30.6 27.0-33.0 pg Mean Corpuscular HGB Conc 33.8 31.0-35.0 g/dl Red Cell Distribution Width 11.9 11.0-16.0 % Platelet Count 262 160-400 X10*3/uL Mean Platelet Volume 10.2 9.4-12.3 fL Neutrophils Percent Auto 54.4 45-73 % Imm Gran Pct Auto 0.2 0.0-0.4 % Lymphocytes Percent Auto 31.8 20-40 % Monocytes Percent Auto 6.9 2-11 % Eosinophils Percent Auto 5.2 0-4 % Basophils Percent Auto 1.5 0-2 % NRBC Pct Auto 0.0 0.0-0.2 /100WBC Neutrophils Absolute Auto 3.3 2.0-8.3 x10*3/uL Imm Gran Abs Auto 0.01 0.00-0.03 X10*3/uL Lymphocytes Absolute Auto 1.9 1.2-4.9 X10*3/uL Monocytes Absolute Auto 0.4 0.1-1.2 X10*3/uL Eosinophils Absolute Auto 0.3 0.0-0.4 X10*3/uL Basophils Absolute Auto 0.1 0.0-0.2 X10*3/uL NRBC Abs Auto 0.000 0.0-0.012 X10*3/uL Comprehensive [place]. Panel Fa st Reviewed date:04/18/2024 12:02:00 PM Interpretation: Performing Lab:[facility], [address] [place] [phone] Notes/Report: Sodium 140 135-145 mmol/L Potassium 4.4 3.3-5.1 mmol/L Chloride 106 96-108 mmol/L Carbon Dioxide 28 22-29 mmol/L Anion Gap 10 12-20 Blood Urea Nitrogen 16 9-16 mg/dL Creatinine 0.78 0.5-1.4 mg/dL Estimated Glomerular Filt Rate > 60 NOTE: For -Slovenian individuals, multiply the result by 1.210. Chronic Kidney Disease: Estimated GFR < 60 mL/min/1.73m2 Severe Kidney Disease: Estimated GFR < 15 mL/min/1.73m2 Glucose Fasting 232 60-99 mg/dL A fasting glucose of 126 mg/dl or greater on more than one occasion is considered diagnostic of diabetes. Calcium 9.4 8.4-10.2 mg/dL Bilirubin Total 0.6 0.0-1.0 mg/dL Aspartate Amino Transferase 16 5-31 U/L Alanine Aminotransferase 26 0-31 U/L Total Protein 7.4 6.5-8.0 g/dL Albumin Level 4.0 3.5-5.0 g/dL Alkaline Phosphatase 91 39-117 U/L Gamma Glutamyl Transpeptidas e Reviewed date:04/18/2024 12:02:00 PM Interpretation: Performing Lab:[address] [address] Notes/Report: Gamma Glutamyl Transpeptidase 64 7-33 U/L Lipid Panel Reviewed date:04/18/2024 12:02:00 PM Interpretation: Performing Lab:[address] [address] Notes/Report: Triglycerides 144 <150 mg/dL Desirable Triglyceride: less than 150 mg/dL Borderline High Triglyceride 150-199 mg/dL High Triglyceride: 200-499 mg/dL Very High Triglyceride: greater than or equal to 5OO mg/dL Cholesterol 214 <200 mg/dL Desirable Cholesterol: less than 200 mg/dL Borderline High Cholesterol: 200-239 mg/dL High Cholesterol: greater than 239 mg/dL LDL Cholesterol Calculated 145 <100 mg/dL Desirable LDL: less than 100 mg/dL Near Optimal/Above Optimal LDL: 110-129 mg/dL Borderline High LDL: 130-159 mg/dL High LDL: 160-189 mg/dL Very High LDL: greater than or equal to 190 mg/dL HDL Cholesterol 41 >40 mg/dL Desirable HDL: greater than 40 mg/dL Note: This HDL assay may give artificially low results in patients with liver disease. Complete Blood Count Auto Di ff Reviewed date:07/18/2024 07:45:21 AM Interpretation: Performing Lab:[address] [address] Notes/Report: White Blood Count 7.3 4.8-10.8 X10*3/uL Red Blood Count 4.42 4.20-5.50 X10*6/uL Hemoglobin 13.5 12.0-16.0 g/dl Hematocrit 40.2 37.0-47.0 % Mean Corpuscular Volume 91.0 80.0-98.0 fL Mean Corpuscular Hemoglobin 30.5 27.0-33.0 pg Mean Corpuscular HGB Conc 33.6 31.0-35.0 g/dl Red Cell Distribution Width 11.8 11.0-16.0 % Platelet Count 228 160-400 X10*3/uL Mean Platelet Volume 10.5 9.4-12.3 fL Neutrophils Percent Auto 58.1 45-73 % Imm Gran Pct Auto 0.1 0.0-0.4 % Lymphocytes Percent Auto 27.5 20-40 % Monocytes Percent Auto 7.7 2-11 % Eosinophils Percent Auto 5.5 0-4 % Basophils Percent Auto 1.1 0-2 % NRBC Pct Auto 0.0 0.0-0.2 /100WBC Neutrophils Absolute Auto 4.2 2.0-8.3 x10*3/uL Imm Gran Abs Auto 0.01 0.00-0.03 X10*3/uL Lymphocytes Absolute Auto 2.0 1.2-4.9 X10*3/uL Monocytes Absolute Auto 0.6 0.1-1.2 X10*3/uL Eosinophils Absolute Auto 0.4 0.0-0.4 X10*3/uL Basophils Absolute Auto 0.1 0.0-0.2 X10*3/uL NRBC Abs Auto 0.000 0.0-0.012 X10*3/uL Comprehensive [place]. Panel Fa st Reviewed date:07/18/2024 07:45:21 AM Interpretation: Performing Lab:[facility], [address] [place] [phone] Notes/Report: Sodium 140 135-145 mmol/L Potassium 4.5 3.3-5.1 mmol/L Chloride 107 96-108 mmol/L Carbon Dioxide 30 22-29 mmol/L Anion Gap 8 12-20 Blood Urea Nitrogen 10 9-16 mg/dL Creatinine 0.78 0.5-1.4 mg/dL Estimated Glomerular Filt Rate > 60 Chronic Kidney Disease: Estimated GFR < 60 mL/min/1.73m2 Severe Kidney Disease: Estimated GFR < 15 mL/min/1.73m2 Glucose Fasting 214 60-99 mg/dL A fasting glucose of 126 mg/dl or greater on more than one occasion is considered diagnostic of diabetes. Calcium 9.2 8.4-10.2 mg/dL Bilirubin Total 0.8 0.0-1.0 mg/dL Aspartate Amino Transferase 21 5-31 U/L Alanine Aminotransferase 30 0-31 U/L Total Protein 7.2 6.5-8.0 g/dL Albumin Level 4.0 3.5-5.0 g/dL Alkaline Phosphatase 76 39-117 U/L Magnesium Reviewed date:07/18/2024 07:45:21 AM Interpretation: Performing Lab:[facility], [address] [place] [phone] Notes/Report: Magnesium 1.8 1.6-2.6 mg/dL Lipid Panel Reviewed date:07/18/2024 07:45:21 AM Interpretation: Performing Lab:[address] [address] Notes/Report: Triglycerides 77 <150 mg/dL Desirable Triglyceride: less than 150 mg/dL Borderline High Triglyceride 150-199 mg/dL High Triglyceride: 200-499 mg/dL Very High Triglyceride: greater than or equal to 5OO mg/dL Cholesterol 123 <200 mg/dL Desirable Cholesterol: less than 200 mg/dL Borderline High Cholesterol: 200-239 mg/dL High Cholesterol: greater than 239 mg/dL LDL Cholesterol Calculated 71 <100 mg/dL Desirable LDL: less than 100 mg/dL Near Optimal/Above Optimal LDL: 110-129 mg/dL Borderline High LDL: 130-159 mg/dL High LDL: 160-189 mg/dL Very High LDL: greater than or equal to 190 mg/dL HDL Cholesterol 37 >40 mg/dL Desirable HDL: greater than 40 mg/dL Note: This HDL assay may give artificially low results in patients with liver disease. Vitamin D 25-OH Total Reviewed date:07/18/2024 07:45:21 AM Interpretation: Performing Lab:[address] [address] Notes/Report: Vitamin D 25-OH Total 40.9 >30 ng/mL Health Based Reference Values* < 20 ng/mL Deficient 20-30 ng/mL Insufficient > 30 ng/mL Sufficient *Lindy GALICIA. N Engl J Med. 2007;357:266-280 Care must be taken in interpreting Vitamin D results from different laboratories and methodologies. Published data demonstrated that results from patients undergoing hemodialysis may show a negative bias when tested with various automated 25-OH vitamin D assays when compared to LC-MS/MS. When testing samples from patients whose predominant form of Vitamin D is Vitamin D2, such as patients receiving Vitamin D2 supplementation, results that are subtherapeutic should be confirmed with another method such as LC-MS/MS. Microalbumin, Random Reviewed date:07/18/2024 07:45:21 AM Interpretation: Performing Lab:[facility], [address] [place] [phone] Notes/Report: Creatinine Urine 221.86 Microalbumin Urine 11.0 Microalbum/Creatinine Ratio Ur 4.9 <30 ug/mg cr Albumin/Creatinine Ratio Reference Ranges: Normal: < 30 ug/mg creatinine Microalbuminuria: 30 - 300 ug/mg creatinine Clinical Albuminuria: > 300 ug/mg creatinine Hemoglobin A1c Reviewed date:07/18/2024 07:45:21 AM Interpretation: Performing Lab:[facility], [address] [place] [phone] Notes/Report: Hemoglobin A1c % 9.2 <6.0 % Hemoglobin A1C Reference Range Adults: 4.8 - 6.0 % Non diabetic: < 6.0 % Goal: < 7.0 % Additional Action Suggested: > 8.0 % Note: Hemoglobin A1c results are invalid for patients with abnormal amounts of HbF. Blood transfusions may impact the HbA1c concentration in the patient sample. Estimated Average Glucose 217 eAG = Estimated average glucose which is %A1C expressed as average glucose, using the formula of the V7D-Fimmtuv Average Glucose study (ADAG), Diabetes Care, Vol.31,#8, Mar. 2007 Complete Blood Count Auto Di ff Reviewed date:09/30/2024 09:26:17 AM Interpretation: Performing Lab:[facility], [address] [place] [phone] Notes/Report: White Blood Count 7.4 4.8-10.8 X10*3/uL Red Blood Count 4.25 4.20-5.50 X10*6/uL Hemoglobin 12.7 12.0-16.0 g/dl Hematocrit 38.8 37.0-47.0 % Mean Corpuscular Volume 91.3 80.0-98.0 fL Mean Corpuscular Hemoglobin 29.9 27.0-33.0 pg Mean Corpuscular HGB Conc 32.7 31.0-35.0 g/dl Red Cell Distribution Width 11.7 11.0-16.0 % Platelet Count 240 160-400 X10*3/uL Mean Platelet Volume 10.9 9.4-12.3 fL Neutrophils Percent Auto 55.5 45-73 % Imm Gran Pct Auto 0.4 0.0-0.4 % Lymphocytes Percent Auto 31.2 20-40 % Monocytes Percent Auto 6.7 2-11 % Eosinophils Percent Auto 5.0 0-4 % Basophils Percent Auto 1.2 0-2 % NRBC Pct Auto 0.0 0.0-0.2 /100WBC Neutrophils Absolute Auto 4.1 2.0-8.3 x10*3/uL Imm Gran Abs Auto 0.03 0.00-0.03 X10*3/uL Lymphocytes Absolute Auto 2.3 1.2-4.9 X10*3/uL Monocytes Absolute Auto 0.5 0.1-1.2 X10*3/uL Eosinophils Absolute Auto 0.4 0.0-0.4 X10*3/uL Basophils Absolute Auto 0.1 0.0-0.2 X10*3/uL NRBC Abs Auto 0.000 0.0-0.012 X10*3/uL Comprehensive Met. Panel Reviewed date:09/30/2024 09:26:17 AM Interpretation: Performing Lab:[facility], [address] [place] [phone] Notes/Report: Sodium 135 135-145 mmol/L Potassium 4.4 3.3-5.1 mmol/L Chloride 103 96-108 mmol/L Carbon Dioxide 26 22-29 mmol/L Anion Gap 10 12-20 Blood Urea Nitrogen 16 9-16 mg/dL Creatinine 0.82 0.5-1.4 mg/dL Estimated Glomerular Filt Rate > 60 Chronic Kidney Disease: Estimated GFR < 60 mL/min/1.73m2 Severe Kidney Disease: Estimated GFR < 15 mL/min/1.73m2 Glucose Random 357 60-115 mg/dL Critical value for test(s):GLUR Results called to and read back by: JENNIFER Youngblood Person calling: ARNOLDO Date: 09/19/24 Time:1319 Calcium 9.0 8.4-10.2 mg/dL Bilirubin Total 0.4 0.0-1.0 mg/dL Aspartate Amino Transferase 33 5-31 U/L Alanine Aminotransferase 53 0-31 U/L Total Protein 7.2 6.5-8.0 g/dL Albumin Level 3.9 3.5-5.0 g/dL Alkaline Phosphatase 135 39-117 U/L Hemoglobin A1c Reviewed date:09/30/2024 09:26:17 AM Interpretation: Performing Lab:[facility], [address] [place] [phone] Notes/Report: Hemoglobin A1c % 9.2 <6.0 % Hemoglobin A1C Reference Range Adults: 4.8 - 6.0 % Non diabetic: < 6.0 % Goal: < 7.0 % Additional Action Suggested: > 8.0 % Note: Hemoglobin A1c results are invalid for patients with abnormal amounts of HbF. Blood transfusions may impact the HbA1c concentration in the patient sample. Estimated Average Glucose 217 eAG = Estimated average glucose which is %A1C expressed as average glucose, using the formula of the W4Z-Jyjsonl Average Glucose study (ADAG), Diabetes Care, Vol.31,#8, Mar. 2007 XR chest 2V Reviewed date:10/16/2024 09:13:49 AM Interpretation: Performing Lab: Notes/Report: [address] [address] XRay Report Signed Patient: Melva Thomas MR#: [id number] 89 : 1960 Acct:[id number] Age/Sex: 63 / F ADM Date: 10/03/24 Loc: OLU Attending Dr: Golden Archuleta MD Ordering Physician: Golden Archuleta MD Date of Service: 10/03/24 Procedure(s): XR chest 2V Accession Number(s): [id number] cc: Golden Archuleta MD EXAMINATION: XR CHEST CLINICAL INFORMATION: ACUTE COUGH COMPARISON: None available. TECHNIQUE: 2 views of the chest were obtained. FINDINGS: The cardiac, hilar, and mediastinal contours are normal. Lungs demonstrate extremely subtle patchy airspace opacities abutting the left hilum, likely left upper lobe. Subtle pneumonia is suspected.. There is no pneumothorax or pleural effusion. There is no focal osseous or soft tissue abnormality. XR/XR chest 2V IMPRESSION: Suspect subtle pneumonia left upper lobe region, abutting the left hilum. No effusions. Lungs otherwise clear. Electronically signed by: John Anders MD 10/03/2024 04:10 PM [facility] Dictated By: John Anders MD Signed By: <Electronically signed by John Anders MD in OV> 10/03/24 1610 DD/ 37 TD/TT: 10/03/24 155 Business Services Clerk: [address] [address] XRay Report Signed Patient: Melva Thomas MR#: [id number] [birth year] : 1960 Acct:[id number] Age/Sex: 63 / F ADM Date: 10/03/24 Loc: HO.XRAY Attending Dr: Golden Archuleta MD Ordering Physician: Golden Archuleta MD Date of Service: 10/03/24 Procedure(s): XR jose st 2V Accession Number(s): [id number] cc: Golden Archuleta MD EXAMINATION: XR CHEST CLINICAL INFORMATION: ACUTE COUGH COMPARISON: None available. TECHNIQUE: 2 views of the chest were obtained. FINDINGS: The cardiac, hilar, and mediastinal contours are normal. Lungs demonstrate extremely subtle patchy airspace opacities abutting the left hilum, like ly left upper lobe. Subtle pneumonia is suspected.. There is no pneumothorax or pleural effusion. There is no focal osseous or soft tissue abnormality. XR/XR chest 2V IMPRESSION: Suspect subtle pneumonia left upper lobe region, abutting the left hilum. No effusions. Lungs otherwise clear. Electronically richa d by: John Anders MD 10/03/2024 04:10 PM [facility] Dictated By: John Anders MD Signed By: <Electronically signed by John Anders MD in OV> 10/03/24 1610 DD/ 1538 TD/TT: 10/03/24 155 Business Services Clerk: Complete Blood Count Auto Di ff Reviewed date:10/24/2024 03:14:45 PM Interpretation: Performing Lab:[facility], [address] [place] [phone] Notes/Report: White Blood Count 7.3 4.8-10.8 X10*3/uL Red Blood Count 4.15 4.20-5.50 X10*6/uL Hemoglobin 12.7 12.0-16.0 g/dl Hematocrit 37.7 37.0-47.0 % Mean Corpuscular Volume 90.8 80.0-98.0 fL Mean Corpuscular Hemoglobin 30.6 27.0-33.0 pg Mean Corpuscular HGB Conc 33.7 31.0-35.0 g/dl Red Cell Distribution Width 11.9 11.0-16.0 % Platelet Count 242 160-400 X10*3/uL Mean Platelet Volume 10.7 9.4-12.3 fL Neutrophils Percent Auto 63.2 45-73 % Imm Gran Pct Auto 0.3 0.0-0.4 % Lymphocytes Percent Auto 26.8 20-40 % Monocytes Percent Auto 5.8 2-11 % Eosinophils Percent Auto 2.9 0-4 % Basophils Percent Auto 1.0 0-2 % NRBC Pct Auto 0.0 0.0-0.2 /100WBC Neutrophils Absolute Auto 4.6 2.0-8.3 x10*3/uL Imm Gran Abs Auto 0.02 0.00-0.03 X10*3/uL Lymphocytes Absolute Auto 2.0 1.2-4.9 X10*3/uL Monocytes Absolute Auto 0.4 0.1-1.2 X10*3/uL Eosinophils Absolute Auto 0.2 0.0-0.4 X10*3/uL Basophils Absolute Auto 0.1 0.0-0.2 X10*3/uL NRBC Abs Auto 0.000 0.0-0.012 X10*3/uL Comprehensive Met. Panel Reviewed date:10/24/2024 03:14:45 PM Interpretation: Performing Lab:[facility], [address] [place] [phone] Notes/Report: Sodium 139 135-145 mmol/L Potassium 4.0 3.3-5.1 mmol/L Chloride 106 96-108 mmol/L Carbon Dioxide 27 22-29 mmol/L Anion Gap 10 12-20 Blood Urea Nitrogen 12 9-16 mg/dL Creatinine 0.68 0.5-1.4 mg/dL Estimated Glomerular Filt Rate > 60 Chronic Kidney Disease: Estimated GFR < 60 mL/min/1.73m2 Severe Kidney Disease: Estimated GFR < 15 mL/min/1.73m2 Glucose Random 263 60-115 mg/dL Calcium 9.5 8.4-10.2 mg/dL Bilirubin Total 0.6 0.0-1.0 mg/dL Aspartate Amino Transferase 18 5-31 U/L Alanine Aminotransferase 16 0-31 U/L Total Protein 7.5 6.5-8.0 g/dL Albumin Level 3.9 3.5-5.0 g/dL Alkaline Phosphatase 75 39-117 U/L Gamma Glutamyl Transpeptidas e Reviewed date:10/24/2024 03:14:45 PM Interpretation: Performing Lab:[address] [address] Notes/Report: Gamma Glutamyl Transpeptidase 27 7-33 U/L Hemoglobin A1c Reviewed date:10/24/2024 03:14:45 PM Interpretation: Performing Lab:[address] [address] Notes/Report: Hemoglobin A1c % 9.1 <6.0 % Hemoglobin A1C Reference Range Adults: 4.8 - 6.0 % Non diabetic: < 6.0 % Goal: < 7.0 % Additional Action Suggested: > 8.0 % Note: Hemoglobin A1c results are invalid for patients with abnormal amounts of HbF. Blood transfusions may impact the HbA1c concentration in the patient sample. Estimated Average Glucose 214 eAG = Estimated average glucose which is %A1C expressed as average glucose, using the formula of the F3Q-Ragymby Average Glucose study (ADAG), Diabetes Care, Vol.31,#8, Mar. 2007 Reason For Referral Reason sleep apnea evaluate and treatment Diagnosis 1 Former smoker (Z87.8 91) Diagnosis 2 Sleep apnea in adult (G47.30) Referral Organization Golden Archuleta III, MD Referring Provider First Name Golden Referring Provider Last Name Geremias Referring Provider Speciality Internal M edicine Referred Provider [facility] er, Pulmonology Referred Provider Specialty Pulmonary Di seases General Notes Liv Gallego CM 04/11/2024 10:38:20 AM EDT > ref/demo/progress note faxed to pulmonary dept at per patient request , Liv Gallego CMA 04/12/2024 11:19:04 AM EDT > Spoke to traffic control technician at [facility] they are waiting for copy of release from patient so they can get prior sleep study report done at [facility] . After they get sleep study report then patient will be set up for appt , JuliánLiv ARISTEO 04/18/2024 03:05:37 PM EDT > received notice via fax pt has appt with Dr avila on 05/13/2024 at 9:45am Referral Priority Routine Referral Appointment Date 05/13/2024 Medications Medication SIG (Take, Route, Frequency, Duration) Notes Start Date End Date Status Aspirin 81 MG 1 tablet Orally Once a day Active Ibuprofen 800 MG 1 tablet with food or milk Orally every 6 hrs Active amLODIPine Besylate 2.5 MG 1 tablet Orally Once a day Active guaiFENesin-DM 100-10 MG/5ML 10 mL as needed Orally every 4 hrs 10/04/2024 Active dexAMETHasone 2 MG 1 tablet Orally twice a day for 5 days 11/03/2024 Active metFORMIN HCl 1000 MG TAKE 1 TABLET BY MOUTH TWICE A DAY WITH MEALS Active Gabapentin 600 MG TAKE 1 TABLET BY MOUTH THREE TIMES A DAY FOR 30 DAYS Orally three times a day Active [facility] Prep 70 % Use 3 times a week Active guaiFENesin-Codeine 100-10 MG/5ML 10 mL as needed Orally every 4 hrs 10/03/2024 Active Oyster Shell Calcium 500 MG TAKE 1 TABLET BY MOUTH EVERY DAY Oral Active Accu-Chek Wales[place] Plus w/Device as directed In Vitro use to check blood sugars Thursday/Thursday/09/09/2022 Active Tamiflu 75 MG 1 capsule Orally Twice a day 09/29/2024 Active Accu-Chek Wales[place] Plus - as directed In Vitro use to check blood sugars Thursday/Thursday/y 09/09/[address]22 Active Az[address] directed Orally 2 Tablets on the first day, one tablet the rest of the days 10/03/2024 Active Acetaminophen Extra Strength 500 MG TAKE 1 TABLET BY MOUTH EVERY 6 HOURS NEEDED Oral Active FreeStyle Lite Test - Check blood sugar Thursday, Thursday and Thursday DX: E11.9 Diabetes Mellitus Active Diclofenac Sodium 1 % APPLY 4 G TOPICALL Y 2 TIMES DAILY. External Active FreeStyle Lancets - to check blood sugars thursday, thursday, thursday DX: E11.9 Diabetes Mellitus 04/09/2023 Active glipiZIDE 10 MG TAKE 1 TABLET BY MOUTH EVERY MORNING 30 MINUTES BEFORE BREAKFAST Active Magnesium Oxide 400 MG 1 tablet as neede d Orally Once a day 03/28/2024 Active Vitamin D 25 MCG (1000 UT) 1 tablet Orally Once a day 08/22/2023 Active Lidocaine 5 % PLACE 1 PATCH ONTO SKIN EVERY 24 HOURS X112 DAYS. APPLY FOR NO MORE THAN 12 HOURS PER 24-HR PERIOD. External Active Immunizations Vaccine Route Administration Date Status Comme nts Influenza IM Intramuscular 06/08/2014 Administered COVID- 19 Vaccine Unknown 12/21/2020 Administered 1st m odrena vaccine COVID- 19 Vaccine Unknown 01/18/2021 Administered 2nd m oderna vaccine Influenza, quad IM Intramuscular 07/11/2021 Administered SHINGRIX Unknown 01/08/2022 Administered Hepatitis B (20 and more) Unknown 09/20/2018 Administered PCV13 Unknown 05/26/2018 Administered Hepatitis A (adult) Unknown 09/20/2018 Administered COVID- 19 Vaccine Unknown 08/04/2021 Administered Influenza, quad Unknown 05/25/2018 Administered Hepatitis B (20 and more) Unknown 05/20/2018 Administered Hepatitis A (adult) Unknown 03/17/2018 Administered Hepatitis B (20 and more) Unknown 03/17/2018 Administered PPV 23 Unknown 05/25/2018 Administered SHINGRIX Unknown 03/10/2022 Administered SHINGRIX Unknown 01/08/2022 Administered Influenza, quad IM Intramuscular 06/23/2022 Administered PCV20 Unknown 04/14/2023 Administered Influenza Vaccine Afluria IM Intramuscular 05/24/2024 Administered Social History Sex Assigned At : Social History Observation Description Sex Assigned At Female Alcohol Screen Question Answer Notes Did you have a drink containing alcohol in the p ast year? No Points 0 Interpretation Negative Problems Problem Type SNOMED Code ICD Code Onset Dates Problem Status W/U Status Risk Notes Problem 3192490 Former smoker (Z87.891) Active confirmed She reports that she has stopped smoking within the last 5 days. She seems motivated to continue abstinence. Problem 822317954 Fibromyalgia (M79.7) Active confirmed This has been stable, but present. She is currently under the pain management at [facility]. Problem DM - Diabetes mellitus (70355029) DM (diabetes mellitus) (E11.9) Active confirmed She will be diligent about checking her blood glucose levels twice a day while she is ill. She will report by telephone on a daily basis she is doing. At this time she is able to eat and drink normally. She will be followed carefully In the office. Problem 690721857 Overweight (E66.3) Active confirmed Her body mass index is 26.9. Her hemoglobin A1c is 9.1. We discussed a weight loss program in great detail today. Problem 75783969 Carpal tunnel syndrome, right upper limb (G56.01) Active confirmed The pain in her wrist is stable and she is not complaining about it at this time. Problem Mononeuropathy of lower limb (717616623) Unspecified mononeuropathy of left lower limb (G57.92) Active confirmed Problem 944212406 Raynaud's syndrome without gangrene (I73.00) Active confirmed This has not been a problem since last year. It was not present today and she reports no difficulty in the recent past. 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 Problem Sciatica (81724814) Lumbago with sciatica, right side (M54.41) Active confirmed She was continued on current medication until she sees a surgeon. Problem Sciatica (05185614) Lumbago with sciatica, left side (M54.42) Active confirmed She has nerve root compression and a surgical solution will be sought. Problem 71777764 Other and unspecified hyperlipidemia (E78.5) Active confirmed The current fasting lipid profile shows a total cholesterol to be well within the target range. No change in treatment is needed. Problem Diabetic neuropathy (223488496) Diabetic neuropathy (E11.40) Active confirmed 10 use and known painful feeling in her legs. Neuropathic pain in her left leg below the knee is worse. She has orthopedic pain in both knees as well but only when kneeling. Problem 936747641 Peripheral arterial disease (I73.9) Active confirmed Her foot was pink and warm, but continued painful. Problem 371863434 Renal cyst (N28.1) Active confirmed The CT scan of the abdomen March 25, 2018 is compatible with multiple renal cysts. No solid mass was seen. There was an cyst in the upper pole of the left kidney with calcifications. Problem 21827492 Subcutaneous nodules (R22.9) Active confirmed These are unchanged and nontender and will be followed. Problem 58234660 Sleep apnea in adult (G47.30) Active confirmed No change in her current regimen was needed today. She denies taking time somnolence.Her pulmonary physician has ordered another sleep study. Problem 849983540 Hepatitis C antibody test positive (R76.8) Active confirmed Her hepatit is has resolved and she is no longer on treatment. Her hepatitis C viral titers most recently were negative. Problem Neuropathic pain (335024030) Neuropathic pain (M79.2) Active confirmed The pain is localized to the left leg below the knee. She finds the best relief from ibuprofen and gabapentin. I have made her aware of the danger of diabetic taking ibuprofen chronically. Her kidney function has remained normal however. Problem 505160009 Achilles tendon avulsion (S86.019A) Active confirmed She will continue under the care of the orthopedist and follow-up with me regularly. Problem 26689583 Coronary artery vasospasm (I20.1) Active confirmed She was continued on current medications and will see a card boxer next week. She is compliant with her nitroglycerin. Problem 723243880 Steatosis, liver (K76.0) Active confirmed Her liver function tests have elevated slightly. This is likely due to fat deposition in the liver as well as the recent viral infection. These values will be followed carefully and investigative they do not return to normal. Vital Signs Heart Rate 66 /min 10/25/2024 Temperature 96.6 degrees Fahrenheit 10/25/2024 Blood pressure diastolic 75 mm Hg 10/25/2024 Height 63 in 11/03/2024 Blood pressure systolic 97 mm Hg 10/25/2024 Weight 152 lbs 11/03/2024 BMI 26.92 kg/m2 11/03/2024 Encounters Encounter Location Date Provider Diagnosis Golden Archuleta III, MD [address] [place] [address] [place] [phone] 11/25/2023 Golden Archuleta Overweight E66.3 ; O ther and unspecified hyperlipidemia E78.5 ; DM (diabetes mellitus) E11.9 ; Former smoker Z87.891 and Coronary artery vasospasm I20.1 Golden Archuleta III, MD [address] [place] [address] [place] [address] 11/30/2023 Golden Archuleta Acute deep vein thrombosis (DVT) of left lower extremity, unspecified vein I82.402 ; Overweight E66.3 ; Other and unspecified hyperlipidemia E78.5 ; Carpal tunnel syndrome, right upper limb G56.01 ; Subcutaneous nodules R22.9 ; DM (diabetes mellitus) E11.9 ; Anxiety F41.9 ; Fibromyalgia M79.7 ; Former smoker Z87.891 and Coronary artery vasospasm I20.1 Golden Archuleta III, MD [address] [place] [address] [place] [id number] 12/03/2023 Golden Archuleta Left leg pain M79.60 5 ; Other and unspecified hyperlipidemia E78.5 ; Overweight E66.3 ; DM (diabetes mellitus) E11.9 ; Fibromyalgia M79.7 ; Peripheral arterial disease I73.9 and Former smoker Z87.891 Golden Archuleta III, MD [address] [place] [address] [place] [id number] 12/15/2023 Golden Archuleta Other and unspecifie d hyperlipidemia E78.5 ; DM (diabetes mellitus) E11.9 ; Sleep apnea in adult G47.30 ; Neuropathic pain M79.2 ; Former smoker Z87.891 and Peripheral arterial disease I73.9 Golden Archuleta III, MD [address] [place] [address] [place] [id number] 01/14/2024 Golden Archuleta DM (diabetes mellitu s) E11.9 ; Lumbago with sciatica, right side M54.41 ; Fibromyalgia M79.7 ; Former smoker Z87.891 and Overweight E66.3 Golden Archuleta III, MD [address] [place] [address] [place] [id number] 02/02/2024 Golden Archuleta Other and unspecifie d hyperlipidemia E78.5 ; Overweight E66.3 ; Anxiety F41.9 ; DM (diabetes mellitus) E11.9 and Embolism and thrombosis of unspecified artery I74.9 Golden Archuleta III, MD [address] [place] [address] [place] [id number] 03/04/2024 Golden Archuleta Sleep apnea in adult G47.30 ; Other and unspecified hyperlipidemia E78.5 ; Overweight E66.3 ; Carpal tunnel syndrome, right upper limb G56.01 ; Subcutaneous nodules R22.9 ; DM (diabetes mellitus) E11.9 ; Fibromyalgia M79.7 and Former smoker Z87.891 Golden Archuleta III, MD [address] [place] [address] [place] [id number] 03/28/2024 Golden Archuleta Other and unspecifie d hyperlipidemia E78.5 ; Overweight E66.3 ; DM (diabetes mellitus) E11.9 ; Neuropathic pain M79.2 and Sleep apnea in adult G47.30 Golden Archuleta III, MD [address] [place] [address] [place] [id number] 04/26/2024 Golden Archuleta Other and unspecifie d hyperlipidemia E78.5 ; Overweight E66.3 ; Subcutaneous nodules R22.9 ; Fibromyalgia M79.7 ; Peripheral arterial disease I73.9 ; Former smoker Z87.891 ; Diabetic neuropathy E11.40 ; Sleep apnea in adult G47.30 and Neuropathic pain M79.2 Golden Archuleta III, MD [address] [place] [address] [place] [address] 05/17/2024 Golden Archuleta Acute COVID-19 U07.1 ; Other and unspecified hyperlipidemia E78.5 ; Overweight E66.3 ; Carpal tunnel syndrome, right upper limb G56.01 ; Subcutaneous nodules R22.9 ; Fibromyalgia M79.7 ; Raynaud's syndrome without gangrene I73.00 and Former smoker Z87.891 Golden Archuleta III, MD [address] [place] [address] [place] [address] 05/24/2024 Golden Archuleta Encounter for immunization Z23 ; Overweight E66.3 ; DM (diabetes mellitus) E11.9 ; Other and unspecified hyperlipidemia E78.5 ; Fibromyalgia M79.7 and Former smoker Z87.891 Golden Archuleta III, MD [address] [place] [address] [place] [id number] 06/29/2024 Golden Archuleta Overweight E66.3 ; D M (diabetes mellitus) E11.9 ; Vitamin D deficiency E55.9 ; Diabetic neuropathy E11.40 ; Fibromyalgia M79.7 ; Other and unspecified hyperlipidemia E78.5 ; Tobacco dependence F17.200 ; Former smoker Z87.891 and Sleep apnea in adult G47.30 Golden Archuleta III, MD [address] [place] [address] [place] [id number] 07/28/2024 Golden Archuleta Overweight E66.3 ; D M (diabetes mellitus) E11.9 ; Fibromyalgia M79.7 ; Other and unspecified hyperlipidemia E78.5 ; Former smoker Z87.891 ; Subcutaneous nodules R22.9 and Neuropathic pain M79.2 Golden Archuleta III, MD [address] [place] [address] [place] [id number] 09/28/2024 Golden Archuleta DM (diabetes mellitu s) E11.9 ; Acute viral syndrome B34.9 ; Overweight E66.3 ; Fibromyalgia M79.7 ; Peripheral arterial disease I73.9 ; Former smoker Z87.891 ; Sleep apnea in adult G47.30 and Neuropathic pain M79.2 Golden Archuleta III, MD [address] [place] [address] [place] [id number] 10/04/2024 Golden Archuleta Chronic cough R05 ; Acute viral syndrome B34.9 ; DM (diabetes mellitus) E11.9 ; Bronchitis J40 ; Other and unspecified hyperlipidemia E78.5 ; Overweight E66.3 ; Fibromyalgia M79.7 and Former smoker Z87.891 Golden Archuleta III, MD [address] [place] [address] [place] [id number] 10/07/2024 Golden Archuleta DM (diabetes mellitu s) E11.9 ; Neuropathic pain M79.2 ; Steatosis, liver K76.0 ; Overweight E66.3 ; Fibromyalgia M79.7 ; Other and unspecified hyperlipidemia E78.5 and Former smoker Z87.891 Golden Archuleta III, MD [address] [place] [address] [place] [id number] 10/25/2024 Golden Archuleta DM (diabetes mellitu s) E11.9 ; Overweight E66.3 ; Other and unspecified hyperlipidemia E78.5 ; Subcutaneous nodules R22.9 ; Carpal tunnel syndrome, right upper limb G56.01 ; Fibromyalgia M79.7 ; Former smoker Z87.891 ; Neuropathic pain M79.2 and Sleep apnea in adult G47.30 Golden Archuleta III, MD [address] [place] [address] [place] [address] 11/03/2024 Golden Archuleta DM (diabetes mellitu s) E11.9 ; Overweight E66.3 ; Fibromyalgia M79.7 ; Other and unspecified hyperlipidemia E78.5 ; Peripheral arterial disease I73.9 ; Subcutaneous nodules R22.9 ; Sleep apnea in adult G47.30 and Former smoker Z87.891 Golden Archuleta III, MD [address] [place] [address] 12/04/2023 Golden Archuleta III, MD [address] [place] [address] [place] [address] 01/15/2024 Golden Archuleta III, MD [address] [place] [address] 02/02/2024 Golden Archuleta III, MD [address] [place] [address] [place] [address] 05/10/2024 Golden Archuleta III, MD [address] [place] [address] [place] [address] 05/11/2024 Golden Archuleta III, MD [address] [place] [address] [place] [address] 05/12/2024 Golden Archuleta III, MD [address] [place] [address] [place] [address] 05/13/2024 Golden Archuleta III, MD [address] [place] [address] [place] [address] 07/12/2024 Golden Archuleta III, MD [address] [place] [address] [place] [address] 08/01/2024 Golden Archuleta III, MD [address] [place] [address] [place] [address] 08/05/2024 Golden Archuleta III, MD [address] [place] [address] [place] [address] 08/29/2024 Golden Archuleta III, MD [address] [place] [address] [place] [address] 09/19/2024 Golden Archuleta III, MD [address] [place] [address] [place] [address] 09/29/2024 Golden Archuleta III, MD [address] [place] [address] [place] [address] 09/29/2024 Golden Archuleta III, MD [address] [place] [address] [place] [address] 10/03/2024 Golden Archuleta Acute cough R05.1 Golden Archuleta III, MD [address] [place] [address] [place] [address] 10/03/2024 Golden Archuleta III, MD [address] [place] [address] [place] [address] 10/03/2024 Golden Archuleta III, MD [address] [place] [address] [place] [address] 10/04/2024 Golden Archuleta III, MD [address] [place] [address] [place] [address] 10/05/2024 Golden Archuleta III, MD [address] [place] [address] [place] [address] 10/17/2024 Golden Archuleta III, MD [address] [place] [address] [place] [address] 10/31/2024 Golden Archuleta III, MD [address] [place] [address] [place] [address] 11/07/2024 Golden Archuleta Assessments Encounter Date Diagnosis (ICD Code) Assessment Notes Treat ment Notes Treatment Clinical Notes 11/25/2023 Overweight (ICD-10 - E66.3) We have discussed her body mass index in her diet. We went through the elements of a weight reduction diabetic diet today.Her body mass index is 27. 11/25/2023 Other and unspecified hyperlipidemia (ICD-10 - E78.5) She was placed on atorvastatin and will continue on that. 11/30/2023 Overweight (ICD-10 - E66.3) We have discussed her body mass index in her diet. We went through the elements of a weight reduction diabetic diet today.Her body mass index is 27. 11/30/2023 Acute deep vein thrombosis (DVT) of left lower extremity, unspecified vein (ICD-10 - I82.402) An ultrasound was ordered which was subsequently read as negative. 12/03/2023 Other and unspecified hyperlipidemia (ICD-10 - E78.5) She was placed on atorvastatin and will continue on that.Her current lipids show good control. 12/03/2023 Left leg pain (ICD-10 - M79.605) A recent ultrasound showed no blood clot. 12/15/2023 DM (diabetes mellitus) (ICD-10 - E11.9) She was continued on her current therapy. Her hemoglobin A1c is 7.1.She is trying to lose weight and consume a healthy diabetic diet. 12/15/2023 Other and unspecified hyperlipidemia (ICD-10 - E78.5) She was placed on atorvastatin and will continue on that.Her current lipids show good control. 01/14/2024 DM (diabetes mellitus) (ICD-10 - E11.9) She was continued on her current therapy. Her hemoglobin A1c is 7.1.She is trying to lose weight and consume a healthy diabetic diet. 01/14/2024 Lumbago with sciatica, right side (ICD-10 - M54.41) She was continued on current medication until she sees a surgeon. 02/02/2024 Overweight (ICD-10 - E66.3) We have discussed her body mass index in her diet. We went through the elements of a weight reduction diabetic diet today.Her body mass index is 27. She has lost 3 pounds. 02/02/2024 Other and unspecified hyperlipidemia (ICD-10 - E78.5) She was placed on atorvastatin and will continue on that.Her current lipids show good control. 03/04/2024 Other and unspecified hyperlipidemia (ICD-10 - E78.5) She was placed on atorvastatin and will continue on that.Her current lipids show good control. 03/04/2024 Sleep apnea in adult (ICD-10 - G47.30) Her complaint about the CPAP machine is that it does not stay on during the night. She was referred back to the provider to see if a more amenable device can be provided. 03/28/2024 Overweight (ICD-10 - E66.3) She has lost 3 pounds and her body mass index is 27. She will continue her efforts at weight loss at the current regimen. 03/28/2024 Other and unspecified hyperlipidemia (ICD-10 - E78.5) A fasting lipid profile has been ordered. Her most recent total cholesterol in November of this year was 124. 04/26/2024 Overweight (ICD-10 - E66.3) She has lost 3 pounds and her body mass index is 27. She will continue her efforts at weight loss at the current regimen. 04/26/2024 Other and unspecified hyperlipidemia (ICD-10 - E78.5) A fasting lipid profile has been ordered. Her most recent total cholesterol in November of this year was 124. 05/17/2024 Other and unspecified hyperlipidemia (ICD-10 - E78.5) A fasting lipid profile has been ordered. Her most recent total cholesterol in November of this year was 124. 05/17/2024 Acute COVID-19 (ICD-10 - U07.1) She has taken the packs were elevated without side effects in her symptoms are resolving. 05/24/2024 Overweight (ICD-10 - E66.3) She has lost 3 pounds and her body mass index is 27. She will continue her efforts at weight loss at the current regimen. 05/24/2024 Encounter for immunization (ICD-10 - Z23) She has received the influenza vaccine. 06/29/2024 DM (diabetes mellitus) (ICD-10 - E11.9) Her fasting glucose level is 232. Conference blood work with hemoglobin A1c has been ordered. 06/29/2024 Overweight (ICD-10 - E66.3) Her weight is stable. Her body mass index is 27. We reviewed the elements of a diabetic weight loss diet today. 07/28/2024 DM (diabetes mellitus) (ICD-10 - E11.9) Her fasting glucose is elevated at 214. Her hemoglobin A1c has increased from 7.7 to 9.2.Her metformin was increased. Her metformin was increased. 07/28/2024 Overweight (ICD-10 - E66.3) Her weight is stable. Her body mass index is 27. We reviewed the elements of a diabetic weight loss diet today. 09/28/2024 DM (diabetes mellitus) (ICD-10 - E11.9) He will be diligent about checking her blood glucose levels twice a day while she is ill. She will report by telephone on a daily basis she is doing. At this time she is able to eat and drink normally. She will be followed carefully during this viral syndrome. 09/28/2024 Acute viral syndrome (ICD-10 - B34.9) She has a 3 day history of fever up to 102, cough which is nonproductive, shaking chills, weakness, and rhinorrhea. Her glucose levels have been about 150. She has been compliant with all of her medications. 10/04/2024 Chronic cough (ICD-10 - R05) She continues to cough from the bronchitis from the acute viral syndrome. She continues to use antitussives and decongestants. She is gradually improving and is able to eat and drink without impairment. 10/04/2024 Acute viral syndrome (ICD-10 - B34.9) She had a 3 day history of fever up to 102, cough which was nonproductive, shaking chills, weakness, and rhinorrhea. Her glucose levels have been about 150. She has been compliant with all of her medications. 10/07/2024 DM (diabetes mellitus) (ICD-10 - E11.9) [...] Her kidney function has remained normal however. 10/25/2024 DM (diabetes mellitus) (ICD-10 - E11.9) Her hemoglobin A1c is 9.1. She is overweight. We discussed dietary solution as well as establishing a weight loss program. I offered to prescribe more oral medication which she declined. I offered to prescribe either Trulicity or Ozempic or Mounjaro but she declined these as well. She did not wish to take any additional medication at this time. She said she would work on her diet. I discussed with her the long-term consequences of poor control of diabetes which included worsening neuropathy renal failure but no damage loss of vision risk of infection. 10/25/2024 Overweight (ICD-10 - E66.3) Her body mass index is 26.9. Her hemoglobin A1c is 9.1. We discussed a weight loss program in great detail today. 11/03/2024 DM (diabetes mellitus) (ICD-10 - E11.9) [...] weight loss program in great detail today. 10/03/2024 Acute cough (ICD-10 - R05.1) 11/25/2023 DM (diabetes mellitus) (ICD-10 - E11.9) She was continued on her current therapy. Her hemoglobin A1c is 7.1.She is trying to lose weight and consume a healthy diabetic diet. 11/30/2023 Other and unspecified hyperlipidemia (ICD-10 - E78.5) She was placed on atorvastatin and will continue on that. 12/03/2023 Overweight (ICD-10 - E66.3) We have discussed her body mass index in her diet. We went through the elements of a weight reduction diabetic diet today.Her body mass index is 27. 12/15/2023 Sleep apnea in adult (ICD-10 - G47.30) She has used his CPAP for several nights and found it unhelpful, but uncomfortable. She does not wish to use it and has returned to the distributor. 01/14/2024 Fibromyalgia (ICD-10 - M79.7) This has been stable, but present. She is currently under the pain management at [facility]. 02/02/2024 Anxiety (ICD-10 - F41.9) She continues to feel very anxious about the fibromyalgia discomfort. She continues to decline pharmacological treatment. She was reassured I found nothing serious today. 03/04/2024 Overweight (ICD-10 - E66.3) We have discussed her body mass index in her diet. We went through the elements of a weight reduction diabetic diet today.Her body mass index is 27. She has lost 3 pounds. 03/28/2024 DM (diabetes mellitus) (ICD-10 - E11.9) She has lost 3 pounds. Her hemoglobin A1c is 7.7. Her current medications were continued and weight loss was strongly recommended. 04/26/2024 Subcutaneous nodules (ICD-10 - R22.9) These are unchanged and nontender and will be followed. 05/17/2024 Overweight (ICD-10 - E66.3) She has lost 3 pounds and her body mass index is 27. She will continue her efforts at weight loss at the current regimen. 05/24/2024 DM (diabetes mellitus) (ICD-10 - E11.9) She has lost 3 pounds. Her hemoglobin A1c is 7.7. Her current medications were continued and weight loss was strongly recommended. 06/29/2024 Vitamin D deficiency (ICD-10 - E55.9) She will continue on her vitamin D supplements at a dose of 1000 units daily. Her calcium level was normal. 07/28/2024 Fibromyalgia (ICD-10 - M79.7) This has been stable, but present. She is currently under the pain management at [facility]. 09/28/2024 Overweight (ICD-10 - E66.3) Her weight is stable. Her body mass index is 27. We reviewed the elements of a diabetic weight loss diet today. 10/04/2024 DM (diabetes mellitus) (ICD-10 - E11.9) He will be diligent about checking her blood glucose levels twice a day while she is ill. She will report by telephone on a daily basis she is doing. At this time she is able to eat and drink normally. She will be followed carefully during this viral syndrome. 10/07/2024 Steatosis, liver (ICD-10 - K76.0) Her liver function tests have elevated slightly. This is likely due to fat deposition in the liver as well as the recent viral infection. These values will be followed carefully and investigative they do not return to normal. 10/25/2024 Other and unspecified hyperlipidemia (ICD-10 - E78.5) The current fasting lipid profile shows a total cholesterol to be well within the target range. No change in treatment is needed. 11/03/2024 Fibromyalgia (ICD-10 - M79.7) This has been stable, but present. She is currently under the pain management at [facility]. 11/25/2023 Former smoker (ICD-10 - Z87.891) She reports that she has stopped smoking within the last 4 weeks. She seems motivated to continue abstinence. 11/30/2023 Carpal tunnel syndrome, right upper limb (ICD-10 - G56.01) The pain in her wrist is stable and she is not complaining about it at this time. 12/03/2023 DM (diabetes mellitus) (ICD-10 - E11.9) She was continued on her current therapy. Her hemoglobin A1c is 7.1.She is trying to lose weight and consume a healthy diabetic diet. 12/15/2023 Neuropathic pain (ICD-10 - M79.2) She says her cardiac medications to relieve the pain in the left foot. He was noted to have coronary artery spasm on her recent angiogram. 01/14/2024 Former smoker (ICD-10 - Z87.891) She reports that she has stopped smoking within the last 5 days. She seems motivated to continue abstinence. 02/02/2024 DM (diabetes mellitus) (ICD-10 - E11.9) She was continued on her current therapy. Her hemoglobin A1c is 7.1.She is trying to lose weight and consume a healthy diabetic diet. 03/04/2024 Carpal tunnel syndrome, right upper limb (ICD-10 - G56.01) The pain in her wrist is stable and she is not complaining about it at this time. 03/28/2024 Neuropathic pain (ICD-10 - M79.2) She was continued on her current regimen and she is followed by pain management. The pain in the left leg has improved. 04/26/2024 Fibromyalgia (ICD-10 - M79.7) This has been stable, but present. She is currently under the pain management at [facility]. 05/17/2024 Carpal tunnel syndrome, right upper limb (ICD-10 - G56.01) The pain in her wrist is stable and she is not complaining about it at this time. 05/24/2024 Other and unspecified hyperlipidemia (ICD-10 - E78.5) A fasting lipid profile has been ordered. Her most recent total cholesterol in November of this year was 124. 06/29/2024 Diabetic neuropathy (ICD-10 - E11.40) 10 use and known painful feeling in her legs. Neuropathic pain in her left leg below the knee is worse. She has orthopedic pain in both knees as well but only when kneeling. 07/28/2024 Other and unspecified hyperlipidemia (ICD-10 - E78.5) The current fasting lipid profile shows a total cholesterol to be well within the target range. No change in treatment is needed. 09/28/2024 Fibromyalgia (ICD-10 - M79.7) This has been stable, but present. She is currently under the pain management at [facility]. 10/04/2024 Bronchitis (ICD-10 - J40) CT scan shows no significant abnormality. She will use Robitussin-DM will follow-up in 10 days. If she has not improved. 10/07/2024 Overweight (ICD-10 - E66.3) Her weight is stable. Her body mass index is 27. We reviewed the elements of a diabetic weight loss diet today. 10/25/2024 Subcutaneous nodules (ICD-10 - R22.9) These are unchanged and nontender and will be followed. 11/03/2024 Other and unspecified hyperlipidemia (ICD-10 - E78.5) The current fasting lipid profile shows a total cholesterol to be well within the target range. No change in treatment is needed. 11/25/2023 Coronary artery vasospasm (ICD-10 - I20.1) She was continued on current medications and will see a card boxer next week. She is compliant with her nitroglycerin. 11/30/2023 Subcutaneous nodules (ICD-10 - R22.9) These are unchanged and nontender and will be followed. 12/03/2023 Fibromyalgia (ICD-10 - M79.7) This has been stable, but present. She is currently under the pain management at [facility]. 12/15/2023 Former smoker (ICD-10 - Z87.891) She reports that she has stopped smoking within the last 5 days. She seems motivated to continue abstinence. 01/14/2024 Overweight (ICD-10 - E66.3) We have discussed her body mass index in her diet. We went through the elements of a weight reduction diabetic diet today.Her body mass index is 27. 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 03/04/2024 Subcutaneous nodules (ICD-10 - R22.9) These are unchanged and nontender and will be followed. 03/28/2024 Sleep apnea in adult (ICD-10 - G47.30) No change in her current regimen was needed today. She denies taking time somnolence. 04/26/2024 Peripheral arterial disease (ICD-10 - I73.9) Her foot was pink and warm, but continued painful. 05/17/2024 Subcutaneous nodules (ICD-10 - R22.9) These are unchanged and nontender and will be followed. 05/24/2024 Fibromyalgia (ICD-10 - M79.7) This has been stable, but present. She is currently under the pain management at [facility]. 06/29/2024 Fibromyalgia (ICD-10 - M79.7) This has been stable, but present. She is currently under the pain management at [facility]. 07/28/2024 Former smoker (ICD-10 - Z87.891) She reports that she has stopped smoking within the last 5 days. She seems motivated to continue abstinence. 09/28/2024 Peripheral arterial disease (ICD-10 - I73.9) Her foot was pink and warm, but continued painful. 10/04/2024 Other and unspecified hyperlipidemia (ICD-10 - E78.5) The current fasting lipid profile shows a total cholesterol to be well within the target range. No change in treatment is needed. 10/07/2024 Fibromyalgia (ICD-10 - M79.7) This has been stable, but present. She is currently under the pain management at [facility]. 10/25/2024 Carpal tunnel syndrome, right upper limb (ICD-10 - G56.01) The pain in her wrist is stable and she is not complaining about it at this time. 11/03/2024 Peripheral arterial disease (ICD-10 - I73.9) Her foot was pink and warm, but continued painful. 11/30/2023 DM (diabetes mellitus) (ICD-10 - E11.9) She was continued on her current therapy. Her hemoglobin A1c is 7.1.She is trying to lose weight and consume a healthy diabetic diet. 12/03/2023 Peripheral arterial disease (ICD-10 - I73.9) Her foot was pink and warm, but continued painful. 12/15/2023 Peripheral arterial disease (ICD-10 - I73.9) Her foot was pink and warm, but continued painful. 03/04/2024 DM (diabetes mellitus) (ICD-10 - E11.9) She was continued on her current therapy. Her hemoglobin A1c is 7.1.She is trying to lose weight and consume a healthy diabetic diet. 04/26/2024 Former smoker (ICD-10 - Z87.891) She reports that she has stopped smoking within the last 5 days. She seems motivated to continue abstinence. 05/17/2024 Fibromyalgia (ICD-10 - M79.7) This has been stable, but present. She is currently under the pain management at [facility]. 05/24/2024 Former smoker (ICD-10 - Z87.891) She reports that she has stopped smoking within the last 5 days. She seems motivated to continue abstinence. 06/29/2024 Other and unspecified hyperlipidemia (ICD-10 - E78.5) A fasting lipid profile has been ordered. Her most recent total cholesterol in November of this year was 124. 07/28/2024 Subcutaneous nodules (ICD-10 - R22.9) These are unchanged and nontender and will be followed. 09/28/2024 Former smoker (ICD-10 - Z87.891) She reports that she has stopped smoking within the last 5 days. She seems motivated to continue abstinence. 10/04/2024 Overweight (ICD-10 - E66.3) Her weight is stable. Her body mass index is 27. We reviewed the elements of a diabetic weight loss diet today. 10/07/2024 Other and unspecified hyperlipidemia (ICD-10 - E78.5) The current fasting lipid profile shows a total cholesterol to be well within the target range. No change in treatment is needed. 10/25/2024 Fibromyalgia (ICD-10 - M79.7) This has been stable, but present. She is currently under the pain management at [facility]. 11/03/2024 Subcutaneous nodules (ICD-10 - R22.9) These are unchanged and nontender and will be followed. 11/30/2023 Anxiety (ICD-10 - F41.9) She continues to feel very anxious about the fibromyalgia discomfort. She continues to decline pharmacological treatment. She was reassured I found nothing serious today. 12/03/2023 Former smoker (ICD-10 - Z87.891) She reports that she has stopped smoking within the last 4 weeks. She seems motivated to continue abstinence. 03/04/2024 Fibromyalgia (ICD-10 - M79.7) This has been stable, but present. She is currently under the pain management at [facility]. 04/26/2024 Diabetic neuropathy (ICD-10 - E11.40) She continues to have pain in the lower extremities. It is of mixed etiology with diabetic neuropathy is likely a component of it. 05/17/2024 Raynaud's syndrome without gangrene (ICD-10 - I73.00) This has not been a problem since last year. It was not present today and she reports no difficulty in the recent past. 06/29/2024 Tobacco dependence (ICD-10 - F17.200) 07/28/2024 Neuropathic pain (ICD-10 - M79.2) She was continued on her current regimen and she is followed by pain management. The pain in the left leg has improved. 09/28/2024 Sleep apnea in adult (ICD-10 - G47.30) No change in her current regimen was needed today. She denies taking time somnolence. 10/04/2024 Fibromyalgia (ICD-10 - M79.7) This has been stable, but present. She is currently under the pain management at [facility]. 10/07/2024 Former smoker (ICD-10 - Z87.891) She reports that she has stopped smoking within the last 5 days. She seems motivated to continue abstinence. 10/25/2024 Former smoker (ICD-10 - Z87.891) She reports that she has stopped smoking within the last 5 days. She seems motivated to continue abstinence. 11/03/2024 Sleep apnea in adult (ICD-10 - G47.30) No change in her current regimen was needed today. She denies taking time somnolence.Her pulmonary physician has ordered another sleep study. 11/30/2023 Fibromyalgia (ICD-10 - M79.7) This has been stable, but present. She is currently under the pain management at [facility]. 03/04/2024 Former smoker (ICD-10 - Z87.891) She reports that she has stopped smoking within the last 5 days. She seems motivated to continue abstinence. 04/26/2024 Sleep apnea in adult (ICD-10 - G47.30) No change in her current regimen was needed today. She denies taking time somnolence. 05/17/2024 Former smoker (ICD-10 - Z87.891) She reports that she has stopped smoking within the last 5 days. She seems motivated to continue abstinence. 06/29/2024 Former smoker (ICD-10 - Z87.891) She reports that she has stopped smoking within the last 5 days. She seems motivated to continue abstinence. 09/28/2024 Neuropathic pain (ICD-10 - M79.2) She was continued on her current regimen and she is followed by pain management. The pain in the left leg has improved. 10/04/2024 Former smoker (ICD-10 - Z87.891) She reports that she has stopped smoking within the last 5 days. She seems motivated to continue abstinence. 10/25/2024 Neuropathic pain (ICD-10 - M79.2) The pain is localized to the left leg below the knee. She finds the best relief from ibuprofen and gabapentin. I have made her aware of the danger of diabetic taking ibuprofen chronically. Her kidney function has remained normal however. 11/03/2024 Former smoker (ICD-10 - Z87.891) She reports that she has stopped smoking within the last 5 days. She seems motivated to continue abstinence. 11/30/2023 Former smoker (ICD-10 - Z87.891) She reports that she has stopped smoking within the last 4 weeks. She seems motivated to continue abstinence. 04/26/2024 Neuropathic pain (ICD-10 - M79.2) She was continued on her current regimen and she is followed by pain management. The pain in the left leg has improved. 06/29/2024 Sleep apnea in adult (ICD-10 - G47.30) No change in her current regimen was needed today. She denies taking time somnolence. 10/25/2024 Sleep apnea in adult (ICD-10 - G47.30) No change in her current regimen was needed today. She denies taking time somnolence. 11/30/2023 Coronary artery vasospasm (ICD-10 - I20.1) She was continued on current medications and will see a card boxer next week. She is compliant with her nitroglycerin. Plan Of Treatment Pending Test Test Name Order Date PROFILE, FASTING (COMPREHENSIVE METABOLI C) 11/14/2020 PROFILE, FASTING (COMPREHENSIVE METABOLI C) 07/20/2017 PROFILE, FASTING (COMPREHENSIVE METABOLI C) 11/18/2019 PROFILE, FASTING (COMPREHENSIVE METABOLI C) 08/26/2019 PROFILE, FASTING (COMPREHENSIVE METABOLI C) 03/24/2023 PROFILE, FASTING (COMPREHENSIVE METABOLI C) 07/26/2019 PROFILE, FASTING (COMPREHENSIVE METABOLI C) 10/24/2022 PROFILE, FASTING (COMPREHENSIVE METABOLI C) 06/29/2024 PROFILE, FASTING (COMPREHENSIVE METABOLI C) 07/21/2022 PROFILE, FASTING (COMPREHENSIVE METABOLI C) 01/28/2022 PROFILE, FASTING (COMPREHENSIVE METABOLI C) 12/18/2021 PROFILE, FASTING (COMPREHENSIVE METABOLI C) 09/22/2023 PROFILE, FASTING (COMPREHENSIVE METABOLI C) 07/12/2018 PROFILE, RANDOM (COMPREHENSIVE METABOLIC ) 07/28/2024 PROFILE, RANDOM (COMPREHENSIVE METABOLIC ) 09/21/2019 PROFILE, RANDOM (COMPREHENSIVE METABOLIC ) 10/25/2024 PROFILE, RANDOM (COMPREHENSIVE METABOLIC ) 02/15/2019 PROFILE, RANDOM (COMPREHENSIVE METABOLIC ) 10/07/2024 PROFILE, RANDOM (COMPREHENSIVE METABOLIC ) 09/13/2018 HEMOGLOBIN A1C (GLYCOHEMOGLOBIN) 022 HEMOGLOBIN A1C (GLYCOHEMOGLOBIN) 019 HEMOGLOBIN A1C (GLYCOHEMOGLOBIN) 018 HEMOGLOBIN A1C (GLYCOHEMOGLOBIN) 021 HEMOGLOBIN A1C (GLYCOHEMOGLOBIN) 017 HEMOGLOBIN A1C (GLYCOHEMOGLOBIN) 020 HEMOGLOBIN A1C (GLYCOHEMOGLOBIN) 020 HEMOGLOBIN A1C (GLYCOHEMOGLOBIN) 020 HEMOGLOBIN A1C (GLYCOHEMOGLOBIN) 023 HEMOGLOBIN A1C (GLYCOHEMOGLOBIN) 019 HEMOGLOBIN A1C (GLYCOHEMOGLOBIN) 023 HEMOGLOBIN A1C (GLYCOHEMOGLOBIN) 019 HEMOGLOBIN A1C (GLYCOHEMOGLOBIN) 022 HEMOGLOBIN A1C (GLYCOHEMOGLOBIN) 022 MAGNESIUM 03/24/2023 LIPID PANEL 10/24/2022 LIPID PANEL 02/15/2019 LIPID PANEL 07/21/2022 LIPID PANEL 03/24/2023 LIPID PANEL 12/18/2021 LIPID PANEL 07/12/2018 LIPID PANEL 11/14/2020 LIPID PANEL 07/20/2017 LIPID PANEL 11/18/2019 LIPID PANEL 09/21/2019 LIPID PANEL 08/26/2019 LIPID PANEL 07/26/2019 GGT 10/07/2024 MICROALBUMIN, RANDOM 10/24/2022 MICROALBUMIN, RANDOM 03/24/2023 MICROALBUMIN, RANDOM 12/18/2021 MICROALBUMIN, RANDOM 11/14/2020 MICROALBUMIN, RANDOM 08/26/2019 CBC w DIFF 08/26/2019 CBC w DIFF 10/07/2024 CBC w DIFF 01/28/2022 CBC w DIFF 07/26/2019 CBC w DIFF 02/15/2019 CBC w DIFF 07/21/2022 CBC w DIFF 09/13/2018 CBC w DIFF 10/24/2022 CBC w DIFF 07/12/2018 CBC w DIFF 03/24/2023 CBC w DIFF 12/18/2021 CBC w DIFF 10/25/2024 CBC w DIFF 07/20/2017 CBC w DIFF 11/18/2019 CBC w DIFF 09/21/2019 CBC w DIFF 11/14/2020 SED RATE (ESR) 11/14/2020 ROUTINE CULTURE 04/04/2022 NUC MYOCARDIAL PERF SPECT W MIBI 022 XR CHEST 2 VIEW PA & LAT 10/03/2024 US LEG LT VENOUS DOPPLER 11/30/2023 TIFFANY (STEPHANIE) 09/21/2019 TIFFANY (STEPHANIE) 02/15/2019 TIFFANY (STEPHANIE) 09/13/2018 TIFFANY (STEPHANIE) 07/12/2018 Echocardiogram 01/29/2021 Stress Test 09/25/2021 Stress Test 07/20/2023 Holter Monitor 01/29/2021 VITAMIN D 25-OH TOTAL 11/14/2020 CBC WITH AUTO DIFF 09/22/2023 CBC WITH AUTO DIFF 07/28/2024 CBC WITH AUTO DIFF 06/29/2024 SARS COV2 RNA RT PCR 07/24/2020 Magnesium 06/29/2024 Lipid Panel 01/28/2022 Lipid Panel 06/29/2024 Vitamin D 25-OH Total 06/29/2024 Microalbumin, Random 06/29/2024 ECG 12 lead EKG 07/22/2023 NE electromyogram (EMG) 09/02/2022 NE nerve conduction velocity 08/26/2022 Hemoglobin A1c 10/07/2024 Hemoglobin A1c 07/28/2024 Hemoglobin A1c 10/25/2024 Hemoglobin A1c 06/29/2024 NUC Stress Test 10/05/2023 Next Appt Details Provider Name:Golden Archuleta, 12/20/2024 10:30:00 AM, [address] [facility] [address], [place], [address], Provider Name:Golden Archuleta, 04/03/2025 03:00:00 PM, [address] [facility] [address], [place], [address], Insurance Providers Payer Name Payer Address Payer Phone Subscriber Number Group Number Insured Name Patient Relationship to Insured Coverage Start Date Coverage End Date MEDICARE NGS [address] [place] [address] [id number] Melva Thomas Self - patient is the insured [place] [address] [place], [place] [id number] Melva Thomas Self - patient is the insured Medical (General) History Medical History History ICD Code atypical chest pain left fifth hammer toe 2007 hematochezia AODM carpal tunnel syndrome hemorrhoids right sciatica 2014 lisinopril-induced cough and fibromyalgia lisinopril-induced cough {'Diabetes': 'The patient woodard s a history of diabetes and is currently on Metformin.', 'Hyperglycemia': 'The patient's blood sugar level was measured at 214, indicating hyperglycemia.', 'Achilles Tendonitis': 'The patient was diagnosed with Achilles tendonitis during the current visit.'} {'Pneumonia': 'Suspected a f ew weeks ago, now resolved', 'Liver issues': 'Slightly elevated liver enzymes, now normal', 'High blood sugar': 'Ongoing', 'Fatigue': 'Severe, ongoing', 'Head pains': 'Occasional, sharp', 'Abdominal pain': 'Occasional, sharp', 'Knee pain': 'During exercise'} Surgical History Surgery Date(Month/Year) No history hammertoe repair 12/2009 Hospitalization History Reason Date(Month/Year) No history
--- OUTSIDE RECORDS SUMMARY | 2024-11-22 15:54 | XMS_ITS | Clinical Summary ---
Author Organization [address] [facility] Address [address] [place] [address] Phone Care Team Providers Care Ve Teacher Name Role Phone Golden Archuleta MD Primary Care Provider [phone] Allergies Active Allergy Reactions Criticality Noted Date [...] AM EST Office Visit Orthopedic Surgery - [address] [phone] Erich Harrison, DPM Diabetic mononeuropathy simplex (CMS/HCC) (Primary Dx); Type II diabetes mellitus with peripheral circulatory disorder (CMS/HCC); Metatarsalgia of both feet; Corns and callosities; Pain in toe of left foot; Pain in toe of right foot; Dermatophytosis of nail from Last 3 Months Surgical History Surgery Date Site/Laterality Comments OTHER SURGICAL HISTORY PROCEDURE: DENIES PREVIOUS SURGERY FOOT SURGERY PROCEDURE: [place] UNLISTED PROCEDURE FOOT/TOES Medical History Medical History [...] AM EDT Office Visit Orthopedic Surgery - [place] [address] [address] Erich Harrison, DPM [address] [address] Health Maintenance Due Date Last Done Comments [...] Insurance MEDICARE [place]ICA[place] - [place] Care Teams Ve Teacher Relationship Specialty Start Date End Date Golden Archuleta MD [address] [address] PCP - General 10/04/07
--- OUTSIDE RECORDS SUMMARY | 2024-11-22 15:54 | XMS_ITS | Clinical Summary ---
Author Organization [facility] Address [address] [place] [address] Care Team Providers Care Physical Science Teacher Name Role Phone Golden Archuleta Primary Care Provider [phone] Allergies Active Allergy Reactions Criticality Noted Date [...] (05/02/2021): Added automatically from request for surgery [id number] Chronic foot pain, left 05/02/2021 Overview (05/02/2021): Added automatically from request for surgery [id number] Peripheral neuralgia 05/02/2021 Overview (05/02/2021): Added automatically from request for surgery [id number] Blue toe syndrome of left lower extremity [...] needed for pain control in addition to npocei-ajq-omjtq ibuprofen. I will refer the patient to hematology for possible hypercoagulable work-up. I plan to review the patient's CT angio from [facility] at her next in-person clinic visit [...] patient's presentation and CT angio report from [facility] I am concerned for embolic disease resulting in blue toe syndrome that may be causing some ischemic pain in the patient's left foot. However the patient does not want to be started on any anticoagulation without a clear diagnosis for an embolic disease. I did review the CT report that she showed me from [facility] demonstrating a question of thrombus in her left popliteal artery however I am unable to give further information since I do not have access to the images. The patient reports that she will try to obtain the CT images from [facility] for me to review. In the [...] age to complete this topic Insurance MEDICARE [facility] Care Teams Physical Science Teacher Relationship Specialty Start Date End Date Golden Archuleta [address] [place] [id number] PCP - General Hematology 03/14/21
--- OUTSIDE RECORDS SUMMARY | 2024-11-22 15:54 | XMS_ITS | Referral Summary ---
Author Organization [facility] Address [address] [place] [address] Care Team Providers Care Electrical Controls Technician Name Role Phone Golden Archuleta Primary Care Provider [phone] Allergies Active Allergy Reactions Criticality Noted Date [...] (05/02/2021): Added automatically from request for surgery [id number] Chronic foot pain, left 05/02/2021 Overview (05/02/2021): Added automatically from request for surgery [id number] Peripheral neuralgia 05/02/2021 Overview (05/02/2021): Added automatically from request for surgery [id number] Blue toe syndrome of left lower extremity [...] needed for pain control in addition to ktwqis-ogy-znflb ibuprofen. I will refer the patient to hematology for possible hypercoagulable work-up. I plan to review the patient's CT angio from [facility] at her next in-person clinic visit [...] CT report that she showed me from [facility] demonstrating a question of thrombus in her left popliteal artery however I am unable to give further information since I do not have access to the images. The patient reports that she will try to obtain the CT images from [facility] for me to review. In the [...] Not [place] [id number] MEDICARE [facility] Care Teams Electrical Controls Technician Relationship Specialty Start Date End Date Golden Archuleta [address] [place] [address] [place] [address] PCP - General Hematology 03/14/21
[2024-11-22 18:40] LABS: Appearance Urine Clear; Color Urine Yellow; Glucose Urine UA Negative (Negative); Leukocyte Esterase Urine Negative (Negative); Nitrite Urine Negative (Negative); PH 7.5 (5.0-9.0); Specific Gravity - Urine <= 1.005 (1.005-1.025); Urine Blood Negative (Negative); Urine Ketones Negative (Negative); Urine Protein Negative (Neg-Trace)
[2024-11-22 18:43] LABS: Bacteria Urine None Seen (None Seen); Hyaline Casts Urine 0-2 /LPF (0-2); RBC Urine 0-2 /HPF (0-2); Squamous Epithelial Cell Urine 0-2 /HPF (0-2); WBC Urine 0-5 /HPF (0-5)
== END 2024-11-22 12:44 | disposition home or self-care (01) ==
LOC: HO.HKASLDS 12:43
PROVIDERS: PCP Internal Medicine Medical Oncology; Visit Provider Internal Medicine Rheumatology
DX: M19.90 Unspecified osteoarthritis, unspecified site (principal); R76.8 Other specified abnormal immunological findings in serum
CPT/HCPCS: 81001; 99212

== ENCOUNTER 2024-11-22 12:43 | Outpatient (AMB) | payer MEDICARE, MEDICAID, SELFPAY ==
[2024-11-22 12:46] VITALS: BP 110/58; PULSE 70; O2SAT 97; BMI 27.2
--- NOTE | 2024-11-22 12:46 | A.OFFVIS_ITS ---
Vital Signs 11/22/24 12:46 Height 5 ft 3 in Weight 153 lb 10.595 oz BMI 27.2 BP 110/58 L Blood Pressure Location Lt brachial Position Sitting Pulse 70 Pulse Source Pulse Oximeter Pulse Oximetry (%) 97 Oxygen Delivery Method Room Air Intake Visit Reasons: arthritis Intake Note: Patient presents today with Arthritis. Allergies lisinopril Allergy (Mild, Verified 11/22/24 12:52) coughing hydromorphone [From Dilaudid] Adverse Reaction (Intermediate, Verified 11/22/24 12:52) Vomiting Percocet Adverse Reaction (Severe, Uncoded 11/22/24 12:52) Vomiting HPI HPI arthritis: Details: She has not had recurrence of joint symptoms. She has been going to the gym and has increased pain in her thighs. She uses a treadmill about an hour each time. She was diagnosed with fatty liver with labs done in August revealing elevated LFTs. Labs from September revealed normal LFTs. She is working on her diet. A1c 9.6. Denies fevers, dyspnea, pleurisy, oral ulcers, rash, joint swelling, foot pain/toe pain, urinary symptoms. Left toe pain has not reoccurred after her MO. she was diagnosed with vasospasm. [facility] Medical History (Updated 11/22/24 @ 13:26 by Johny Parish MD) JOSE (obstructive sleep apnea) Coronary vasospasm Personal history of nicotine dependence Tubular adenoma of colon (~2020) Anxiety History of fibromyalgia NIDDY (non-insulin dependent diabetes mellitus in young) Chronic hepatitis C Surgical History History of foot surgery History of endoscopy History of colonoscopy History of endometrial ablation History of cholecystectomy Family History Father HTN (hypertension) Lung cancer Mother Asthma Thyroid disease Cardiac arrest Family/Other Breast cancer Social History Household Members: Other Housing: Condominium Do you presently have visiting nurse or other home services: No Alcohol intake: current Alcohol intake frequency: does not drink Patient Tobacco Use Status: Former Tobacco user Tobacco use type: Cigarette Years Smoked: (onset 9yo, 1/2ppd x 50yrs, 25pyh - quit 04/2020) Advance Directives Date on File: 04/09/21 Current occupational status: employed 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 Good respiratory effort Skin: No lesions seen MSK: Tender to palpate right 2nd and 3rd PIP. Tender left 2nd PIP. Heberden node right 5th DIPJ present. Normal range of motion of upper extremity and lower extremity. Assessment & Plan Assessment & Plan (1) Undifferentiated inflammatory arthritis: Comment: She has not had any reoccurrence of inflammatory arthritis or any new signs or symptoms suggestive of systemic connective tissue disease. I have reviewed her labs from 2024. I have ordered additional lab testing for further evaluation of disease activity from lupus in setting of prior history of borderline low C4. Rheumatology history: TIFFANY 1:1280, borderline low C4, + positive anticentromere antibody, telangiectasia, inflammatory arthritis involving right 3rd MCP and ankle swelling 11/2018 with slight elevation in ESR. She was treated with hydroxychloroquine 300 mg q.d. 11/2018 without benefit. Prednisone caused hyperglycemia >300s. She declined adding DMARD. Meloxicam is ineffective. Code(s): M19.90 - Unspecified osteoarthritis, unspecified site Category: Medical Plan: Labs ordered Return to clinic in 1 year or sooner if needed (2) Positive TIFFANY (antinuclear antibody): Code(s): R76.8 - Other specified abnormal immunological findings in serum Category: Medical Plan: See above Orders: Orders Erythrocyte Sedimentation Rate Today Z79.899 - Other long term care social worker (current) drug therapy C Reactive Protein Today Z79.899 - Other long term care social worker (current) drug therapy Complement C3 Today M19.90 - Unspecified osteoarthritis, unspecified site, R76.8 - Other specified abnormal immunological findings in serum Complement C4 Today M19.90 - Unspecified osteoarthritis, unspecified site, R76.8 - Other specified abnormal immunological findings in serum UA w Microscopic Today M1 - Unspecified osteoarthritis, unspecified site, R76.8 - Other specified abnormal immunological findings in serum Anti DNA DS Antibody Today - Unspecified osteoarthritis, unspecified site, R76.8 - Other specified abnormal immunological findings in serum Coding Level of Care Code Est Pt Level 4 (60943) Complex EM visit Add On G2211 Diagnoses Undifferentiated inflammatory arthritis Positive TIFFANY (antinuclear antibody) R76.8
--- OUTSIDE RECORDS SUMMARY | 2024-11-22 14:50 | XMS_ITS ---
Author Organization Golden Archuleta III, MD Address [address] [place] [address] [place] [address] Care Team Providers Care Operating System Designer Name Role Phone Golden Archuleta Primary Care Provider [phone] Allergies Allergen (clinical drug ingredient) Drug/Non Drug Allergy documented on EMR Reaction Allergy Type Onset Date Status acetaminophen / oxycodone Percocet nausea Drug Allergy Active lisinopril Lisinopril cough Drug Allergy Activ e REASON FOR VISIT Sleep apnea, Diabetes, Hyperlipidemia, Chronic low back pain, Fibromyalgia, Peripheral arterial disease, Coronary artery vasospasm Medications Medication SIG (Take, Route, Frequency, Duration) Notes Start Date End Date Status guaiFENesin-Codeine 100-10 MG/5ML 10 mL as needed Orally every 4 hrs 10/03/2024 Active Cyclobenzaprine HCl 10 MG 1 tablet Orally twice a day for 7 days 11/03/2024 11/17/2024 Active guaiFENesin-DM 100-10 MG/5ML 10 mL as needed Orally every 4 hrs 10/04/2024 Active dexAMETHasone 2 MG 1 tablet Orally twice a day for 5 days 11/03/2024 Active Gabapentin 600 MG TAKE 1 TABLET BY MOUTH THREE TIMES A DAY FOR 30 DAYS Orally three times a day Active Tamiflu 75 MG 1 capsule Orally Twice a day 09/29/[address] directed Orally 2 Tablets on the first day, one tablet the rest of the days 10/03/2024 Active FreeStyle Lite Test - Check blood sugar Thursday, Thursday and Thursday DX: E11.9 Diabetes Mellitus Active FreeStyle Lancets - to check blood sugars thursday, thursday, thursday DX: E11.9 Diabetes Mellitus 04/09/2023 Active Lidocaine 5 % PLACE 1 PATCH ONTO SKIN EVERY 24 HOURS X112 DAYS. APPLY FOR NO MORE THAN 12 HOURS PER 24-HR PERIOD. External Active Oyster Shell Calcium 500 MG TAKE 1 TABLET BY MOUTH EVERY DAY Oral Active Magnesium Oxide 400 MG 1 tablet as neede d Orally Once a day 03/28/2024 Active Aspirin 81 MG 1 tablet Orally Once a day Active amLODIPine Besylate 2.5 MG 1 tablet Orally Once a day Active metFORMIN HCl 1000 MG TAKE 1 TABLET BY MOUTH TWICE A DAY WITH MEALS Active [facility] Prep 70 % Use 3 times a week Active Accu-Chek Wales[place] Plus w/Device as directed In Vitro use to check blood sugars Thursday/09/09/2022 Active Accu-Chek [place] Plus - as directed In Vitro use to check blood sugars 09/09/2022 Active Acetaminophen Extra Strength 500 MG TAKE 1 TABLET BY MOUTH EVERY 6 HOURS NEEDED Oral Active Diclofenac Sodium 1 % APPLY 4 G TOPICALLY 2 TIMES DAILY. External Active glipiZIDE 10 MG TAKE 1 TABLET BY MOUTH EVERY MORNING 30 MINUTES BEFORE BREAKFAST Active Vitamin D 25 MCG (1000 UT) 1 tablet Orally Once a day 08/22/2023 Active Ibuprofen 800 MG 1 tablet with food or milk Orally every 6 hrs Active Social History Sex Assigned At : Social History Observation Description Sex Assigned At Female Vital Signs Height 63 in 11/03/2024 Weight 152 lbs 11/03/2024 BMI 26.92 kg/m2 11/03/2024 Encounters Encounter Location Date Provider Diagnosis Golden Archuleta III, MD [address] [place] [address] [place] [address] 11/03/2024 Golden Archuleta DM (diabetes mellitu s) E11.9 ; Overweight E66.3 ; Fibromyalgia M79.7 ; Other and unspecified hyperlipidemia E78.5 ; Peripheral arterial disease I73.9 ; Subcutaneous nodules R22.9 ; Sleep apnea in adult G47.30 and Former smoker Z87.891 Assessments Encounter Date Diagnosis (ICD Code) Assessment Notes Treat ment Notes Treatment Clinical Notes 11/03/2024 DM (diabetes mellitus) (ICD-10 - E11.9) She will be diligent about checking her blood glucose levels twice a day while she is ill. She will report by telephone on a daily basis she is doing. At this time she is able to eat and drink normally. She will be followed carefully In the office. 11/03/2024 Overweight (ICD-10 - E66.3) Her body mass index is 26.9. Her hemoglobin A1c is 9.1. We discussed a weight loss program in great detail today. 11/03/2024 Fibromyalgia (ICD-10 - M79.7) This has been stable, but present. She is currently under the pain management at [facility]. 11/03/2024 Other and unspecifie d hyperlipidemia (ICD-10 - E78.5) The current fasting lipid profile shows a total cholesterol to be well within the target range. No change in treatment is needed. 11/03/2024 Peripheral arterial disease (ICD-10 - I73.9) Her foot was pink and warm, but continued painful. 11/03/2024 Subcutaneous nodules (ICD-10 - R22.9) These are unchanged and nontender and will be followed. 11/03/2024 Sleep apnea in adult (ICD-10 - G47.30) No change in her current regimen was needed today. She denies taking time somnolence.Her pulmonary physician has ordered another sleep study. 11/03/2024 Former smoker (ICD-1 0 - Z87.891) She reports that she has stopped smoking within the last 5 days. She seems motivated to continue abstinence. Plan Of Treatment Medication Medication Name Sig Start Date Stop Date Notes guaiFENesin-Codeine 100-10 MG/5ML 10 mL as needed Orally every 4 hrs 10/03/2024 Cyclobenzaprine HCl 10 MG 1 tablet Orall y twice a day for 7 days 11/03/2024 11/17/2024 guaiFENesin-DM 100-10 MG/5ML 10 mL as needed Orally every 4 hrs 10/04/2024 dexAMETHasone 2 MG 1 tablet Orally twice a day for 5 days 11/03/2024 Gabapentin 600 MG TAKE 1 TABLET BY MOUTH THREE TIMES A DAY FOR 30 DAYS Orally three times a day Tamiflu 75 MG 1 capsule Orally Twice a day 09/29/[address] directed Orally 2 Tablets on the first day, one tablet the rest of the days 10/03/2024 FreeStyle Lite Test - Check blood sugar Thursday, Thursday and Thursday DX: E11.9 Diabetes Mellitus FreeStyle Lancets - to check blood sugars thursday, thursday, thursday04/09/2023 DX: E11.9 Diabetes Mellitus Lidocaine 5 % PLACE 1 PATCH ONTO SKIN EVERY 24 HOURS X112 DAYS. APPLY FOR NO MORE THAN 12 HOURS PER 24-HR PERIOD. External Oyster Shell Calcium 500 MG TAKE 1 TABLET BY MOUTH EVERY DAY Oral Magnesium Oxide 400 MG 1 tablet as neede d Orally Once a day 03/28/2024 Aspirin 81 MG 1 tablet Orally Once a day amLODIPine Besylate 2.5 MG 1 tablet Oral ly Once a day metFORMIN HCl 1000 MG TAKE 1 TABLET BY MOUTH TWICE A DAY WITH MEALS CVS Prep 70 % Use 3 times a week Accu-Chek Waleska Plus w/Device as directed In Vitro use to check blood sugars / iday 09/09/2022 Accu-Chek Waleska Plus - as directed In Vitro use to check blood sugars Thursday/Thursday/ iday 09/09/2022 Acetaminophen Extra Strength 500 MG TAKE 1 TABLET BY MOUTH EVERY 6 HOURS NEEDED Oral Diclofenac Sodium 1 % APPLY 4 G TOPICALL Y 2 TIMES DAILY. External glipiZIDE 10 MG TAKE 1 TABLET BY MOUTH EVERY MORNING 30 MINUTES BEFORE BREAKFAST Vitamin D 25 MCG (1000 UT) 1 tablet Oral ly Once a day 08/22/2023 Ibuprofen 800 MG 1 tablet with food or milk Orally every 6 hrs Next Appt Details Follow Up: 4 Weeks, Reason: Office visit Provider Name:Golden Archuleta, 12/20/2024 10:30:00 AM, [address] [facility] [address], [place], [address], Provider Name:Golden Archuleta, 04/03/2025 03:00:00 PM, [address] [facility] [address], [place], [address], Progress Notes * Deshaun THOMASOB: (63 yo F)Acc No.[id number]:11/03/2024 Patient:?Melva THOMAS Provider:?Golden Archuleta MD :1960???Age:63 Y???Sex:Female D ate:11/03/2024 Address:[address] [place], [place] [id number] Subjective: * Chief Complaints: * ???Sleep apneaDiabetesHyperl ipidemiaChronic low back painFibromyalgiaPeripheral arterial diseaseCoronary artery vasospasm * HPI: ???:?This telehealth visit took place over 22 minutes with the patient at home and me in my office.? She gave consent for billing.? She has been to the pulmonary physician who has ordered another sleep study.? She is known to have sleep apnea and has CPAP.? She has had no further chest pain or shortness of breath.? She continues to have bilateral neuropathic pain worse on the left than the right.? The Raynaud's phenomenon of the toes on the left foot has resolved.? She is sleeping comfortably.? Her diabetes seems well controlled.? She reports a fasting glucose today 122.? Comprehensive blood work and office visit have been scheduled. ?Telehealth?Location of provider rendering services:?{...} [address] [place] [address] ?Location of patient:?address listed in demographics for today's visit ?Patient identification confirmed using:?Name, ?Telehealth method:?Telephone only. Patient not visible to care provider. ?Consent:?Patient verbally consented to treatment, Patient verbally consented to billing insurance company, Patient informed of any privacy concerns related to method of visit ?Total time spent with patient (mins)?15 * ROS:?General/Constitutional:?pain?Neuropathic pain in both legs left worse than right, otherwise only normal aches and pains.?Chills?denies.?Fatigue?admits.?Fever?denies.?ENT:?Decreased hearing?denies.?Respiratory:?Cough?denies.?Cardiovascular:?Chest pain with exertion?denies.?Dyspnea on exertion?denies.?Shortness of breath?denies.?Gastrointestinal:?Constipation?occasional.?Decreased appetite?denies.?Diarrhea?denies.?Heartburn?occasional.?Nausea?denies.?Rectal bleeding?denies.?Vomiting?denies.?Hematology:?bruising?denies.?petechiae?denies.?Swollen glands?none have been noted.?Genitourinary:?Frequent urination?at night.?Musculoskeletal:?Muscle aches?denies.?Painful joints?denies.?Sciatica?denies.?Weakness?denies.?Skin:?Itching?denies.?Rash?denies.?Skin lesion(s)?denies.?Neurologic:?Difficulty speaking?denies.?Dizziness?denies.?Headache?denies.?Low back pain?denies.?Psychiatric:?Depressed mood?denies.? * Medical History:? * Surgical History:?hammertoe repair 12/2009No history * Hospitalization/Major Diagno stic Procedure:?No history * Family History:?Father: dece ased, lung cancer, hypertension, diagnosed with Cancer, HTN.?Mother: alive 83 yrs, thyroid.?Siblings: .?Maternal uncle: type [...] is slngle and working and lives in [place]. She was born in [place], [place]. {'Exercise': 'The patient reported having a bike at home for exercise.', 'Diet': 'The patient reported plans to start drinking a natural tea that was previously helpful for her blood sugar.'} {'Diet': 'Apple cider vinegar and lemon water for weight loss and liver health', 'Exercise': 'Goes to the gym regularly', 'Work environment': '', 'Living situation': ''}. * Medications:?TakingIbuprofen 800 MG Tablet 1 tablet [...] % Pad Use 3 times a week Oyster Shell Calcium 500 MG Tablet TAKE [...] , Notes to Pharmacist: DX: E11.9 Diabetes MellitusFreeStyyonny Lancets - Miscellaneous to check blood sugars [...] mL as needed Orally every 4 hrs Gabapentin 600 MG Tablet TAKE 1 TABLET BY MOUTH THREE TIMES A DAY FOR 30 DAYS Orally three times a day Medication List reviewed and reconciled with the patientTaking [...] Pad Use 3 times a week Taking Oyster Shell Calcium 500 MG Tablet [...] as needed Orally every 4 hrs Taking Gabapentin 600 MG Tablet TAKE 1 TABLET BY MOUTH THREE TIMES A DAY FOR 30 DAYS Orally three times a day Medication List reviewed and reconciled with the patient * Allergies:?Percocet: nauseaL isinopril: coughno[Allergies Verified] Objective: * Vitals:?Ht: 63, Wt: 152, BMI :26.92, Ht-cm: 160.02, Wt-k.95. Assessment: * Assessment: 1.?DM (diabetes mellitus) - E11.9 (Primary)???Notes :She will be diligent about checking her blood glucose levels twice a day while she is ill. She will report by telephone on a daily basis she is doing. At this time she is able to eat and drink normally. She will be followed carefully In the office.???2.?Overweight - E66.3???Notes :Her body mass index is 26.9. Her hemoglobin A1c is 9.1. We discussed a weight loss program in great detail today.???3.?Fibromyalgia - M79.7???Notes :This has been stable, but present. She is currently under the pain management at [facility].???4.?Other and unspecified hyperlipidemia - E78.5???Notes :The current fasting lipid profile shows a total cholesterol to be well within the target range. No change in treatment is needed.???5.?Peripheral arterial disease - I73.9???Notes :Her foot was pink and warm, but continued painful.???6.?Subcutaneous nodules - R22.9???Notes :These are unchanged and nontender and will be followed.???7.?Sleep apnea in adult - G47.30???Notes :No change in her current regimen was needed today. She denies taking time somnolence.Her pulmonary physician has ordered another sleep study.???8.?Former smoker - Z87.891???Notes :She reports that she has stopped smoking within the last 5 days. She seems motivated to continue abstinence.??? Plan: * Treatment: 2.?Others? Continue Ibuprofen Tablet, 800 MG, 1 tablet [...] 70 %, Use 3 times a week;?Continue Oyster Shell Calcium Tablet, 500 MG, TAKE [...] 1 tablet as needed, Orally, Once a day; Continue FreeStyle Lite Test Strip, -, Check blood [...] 10 mL as needed, Orally, every 4 hrs;?Continue Gabapentin Tablet, 600 MG, TAKE 1 TABLET BY MOUTH THREE TIMES A DAY FOR 30 DAYS, Orally, three times a day.?? * Procedure Codes:? * Preventive Medicine:? ??Counseling:?Care [...] dangers of tobacco use and urged to quit.?11/03/2024 ??DM Care Plan:?Patient Lifestyle Goals?Patient wants to be able to manage diabetes without too much effort.?Treatment Goals?Blood Sugars less than < 115, HbA1C < 7.0.?Barriers?no barriers.?Self-Managment Goals?Work on weight loss, with a goal of losing 1 lb per week, Take blood sugars twice daily and keep a log. Bring log in to next appointment, Increase exercise to 3 times a week for 30 mins, Increase exercise to 3 times a week for 30 mins.? * Follow Up:?4 Weeks (Reason: Office visit) * Images: * Sign off status: Completed true * Provider:?Golden Archuleta MD Date:?10/22 Generated for Delma mendoza/Bertin/Mary Anne on:?11/22/2024 02:50 PM EDT History and Physical Notes * HPI (History of Present Illness) Category Sub-Category Detail Notes Telehealth Location [facility] ider rendering services:: {...} [address] [facility] [address] Location of patient:: address listed in demographics for today's visit Patient identification confirmed using:: Name, Telehealth method:: Telephone only. Sonali ent not visible to care provider. Consent:: Patient verbally c onsented to treatment, Patient verbally consented to billing insurance company, Patient informed of any privacy concerns related to method of visit Total time spent with patient (mins): 15
--- OUTSIDE RECORDS SUMMARY | 2024-11-22 14:50 | XMS_ITS | Clinical Summary ---
Author Organization [address] [facility] Address [address] [place] [address] Phone Care Team Providers Care Legal Summer Intern Name Role Phone Golden Archuleta MD Primary Care Provider [phone] Allergies Active Allergy Reactions Criticality Noted Date Comments Lisinopril 11/12/2020 Oxycodone-Acetaminophen 11/12/2020 Medications acetaminophen (TYLENOL) 500 mg capsule Take?by mouth. Active ammonium lactate (LAC-HYDRIN) 12 % lotion Apply to soles of feet daily. At night wear socks to bed 10/14/19 22 Active aspirin 81 mg chewable tablet TAKE 1 TABLET BY MOUTH EVERY DAY FOR 30 DAYS 10/01/19 22 Active cholecalciferol (VITAMIN D-3) 125 mcg (5,000 unit) capsule Take?by mouth. Active clotrimazole (LOTRIMIN) 1 % cream Apply to skin and toenails daily for 12 weeks 01/11/20 24 Active diclofenac (VOLTAREN) 1 % topical gel Apply 4 g topically 2 times daily. 10/12/19 24 Active gabapentin (NEURONTIN) 300 mg capsule Take 300 mg by mouth 2 times daily. Active glipiZIDE (GLUCOTROL) 10 mg tablet TAKE 1 TABLET BY MOUTH 30 MINUTES BEFORE BREAKFAST ONCE A DAY FOR 30 DAYS 07/21/20 21 Active hydrocortisone 1 % topical cream Apply 1 Applicator topically 2 times daily. To skin on feet 05/23/20 21 Active ibuprofen (ADVIL,MOTRIN) 800 mg tablet TAKE 1 TABLET BY MOUTH EVERY 6 HOURS NEEDED FOR 30 DAYS *WITH FOOD OR MILK* 09/25/19 22 Active metFORMIN (GLUCOPHAGE) 1,000 mg tablet Take 1,000 mg by mouth 2 times daily (with meals). Active nitroglycerin (NITROSTAT) 0.4 mg SL tablet DIRECTED SUBLINGUAL EVERY 5 MINUTES NEEDED FOR CHEST PAIN 28 DAYS 10/01/19 22 Active lidocaine (XYLOCAINE) 5 % ointment APPLY TO AFFECTED AREA EVERY DAY NEEDED 05/13/20 21 Active blood sugar diagnostic (FreeStyle Lite Strips) test strip by In Vitro route. Active lidocaine (LIDODERM) 5 % patchIndications:D iabetic mononeuropathy simplex (CMS/HCC) Apply 1 patch topically 1 (one) time each day. Remove & discard patch within 12 hours or as directed by . 90 each 09/15/19 25 025 Active diclofenac (Voltaren Arthritis Pain) 1 % topical gel Apply 4 g topically 2 (two) times a day. 240 g 1 09/15/19 25 025 Active Problems Problem Noted Date Diagnosed Date Atypical chest pain 10/16/2021 Carpal tunnel syndrome 10/16/2021 Fibromyalgia 10/16/2021 Hammer toe 10/16/2021 PAD (peripheral artery disease) 10/16/2021 Peripheral neuritis 10/16/2021 T2DM (type 2 diabetes mellitus) 10/16/2021 Encounters Date Type Department Care Team Description 09/15/2024 10:00 AM EST Office Visit Orthopedic Surgery - [address] [id number] Erich Harrison, DPM Diabetic mononeuropathy simplex (CMS/HCC) (Primary Dx); Type II diabetes mellitus with peripheral circulatory disorder (CMS/HCC); Metatarsalgia of both feet; Corns and callosities; Pain in toe of left foot; Pain in toe of right foot; Dermatophytosis of nail from Last 3 Months Surgical History Surgery Date Site/Laterality Comments OTHER SURGICAL HISTORY PROCEDURE: DENIES PREVIOUS SURGERY FOOT SURGERY PROCEDURE: NM UNLISTED PROCEDURE FOOT/TOES Medical History Medical History [...] AM EDT Office Visit Orthopedic Surgery - [place] [address] [address] Erich Harrison, DPM [address] [address] Health Maintenance Due Date Last Done Comments [...] Insurance MEDICARE MEDICAID - [place] Care Teams Legal Summer Intern Relationship Specialty Start Date End Date Golden Archuleta MD [address] [address] PCP - General 10/04/07
--- OUTSIDE RECORDS SUMMARY | 2024-11-22 14:50 | XMS_ITS ---
Author Organization Golden Archuleta III, MD Address [address] [place] [address] Care Team Providers Care Senior Stack Engineer Name Role Phone Golden Archuleta Primary Care Provider [phone] REASON FOR VISIT Message Social History Sex Assigned At : Social History Observation Description Sex Assigned At Female Encounters Encounter Location Date Provider Diagnosis Golden Archuleta III, MD [address] [place] [address] [place] [address] 11/07/2024 Golden Archuleta Plan Of Treatment Next Appt Details Provider Name:Golden Archuleta, 12/20/2024 10:30:00 AM, [address] [facility] [place], [address], Provider Name:Golden Archuleta, 04/03/2025 03:00:00 PM, [address] [facility] [address], [place], [address], Progress Notes * Pippa THOMASNaziaOB: (63 yo F)Acc No.[id number]:11/07/2024 Patient:?Melva THOMAS :1960???Age:63 Y???Sex:Female Address:[address] [place] [address], [place] [address] * true * Date:? Generated for Delma mendoza/Bertin/eTransmitting on:?11/22/2024 02:49 PM EDT
--- OUTSIDE RECORDS SUMMARY | 2024-11-22 14:50 | XMS_ITS | Referral Summary ---
Author Organization [facility] Address [address] [place] [address] Care Team Providers Care Line Manager Name Role Phone Golden Archuleta Primary Care Provider Allergies Active Allergy Reactions Criticality Noted Date [...] (05/02/2021): Added automatically from request for surgery [id number] Chronic foot pain, left 05/02/2021 Overview (05/02/2021): Added automatically from request for surgery [id number] Peripheral neuralgia 05/02/2021 Overview (05/02/2021): Added automatically from request for surgery [id number] Blue toe syndrome of left lower extremity [...] Assessment & Plan (01/16/2021 12:37 PM EDT): Mevla Thomas is a 60 y.o. female with [...] needed for pain control in addition to [id number] ibuprofen. I will refer the patient to hematology for possible hypercoagulable work-up. I plan to review the patient's CT angio from [facility] at her next in-person clinic visit [...] patient's presentation and CT angio report from [facility] I am concerned for embolic disease resulting in blue toe syndrome that may be causing some ischemic pain in the patient's left foot. However the patient does not want to be started on any anticoagulation without a clear diagnosis for an embolic disease. I did review the CT report that she showed me from [facility] demonstrating a question of thrombus in her left popliteal artery however I am unable to give further information since I do not have access to the images. The patient reports that she will try to obtain the CT images from [facility] for me to review. In the [...] [place] [id number] MEDICARE [facility] Care Teams Line Manager Relationship Specialty Start Date End Date Golden Archuleta [address] [place] [address] [place] [id number] PCP - General Hematology 03/14/21
--- OUTSIDE RECORDS SUMMARY | 2024-11-22 14:50 | XMS_ITS | Clinical Summary ---
Author Organization [facility] Address [address] [place] [address] Care Team Providers Care Territory Account Executive Name Role Phone Golden Archuleta Primary Care Provider [phone] Allergies Active Allergy Reactions Criticality Noted Date [...] (05/02/2021): Added automatically from request for surgery [id number] Chronic foot pain, left 05/02/2021 Overview (05/02/2021): Added automatically from request for surgery [id number] Peripheral neuralgia 05/02/2021 Overview (05/02/2021): Added automatically from request for surgery [id number] Blue toe syndrome of left lower extremity [...] needed for pain control in addition to [id number] ibuprofen. I will refer the patient to hematology for possible hypercoagulable work-up. I plan to review the patient's CT angio from [facility] at her next in-person clinic [...] patient's presentation and CT angio report from [facility] I am concerned for embolic disease resulting in blue toe syndrome that may be causing some ischemic pain in the patient's left foot. However the patient does not want to be started on any anticoagulation without a clear diagnosis for an embolic disease. I did review the CT report that she showed me from [facility] demonstrating a question of thrombus in her left popliteal artery however I am unable to give further information since I do not have access to the images. The patient reports that she will try to obtain the CT images from [facility] for me to review. In [...] Screening 1960 Pap Smear 1960 Sigmoidoscopy 1960 Medicare AWV 1961 DTaP,Tdap,and Td Vaccines (1 - Tdap) 1982 [...] age to complete this topic Insurance MEDICARE [facility] Care Teams Territory Account Executive Relationship Specialty Start Date End Date Golden Archuleta [address] [place] [phone] PCP - General Hematology 03/14/21
--- OUTSIDE RECORDS SUMMARY | 2024-11-22 14:50 | XMS_ITS ---
Author Organization Golden Archuleta III, MD Address [address] [place] [address] [place] [address] Care Team Providers Care Aerospace Technician Name Role Phone Golden Archuleta Primary Care Provider [phone] REASON FOR VISIT Rx request Medications Medication SIG (Take, Route, Fr equency, Duration) Notes Start Date End Date Status Gabapentin 600 MG TAKE 1 TABLET BY ROSELINE TH THREE TIMES A DAY FOR 30 DAYS Orally three times a day for 30 days Active Social History Sex Assigned At : Social History Observation Description Sex Assigned At Female Encounters Encounter Location Date Provider Diagnosis Golden Archuleta III, MD [address] [place] [address] [place] [address] 10/31/2024 Golden Archuleta Plan Of Treatment Medication Medication Name Sig Start Date Stop Date Notes Gabapentin 600 MG TAKE 1 TABLET BY ROSELINE TH THREE TIMES A DAY FOR 30 DAYS Orally three times a day for 30 days Next Appt Details Provider Name:Godlen Archuleta, 12/20/2024 10:30:00 AM, [address] [place] [address] SOLO GROSS, JIA MACARIO, [phone], Provider Name:Golden Archuleta, 04/03/2025 03:00:00 PM, [address] [place] [address] SOLO GROSS, JIA MACARIO, [address], Progress Notes * Deshaun THOMASOB: (63 yo F)Acc No.[id number]:10/31/2024 Patient:?Arnold THOMASe :1960???Age:63 Y???Sex:Female Address:[address] [place] [address] * Refills? Refill Gabapentin Tablet, 600 MG, Orally, 90, TAKE 1 TABLET BY MOUTH THREE TIMES A DAY FOR 30 DAYS, three times a day, 30 days, Refills=11 * true * Date:? Generated for Delma mendoza/Bertin/eTransmitting on:?11/22/2024 02:50 PM EDT
== END 2024-11-22 13:39 | disposition home or self-care (01) ==
LOC: HO.RHES 12:43
PROVIDERS: PCP Internal Medicine Medical Oncology; Visit Provider Internal Medicine Rheumatology
DX: M19.90 Unspecified osteoarthritis, unspecified site (principal); R76.8 Other specified abnormal immunological findings in serum
CPT/HCPCS: 99214; G2211

== ENCOUNTER 2024-12-06 12:58 | Outpatient (AMB) | payer MEDICARE, MEDICAID, SELFPAY ==
--- NOTE | 2024-12-06 13:01 | MHC.OFFVIS ---
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 She is doing well with no county supervisor concerns: small cyst on right labia for a for weeks, squeezed the area last night- nothing came out . Currently not sexually active. Denies any vaginal dryness or irritation. STI testing offered; she declined. Attempting to eat a healthy diet with calcium and vitamin D and stays active with exercise-goes to the gym. Last pap smear; 2020. Last mammogram; 2023. Colonoscopy is UTD. Denies any family history of ovarian or colon cancer. FH beast cancer-M.cousin. [facility] Medical History JOSE (obstructive sleep apnea) Coronary vasospasm Personal history of nicotine dependence Tubular adenoma of colon (~2020) Anxiety History of fibromyalgia NIDDY (non-insulin dependent diabetes mellitus in young) Chronic hepatitis C Surgical History History of foot surgery History of endoscopy History of colonoscopy History of endometrial ablation History of cholecystectomy Family History Father HTN (hypertension) Lung cancer Mother Asthma Thyroid disease Cardiac arrest Family/Other Breast cancer Social History Household Members: Other Housing: Condominium Do you presently have visiting nurse or other home services: No Alcohol intake: current Alcohol intake frequency: does not drink Patient Tobacco Use Status: Former Tobacco user Tobacco use type: Cigarette Years Smoked: (onset 9yo, 1/2ppd x 50yrs, 25pyh - quit 04/2020) Advance Directives Date on File: 04/09/21 Current occupational status: employed 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 Sexual orientation: Straight/Heterosexual Gender identity: Female Female Reproductive History Menstrual Menopause type: natural Total pregnancies: 2 Full term: 2 Number of Living Children: 2 Date of last pap smear: 12/31/20 (neg pap and hpv) Date of Mammogram: 01/12/24 (Birad 1) Review of Systems Const All systems reviewed & are unremarkable except as noted in HPI and below Reports as per HPI Eyes Reports no additional complaints ENT Reports no additional complaints Card Reports no additional complaints Resp Reports no additional complaints GI Reports as per HPI and Reports no additional complaints Reports as per HPI Musc Reports no additional complaints Skin/Breast Reports as per HPI Neuro Reports no additional complaints Psych Reports no additional complaints Endo Reports no additional complaints Sami/Lymph Reports no additional complaints Aller/Immun Reports no additional complaints Physical Exam Vital Signs: Last Vital Signs BP 100/64 12/06/24 13:02 BMI result Body Mass Index 27.1 Const General: cooperative, healthy appearing, no acute distress, well developed and alert Orientation/consciousness: patient oriented x3 HEENT Head: Yes normal to inspection Eyes General: appearance normal, both eyes and all related structures Neck Neck: Yes normal visual inspection Thyroid: Thyroid normal Chest Chest palpation & inspection: normal inspection of the chest and other (no puckering, dimpling, peau de orange, retraction, discharge, masses) Breast/axilla inspection: normal inspection of the breasts Breast/axilla palpation: normal palpation of the breasts Resp Effort & Inspection: normal respiratory effort GI Inspection: Yes normal to inspection and Yes scar Palpation (GI): Soft to palpation Rectal Exam - Female: deferred Other: External lower right labia erythematous, dry, over indurated area, not abscessed or infected General: Yes bladder normal to palpation External Female Exam: normal external appearance and normal appearance of the urethra Speculum Exam - Vagina: normal appearance of the vagina, normal palpation, normal vaginal discharge and vagina atrophic Speculum Exam - Cervix: normal appearance of the cervix and normal palpation Bimanual exam- vagina & uterus: normal bimanual exam, normal palpation, uterine size normal, bladder normal to palpation, normal palpation and non-tender Bimanual Exam- Adnexa, other: no masses Skin General skin exam: no rashes or lesions noted Rashes: no rashes Neuro General: patient oriented x3 Cognition (Neuro): normal cognition Extrem General: Yes normal to inspection Psych Attitude: cooperative Thought process: Normal thought process present Assessment & Plan Assessment & Plan (1) Encounter for well woman exam with routine gynecological exam: Code(s): Z01.419 - Encounter for gynecological examination (general) (routine) without abnormal findings Plan Discussed: Current recommendations for pap smears per ASCCP guidelines. Breast awareness, periodic self breast exams and yearly mammogram. Maintain a healthy lifestyle, well balanced diet including Calcium 1,200 mg and Vitamin D 600 IU daily, and routine exercise. Use of condoms for STI prevention if indicated. Advised not to squeeze any cysts, often are sebaceous gland cyst, they can become inflamed and infected, squeezing will cause pain and tissue trauma usually not resolving the initial problem. Is cystic area does not resolve, or becomes inflamed or infected, follow up in office for evaluation. Contact the office with any postmenopausal bleeding. Patient verbalizes understanding and agrees to the plan of care. She was given opportunity to ask questions and all questions were answered to the best of my ability. RTO in 1 year for annual county supervisor exam. This note is constructed using voice recognition software. While every effort has been made to ensure accuracy, elementary school librarian errors may have been included. Coding Level of Care Code Est Pt Prev Care 40-64y(66154) Diagnoses Encounter for well woman exam with routine gynecological exam Z01.419
[2024-12-06 13:02] VITALS: BP 100/64; BMI 27.1
--- OUTSIDE RECORDS SUMMARY | 2024-12-06 15:48 | XMS_ITS | Clinical Summary ---
Author Organization [facility] Address [address] [place] [address] Care Team Providers Care Lay Out Technician Name Role Phone Golden Archuleta Primary Care Provider [phone] Allergies Active Allergy Reactions Criticality Noted Date [...] (05/02/2021): Added automatically from request for surgery [id number] Chronic foot pain, left 05/02/2021 Overview (05/02/2021): Added automatically from request for surgery [id number] Peripheral neuralgia 05/02/2021 Overview (05/02/2021): Added automatically from request for surgery [id number] Blue toe syndrome of left lower extremity [...] needed for pain control in addition to assdfa-jfo-lsbtq ibuprofen. I will refer the patient to hematology for possible hypercoagulable work-up. I plan to review the patient's CT angio from [facility] at her next in-person clinic visit [...] presentation and CT angio report from [facility] I am concerned for embolic disease resulting in blue toe syndrome that may be causing some ischemic pain in the patient's left foot. However the patient does not want to be started on any anticoagulation without a clear diagnosis for an embolic disease. I did review the CT report that she showed me from [facility] demonstrating a question of thrombus in her left popliteal artery however I am unable to give further information since I do not have access to the images. The patient reports that she will try to obtain the CT images from [facility] for me to review. In the [...] or PCV21) 05/26/2023 05/26/2018, 05/25/2018 COVID-19 Vaccine ( - season) 2024 08/04/2021, 01/18/2021, 12/21/2020 Alcohol/Substance Use Screening 08/24/2024 Depression Screening and Follow-Up 08/24/2024 Social Drivers of Health Annual Screening 08/24/2024 Influenza Vaccine (Season Ended) 2025 06/23/2022, 07/11/2021, 05/29/2020, Additional history exists RSV Vaccine (60+ years old and patients) (1 - 1-dose 75+ series) 12/14/2035 Zoster Vaccines Completed 03/10/2022, 01/08/2022 Hepatitis B Vaccines Aged Out No long er eligible based on patient's age to complete this topic Insurance MEDICARE [facility] Care Teams Lay Out Technician Relationship Specialty Start Date End Date Golden Archuleta [address] [place] [id number] PCP - General Hematology 03/14/21
--- OUTSIDE RECORDS SUMMARY | 2024-12-06 15:48 | XMS_ITS ---
Author Organization Golden Archuleta III, MD Address [address] [place] [address] [place] [address] Care Team Providers Care Billet Grinder Name Role Phone Golden Archuleta Primary Care Provider Medications Medication SIG (Take, Route, Frequency, Duration) Notes Start Date End Date Status Oyster Shell Calcium 500 MG 1 tablet with food Orally once a day for 90 days 12/06/2024 12/01/2025 Active Social History Sex Assigned At : Social History Observation Description Sex Assigned At Female Encounters Encounter Location Date Provider Diagnosis Golden Archuleta III, MD [address] [place] [address] [place] [address] 12/06/2024 Golden Archuleta Plan Of Treatment Medication Medication Name Sig Start Date Stop Date Notes Oyster Shell Calcium 500 MG 1 tablet wit h food Orally once a day for 90 days 12/06/2024 12/01/2025 Next Appt Details Provider Name:Golden Archuleta, 12/20/2024 10:30:00 AM, [address] [place] [address] [address], [place], [address], Provider Name:Golden Archuleta, 04/03/2025 03:00:00 PM, [address] [place] [address] [address], [place], [address], Progress Notes * Deshaun THOMASOB: (63 yo F)Acc No.[id number]:12/06/2024 Patient:?Melva THOMAS :1960???Age:63 Y???Sex:Female Address:[address] [place] [address] * Refills? Start Oyster Shell Calcium Tablet, 500 MG, Orally, 90 Tablet, 1 tablet with food, once a day, 90 days, Refills=3 * true * Date:? Generated for Delma mendoza/Bertin/eTransmitting on:?12/06/2024 03:47 PM EDT
--- OUTSIDE RECORDS SUMMARY | 2024-12-06 15:48 | XMS_ITS | Referral Summary ---
Author Organization [facility] Address [address] [place] [address] Care Team Providers Care Motion Picture Critic Name Role Phone Golden Archuleta Primary Care Provider [phone] Allergies Active Allergy Reactions Criticality Noted Date [...] (05/02/2021): Added automatically from request for surgery [id number] Chronic foot pain, left 05/02/2021 Overview (05/02/2021): Added automatically from request for surgery [id number] Peripheral neuralgia 05/02/2021 Overview (05/02/2021): Added automatically from request for surgery [id number] Blue toe syndrome of left lower extremity [...] needed for pain control in addition to tqrnna-mrb-dgxfh ibuprofen. I will refer the patient to hematology for possible hypercoagulable work-up. I plan to review the patient's CT angio from [facility] at her next in-person clinic visit and [...] patient's presentation and CT angio report from [facility] I am concerned for embolic disease resulting in blue toe syndrome that may be causing some ischemic pain in the patient's left foot. However the patient does not want to be started on any anticoagulation without a clear diagnosis for an embolic disease. I did review the CT report that she showed me from [facility] demonstrating a question of thrombus in her left popliteal artery however I am unable to give further information since I do not have access to the images. The patient reports that she will try to obtain the CT images from [facility] for me to review. In the interim [...] Not [place] [id number] MEDICARE [facility] Care Teams Motion Picture Critic Relationship Specialty Start Date End Date Golden Archuleta [address] [place] [address] [place] [address] PCP - General Hematology 03/14/21
--- OUTSIDE RECORDS SUMMARY | 2024-12-06 15:48 | XMS_ITS ---
Author Organization Golden Archuleta III, MD Address [address] [place] [address] Care Team Providers Care Baseball Inspector Name Role Phone Golden Archuleta Primary Care Provider REASON FOR VISIT Message Social History Sex Assigned At : Social History Observation Description Sex Assigned At Female Encounters Encounter Location Date Provider Diagnosis Golden Archuleta III, MD [address] [place] [address] [place] [address] 11/07/2024 Golden Archuleta Plan Of Treatment Next Appt Details Provider Name:Golden Archuleta, 12/20/2024 10:30:00 AM, [address] [facility] [place], [address], Provider Name:Golden Archuleta, 04/03/2025 03:00:00 PM, [address] [facility] [address], [place], [address], Progress Notes * Pippa THOMASNaziaOB: (63 yo F)Acc No.[id number]:11/07/2024 Patient:?Melva THOMAS :1960???Age:63 Y???Sex:Female Address:[address] [place] [address], [place] [address] * true * Date:? Generated for Delma mendoza/Bertin/eTransmitting on:?12/06/2024 03:47 PM EDT
--- OUTSIDE RECORDS SUMMARY | 2024-12-06 15:48 | XMS_ITS ---
Author Organization Golden Archuleta III, MD Address [address] [facility] [place] [address] Care Team Providers Care Food Taster Name Role Phone Golden Archuleta Primary Care Provider [phone] REASON FOR VISIT Rx Refill Social History Sex Assigned At : Social History Observation Description Sex Assigned At Female Encounters Encounter Location Date Provider Diagnosis Golden Archuleta III, MD [address] [place] [address] [place] [address] 12/05/2024 Golden Archuleta Plan Of Treatment Next Appt Details Provider Name:Golden Archuleta, 12/20/2024 10:30:00 AM, [address] [place] [address] [place], [address], Provider Name:Golden Archuleta, 04/03/2025 03:00:00 PM, [address] [facility] [address], [place], [address], Progress Notes * Deshaun THOMASOB: (63 yo F)Acc No.[id number]:12/05/2024 Patient:?Melva THOMAS :1960???Age:63 Y???Sex:Female Address:[address] [place] [address] [place] [address] * * Date:?
--- OUTSIDE RECORDS SUMMARY | 2024-12-06 15:49 | XMS_ITS | Patient Health Record ---
Author Organization Golden Archuleta III, MD Address [address] [place] [address] Care Team Providers Care Polymer Specialist Name Role Phone Golden Archuleta Primary Care Provider Allergies Allergen (clinical drug ingredient) Drug/Non Drug Allergy documented on EMR Reaction Allergy Type Onset Date Status acetaminophen / oxycodone Percocet nausea Drug Allergy Active Lisinopril cough Drug Allergy Active Results Component Value Reference Range Notes URINE DIP STICK Reviewed date:03/28/2024 03:03:10 PM Interpretation: Performing Lab: Notes/Report: SG 1.010 1.005 - 1.025 pH 6.0 5.0 - 9.0 SIDRA Negative Negative - NIT Negative Negative - PRO 15 Negative - Trace GLU 500 (30) Negative - KET Negative Negative - UBG 0.2 0.1 - 1.8 MAIRI Negative 0.2 - 1.3 BLD 5-10 Negative - Complete Blood Count Auto Di ff Reviewed date:12/15/2023 10:12:47 AM Interpretation: Performing Lab:[facility], [address] [place] [phone] Notes/Report: White Blood Count 7.0 4.8-10.8 X10*3/uL [...] NRBC Abs Auto 0.000 0.0-0.012 X10*3/uL Comprehensive [place]. Panel Fa st Reviewed date:12/15/2023 10:12:47 AM Interpretation: Performing Lab:[facility], [address] [place] [address] Notes/Report: Sodium 141 135-145 mmol/L Potassium 4.4 3.3-5.1 mmol/L Chloride 106 96-108 mmol/L Carbon Dioxide 29 22-29 mmol/L Anion Gap 10 12-20 Blood Urea Nitrogen 13 9-16 mg/dL Creatinine 0.77 0.5-1.4 mg/dL Estimated Glomerular Filt Rate > 60 NOTE: For -Lao individuals, multiply the result by 1.210. Chronic [...] Magnesium Reviewed date:12/15/2023 10:12:47 AM Interpretation: Performing Lab:[facility], [address] [place] [phone] Notes/Report: Magnesium 1.9 1.6-2.6 mg/dL Lipid Panel Reviewed date:12/15/2023 10:12:47 AM Interpretation: Performing Lab:[facility], [address] [place] [phone] Notes/Report: Triglycerides 77 <150 mg/dL Desirable Triglyceride: [...] A1c Reviewed date:12/15/2023 10:12:47 AM Interpretation: Performing Lab:[facility], [address] [place] [address] [place] [address] Notes/Report: Hemoglobin A1c % 7.7 <6.0 % [...] average glucose, using the formula of the K5S-Hwkfxmp Average Glucose study (ADAG), Diabetes Care, Vol.31,#8, Mar. 2007 MM tomosynthesis screening B I Reviewed date:04/10/2024 08:53:37 AM Interpretation: Performing Lab: Notes/Report: [address] [place] [address] Mammography Report Signed Patient: Melva Thomas MR#: [id number] 89 : 1960 Acct:[id number] Age/Sex: 63 / F ADM Date: 01/12/24 Loc: HO.MAMMO Attending Dr: Golden Archuleta MD Ordering Physician: Golden Archuleta MD Results: 1Negativ e Date of Service: 01/12/24 Follow Up: 1 Year From Orig inal Mammogram Procedure(s): MM tomosynthesis screening BI Accession Number(s): [id number] cc: Golden Archuleta MD EXAMINATION: MM SCREENING [...] in OV> 02/12/24 0836 DD/ 1011 TD/TT: Agents' Records Clerk: [place] [facility] [address] [place] [address] Mammography Report Signed Patient: Melva Thomas MR#: [id number] [birth year] : 1960 Acct:[id number] Age/Sex: 63 / F ADM Date: 01/12/24 Loc: BRAD Attending Dr: Golden Archuleta MD Ordering Physician: Golden Archuleta MD Results: 1Negativ e Date of Service: 01/12/24 Follow Up: 1 Year From Orig ina Mammogram Procedure(s): MM tomosynthesis screening BI Accession Number(s): [id number] cc: Golden Archuleta MD EXAMINATION: MM SCREENING [...] in OV> 02/12/24 0836 DD/ 1011 TD/TT: Agents' Records Clerk: MAMMOGRAM DIGITAL BILATERAL SCREEN Reviewed date:03/10/2024 09:40:30 AM Interpretation:undefined Performing Lab: Notes/Report: undefined CT lung screening Reviewed date:04/10/2024 08:53:37 AM Interpretation: Performing Lab: Notes/Report: [address] [address] [address] Scan Report Signed Patient: Melva Thomas MR#: [id number] [birth year] : 1960 Acct:[id number] Age/Sex: 63 / F ADM Date: 02/19/24 Loc: HO.CT Attending Dr: Marisela Plascencia PA-C Ordering Physician: Marisela Plascencia PA-C Date of Service: 02/19/24 Procedure(s): CT lung screening Accession Number(s): [id number] cc: Golden Archuleta MD; Marisela Plascencia PA-C [...] for CT CHEST LOW DOSE CANCER SCREENING ([id number]) can be placed. Dictated By: Robin Sherman MD Signed By: <Electronically signed by Robin Sherman MD in OV> 03/14/24 2313 DD/ 1353 TD/TT: Agents' Records Clerk: [place] [address] CT Scan Report Signed Patient: Melva Thomas MR#: [id number] [birth year] : 1960 Acct:[id number] Age/Sex: 63 / F ADM Date: 02/19/24 Loc: HO.CT Attending Dr: Marisela Plascencia PA-C Ordering Physician: Marisela Plascencia PA-C Date of Service: 02/19/24 Procedure(s): CT ann g screening Accession Number(s): [id number] cc: Golden Archuleta MD; Marisela Plascencia PA-C [...] for CT CHEST LOW DOSE CANCER SCREENING ([id number]) can be placed. Dictated By: Robin Sherman MD Signed By: <Electronically signed by Robin Sherman MD in OV> 03/14/24 2313 DD/ 1353 TD/TT: Agents' Records Clerk: JOSE A Complete Blood Count Auto Di ff Reviewed date:04/18/2024 12:02:00 PM Interpretation: Performing Lab:[facility], [address] [place] [phone] Notes/Report: White Blood Count 6.1 4.8-10.8 X10*3/uL [...] NRBC Abs Auto 0.000 0.0-0.012 X10*3/uL Comprehensive [place]. Panel Fa st Reviewed date:04/18/2024 12:02:00 PM Interpretation: Performing Lab:[facility], [address] [place] [address] Notes/Report: Sodium 140 135-145 mmol/L Potassium 4.4 3.3-5.1 mmol/L Chloride 106 96-108 mmol/L Carbon Dioxide 28 22-29 mmol/L Anion Gap 10 12-20 Blood Urea Nitrogen 16 9-16 mg/dL Creatinine 0.78 0.5-1.4 mg/dL Estimated Glomerular Filt Rate > 60 NOTE: For -Lao individuals, multiply the result by 1.210. Chronic [...] e Reviewed date:04/18/2024 12:02:00 PM Interpretation: Performing Lab:[facility], [address] [place] [phone] Notes/Report: Gamma Glutamyl Transpeptidase 64 7-33 U/L Lipid Panel Reviewed date:04/18/2024 12:02:00 PM Interpretation: Performing Lab:[facility], [address] [place] [address] Notes/Report: Triglycerides 144 <150 mg/dL Desirable Triglyceride: [...] ff Reviewed date:07/18/2024 07:45:21 AM Interpretation: Performing Lab:[facility], [address] [place] [phone] Notes/Report: White Blood Count 7.3 4.8-10.8 X10*3/uL [...] NRBC Abs Auto 0.000 0.0-0.012 X10*3/uL Comprehensive [place]. Panel Fa st Reviewed date:07/18/2024 07:45:21 AM Interpretation: Performing Lab:[facility], [address] [place] [address] Notes/Report: Sodium 140 135-145 mmol/L Potassium 4.5 [...] Magnesium Reviewed date:07/18/2024 07:45:21 AM Interpretation: Performing Lab:[facility], [address] [place] [phone] Notes/Report: Magnesium 1.8 1.6-2.6 mg/dL Lipid Panel Reviewed date:07/18/2024 07:45:21 AM Interpretation: Performing Lab:[address] [address] Notes/Report: Triglycerides 77 <150 mg/dL Desirable Triglyceride: [...] Total Reviewed date:07/18/2024 07:45:21 AM Interpretation: Performing Lab:[address] [phone] Notes/Report: Vitamin D 25-OH Total 40.9 >30 [...] Random Reviewed date:07/18/2024 07:45:21 AM Interpretation: Performing Lab:[facility], [address] [place] [phone] Notes/Report: Creatinine Urine 221.86 Microalbumin Urine 11.0 Microalbum/Creatinine Ratio Ur 4.9 <30 ug/mg cr Albumin/Creatinine Ratio Reference Ranges: Normal: < 30 ug/mg creatinine Microalbuminuria: 30 - 300 ug/mg creatinine Clinical Albuminuria: > 300 ug/mg creatinine Hemoglobin A1c Reviewed date:07/18/2024 07:45:21 AM Interpretation: Performing Lab:[address] [address] Notes/Report: Hemoglobin A1c % 9.2 <6.0 % [...] average glucose, using the formula of the Q3L-Dskhldk Average Glucose study (ADAG), Diabetes Care, Vol.31,#8, Mar. 2007 Complete Blood Count Auto Di ff Reviewed date:09/30/2024 09:26:17 AM Interpretation: Performing Lab:[facility], [address] [place] [phone] Notes/Report: White Blood Count 7.4 4.8-10.8 X10*3/uL [...] Panel Reviewed date:09/30/2024 09:26:17 AM Interpretation: Performing Lab:[facility], [address] [place] [phone] Notes/Report: Sodium 135 135-145 mmol/L Potassium 4.4 [...] A1c Reviewed date:09/30/2024 09:26:17 AM Interpretation: Performing Lab:[facility], [address] [place] [address] Notes/Report: Hemoglobin A1c % 9.2 <6.0 % [...] average glucose, using the formula of the S8L-Gfedkru Average Glucose study (ADAG), Diabetes Care, Vol.31,#8, Mar. 2007 XR chest 2V Reviewed date:10/16/2024 09:13:49 AM Interpretation: Performing Lab: Notes/Report: [address] [address] XRay Report Signed Patient: Melva Thomas MR#: [id number] [birth year] : 1960 Acct:[id number] Age/Sex: 63 / F ADM Date: 10/03/24 Loc: OLU Attending Dr: Golden Archuleta MD Ordering Physician: Golden Archuleta MD Date of Service: 10/03/24 Procedure(s): XR chest 2V Accession Number(s): [id number] cc: Golden Archuleta MD EXAMINATION: XR CHEST [...] by: John Anders MD 10/03/2024 04:[address] [facility] Dictated By: John Anders MD Signed By: <Electronically signed by John Anders MD in OV> 10/03/24 1610 DD/ 1538 TD/TT: 10/03/24 1555 Agents' Records Clerk: [place] [address] XRay Report Signed Patient: Melva Thomas MR#: [id number] [birth year] : 1960 Acct:[id number] Age/Sex: 63 / F ADM Date: 10/03/24 Loc: HO.XRAY Attending Dr: Golden Archuleta MD Ordering Physician: Golden Archuleta MD Date of Service: 10/03/24 Procedure(s): XR jose st 2V Accession Number(s): [id number] cc: Golden Archuleta MD EXAMINATION: XR CHEST [...] by: John Anders MD 10/03/2024 04:[address] [facility] Dictated By: John Anders MD Signed By: <Electronically signed by John Anders MD in OV> 10/03/24 1610 DD/ 1538 TD/TT: 10/03/24 1555 Agents' Records Clerk: Complete Blood Count Auto Di ff Reviewed date:10/24/2024 03:14:45 PM Interpretation: Performing Lab:[facility], [address] [place] [address] Notes/Report: White Blood Count 7.3 4.8-10.8 X10*3/uL [...] Panel Reviewed date:10/24/2024 03:14:45 PM Interpretation: Performing Lab:[facility], [address] [place] [phone] Notes/Report: Sodium 139 135-145 mmol/L Potassium 4.0 [...] e Reviewed date:10/24/2024 03:14:45 PM Interpretation: Performing Lab:[facility], [address] [place] [address] Notes/Report: Gamma Glutamyl Transpeptidase 27 7-33 U/L Hemoglobin A1c Reviewed date:10/24/2024 03:14:45 PM Interpretation: Performing Lab:[facility], [address] [place] [address] Notes/Report: Hemoglobin A1c % 9.1 <6.0 % [...] average glucose, using the formula of the Z8H-Fkoraio Average Glucose study (ADAG), Diabetes Care, Vol.31,#8, 2007 Urinalysis and Microscopic Reviewed date:12/03/2024 04:51:37 AM Interpretation: Performing Lab:[facility], [address] [place] [phone] Notes/Report: Color Urine Yellow Appearance Urine Clear PH 7.5 5.0-9.0 Glucose Urine UA Negative Negative mg/dL Urine Blood Negative Negative Specific Archie - Urine <= 1.005 1.005-1.025 Urine Protein Negative Neg-Trace mg/dL Urine Ketones Negative Negative mg/dL Nitrite Urine Negative Negative Leukocyte Esterase Urine Negative Negative RBC Urine 0-2 0-2 /HPF WBC Urine 0-5 0-5 /HPF Squamous Epithelial Cell Urine 0-2 0-2 /HPF Bacteria Urine None Seen None Seen Hyaline Casts Urine 0-2 0-2 /LPF Reason For Referral Reason sleep apnea evaluate and treatment Diagnosis 1 Former smoker (Z87.8 91) Diagnosis 2 Sleep apnea in adult (G47.30) Referral Organization Golden Archuleta III, MD Referring Provider First Name Golden Referring Provider Last Name Geremias Referring Provider Speciality Internal M edicine Referred Provider [facility] er, Pulmonology Referred Provider Specialty Pulmonary Di [facility] General Notes Liv Gallego CM 04/11/2024 10:38:20 AM EDT > ref/demo/progress note faxed to pulmonary dept at per patient request , Liv Gallego CMA 04/12/2024 11:19:04 AM EDT > Spoke to field secretary at [facility] they are waiting for copy of release from patient so they can get prior sleep study report done at [facility] . After they get sleep study report then patient will be set up for appt , Liv Gallego CMA 04/18/2024 03:05:37 PM EDT > received notice [...] DAYS Orally three times a day Active Oyster Shell Calcium 500 MG 1 tablet with food Orally once a day for 90 days 12/06/2024 12/01/2025 Active [facility] Prep 70 % Use 3 [...] use to check blood sugars Thursday/Thursday/09/09/[address] directed [...] G TOPICALLY 2 TIMES DAILY. External Active FreeStyle Lancets [...] Problem Status W/U Status Risk Notes Problem 6407741 Former smoker (Z87.891) Active confirmed She reports that she has stopped smoking within the last 5 days. She seems motivated to continue abstinence. Problem 675829271 Fibromyalgia (M79.7) Active confirmed This has been stable, but present. She is currently under the pain management at [facility]. Problem DM - Diabetes mellitus (79363466) DM (diabetes mellitus) (E11.9) Active confirmed She will be diligent about checking her blood glucose levels twice a day while she is ill. She will report by telephone on a daily basis she is doing. At this time she is able to eat and drink normally. She will be followed carefully In the office. Problem 922988295 Overweight (E66.3) Active confirmed Her body mass index is 26.9. Her hemoglobin A1c is 9.1. We discussed a weight loss program in great detail today. Problem 48794811 Carpal tunnel syndrome, right upper limb (G56.01) Active confirmed The pain in her wrist is stable and she is not complaining about it at this time. Problem Mononeuropathy of lower limb (529943809) Unspecified mononeuropathy of left lower limb (G57.92) Active confirmed Problem 342222007 Raynaud's syndrome without gangrene (I73.00) Active confirmed This has not been a problem since last year. It was not present today and she reports no difficulty in the recent past. 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 Problem Sciatica (10473493) Lumbago with sciatica, right side (M54.41) Active confirmed She was continued on current medication until she sees a surgeon. Problem Sciatica (46891201) Lumbago with sciatica, left side (M54.42) Active confirmed She has nerve root compression and a surgical solution will be sought. Problem 17287326 Other and unspecified hyperlipidemia (E78.5) Active confirmed The current fasting lipid profile shows a total cholesterol to be well within the target range. No change in treatment is needed. Problem Diabetic neuropathy (160310986) Diabetic neuropathy (E11.40) Active confirmed 10 use and known painful feeling in her legs. Neuropathic pain in her left leg below the knee is worse. She has orthopedic pain in both knees as well but only when kneeling. Problem 472343542 Peripheral arterial disease (I73.9) Active confirmed Her foot was pink and warm, but continued painful. Problem 038832271 Renal cyst (N28.1) Active confirmed The CT scan of the abdomen March 25, 2018 is compatible with multiple renal cysts. No solid mass was seen. There was an cyst in the upper pole of the left kidney with calcifications. Problem 69731089 Subcutaneous nodules (R22.9) Active confirmed These are unchanged and nontender and will be followed. Problem 25006266 Sleep apnea in adult (G47.30) Active confirmed No change in her current regimen was needed today. She denies taking time somnolence.Her pulmonary physician has ordered another sleep study. Problem 799934617 Hepatitis C antibody test positive (R76.8) Active confirmed Her hepatit is has resolved and she is no longer on treatment. Her hepatitis C viral titers most recently were negative. Problem Neuropathic pain (094338084) Neuropathic pain (M79.2) Active confirmed The pain is localized to the left leg below the knee. She finds the best relief from ibuprofen and gabapentin. I have made her aware of the danger of diabetic taking ibuprofen chronically. Her kidney function has remained normal however. Problem 970981653 Achilles tendon avulsion (S86.019A) Active confirmed She will continue under the care of the orthopedist and follow-up with me regularly. Problem 30569920 Coronary artery vasospasm (I20.1) Active confirmed She was continued on current medications and will see a radio antenna installer next week. She is compliant with her nitroglycerin. Problem 623513619 Steatosis, liver (K76.0) Active confirmed Her liver [...] Provider Diagnosis Golden Archuleta III, MD [address] [place] [address] [place] [address] 12/15/2023 Golden Archuleta Other and unspecifie d hyperlipidemia E78.5 ; DM (diabetes mellitus) E11.9 ; Sleep apnea in adult G47.30 ; Neuropathic pain M79.2 ; Former smoker Z87.891 and Peripheral arterial disease I73.9 Golden Archuleta III, MD [address] [place] [address] [place] [address] 01/14/2024 Golden Archuleta DM (diabetes mellitu s) E11.9 ; Lumbago with sciatica, right side M54.41 ; Fibromyalgia M79.7 ; Former smoker Z87.891 and Overweight E66.3 Golden Archuleta III, MD [address] [place] [address] [place] [address] 02/02/2024 Golden Archuleta Other and unspecifie d hyperlipidemia E78.5 ; Overweight E66.3 ; Anxiety F41.9 ; DM (diabetes mellitus) E11.9 and Embolism and thrombosis of unspecified artery I74.9 Golden Archuleta III, MD [address] [place] [address] [place] [address] 03/04/2024 Golden Archuleta Sleep apnea in adult G47.30 ; Other and unspecified hyperlipidemia E78.5 ; Overweight E66.3 ; Carpal tunnel syndrome, right upper limb G56.01 ; Subcutaneous nodules R22.9 ; DM (diabetes mellitus) E11.9 ; Fibromyalgia M79.7 and Former smoker Z87.891 Golden Archuleta III, MD [address] [place] [address] [place] [address] 03/28/2024 Golden Archuleta Other and unspecifie d hyperlipidemia E78.5 ; Overweight E66.3 ; DM (diabetes mellitus) E11.9 ; Neuropathic pain M79.2 and Sleep apnea in adult G47.30 Golden Archuleta III, MD [address] [place] [address] [place] [address] 04/26/2024 Golden Archuleta Other and unspecifie d hyperlipidemia E78.5 ; Overweight E66.3 ; Subcutaneous nodules R22.9 ; Fibromyalgia M79.7 ; Peripheral arterial disease I73.9 ; Former smoker Z87.891 ; Diabetic neuropathy E11.40 ; Sleep apnea in adult G47.30 and Neuropathic pain M79.2 Golden Archuleta III, MD [address] [place] [address] [place] [address] 05/17/2024 Golden Archuleta Acute COVID-19 U07.1 ; Other and unspecified hyperlipidemia E78.5 ; Overweight E66.3 ; Carpal tunnel syndrome, right upper limb G56.01 ; Subcutaneous nodules R22.9 ; Fibromyalgia M79.7 ; Raynaud's syndrome without gangrene I73.00 and Former smoker Z87.891 Golden Archuleta III, MD [address] [place] [address] [place] [address] 05/24/2024 Golden Oswald for immunization Z23 ; Overweight E66.3 ; DM (diabetes mellitus) E11.9 ; Other and unspecified hyperlipidemia E78.5 ; Fibromyalgia M79.7 and Former smoker Z87.891 Golden Archuleta III, MD [address] [place] [address] [place] [address] 06/29/2024 Golden Archuleta Overweight E66.3 ; D M (diabetes mellitus) E11.9 ; Vitamin D deficiency E55.9 ; Diabetic neuropathy E11.40 ; Fibromyalgia M79.7 ; Other and unspecified hyperlipidemia E78.5 ; Tobacco dependence F17.200 ; Former smoker Z87.891 and Sleep apnea in adult G47.30 Golden Archuleta III, MD [address] [place] [address] [place] [address] 07/28/2024 Golden Archuleta Overweight E66.3 ; D M (diabetes mellitus) E11.9 ; Fibromyalgia M79.7 ; Other and unspecified hyperlipidemia E78.5 ; Former smoker Z87.891 ; Subcutaneous nodules R22.9 and Neuropathic pain M79.2 Golden Archuleta III, MD [address] [place] [address] [place] [address] 09/28/2024 Golden Archuleta DM (diabetes mellitu s) E11.9 ; Acute viral syndrome B34.9 ; Overweight E66.3 ; Fibromyalgia M79.7 ; Peripheral arterial disease I73.9 ; Former smoker Z87.891 ; Sleep apnea in adult G47.30 and Neuropathic pain M79.2 Golden Archuleta III, MD [address] [place] [address] [place] [address] 10/04/2024 Golden Archuleta Chronic cough R05 ; Acute viral syndrome B34.9 ; DM (diabetes mellitus) E11.9 ; Bronchitis J40 ; Other and unspecified hyperlipidemia E78.5 ; Overweight E66.3 ; Fibromyalgia M79.7 and Former smoker Z87.891 Golden Archuleta III, MD [address] [place] [address] [place] [address] 10/07/2024 Golden Archuleta DM (diabetes mellitu s) E11.9 ; Neuropathic pain M79.2 ; Steatosis, liver K76.0 ; Overweight E66.3 ; Fibromyalgia M79.7 ; Other and unspecified hyperlipidemia E78.5 and Former smoker Z87.891 Golden Archuleta III, MD [address] [place] [address] [place] [address] 10/25/2024 Golden Archuleta DM (diabetes mellitu s) E11.9 ; Overweight E66.3 ; Other and unspecified hyperlipidemia E78.5 ; Subcutaneous nodules R22.9 ; Carpal tunnel syndrome, right upper limb G56.01 ; Fibromyalgia M79.7 ; Former smoker Z87.891 ; Neuropathic pain M79.2 and Sleep apnea in adult G47.30 Golden Archuleta III, MD [address] [place] [address] [place] [address] 11/03/2024 Golden Archuleta DM (diabetes mellitu s) E11.9 ; Overweight E66.3 ; Fibromyalgia M79.7 ; Other and unspecified hyperlipidemia E78.5 ; Peripheral arterial disease I73.9 ; Subcutaneous nodules R22.9 ; Sleep apnea in adult G47.30 and Former smoker Z87.891 Golden Archuleta III, MD [address] [place] [address] [place] [address] 12/05/2024 Golden Archuleta III, MD [address] [place] [address] [place] [address] 01/15/2024 Golden Archuleta III, MD [address] [place] [address] [place] [address] 02/02/2024 Golden Archuleta III, MD [address] [place] [address] [place] [address] 05/10/2024 Golden Archuleta III, MD [address] [place] [address] [place] [address] 05/11/2024 Golden Archuleta III, MD [address] [place] [address] [place] [address] 05/12/2024 Golden Archuleta III, MD [address] [place] [address] [place] [address] 05/13/2024 Golden Archuleta III, MD [address] [place] [address] [place] [address] 07/12/2024 Golden Archuleta III, MD [address] [place] [address] [place] [address] 08/01/2024 Golden Archuleta III, MD [address] [place] [address] [place] [address] 08/05/2024 Golden Archuleta III, MD [address] [place] [address] [place] [address] 08/29/2024 Golden Archuleta III, MD [address] [facility] [place] [address] 09/19/2024 Golden Archuleta III, MD [address] [place] [address] [place] [address] 09/29/2024 Golden Archuleta III, MD [address] [place] [address] [place] [address] 09/29/2024 Golden Archuleta III, MD [address] [place] [address] [place] [address] 10/03/2024 Golden Archuleta Acute cough R05.1 Golden Archuleta III, MD [address] [place] [address] [place] [address] 10/03/2024 Golden Archuleta III, MD [address] [place] [address] [place] [address] 10/03/2024 Golden Archuleta III, MD [address] [place] [address] [place] [address] 10/04/2024 Golden Archuleta III, MD [address] [place] [address] [place] [address] 10/05/2024 Golden Archuleta III, MD [address] [place] [address] [place] [address] 10/17/2024 Golden Archuleta III, MD [address] [place] [address] [place] [address] 10/31/2024 Golden Archuleta III, MD [address] [place] [address] [place] [address] 11/07/2024 Golden Archuleta III, MD [address] [place] [address] [place] [address] 12/06/2024 Golden Archuleta Assessments Encounter Date Diagnosis (ICD Code) Assessment Notes Treat ment Notes Treatment Clinical Notes 12/15/2023 DM (diabetes mellitus) (ICD-10 - E11.9) [...] today. 10/03/2024 Acute cough (ICD-10 - R05.1) 12/15/2023 Sleep apnea in adult (ICD-10 - G47.30) She has used his CPAP for several nights and found it unhelpful, but uncomfortable. She does not wish to use it and has returned to the distributor. 01/14/2024 Fibromyalgia (ICD-10 - M79.7) This has been stable, but present. She is currently under the pain management at [facility]. 02/02/2024 Anxiety (ICD-10 - F41.9) She continues [...] is currently under the pain management at [facility]. 09/28/2024 Overweight (ICD-10 - E66.3) Her weight [...] is currently under the pain management at [facility]. 12/15/2023 Neuropathic pain (ICD-10 - M79.2) She [...] is currently under the pain management at [facility]. 05/17/2024 Carpal tunnel syndrome, right upper limb [...] is currently under the pain management at [facility]. 10/04/2024 Bronchitis (ICD-10 - J40) CT scan [...] range. No change in treatment is needed. 12/15/2023 Former smoker (ICD-10 - Z87.891) She [...] is currently under the pain management at [facility]. 06/29/2024 Fibromyalgia (ICD-10 - M79.7) This has been stable, but present. She is currently under the pain management at [facility]. 07/28/2024 Former smoker (ICD-10 - Z87.891) She [...] is currently under the pain management at [facility]. 10/25/2024 Carpal tunnel syndrome, right upper limb [...] is currently under the pain management at [facility]. 05/24/2024 Former smoker (ICD-10 - Z87.891) She [...] is currently under the pain management at [facility]. 11/03/2024 Subcutaneous nodules (ICD-10 - R22.9) These are unchanged and nontender and will be followed. 03/04/2024 Fibromyalgia (ICD-10 - M79.7) This has been stable, but present. She is currently under the pain management at [facility]. 04/26/2024 Diabetic neuropathy (ICD-10 - E11.40) She [...] is currently under the pain management at [facility]. 10/07/2024 Former smoker (ICD-10 - Z87.891) She [...] pulmonary physician has ordered another sleep study. 03/04/2024 Former smoker (ICD-10 - Z87.891) She [...] needed today. She denies taking time somnolence. Plan Of Treatment Pending Test Test Name [...] 11/14/2020 MICROALBUMIN, RANDOM 08/26/2019 CBC w DIFF 10/07/2024 CBC w DIFF 08/26/2019 CBC w DIFF 01/28/2022 CBC w DIFF [...] Provider Name:Golden Archuleta, 12/20/2024 10:30:00 AM, [address] [place] [address] [address], [place], [address], Provider Name:Golden Archuleta, 04/03/2025 03:00:00 PM, [address] [place] [address] [address], [place], [id number], Insurance Providers Payer Name Payer Address Payer Phone Subscriber Number Group Number Insured Name Patient Relationship to Insured Coverage Start Date Coverage End Date MEDICARE NGS [address] [place] [address] [id number] Melva Thomas Self - patient is the insured MEDICAID [place] [address] [place] [id number] Melva Thomas Self - patient is the insured Medical (General) History Medical History History ICD Code atypical chest pain left fifth hammer toe 2008 hematochezia AODM carpal tunnel syndrome hemorrhoids right sciatica 2013 lisinopril-induced cough and fibromyalgia lisinopril-induced cough {'Diabetes': [...]
--- OUTSIDE RECORDS SUMMARY | 2024-12-06 15:49 | XMS_ITS | Clinical Summary ---
Author Organization [address] [facility] Address [address] [place] [address] Phone Care Team Providers Care Hog Room Supervisor Name Role Phone Golden Archuleta MD Primary Care Provider [phone] Allergies Active Allergy Reactions Criticality Noted Date [...] (LIDODERM) 5 % patchIndications:D iabetic mononeuropathy simplex ([facility] V24, [facility] V28) Apply 1 patch topically 1 (one) time each day. Remove & discard patch within 12 hours or as directed by MD. 90 each 09/15/19 25 025 Active diclofenac (Voltaren Arthritis Pain) 1 % topical gel Apply 4 g topically 2 (two) times a day. 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 T2DM (type 2 diabetes mellitus) ([facility] V24, [facility] V28) 10/16/2021 Encounters Date Type Department Care Team Description 09/15/2024 10:00 AM EST Office Visit Orthopedic Surgery - [address] [address] Erich Harrison, DPM Diabetic mononeuropathy simplex ([facility] V24, [facility] V28) (Primary Dx); Type II diabetes mellitus with peripheral circulatory disorder ([facility] V24, [facility] V28); Metatarsalgia of both feet; Corns and callosities; Pain in toe of left foot; Pain in toe of right foot; Dermatophytosis of nail from Last 3 Months Surgical History Surgery Date Site/Laterality Comments OTHER SURGICAL HISTORY PROCEDURE: DENIES PREVIOUS SURGERY FOOT SURGERY PROCEDURE: [place] UNLISTED PROCEDURE FOOT/TOES Medical History Medical History Date Comments Atypical chest pain DX:Atypical chest pain Hammer toe DX:Hammer toe Carpal tunnel syndrome DX:Carpal tunnel syndrome Sciatica DX:Sciatica Fibromyalgia DX:Fibromyalgia Diabetes (CMS/HCC V24, CMS/HCC V28) DX:Diabetes (HCC) Family History Medical History Relation Name Comments [...] AM EDT Office Visit Orthopedic Surgery - [place] [address] [id number] Erich Harrison, DPM [address] [address] Health Maintenance Due Date Last Done Comments Breast Cancer Screening 1960 Diabetes: Annual Foot Exam 1970 Diabetes: Annual Retina Eye Exam 1970 DTaP,Tdap,and Td Vaccines (1 - Tdap) 12/14/1979 Cervical Cancer Screening: Pap Smear 1981 RSV Immunization Adult Patients (1 - Risk 60-74 years 1-dose series) [...] Hepatitis A Vaccines Aged Out 09/20/2018, 03/17/20 No longer eligible based on patient's age [...] age to complete this topic Meningococcal B Vaccine Aged Out No l onger eligible based on patient's age to complete this topic RSV Immunization Patients Under 20 months Aged Out No longer eligible based on patient's age to complete this topic Varicella Vaccines Aged Out No longer eligible based on patient's age to complete this topic Insurance MEDICARE [place] - [place] Care Teams Hog Room Supervisor Relationship Specialty Start Date End Date Golden Archuleta MD [address] [address] PCP - General 10/04/07
== END 2024-12-06 14:19 | disposition home or self-care (01) ==
LOC: HO.HWS 12:58
PROVIDERS: PCP Internal Medicine Medical Oncology; Visit Provider Advanced Practice Midwife
DX: Z01.419 Encounter for gynecological examination (general) (routine) without abnormal findings (principal)
CPT/HCPCS: G0101

== ENCOUNTER → 2024-12-06 12:58 | Outpatient (BNVA) | payer MEDICARE, MEDICAID, SELFPAY | PROVIDERS: PCP Internal Medicine Medical Oncology; Visit Provider Advanced Practice Midwife | DX: Z01.419 Encounter for gynecological examination (general) (routine) without abnormal findings (principal) | CPT/HCPCS: G0101 ==

== ENCOUNTER 2024-12-19 16:22 | Outpatient (REF) | payer MEDICARE, MEDICAID, SELFPAY ==
[2024-12-19 16:38] LABS: MANUAL DIFF FLAG NO
[2024-12-19 17:13] LABS: Basophils Absolute Auto 0.1 X10*3/uL (0.0-0.2); Basophils Percent Auto 1.1 % (0-2); Eosinophils Absolute Auto 0.4 X10*3/uL (0.0-0.4); Eosinophils Percent Auto 5.2 % (0-4); Hematocrit 37.4 % (37.0-47.0); Hemoglobin 12.7 g/dl (12.0-16.0); Imm Gran Abs Auto 0.01 X10*3/uL (0.00-0.03); Imm Gran Pct Auto 0.1 % (0.0-0.4); Lymphocytes Absolute Auto 2.7 X10*3/uL (1.2-4.9); Lymphocytes Percent Auto 37.5 % (20-40); Mean Corpuscular Hemoglobin 30.6 pg (27.0-33.0); Mean Corpuscular Volume 90.1 fL (80.0-98.0); Mean Platelet Volume 11.1 fL (9.4-12.3); Monocytes Absolute Auto 0.5 X10*3/uL (0.1-1.2); Monocytes Percent Auto 6.5 % (2-11); Neutrophils Absolute Auto 3.6 x10*3/uL (2.0-8.3); Neutrophils Percent Auto 49.6 % (45-73); Platelet Count 237 X10*3/uL (160-400); Red Blood Count 4.15 X10*6/uL (4.20-5.50); White Blood Count 7.2 X10*3/uL (4.8-10.8)
[2024-12-19 17:17] LABS: Estimated Average Glucose 194 mg/dL; Hemoglobin A1C 227.3795 umol/L; Hemoglobin A1c % 8.4 % (<6.0); Total Hemoglobin (HGBA1C) 3351.6455 umol/L
[2024-12-19 18:17] LABS: Erythrocyte Sedimentation Rate 23 MM/HR (0-20)
[2024-12-19 18:27] LABS: Alanine Aminotransferase 18 U/L (0-31); Albumin Level 4.1 g/dL (3.5-5.0); Alkaline Phosphatase 88 U/L (39-117); Anion Gap 14 (12-20); Aspartate Amino Transferase 19 U/L (5-31); Bilirubin Total 0.4 mg/dL (0.0-1.0); Blood Urea Nitrogen 15 mg/dL (9-16); C Reactive Protein < 0.10 mg/dL (< or = 0.50); Calcium 9.5 mg/dL (8.4-10.2); Carbon Dioxide 25 mmol/L (22-29); Chloride 104 mmol/L (96-108); Estimated Glomerular Filt Rate > 60; Glucose Random 176 mg/dL (60-115); Sodium 139 mmol/L (135-145); Total Protein 7.1 g/dL (6.5-8.0)
--- OUTSIDE RECORDS SUMMARY | 2024-12-19 19:00 | XMS_ITS | Clinical Summary ---
Author Organization 175 [facility] Address [address] [place] [address] Phone Care Team Providers Care Slope Tender Name Role Phone Golden Archuleta MD Primary Care Provider [phone] Allergies Active Allergy Reactions Criticality Noted Date [...] (LIDODERM) 5 % patchIndications:D iabetic mononeuropathy simplex ([facility] V24, [facility] V28) Apply 1 patch topically 1 (one) time each day. Remove & discard patch within 12 hours or as directed by . 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 T2DM (type 2 diabetes mellitus) ([facility] V24, [facility] V28) 10/16/2021 Surgical History Surgery Date Site/Laterality Comments OTHER SURGICAL HISTORY PROCEDURE: DENIES PREVIOUS SURGERY FOOT SURGERY PROCEDURE: [place] UNLISTED PROCEDURE FOOT/TOES Medical History Medical History Date Comments Atypical chest pain DX:Atypical chest pain Hammer toe DX:Hammer toe Carpal tunnel syndrome DX:Carpal tunnel syndrome Sciatica DX:Sciatica Fibromyalgia DX:Fibromyalgia Diabetes ([facility] V24, [facility] V28) DX:Diabetes ([facility]) Family History Medical History Relation Name Comments [...] Care Team (Late st Contact Info) Description 01/25/2025 1:15 PM EDT Office Visit Orthopedic Surgery - [place] [address] [phone] Erich Harrison, DAYA [address] [address] Health Maintenance Due Date Last Done Comments [...] Insurance MEDICARE [place] - [place] Care Teams Slope Tender Relationship Specialty Start Date End Date Golden Archuleta MD [address] [address] PCP - General 10/04/07
--- OUTSIDE RECORDS SUMMARY | 2024-12-19 19:00 | XMS_ITS | Referral Summary ---
Author Organization [facility] Address [address] [place] [address] Care Team Providers Care Medical Reimbursement Specialist Name Role Phone Golden Archuleta Primary Care Provider [phone] Allergies Active Allergy Reactions Criticality Noted Date [...] (05/02/2021): Added automatically from request for surgery [id number] Chronic foot pain, left 05/02/2021 Overview (05/02/2021): Added automatically from request for surgery [id number] Peripheral neuralgia 05/02/2021 Overview (05/02/2021): Added automatically from request for surgery [id number] Blue toe syndrome of left lower extremity [...] needed for pain control in addition to ltdbtr-qxv-juhne ibuprofen. I will refer the patient to hematology for possible hypercoagulable work-up. I plan to review the patient's CT angio from [facility] at her next in-person clinic visit [...] patient's presentation and CT angio report from [facility] I am concerned for embolic disease resulting in blue toe syndrome that may be causing some ischemic pain in the patient's left foot. However the patient does not want to be started on any anticoagulation without a clear diagnosis for an embolic disease. I did review the CT report that she showed me from [facility] demonstrating a question of thrombus in her left popliteal artery however I am unable to give further information since I do not have access to the images. The patient reports that she will try to obtain the CT images from [facility] for me to review. In the [...] [place] [id number] MEDICARE [facility] Care Teams Medical Reimbursement Specialist Relationship Specialty Start Date End Date Golden Archuleta [address] [place] [address] [place] [address] PCP - General Hematology 03/14/21
--- OUTSIDE RECORDS SUMMARY | 2024-12-19 19:00 | XMS_ITS | Clinical Summary ---
Author Organization [facility] Address [address] [place] [address] Care Team Providers Care Grinder Carbon Plant Name Role Phone Golden Archuleta Primary Care Provider [phone] Allergies Active Allergy Reactions Criticality Noted Date [...] (05/02/2021): Added automatically from request for surgery [id number] Chronic foot pain, left 05/02/2021 Overview (05/02/2021): Added automatically from request for surgery [id number] Peripheral neuralgia 05/02/2021 Overview (05/02/2021): Added automatically from request for surgery [id number] Blue toe syndrome of left lower extremity [...] needed for pain control in addition to mgfonb-iqw-cwpud ibuprofen. I will refer the patient to hematology for possible hypercoagulable work-up. I plan to review the patient's CT angio from [facility] at her next in-person clinic visit [...] patient's presentation and CT angio report from [facility] I am concerned for embolic disease resulting in blue toe syndrome that may be causing some ischemic pain in the patient's left foot. However the patient does not want to be started on any anticoagulation without a clear diagnosis for an embolic disease. I did review the CT report that she showed me from [facility] demonstrating a question of thrombus in her left popliteal artery however I am unable to give further information since I do not have access to the images. The patient reports that she will try to obtain the CT images from [facility] for me to review. In the [...] age to complete this topic Insurance MEDICARE [facility] Care Teams Grinder Carbon Plant Relationship Specialty Start Date End Date Golden Archuleta [address] [place] [phone] PCP - General Hematology 03/14/21
[2024-12-22 10:59] LABS: Complement C3 139 mg/dL (83-193)
[2024-12-23 11:24] LABS: Anti DNA DS Antibody <1 IU/mL
== END 2024-12-19 16:23 | disposition home or self-care (01) ==
LOC: HO.LAB 16:22
PROVIDERS: Absent Provider Internal Medicine Rheumatology; PCP Internal Medicine Medical Oncology; Visit Provider Internal Medicine Medical Oncology
DX: Z79.899 Other long term (current) drug therapy (principal); M19.90 Unspecified osteoarthritis, unspecified site; R76.8 Other specified abnormal immunological findings in serum; E11.9 Type 2 diabetes mellitus without complications; E66.3 Overweight
CPT/HCPCS: 36415; 80053; 83036; 85025; 85652; 86140; 86160; 86225

== ENCOUNTER → 2024-12-22 16:05 | Outpatient (REF) | payer MEDICARE, MEDICAID, SELFPAY ==
--- OUTSIDE RECORDS SUMMARY | 2024-12-22 17:28 | XMS_ITS | Clinical Summary ---
Author Organization [facility] Address [address] [place] [address] Care Team Providers Care Beam Department Supervisor Name Role Phone Golden Archuleta Primary Care Provider [phone] Allergies Active Allergy Reactions Criticality Noted Date [...] (05/02/2021): Added automatically from request for surgery [id number] Chronic foot pain, left 05/02/2021 Overview (05/02/2021): Added automatically from request for surgery [id number] Peripheral neuralgia 05/02/2021 Overview (05/02/2021): Added automatically from request for surgery [id number] Blue toe syndrome of left lower extremity [...] needed for pain control in addition to qpxwun-uwa-vigdg ibuprofen. I will refer the patient to hematology for possible hypercoagulable work-up. I plan to review the patient's CT angio from [facility] at her next in-person clinic visit [...] patient's presentation and CT angio report from [facility] I am concerned for embolic disease resulting in blue toe syndrome that may be causing some ischemic pain in the patient's left foot. However the patient does not want to be started on any anticoagulation without a clear diagnosis for an embolic disease. I did review the CT report that she showed me from [facility] demonstrating a question of thrombus in her left popliteal artery however I am unable to give further information since I do not have access to the images. The patient reports that she will try to obtain the CT images from [facility] for me to review. In the [...] age to complete this topic Insurance MEDICARE [facility] Care Teams Beam Department Supervisor Relationship Specialty Start Date End Date Golden Archuleta [address] [place] [id number] PCP - General Hematology 03/14/21
--- OUTSIDE RECORDS SUMMARY | 2024-12-22 17:28 | XMS_ITS | Referral Summary ---
Author Organization [facility] Address [address] [place] [address] Care Team Providers Care Courtesy Booth Cashier Name Role Phone Golden Archuleta Primary Care Provider [phone] Allergies Active Allergy Reactions Criticality Noted Date [...] (05/02/2021): Added automatically from request for surgery [id number] Chronic foot pain, left 05/02/2021 Overview (05/02/2021): Added automatically from request for surgery [id number] Peripheral neuralgia 05/02/2021 Overview (05/02/2021): Added automatically from request for surgery [id number] Blue toe syndrome of left lower extremity 2020 Assessment & Plan (01/24/2021 8:27 PM EDT): Ms. Frey continues to be symptomatic despite imaging evidence [...] needed for pain control in addition to gkhtto-bht-swmdv ibuprofen. I will refer the patient to hematology for possible hypercoagulable work-up. I plan to review the patient's CT angio from [facility] at her next in-person clinic visit [...] presentation and CT angio report from [facility] I am concerned for embolic disease resulting in blue toe syndrome that may be causing some ischemic pain in the patient's left foot. However the patient does not want to be started on any anticoagulation without a clear diagnosis for an embolic disease. I did review the CT report that she showed me from [facility] demonstrating a question of thrombus in her left popliteal artery however I am unable to give further information since I do not have access to the images. The patient reports that she will try to obtain the CT images from [facility] for me to review. In the [...] [place] [id number] MEDICARE [facility] Care Teams Courtesy Booth Cashier Relationship Specialty Start Date End Date Golden Archuleta [address] [place] [address] [place] [address] PCP - General Hematology 03/14/21
--- OUTSIDE RECORDS SUMMARY | 2024-12-22 17:29 | XMS_ITS | Clinical Summary ---
Author Organization 175 [facility] Address [address] [place] [address] Phone Care Team Providers Care Forging Die Finisher Name Role Phone Golden Archuleta MD Primary Care Provider [phone] Allergies Active Allergy Reactions Criticality Noted Date [...] (LIDODERM) 5 % patchIndications:D iabetic mononeuropathy simplex ([facility] V24, [facility] V28) Apply 1 patch topically 1 (one) time each day. Remove & discard patch within 12 hours or as directed by . 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 T2DM (type 2 diabetes mellitus) ([facility] V24, [facility] V28) 10/16/2021 Surgical History Surgery Date Site/Laterality Comments OTHER SURGICAL HISTORY PROCEDURE: DENIES PREVIOUS SURGERY FOOT SURGERY PROCEDURE: [place] UNLISTED PROCEDURE FOOT/TOES Medical History Medical History Date Comments Atypical chest pain DX:Atypical chest pain Hammer toe DX:Hammer toe Carpal tunnel syndrome DX:Carpal tunnel syndrome Sciatica DX:Sciatica Fibromyalgia DX:Fibromyalgia Diabetes ([facility] V24, [facility] V28) DX:Diabetes ([facility]) Family History Medical History Relation Name Comments [...] PM EDT Office Visit Orthopedic Surgery - [place] [address] [address] Erich Harrison, DAYA [address] [address] Health Maintenance Due Date Last Done Comments [...] Insurance MEDICARE [place] - [place] Care Teams Forging Die Finisher Relationship Specialty Start Date End Date Golden Archuleta MD [address] [address] PCP - General 10/04/07
== END ==
LOC: HO.SL 16:05
PROVIDERS: PCP Internal Medicine Medical Oncology; Visit Provider Internal Medicine Pulmonary Disease
DX: G47.33 Obstructive sleep apnea (adult) (pediatric) (principal)
CPT/HCPCS: 95806

== ENCOUNTER → 2024-12-22 16:10 | Outpatient (BNV) | payer MEDICARE, MEDICAID, SELFPAY | PROVIDERS: PCP Internal Medicine Medical Oncology; Visit Provider Internal Medicine | DX: G47.33 Obstructive sleep apnea (adult) (pediatric) (principal) | CPT/HCPCS: 95806 ==

== ENCOUNTER 2025-02-09 10:41 | Outpatient (REF) | payer MEDICARE, MEDICAID, SELFPAY ==
--- NOTE | ~2025-02-09 | MM_ITS ---
EXAMINATION: MM SCREENING DIGITAL BREAST TOMOSYNTHESIS, BILATERAL CLINICAL INFORMATION: Screening. Asymptomatic. COMPARISON: Mammography: Comparison is made with available priors TECHNIQUE: Digital breast mammography with tomosynthesis is performed in both the craniocaudal and mediolateral oblique views along with computer-aided detection (CAD). FINDINGS: The breasts are heterogeneously dense, which may obscure small masses (ACR BI-RADS breast composition Category c). Bilateral scattered asymmetries are stable. There are no significant masses, abnormal calcifications, or other abnormalities. MM/MM tomosynthesis screening BI IMPRESSION: No mammographic evidence of malignancy. ASSESSMENT: BI-RADS BI-RADS 2 - Benign Findings RECOMMENDATION: Routine annual mammography screening. 1 year F/U This examination should not preclude the clinical evaluation of a suspicious palpable abnormality. This patient's information was entered into a reminder system with a target due date for their next mammogram. Electronically signed by: Dorothy Ruth DO 02/14/2025 02:45 PM EDT
--- OUTSIDE RECORDS SUMMARY | 2025-02-09 12:08 | XMS_ITS | Clinical Summary ---
Author Organization [facility] Address [address] [place] [address] Care Team Providers Care Etl Database Developer Name Role Phone Golden Archuleta Primary Care Provider [phone] Allergies Active Allergy Reactions Criticality Noted Date [...] (05/02/2021): Added automatically from request for surgery [id number] Chronic foot pain, left 05/02/2021 Overview (05/02/2021): Added automatically from request for surgery [id number] Peripheral neuralgia 05/02/2021 Overview (05/02/2021): Added automatically from request for surgery [id number] Blue toe syndrome of left lower extremity [...] needed for pain control in addition to uklncz-bei-drzep ibuprofen. I will refer the patient to hematology for possible hypercoagulable work-up. I plan to review the patient's CT angio from [facility] at her next in-person clinic visit [...] patient's presentation and CT angio report from [facility] I am concerned for embolic disease resulting in blue toe syndrome that may be causing some ischemic pain in the patient's left foot. However the patient does not want to be started on any anticoagulation without a clear diagnosis for an embolic disease. I did review the CT report that she showed me from [facility] demonstrating a question of thrombus in her left popliteal artery however I am unable to give further information since I do not have access to the images. The patient reports that she will try to obtain the CT images from [facility] for me to review. In the [...] 65 09/09/2022 3:34 PM EST Temperature 35.8 C (96.4 F) 09/09/2022 3:20 PM EST Respiratory Rate 16 03/07/2021 4:28 PM EDT [...] age to complete this topic Insurance MEDICARE [facility] Care Teams Etl Database Developer Relationship Specialty Start Date End Date Golden Archuleta [address] [place] [address] [place] [address] PCP - General Hematology 03/14/21
== END 2025-02-09 10:42 | disposition home or self-care (01) ==
LOC: HO.MAMMO 10:41
PROVIDERS: PCP Internal Medicine Medical Oncology; Visit Provider Internal Medicine Medical Oncology
DX: Z12.31 Encounter for screening mammogram for malignant neoplasm of breast (principal)
CPT/HCPCS: 77063; 77067

== ENCOUNTER → 2025-02-09 10:45 | Outpatient (BNV) | payer MEDICARE, MEDICAID, SELFPAY | PROVIDERS: PCP Internal Medicine Medical Oncology; Visit Provider Internal Medicine | DX: Z12.31 Encounter for screening mammogram for malignant neoplasm of breast (principal) | CPT/HCPCS: 77063; 77067 ==

== ENCOUNTER 2025-02-10 11:01 | Outpatient (REF) | payer MEDICARE, MEDICAID, SELFPAY ==
[2025-02-10 11:11] LABS: MANUAL DIFF FLAG NO
--- OUTSIDE RECORDS SUMMARY | 2025-02-10 11:26 | XMS_ITS | Clinical Summary ---
Author Organization [facility] Address [address] [place] [address] Care Team Providers Care Study Hall Supervisor Name Role Phone Golden Archuleta Primary Care Provider [phone] Allergies Active Allergy Reactions Criticality Noted Date [...] (05/02/2021): Added automatically from request for surgery [id number] Chronic foot pain, left 05/02/2021 Overview (05/02/2021): Added automatically from request for surgery [id number] Peripheral neuralgia 05/02/2021 Overview (05/02/2021): Added automatically from request for surgery [id number] Blue toe syndrome of left lower extremity [...] needed for pain control in addition to [id number] ibuprofen. I will refer the patient to hematology for possible hypercoagulable work-up. I plan to review the patient's CT angio from [facility] at her next in-person clinic visit [...] patient's presentation and CT angio report from [facility] I am concerned for embolic disease resulting in blue toe syndrome that may be causing some ischemic pain in the patient's left foot. However the patient does not want to be started on any anticoagulation without a clear diagnosis for an embolic disease. I did review the CT report that she showed me from [facility] demonstrating a question of thrombus in her left popliteal artery however I am unable to give further information since I do not have access to the images. The patient reports that she will try to obtain the CT images from [facility] for me to review. In the [...] age to complete this topic Insurance MEDICARE [facility] Care Teams Study Hall Supervisor Relationship Specialty Start Date End Date Golden Archuleta [address] [place] [address] [place] [id number] PCP - General Hematology 03/14/21
[2025-02-10 12:25] LABS: Basophils Absolute Auto 0.1 X10*3/uL (0.0-0.2); Eosinophils Absolute Auto 0.3 X10*3/uL (0.0-0.4); Eosinophils Percent Auto 4.7 % (0-4); Hematocrit 40.5 % (37.0-47.0); Hemoglobin 13.9 g/dl (12.0-16.0); Imm Gran Abs Auto 0.03 X10*3/uL (0.00-0.03); Imm Gran Pct Auto 0.4 % (0.0-0.4); Lymphocytes Absolute Auto 2.4 X10*3/uL (1.2-4.9); Lymphocytes Percent Auto 34.8 % (20-40); Mean Corpuscular HGB Conc 34.3 g/dl (31.0-35.0); Mean Corpuscular Hemoglobin 30.7 pg (27.0-33.0); Mean Corpuscular Volume 89.4 fL (80.0-98.0); Monocytes Absolute Auto 0.5 X10*3/uL (0.1-1.2); Monocytes Percent Auto 7.4 % (2-11); Neutrophils Absolute Auto 3.5 x10*3/uL (2.0-8.3); Neutrophils Percent Auto 51.7 % (45-73); Platelet Count 246 X10*3/uL (160-400); Red Blood Count 4.53 X10*6/uL (4.20-5.50); Red Cell Distribution Width 11.8 % (11.0-16.0); White Blood Count 6.8 X10*3/uL (4.8-10.8)
[2025-02-10 12:45] LABS: Estimated Average Glucose 200 mg/dL; Hemoglobin A1c % 8.6 % (<6.0)
[2025-02-10 12:56] LABS: Alanine Aminotransferase 29 U/L (0-31); Albumin Level 4.1 g/dL (3.5-5.0); Alkaline Phosphatase 76 U/L (39-117); Anion Gap 10 (12-20); Aspartate Amino Transferase 16 U/L (5-31); Bilirubin Total 0.6 mg/dL (0.0-1.0); Blood Urea Nitrogen 9 mg/dL (9-16); Calcium 9.3 mg/dL (8.4-10.2); Carbon Dioxide 28 mmol/L (22-29); Chloride 105 mmol/L (96-108); Cholesterol 132 mg/dL (<200); Estimated Glomerular Filt Rate > 60; Glucose Fasting 222 mg/dL (60-99); HDL Cholesterol 39 mg/dL (>40); LDL Cholesterol Calculated 74 mg/dL (<100); Potassium 4.3 mmol/L (3.3-5.1); Sodium 139 mmol/L (135-145); Triglycerides 96 mg/dL (<150); Uric Acid 4.5 mg/dL (2.4-5.7)
== END 2025-02-10 11:02 | disposition home or self-care (01) ==
LOC: HO.LAB 11:01
PROVIDERS: PCP Internal Medicine Medical Oncology; Visit Provider Internal Medicine Medical Oncology
DX: M10.9 Gout, unspecified (principal); E11.9 Type 2 diabetes mellitus without complications; E66.3 Overweight
CPT/HCPCS: 36415; 80053; 80061; 83036; 84550; 85025

== ENCOUNTER 2025-02-13 12:52 | Outpatient (AMB) | payer MEDICARE, MEDICAID, SELFPAY ==
[2025-02-13 12:55] VITALS: BP 118/62; PULSE 69; O2SAT 98; BMI 26.2
--- NOTE | 2025-02-13 12:55 | MHC.OFFVIS ---
Vital Signs 02/13/25 12:55 Height 5 ft 3 in Weight 148 lb BMI 26.2 BP 118/62 Blood Pressure Location Lt brachial Position Sitting Pulse 69 Pulse Source Pulse Oximeter Pulse Oximetry (%) 98 Oxygen Delivery Method Room Air Intake Visit Reasons: tammy Allergies lisinopril Allergy (Mild, Verified 02/13/25 13:00) coughing hydromorphone (From Dilaudid) Adverse Reaction (Intermediate, Verified 02/13/25 13:00) Vomiting Percocet Adverse Reaction (Severe, Uncoded 11/22/24 12:52) Vomiting HPI HPI tammy: Details: 64-year-old lady, former 25+ pack-year smoker, quit 2018 with underlying emphysema and moderate obstructive sleep apnea here for follow-up. Patient states that she is not interested in using CPAP machine secondary to inability to comply with requirements, she is interested in trying jaw advancement device. She denies any recent exacerbations. [facility] Medical History TAMMY (obstructive sleep apnea) Coronary vasospasm Personal history of nicotine dependence Tubular adenoma of colon (~2020) Anxiety History of fibromyalgia NIDDY (non-insulin dependent diabetes mellitus in young) Chronic hepatitis C Surgical History History of foot surgery History of endoscopy History of colonoscopy History of endometrial ablation History of cholecystectomy Family History Father HTN (hypertension) Lung cancer Mother Asthma Thyroid disease Cardiac arrest Family/Other Breast cancer Social History Household Members: Other Housing: Condominium Do you presently have visiting nurse or other home services: No Alcohol intake: current Alcohol intake frequency: does not drink Patient Tobacco Use Status: Former Tobacco user Tobacco use type: Cigarette Years Smoked: (onset 9yo, 1/2ppd x 50yrs, 25pyh - quit 04/2020) Advance Directives Date on File: 04/09/21 Current occupational status: employed 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 Sexual orientation: Straight/Heterosexual Gender identity: Female Review of Systems Const Reports daytime sleepiness, Denies excessive sweating, Denies fatigue, Denies fever(s), Reports lethargy, Reports malaise, Denies night sweats, Denies snoring and Denies weight loss Eyes Denies blurry vision and Denies itchy eyes ENT Denies nasal congestion, Denies post nasal drip, Denies sinus pain, Denies sinus pressure and Denies other ( Thrush) Card Denies chest pain, Denies pedal edema, Denies dyspnea, Denies orthopnea and Denies paroxysmal nocturnal dyspnea Resp Denies cough, Denies hemoptysis, Denies excessive phlegm production, Denies dyspnea, Denies snoring and Denies wheezing GI Denies abdominal pain and Denies heartburn Musc Denies myalgias, Denies arthralgias and Denies joint swelling Skin/Breast Denies rash Neuro Denies memory loss and Denies seizure-like activity Psych Denies abnormal sleep pattern, Denies anxiety and Denies memory loss Endo Denies excessive sweating, Denies fatigue and Denies heat intolerance Sami/Lymph Denies easy bruising Aller/Immun Denies itchy eyes, Denies seasonal rhinorrhea and Denies wheezing Physical Exam Vital Signs: Last Vital Signs Pulse 69 02/13/25 12:55 BP 118/62 02/13/25 12:55 Pulse Ox 98 02/13/25 12:55 Oxygen Delivery Method Room Air 02/13/25 12:55 BMI result Body Mass Index 26.2 Const General: no acute distress and alert Nutritional Appearance: not obese Orientation/consciousness: Other orientation findings ( oriented) HEENT Head: Yes atraumatic Eyes General: appearance normal, both eyes and all related structures Sclerae: sclerae normal EOM: EOMs intact bilaterally Neck Neck: Yes supple Lymphatic: no lymphadenopathy noted Resp Effort & Inspection: normal respiratory effort and no use of accessory muscles Auscultation: clear to auscultation bilaterally Cardio Rate: regular rate Rhythm: regular rhythm Heart sounds: no gallops, no murmurs and no rubs Skin General skin exam: other ( warm) Extrem General: No clubbing, No cyanosis and No edema Assessment & Plan Assessment & Plan (1) Pulmonary emphysema: Code(s): J43.9 - Emphysema, unspecified Category: Medical Plan: Essentially asymptomatic. Continue to monitor clinically. (2) TAMMY (obstructive sleep apnea): Code(s): G47.33 - Obstructive sleep apnea (adult) (pediatric) Category: Medical Plan: Results of sleep study reviewed, underlying moderate obstructive sleep apnea, at this time patient is not interested in CPAP therapy. Discussed utilization of jaw advancement device. (3) Personal history of nicotine dependence: Comment: (onset 9yo, 1/2ppd x 50yrs, 25pyh - quit 04/2020) Code(s): Z87.891 - Personal history of nicotine dependence Category: Medical Plan: Previously no abnormal pulmonary nodules, referred to lung cancer screening program. Orders: Referrals Lung Cancer Screening Referral Z87.891 - Personal history of nicotine dependence Coding Level of Care Code Est Pt Level 4 (64398) Complex EM visit Add On G2211 Diagnoses Pulmonary emphysema J43.9 TAMMY (obstructive sleep apnea) G47.33 Personal history of nicotine dependence Z87.891
--- OUTSIDE RECORDS SUMMARY | 2025-02-13 14:11 | XMS_ITS | Clinical Summary ---
Author Organization [facility] Address [address] [place] [address] Care Team Providers Care Photo Offset Printer Name Role Phone Golden Archuleta Primary Care Provider [phone] Allergies Active Allergy Reactions Criticality Noted Date [...] (05/02/2021): Added automatically from request for surgery [id number] Chronic foot pain, left 05/02/2021 Overview (05/02/2021): Added automatically from request for surgery [id number] Peripheral neuralgia 05/02/2021 Overview (05/02/2021): Added automatically from request for surgery [id number] Blue toe syndrome of left lower extremity [...] needed for pain control in addition to [id number] ibuprofen. I will refer the patient to hematology for possible hypercoagulable work-up. I plan to review the patient's CT angio from [facility] at her next in-person clinic visit [...] patient's presentation and CT angio report from [facility] I am concerned for embolic disease resulting in blue toe syndrome that may be causing some ischemic pain in the patient's left foot. However the patient does not want to be started on any anticoagulation without a clear diagnosis for an embolic disease. I did review the CT report that she showed me from [facility] demonstrating a question of thrombus in her left popliteal artery however I am unable to give further information since I do not have access to the images. The patient reports that she will try to obtain the CT images from [facility] for me to review. In the [...] age to complete this topic Insurance MEDICARE [facility] Care Teams Photo Offset Printer Relationship Specialty Start Date End Date Golden Archuleta [address] [place] [address] [place] [address] PCP - General Hematology 03/14/21
== END 2025-02-13 13:13 | disposition home or self-care (01) ==
LOC: HO.HPS 12:53
PROVIDERS: PCP Internal Medicine Medical Oncology; Visit Provider Internal Medicine Pulmonary Disease
DX: J43.9 Emphysema, unspecified (principal); G47.33 Obstructive sleep apnea (adult) (pediatric); Z87.891 Personal history of nicotine dependence
CPT/HCPCS: 99214; G2211

== ENCOUNTER → 2025-02-13 12:52 | Outpatient (BNVA) | payer MEDICARE, MEDICAID, SELFPAY | PROVIDERS: PCP Internal Medicine Medical Oncology; Visit Provider Internal Medicine Pulmonary Disease | DX: J43.9 Emphysema, unspecified (principal); G47.33 Obstructive sleep apnea (adult) (pediatric); Z87.891 Personal history of nicotine dependence | CPT/HCPCS: 99212 ==

== ENCOUNTER 2025-04-17 14:01 | Outpatient (AMB) | payer MEDICARE, MEDICAID, SELFPAY ==
--- OUTSIDE RECORDS SUMMARY | 2025-04-11 11:35 | XMS_ITS ---
Author Organization Golden Archuleta III, MD Address [address] [place] [address] Care Team Providers Care Sorting Supervisor Name Role Phone Golden Archuleta Primary Care Provider [phone] REASON FOR VISIT Juror Duty Letter Social History Sex Assigned At : Social History Observation Description Sex Assigned At Female Encounters Encounter Location Date Provider Diagnosis Golden Archuleta III, MD [address] [place] [address] [place] [address] 04/11/2025 Golden Archuleta Plan Of Treatment Next Appt Details Provider Name:Golden Archuleta, 06/06/2025 10:15:00 AM, [address] [place] [address] [place], [address], Provider Name:Golden Archuleta, 04/04/2026 02:00:00 PM, [address] [place] [address] [place], , [address], Progress Notes * Deshaun THOMASOB: 1 (64 yo F)Acc No.[id number]:04/11/2025 Patient: Tari Melva DICKERSON :1960 A ge:64 Y S ex:Female Address:[facility] [place] [address] * * Date:
--- OUTSIDE RECORDS SUMMARY | 2025-04-13 08:17 | XMS_ITS ---
Author Organization Golden Archuleta III, MD Address [address] [place] [address] Care Team Providers Care Crime Prevention Worker Name Role Phone Golden Archuleta Primary Care Provider [phone] REASON FOR VISIT HCC Risk Codes Social History Sex Assigned At : Social History Observation Description Sex Assigned At Female Encounters Encounter Location Date Provider Diagnosis Golden Archuleta III, MD [address] [place] [address] [place] [address] 04/13/2025 Golden Archuleta Plan Of Treatment Next Appt Details Provider Name:Golden Archuleta, 06/06/2025 10:15:00 AM, [address] [place] [address] [place], [address], Provider Name:Golden Archuleta, 04/04/2026 02:00:00 PM, [address] [place] [address] [address], [place], [address], Progress Notes * Deshaun THOMASOB: (64 yo F)Acc No.[id number]:04/13/2025 Patient: Tari DICKERSON Melva :1960 A ge:64 Y S ex:Female Address:[facility] [place] [address] * true * Date: Generated for Delma mendoza/Bertin/eTransmitting on: 0 04/17/2025 03:23 PM EDT
--- OUTSIDE RECORDS SUMMARY | 2025-04-17 07:42 | XMS_ITS ---
Author Organization Golden Archuleta III, MD Address [address] [place] [address] [place] [address] Care Team Providers Care Double Head Machine Operator Name Role Phone Golden Archuleta [...] weekly 03/17/2025 Active Vitamin D3 1.25 MG (12208 UT) 1 capsule Orally Once a week [...] Provider Diagnosis Golden Archuleta III, MD [address] [facility] [place] [address] 04/17/2025 Golden Archuleta Immunity status testing Z01.84 Assessments Encounter Date Diagnosis (ICD Code) Assessment Notes Treatment Notes Treatment Clinical Notes 04/17/2025 Immunity status testing (ICD-10 - Z01.84) Plan Of Treatment Pending Test Test Name Order Date Rubella IgG Antibody 04/17/2025 Rubeola IgG (Measles) 04/17/2025 Next Appt Details Provider Name:Golden Archuleta, 06/06/2025 10:15:00 AM, [address] [place] [address] [address], [place], [address], Provider Name:Golden Archuleta, 04/04/2026 02:00:00 PM, [address] [place] [address] [address], [place], [address], Progress Notes * Deshaun THOMASOB: 1 (64 yo F)Acc No.[id number]:04/17/2025 Patient: Melva HERRERA :1960 A ge:64 Y S ex:Female Address:[address] [place] [address] Subjective: * Chief Complaints: * L ab [...] once a day Vitamin D3 1.25 MG (84579 UT) Capsule 1 capsule Orally Once a [...] a day Taking Vitamin D3 1.25 MG (39623 UT) Capsule 1 capsule Orally Once a [...] Generated for Delma mendoza/Bertin/Mary Anne on: 0 04/17/2025 03:24 PM EDT
[2025-04-17 14:21] VITALS: BP 120/68; PULSE 58; BMI 25.0
--- NOTE | 2025-04-17 14:21 | MHC.OFFVIS ---
Vital Signs 04/17/25 14:21 Height 5 ft 3 in Weight 141 lb 1.533 oz BMI 25.0 BP 120/68 Blood Pressure Location Lt brachial Position Sitting Pulse 58 Pulse Source Pulse Oximeter Intake Visit Reasons: 6m follow up Allergies lisinopril Allergy (Mild, Verified 02/13/25 13:00) coughing hydromorphone (From Dilaudid) Adverse Reaction (Intermediate, Verified 02/13/25 13:00) Vomiting Percocet Adverse Reaction (Severe, Uncoded 11/22/24 12:52) Vomiting Medication List - Last Reconciled 04/17/25 by Vito Noonan MD acetaminophen 1 tab PO Q6H PRN amlodipine 2.5 mg PO DAILY aspirin 81 mg PO DAILY 90 days atorvastatin 20 mg PO QPM calcium carbonate (Oyster Shell Calcium 500) 500 mg PO DAILY cholecalciferol (vitamin D3) 1,250 mcg PO MO diclofenac sodium 1% 2 grams topical BID PRN dulaglutide (Trulicity) 0.75 mg subcut QWEEK gabapentin 600 mg PO TID PRN ibuprofen 800 mg PO Q8H PRN lidocaine 5% 1 patch topical DAILY PRN nitroglycerin 0.4 mg sublingual Q5M PRN HPI Comments Details: Melva returns for follow-up. To recall, she presented to the hospital with substernal chest pain radiating to both shoulders. High sensitivity troponins were >1000. She was diagnosed with NSTEMI and sent to [facility] for cardiac catheterization. Diagnosed to have just vasospasm but not obstructive CAD. She was also started on Amlodipine and she states that is also helping a lot. History of obstructive sleep apnea but does not use CPAP. She gets chest pains off and on. Takes nitroglycerin it feels better. Otherwise for the most part she is doing fine. [facility] Medical History JOSE (obstructive sleep apnea) Coronary vasospasm Personal history of nicotine dependence Tubular adenoma of colon (~2020) Anxiety History of fibromyalgia NIDDY (non-insulin dependent diabetes mellitus in young) Chronic hepatitis C Surgical History History of foot surgery History of endoscopy History of colonoscopy History of endometrial ablation History of cholecystectomy Family History Father HTN (hypertension) Lung cancer Mother Asthma Thyroid disease Cardiac arrest Family/Other Breast cancer Social History Household Members: Other Housing: Condominium Do you presently have visiting nurse or other home services: No Alcohol intake: current Alcohol intake frequency: does not drink Patient Tobacco Use Status: Former Tobacco user Tobacco use type: Cigarette Years Smoked: (onset 9yo, 1/2ppd x 50yrs, 25pyh - quit 04/2020) Advance Directives Date on File: 04/09/21 Current occupational status: employed 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 Sexual orientation: Straight/Heterosexual Gender identity: Female Review of Systems Const Denies weakness ENT Denies dizziness Card Denies chest pain, Denies chest pain with activity, Denies syncope, Denies rapid heart rate, Denies pedal edema, Denies edema, Denies leg edema, Denies lightheadedness, Reports palpitations, Denies dyspnea, Denies dyspnea on exertion and Denies orthopnea Resp Denies cough, Denies dyspnea and Denies dyspnea on exertion GI Denies hematochezia and Denies change in stool character Musc Denies abnormal gait, Denies muscle cramps, Denies muscle weakness, Denies numbness, Denies radiating pain into limb and Denies tingling Neuro Denies abnormal gait, Denies dizziness, Denies syncope, Denies numbness, Denies tingling and Denies weakness Endo Reports palpitations Physical Exam Vital Signs: Last Vital Signs Pulse 58 04/17/25 14:21 BP 120/68 04/17/25 14:21 BMI result Body Mass Index 25.0 Const General: comfortable and no acute distress Orientation/consciousness: patient oriented x3 HEENT Other: Unremarkable Head: Yes normal to inspection Neck Neck: Yes normal visual inspection Chest Chest palpation & inspection: normal inspection of the chest Resp Auscultation: clear to auscultation bilaterally Cardio Palpation: normal PMI Heart sounds: S1 normal heart sound present, S2 normal heart sound present, no gallops, no murmurs and no rubs GI Palpation (GI): Soft to palpation Back/Spine/Pelvis Other: unremarkable Skin General skin exam: no rashes or lesions noted Neuro General: patient oriented x3 Extrem General: Yes normal to inspection Psych Mental Status: mental status grossly normal Assessment & Plan Assessment & Plan (1) NSTEMI (non-ST elevated myocardial infarction): Code(s): I21.4 - Non-ST elevation (NSTEMI) myocardial infarction Category: Medical (2) Coronary vasospasm: Code(s): I20.1 - Angina pectoris with documented spasm Category: Medical (3) Type 2 diabetes mellitus with unspecified complications: Code(s): E11.8 - Type 2 diabetes mellitus with unspecified complications Category: Medical Plan During hospitalization 10/2023, high sensitivity troponins were >1000. Coronary CTA however in the past had shown essentially normal coronary arteries. In the cardiac catheterization, no obstructive CAD. There is evidence of LAD vasospasm. She can remain on low-dose aspirin, Amlodipine; prn sublingual nitroglycerin. Continue statins. Lipids are controlled. With regard to diabetes, on Jade. Hemoglobin A1c is 8.6%, less than ideal control. Follow up in 6 months' time. In the interim, she will call with concerns. Discussion Notes I discussed with the patient the importance of continuing her current medications, including amlodipine and atorvastatin, to manage her coronary artery spasm and hyperlipidemia. We reviewed the use of nitroglycerin for chest discomfort and the need to seek emergency care if symptoms persist. We also talked about her diabetes management with Jdae and the goal of reducing her hemoglobin A1c. Patient was informed and verbally consented to the use of an ambient scribe for clinic note documentation during this visit. Patient Instructions: - Continue taking amlodipine and atorvastatin as prescribed. - Use nitroglycerin for chest pain; seek emergency care if pain persists after two to three doses. - Continue Trulicity for diabetes management and focus on weight management. Coding Level of Care Code Est Pt Level 4 (01574) Complex EM visit Add On G2211 Diagnoses NSTEMI (non-ST elevated myocardial infarction) I21.4 Coronary vasospasm I20.1 Type 2 diabetes mellitus with unspecified complications E11.8
--- OUTSIDE RECORDS SUMMARY | 2025-04-17 15:23 | XMS_ITS | Clinical Summary ---
Author Organization [facility] Address [address] [place] [address] Care Team Providers Care Small Offset Printer Name Role Phone Golden Archuleta Primary Care Provider [phone] Allergies Active Allergy Reactions Criticality Noted Date [...] (05/02/2021): Added automatically from request for surgery [id number] Chronic foot pain, left 05/02/2021 Overview (05/02/2021): Added automatically from request for surgery [id number] Peripheral neuralgia 05/02/2021 Overview (05/02/2021): Added automatically from request for surgery [id number] Blue toe syndrome of left lower extremity [...] needed for pain control in addition to [id number] ibuprofen. I will refer the patient to hematology for possible hypercoagulable work-up. I plan to review the patient's CT angio from [facility] at her next in-person clinic visit and [...] patient's presentation and CT angio report from [facility] I am concerned for embolic disease resulting in blue toe syndrome that may be causing some ischemic pain in the patient's left foot. However the patient does not want to be started on any anticoagulation without a clear diagnosis for an embolic disease. I did review the CT report that she showed me from [facility] demonstrating a question of thrombus in her left popliteal artery however I am unable to give further information since I do not have access to the images. The patient reports that she will try to obtain the CT images from [facility] for me to review. In the interim [...] (4 - season) 2024 08/04/2021, 01/18/2021, 12/21/2020 Alcohol/Substance Use Screening 08/24/2024 Depression Screening and Follow-Up 08/24/2024 Social Drivers of Health Annual Screening 08/24/2024 Influenza Vaccine (#1) 2025 , 07/11/2021, 05/29/2020, Additional history exists RSV Vaccine (60+ years old and patients) (1 - 1-dose 75+ series) 12/14/2035 Zoster Vaccines Completed 03/10/2022, 01/08/2022 Hepatitis B Vaccines Aged Out No long er eligible based on patient's age to complete this topic Insurance MEDICARE [facility] Care Teams Small Offset Printer Relationship Specialty Start Date End Date Golden Archuleta [address] [place] [address] [place] [address] PCP - General Hematology 03/14/21
--- OUTSIDE RECORDS SUMMARY | 2025-04-17 15:24 | XMS_ITS | Encounter Summary ---
Author Organization [facility] Address [address] [place] [address] Phone Care Team Providers Care Web Portal Developer Name Role Phone Golden Archuleta MD Primary Care Provider [phone] Reason for Visit * Reason Comments Medication Refill Encounter Details Date Type Department Care Team (Late st Contact Info) Description 06/21/2021 Refill [facility] Rheumatology [address] [place] [address] Merlin Valdes MD [address] [facility] [address] [place] [address] [email or web address] Medication Refill Social History Tobacco Use Types Packs/Day Years Used Date Smoking Tobacco: Former Cigarettes Q uit: 04/2020 Smokeless Tobacco: Never Comments Unknown Sex and Gender Information Value Date Recorded Sex Assigned at Not on file Legal Sex Female 10:02 AM EDT Gender Identity Not on file Sexual Orientation Not on file documented as of this encounter Progress Notes * Shonna Fletcher RN - 06/21/2021 1:37 PM EDT See 05/15 TE- PA was denied and patient aware * Dania Wisdom MA - 06/21/2021 11:41 AM EDT Pharmacy comment: Alternative Requested:PRIOR AUTH REQUIRED. Message from pharmacy regarding Lidocaine patches documented in this encounter Plan of Treatment Not on file documented as of this encounter Visit Diagnoses Diagnosis Complex regional pain syndrome type 2 of left lower extremity documented in this encounter Care Teams Web Portal Developer Relationship Specialty Start Date End Date Golden Archuleta MD [address] [place] [id number] PCP - General Medical Oncology 03/19/21 documented as of this encounter Additional Source Comments The information contained in this document represents components of the legal health record. It is not the complete legal health record.[facility]
--- OUTSIDE RECORDS SUMMARY | 2025-04-17 15:24 | XMS_ITS | Patient Health Record ---
Author Organization Golden Archuleta III, MD Address [address] [place] [address] Care Team Providers Care Dog Or Animal Sitter Name Role Phone Golden Archuleta Primary Care Provider [phone] Allergies Allergen (clinical drug ingredient) Drug/Non Drug Allergy documented on EMR Reaction Allergy Type Onset Date Status No Known Food Allergy Unknown Drug Allergy Active acetaminophen / oxycodone Percocet nausea Drug Allergy Active lisinopril Lisinopril cough Drug Allergy Activ e Results Component Value Reference Range Notes Uric Acid Reviewed date:02/12/2025 01:45:37 PM Interpretation: Performing Lab:[facility], [address] [place] [phone] Notes/Report: Uric Acid 4.5 2.4-5.7 mg/dL Complete Blood Count Auto Di ff Reviewed date:04/18/2024 12:02:00 PM Interpretation: Performing Lab:[facility], [address] [place] [phone] Notes/Report: White Blood Count 6.1 4.8-10.8 X10*3/uL [...] NRBC Abs Auto 0.000 0.0-0.012 X10*3/uL Comprehensive [place]. Panel Fa st Reviewed date:04/18/2024 12:02:00 PM Interpretation: Performing Lab:[facility], [address] [place] [phone] Notes/Report: Sodium 140 135-145 mmol/L Potassium 4.4 3.3-5.1 mmol/L Chloride 106 96-108 mmol/L Carbon Dioxide 28 22-29 mmol/L Anion Gap 10 12-20 Blood Urea Nitrogen 16 9-16 mg/dL Creatinine 0.78 0.5-1.4 mg/dL Estimated Glomerular Filt Rate > 60 NOTE: For -Irish individuals, multiply the result by 1.210. Chronic [...] e Reviewed date:04/18/2024 12:02:00 PM Interpretation: Performing Lab:[facility], [address] [place] [phone] Notes/Report: Gamma Glutamyl Transpeptidase 64 7-33 U/L Lipid Panel Reviewed date:04/18/2024 12:02:00 PM Interpretation: Performing Lab:[facility], [address] [place] [phone] Notes/Report: Triglycerides 144 <150 mg/dL Desirable Triglyceride: [...] ff Reviewed date:07/18/2024 07:45:21 AM Interpretation: Performing Lab:[facility], [address] [place] [address] Notes/Report: White Blood Count 7.3 4.8-10.8 X10*3/uL [...] NRBC Abs Auto 0.000 0.0-0.012 X10*3/uL Comprehensive [place]. Panel Fa st Reviewed date:07/18/2024 07:45:21 AM Interpretation: Performing Lab:[facility], [address] [place] [address] Notes/Report: Sodium 140 135-145 mmol/L Potassium 4.5 [...] Magnesium Reviewed date:07/18/2024 07:45:21 AM Interpretation: Performing Lab:[address] [phone] Notes/Report: Magnesium 1.8 1.6-2.6 mg/dL Lipid Panel Reviewed date:07/18/2024 07:45:21 AM Interpretation: Performing Lab:[address] [address] Notes/Report: Triglycerides 77 <150 mg/dL Desirable Triglyceride: [...] Total Reviewed date:07/18/2024 07:45:21 AM Interpretation: Performing Lab:[facility], [address] [place] [phone] Notes/Report: Vitamin D 25-OH Total 40.9 >30 [...] Random Reviewed date:07/18/2024 07:45:21 AM Interpretation: Performing Lab:[facility], [address] [place] [phone] Notes/Report: Creatinine Urine 221.86 Microalbumin Urine 11.0 Microalbum/Creatinine Ratio Ur 4.9 <30 ug/mg cr Albumin/Creatinine Ratio Reference Ranges: Normal: < 30 ug/mg creatinine Microalbuminuria: 30 - 300 ug/mg creatinine Clinical Albuminuria: > 300 ug/mg creatinine Hemoglobin A1c Reviewed date:07/18/2024 07:45:21 AM Interpretation: Performing Lab:[facility], [address] [place] [phone] Notes/Report: Hemoglobin A1c % 9.2 <6.0 % [...] average glucose, using the formula of the X9R-Upwngxg Average Glucose study (ADAG), Diabetes Care, Vol.31,#8, 2007 Complete Blood Count Auto Di ff Reviewed date:09/30/2024 09:26:17 AM Interpretation: Performing Lab:[facility], [address] [place] [phone] Notes/Report: White Blood Count 7.4 4.8-10.8 X10*3/uL [...] Panel Reviewed date:09/30/2024 09:26:17 AM Interpretation: Performing Lab:[facility], [address] [place] [phone] Notes/Report: Sodium 135 135-145 mmol/L Potassium 4.4 [...] read back by: JENNIFER Youngblood Person calling: ARLENGWENDOLYN Date: 09/19/24 Time:1319 Calcium 9.0 8.4-10.2 mg/dL Bilirubin Total 0.4 0.0-1.0 mg/dL Aspartate Amino Transferase 33 5-31 U/L Alanine Aminotransferase 53 0-31 U/L Total Protein 7.2 6.5-8.0 g/dL Albumin Level 3.9 3.5-5.0 g/dL Alkaline Phosphatase 135 39-117 U/L Hemoglobin A1c Reviewed date:09/30/2024 09:26:17 AM Interpretation: Performing Lab:[facility], [address] [place] [phone] Notes/Report: Hemoglobin A1c % 9.2 <6.0 % [...] average glucose, using the formula of the S8J-Jcxmlel Average Glucose study (ADAG), Diabetes Care, Vol.31,#8, Mar. 2007 XR chest 2V Reviewed date:10/16/2024 09:13:49 AM Interpretation: Performing Lab: Notes/Report: [address] [address] XRay Report Signed Patient: Melva Thomas MR#: [id number] [birth year] : 1960 Acct:[id number] Age/Sex: 63 / F ADM Date: 10/03/24 Loc: OLU Attending Dr: Golden Archuleta MD Ordering Physician: Golden Archuleta MD Date of Service: 10/03/24 Procedure(s): XR chest 2V Accession Number(s): [id number] cc: Golden Archuleta MD EXAMINATION: XR CHEST [...] by: John Anders MD 10/03/2024 04:10 PM [facility] [place] Dictated By: John Anders MD Signed By: <Electronically signed by John Anders MD in OV> 10/03/24 1610 DD/ 1538 TD/TT: 10/03/24 1555 Holter Scanning Technician: [address] [address] XRay Report Signed Patient: Pippa Thomas tte MR#: [id number] [birth year] : 1960 Acct:[id number] Age/Sex: 63 / F ADM Date: 10/03/24 Loc: HO.XRAY Attending Dr: Golden Archuleta MD Ordering Physician: Golden Archuleta MD Date of Service: 10/03/24 Procedure(s): XR jose st 2V Accession Number(s): [id number] cc: Golden Archuleta MD EXAMINATION: XR CHEST [...] by: John Anders MD 10/03/2024 04:10 PM [facility] [place] Dictated By: John Anders MD Signed By: <Electronically signed by John Anders MD in OV> 10/03/24 1610 DD/ 1538 TD/TT: 10/03/24 1555 Holter Scanning Technician: Complete Blood Count Auto Di ff Reviewed date:10/24/2024 03:14:45 PM Interpretation: Performing Lab:[facility], [address] [place] [phone] Notes/Report: White Blood Count 7.3 4.8-10.8 X10*3/uL [...] Panel Reviewed date:10/24/2024 03:14:45 PM Interpretation: Performing Lab:[address] [address] Notes/Report: Sodium 139 135-145 mmol/L Potassium 4.0 [...] e Reviewed date:10/24/2024 03:14:45 PM Interpretation: Performing Lab:[address] [address] Notes/Report: Gamma Glutamyl Transpeptidase 27 7-33 U/L Hemoglobin A1c Reviewed date:10/24/2024 03:14:45 PM Interpretation: Performing Lab:[address] [address] Notes/Report: Hemoglobin A1c % 9.1 <6.0 % [...] average glucose, using the formula of the W9P-Bpodtue Average Glucose study (ADAG), Diabetes Care, Vol.31,#8, 2007 Urinalysis and Microscopic Reviewed date:12/03/2024 04:51:37 AM Interpretation: Performing Lab:[facility], [address] [place] [phone] Notes/Report: Color Urine Yellow Appearance Urine Clear PH 7.5 5.0-9.0 Glucose Urine UA Negative Negative mg/dL Urine Blood Negative Negative Specific [place] - Urine <= 1.005 1.005-1.025 Urine Protein Negative Neg-Trace mg/dL Urine Ketones Negative Negative mg/dL Nitrite Urine Negative Negative Leukocyte Esterase Urine Negative Negative RBC Urine 0-2 0-2 /HPF WBC Urine 0-5 0-5 /HPF Squamous Epithelial Cell Urine 0-2 0-2 /HPF Bacteria Urine None Seen None Seen Hyaline Casts Urine 0-2 0-2 /LPF Complete Blood Count Auto Di ff Reviewed date:12/21/2024 07:02:35 AM Interpretation: Performing Lab:[facility], [address] [place] [phone] Notes/Report: White Blood Count 7.2 4.8-10.8 X10*3/uL Red Blood Count 4.15 4.20-5.50 X10*6/uL Hemoglobin 12.7 12.0-16.0 g/dl Hematocrit 37.4 37.0-47.0 % Mean Corpuscular Volume 90.1 80.0-98.0 fL Mean Corpuscular Hemoglobin 30.6 27.0-33.0 pg Mean Corpuscular HGB Conc 34.0 31.0-35.0 g/dl Red Cell Distribution Width 12.0 11.0-16.0 % Platelet Count 237 160-400 X10*3/uL Mean Platelet Volume 11.1 9.4-12.3 fL Neutrophils Percent Auto 49.6 45-73 % Imm Gran Pct Auto 0.1 0.0-0.4 % Lymphocytes Percent Auto 37.5 20-40 % Monocytes Percent Auto 6.5 2-11 % Eosinophils Percent Auto 5.2 0-4 % Basophils Percent Auto 1.1 0-2 % NRBC Pct Auto 0.0 0.0-0.2 /100WBC Neutrophils Absolute Auto 3.6 2.0-8.3 x10*3/uL Imm Gran Abs Auto 0.01 0.00-0.03 X10*3/uL Lymphocytes Absolute Auto 2.7 1.2-4.9 X10*3/uL Monocytes Absolute Auto 0.5 0.1-1.2 X10*3/uL Eosinophils Absolute Auto 0.4 0.0-0.4 X10*3/uL Basophils Absolute Auto 0.1 0.0-0.2 X10*3/uL NRBC Abs Auto 0.000 0.0-0.012 X10*3/uL Erythrocyte Sedimentation Ra te Reviewed date:12/21/2024 07:02:35 AM Interpretation: Performing Lab:[facility], [address] [place] [phone] Notes/Report: Erythrocyte Sedimentation Rate 23 0-20 MM/HR Patients with polycythemia and many hemoglobin abnormalities may have depressed sed rates whereas patients with anemia may have elevated sed rates. Comprehensive Met. Panel Reviewed date:12/21/2024 07:02:35 AM Interpretation: Performing Lab:[facility], [address] [place] [phone] Notes/Report: Sodium 139 135-145 mmol/L Potassium 4.0 3.3-5.1 mmol/L Chloride 104 96-108 mmol/L Carbon Dioxide 25 22-29 mmol/L Anion Gap 14 12-20 Blood Urea Nitrogen 15 9-16 mg/dL Creatinine 0.77 0.5-1.4 mg/dL Estimated Glomerular Filt Rate > 60 Chronic Kidney Disease: Estimated GFR < 60 mL/min/1.73m2 Severe Kidney Disease: Estimated GFR < 15 mL/min/1.73m2 Glucose Random 176 60-115 mg/dL Calcium 9.5 8.4-10.2 mg/dL Bilirubin Total 0.4 0.0-1.0 mg/dL Aspartate Amino Transferase 19 5-31 U/L Alanine Aminotransferase 18 0-31 U/L Total Protein 7.1 6.5-8.0 g/dL Albumin Level 4.1 3.5-5.0 g/dL Alkaline Phosphatase 88 39-117 U/L C Reactive Protein Reviewed date:12/21/2024 07:02:35 AM Interpretation: Performing Lab:[facility], [address] [place] [phone] Notes/Report: C Reactive Protein < 0.10 < or = 0.50 mg/dL Anti DNA DS Antibody Reviewed date:01/22/2025 08:16:07 PM Interpretation: Performing Lab:[facility], [address] [place] [phone] Notes/Report: Anti DNA DS Antibody <1 IU/mL Interpretation < or = 4 Negative 5-9 Indeterminate > or = 10 Positive THIS TEST WAS PERFORMED AT: [facility] [address] [place] [phone] RADHA SUMMERS MD Complement C3 Reviewed date:01/22/2025 08:16:07 PM Interpretation: Performing Lab:[facility], [address] [place] [phone] Notes/Report: Complement C3 139 83-193 mg/dL THIS TEST WAS PERFORMED AT: [facility] [address] [place] [phone] RADHA SUMMERS MD Complement C4 Reviewed date:01/22/2025 08:16:07 PM Interpretation: Performing Lab:[facility], [address] [place] [phone] Notes/Report: Complement C4 15 15-57 mg/dL THIS TEST WAS PERFORMED AT: [facility] [address] [place] [phone] RADHA SUMMERS MD Hemoglobin A1c Reviewed date:12/21/2024 07:02:35 AM Interpretation: Performing Lab:[facility], [address] [place] [phone] Notes/Report: Hemoglobin A1c % 8.4 <6.0 % Hemoglobin A1C Reference Range Adults: 4.8 - 6.0 % Non diabetic: < 6.0 % Goal: < 7.0 % Additional Action Suggested: > 8.0 % Note: Hemoglobin A1c results are invalid for patients with abnormal amounts of HbF. Blood transfusions may impact the HbA1c concentration in the patient sample. Estimated Average Glucose 194 eAG = Estimated average glucose which is %A1C expressed as average glucose, using the formula of the K9D-Gferzoy Average Glucose study (ADAG), Diabetes Care, Vol.31,#8, Mar. 2007 MM tomosynthesis screening B I Reviewed date:02/24/2025 07:03:35 PM Interpretation: Performing Lab: Notes/Report: [address] [place] [address] Mammography Report Signed Patient: Melva Thomas MR#: [id number] [birth year] : 1960 Acct:[id number] Age/Sex: 64 / F ADM Date: 02/09/25 Loc: HO.MAMMO Attending Dr: Golden Archuleta MD Ordering Physician: Golden Archuleta MD Results: 2Benign Findings Date of Service: 02/09/25 Follow Up: 1 Year From Orig inal Mammogram Procedure(s): MM tomosynthesis screening BI Accession Number(s): [id number] cc: Golden Archuleta MD EXAMINATION: MM SCREENING DIGITAL BREAST TOMOSYNTHESIS, BILATERAL CLINICAL INFORMATION: Screening. Asymptomatic. COMPARISON: Mammography: Comparison is made with available priors TECHNIQUE: Digital breast mammography with tomosynthesis is performed in both the craniocaudal and mediolateral oblique views along with computer-aided detection (CAD). FINDINGS: The breasts are heterogeneously dense, which may obscure small masses (ACR BI-RADS breast composition Category c). Bilateral scattered asymmetries are stable. There are no significant masses, abnormal calcifications, or other abnormalities. MM/MM tomosynthesis screening BI IMPRESSION: No mammographic evidence of malignancy. ASSESSMENT: BI-RADS BI-RADS 2 - Benign Findings RECOMMENDATION: Routine annual mammography screening. 1 year F/U This examination should not preclude the clinical evaluation of a suspicious palpable abnormality. This patient's information was entered into a reminder system with a target due date for their next mammogram. Electronically signed by: Dorothy Ruth DO 02/14/2025 02:45 PM EDT Dictated By: Dorothy Ruth DO Signed By: <Electronically signed by Dorothy Ruth DO in OV> 02/14/25 1445 DD/ 1045 TD/TT: 02/09/25 1110 Holter Scanning Technician: [address] [place] [address] Mammography Report Signed Patient: Pippa Thomas MR#: [id number] [birth year] : 1960 Acct:[id number] Age/Sex: 64 / F ADM Date: 02/09/25 Loc: HO.MAMMO Attending Dr: Golden Archuleta MD Ordering Physician: Golden Archuleta MD Results: 2Benign Findings Date of Service: 02/09/25 Follow Up: 1 Year From Orig ina Mammogram Procedure(s): MM tomosynthesis screening BI Accession Number(s): [id number] cc: Golden Archuleta MD EXAMINATION: MM SCREENING DIGITAL BREAST TOMOSYNTHESIS, BILATERAL CLINICAL INFORMATION: Screening. Asymptomatic. COMPARISON: Mammography: Compari son is made with available priors TECHNIQUE: Digital breast mammography with tomosynthesis is performed in both the craniocaudal and mediolateral oblique views along with computer-aided detection (CAD). FINDINGS: The breasts are heterogeneously dense, which may obscure small masses (ACR BI-RADS breast composition Category c). Bilateral scattered asymmetries are stable. There are no significant masses, abnormal calcifications, or other abnormalities. MM/MM tomosynthesis screening BI IMPRESSION: No mammographic evidence of malignancy. ASSESSMENT: BI-RADS BI-RADS 2 - Benign Findings RECOMMENDATION: Routine annual mammography screening. 1 year F/U This examination cole uld not preclude the clinical evaluation of a suspicious palpable abnormality. This patient's information was entered into a reminder system with a target due date for their next mammogram. Electronically richa d by: Dorothy Ruth DO 02/14/2025 02:45 PM EDT Dictated By: Dorothy Ruth DO Signed By: <Electronically signed by Dorothy Ruth DO in OV> 02/14/25 1445 DD/ 1045 TD/TT: 02/09/25 1110 Holter Scanning Technician: MAMMOGRAM DIGITAL BILATERAL SCREEN Reviewed date:04/03/2025 03:10:37 PM Interpretation:undefined Performing Lab: Notes/Report: undefined Complete Blood Count Auto Di ff Reviewed date:02/12/2025 01:45:37 PM Interpretation: Performing Lab:[facility], [address] [place] [phone] Notes/Report: White Blood Count 6.8 4.8-10.8 X10*3/uL Red Blood Count 4.53 4.20-5.50 X10*6/uL Hemoglobin 13.9 12.0-16.0 g/dl Hematocrit 40.5 37.0-47.0 % Mean Corpuscular Volume 89.4 80.0-98.0 fL Mean Corpuscular Hemoglobin 30.7 27.0-33.0 pg Mean Corpuscular HGB Conc 34.3 31.0-35.0 g/dl Red Cell Distribution Width 11.8 11.0-16.0 % Platelet Count 246 160-400 X10*3/uL Mean Platelet Volume 11.0 9.4-12.3 fL Neutrophils Percent Auto 51.7 45-73 % Imm Gran Pct Auto 0.4 0.0-0.4 % Lymphocytes Percent Auto 34.8 20-40 % Monocytes Percent Auto 7.4 2-11 % Eosinophils Percent Auto 4.7 0-4 % Basophils Percent Auto 1.0 0-2 % NRBC Pct Auto 0.0 0.0-0.2 /100WBC Neutrophils Absolute Auto 3.5 2.0-8.3 x10*3/uL Imm Gran Abs Auto 0.03 0.00-0.03 X10*3/uL Lymphocytes Absolute Auto 2.4 1.2-4.9 X10*3/uL Monocytes Absolute Auto 0.5 0.1-1.2 X10*3/uL Eosinophils Absolute Auto 0.3 0.0-0.4 X10*3/uL Basophils Absolute Auto 0.1 0.0-0.2 X10*3/uL NRBC Abs Auto 0.000 0.0-0.012 X10*3/uL Comprehensive [place]. Panel Fa st Reviewed date:02/12/2025 01:45:37 PM Interpretation: Performing Lab:[facility], [address] [place] [phone] Notes/Report: Sodium 139 135-145 mmol/L Potassium 4.3 3.3-5.1 mmol/L Chloride 105 96-108 mmol/L Carbon Dioxide 28 22-29 mmol/L Anion Gap 10 12-20 Blood Urea Nitrogen 9 9-16 mg/dL Creatinine 0.71 0.5-1.4 mg/dL Estimated Glomerular Filt Rate > 60 Chronic Kidney Disease: Estimated GFR < 60 mL/min/1.73m2 Severe Kidney Disease: Estimated GFR < 15 mL/min/1.73m2 Glucose Fasting 222 60-99 mg/dL A fasting glucose of 126 mg/dl or greater on more than one occasion is considered diagnostic of diabetes. Calcium 9.3 8.4-10.2 mg/dL Bilirubin Total 0.6 0.0-1.0 mg/dL Aspartate Amino Transferase 16 5-31 U/L Alanine Aminotransferase 29 0-31 U/L Total Protein 7.0 6.5-8.0 g/dL Albumin Level 4.1 3.5-5.0 g/dL Alkaline Phosphatase 76 39-117 U/L Lipid Panel Reviewed date:02/12/2025 01:45:37 PM Interpretation: Performing Lab:[facility], [address] [place] [phone] Notes/Report: Triglycerides 96 <150 mg/dL Desirable Triglyceride: less than 150 mg/dL Borderline High Triglyceride 150-199 mg/dL High Triglyceride: 200-499 mg/dL Very High Triglyceride: greater than or equal to 5OO mg/dL Cholesterol 132 <200 mg/dL Desirable Cholesterol: less than 200 mg/dL Borderline High Cholesterol: 200-239 mg/dL High Cholesterol: greater than 239 mg/dL LDL Cholesterol Calculated 74 <100 mg/dL Desirable LDL: less than 100 mg/dL Near Optimal/Above Optimal LDL: 110-129 mg/dL Borderline High LDL: 130-159 mg/dL High LDL: 160-189 mg/dL Very High LDL: greater than or equal to 190 mg/dL HDL Cholesterol 39 >40 mg/dL Desirable HDL: greater than 40 mg/dL Note: This HDL assay may give artificially low results in patients with liver disease. Hemoglobin A1c Reviewed date:02/12/2025 01:45:37 PM Interpretation: Performing Lab:[facility], [address] [place] [phone] Notes/Report: Hemoglobin A1c % 8.6 <6.0 % Hemoglobin A1C Reference Range Adults: 4.8 - 6.0 % Non diabetic: < 6.0 % Goal: < 7.0 % Additional Action Suggested: > 8.0 % Note: Hemoglobin A1c results are invalid for patients with abnormal amounts of HbF. Blood transfusions may impact the HbA1c concentration in the patient sample. Estimated Average Glucose 200 eAG = Estimated average glucose which is %A1C expressed as average glucose, using the formula of the W6Z-Mazfmdp Average Glucose study (ADAG), Diabetes Care, Vol.31,#8, 2007 Reason For Referral No Information Medications Medication SIG (Take, Route, Frequency, Duration) Notes Start Date End Date Status metFORMIN HCl 1000 MG TAKE 1 TABLET [...] use to check blood sugars Thursday/09/09/2022 Active Vitamin D3 1.25 MG (28659 UT) 1 capsule Orally Once a week [...] 12 HOURS PER 24-HR PERIOD. External Active guaiFENesin-Codeine 100-10 MG/5ML 10 mL as needed Orally every 4 hrs 10/03/2024 Active amLODIPine Besylate 2.5 MG 1 tablet Orally Once a day Active Aspirin 81 MG 1 tablet Orally Once a day Active predniSONE 20 MG 2 tablets Orally Once a day 02/01/2025 Active dexAMETHasone 2 MG 1 tablet Orally twice a day 11/03/2024 Active Magnesium Oxide 400 MG 1 tablet as neede d Orally Once a day 03/28/2024 Active glipiZIDE 10 MG TAKE 1 TABLET BY MOUTH EVERY MORNING 30 MINUTES BEFORE BREAKFAST Active Trulicity 0.75 MG/0.5ML 0.75 mg Subcutaneous weekly 03/17/2025 Active Immunizations Vaccine Route Administration Date Status [...] Afluria IM Intramuscular 05/24/2024 Administered Social History Tobacco Use: Social History Observation [...] Problem Status W/U Status Risk Notes Problem 1839172 Former smoker (Z87.891) Active confirmed She reports markel t she has stopped smoking within the last 5 days. She seems motivated to continue abstinence. Problem 171290165 Fibromyalgia (M79.7) Active confirmed This has been stable, but present. She is currently under the pain management at [facility]. Problem DM - Diabetes mellitus (77707985) DM (diabetes mellitus) (E11.9) Active confirmed She was begun o n trulicity because her hemoglobin A1c was 8.6. She does not wish to take the metformin and has been avoiding it. She says her fasting glucose levels are below 1:30. Conference of blood work will be done prior to her next visit.. Problem 012039366 Overweight (E66.3) Active confirmed Her body mass index is 26.She has lost 44 pounds since her last visit. We reviewed her weight loss strategy and her diet and nutrition. Problem Type II diabetes mellitus without complication (267644567) Type 2 diabetes mellitus without complications (E11.9) Active confirmed The most recent hemoglobin A1c was 8.4. We talked her how to use the prefilled pen. She successfully injected the trulicity. A followup visit was arranged. Problem 37171211 Carpal tunnel syndrome, right upper limb (G56.01) Active confirmed The pain in her wrist is stable and she is not complaining about it at this time. Problem Mononeuropathy of lower limb (973600887) Unspecified mononeuropathy of left lower limb (G57.92) Active confirmed Problem 743327530 Raynaud's syndrome without gangrene (I73.00) Active confirmed This has not been a problem since last year. It was not present today and she reports no difficulty in the recent past. 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 Problem Sciatica (79585547) Lumbago with sciatica, right side (M54.41) Active confirmed She was continued on current medication until she sees a surgeon. Problem Sciatica (56195798) Lumbago with sciatica, left side (M54.42) Active confirmed She has nerve root compression and a surgical solution will be sought. Problem 27470733 Tobacco dependence (F17.200) Active confirmed I strongly recommended smoking cessation and she has agreed to reduce number of cigarettes she uses daily. Problem 24908724 Other and unspecified hyperlipidemia (E78.5) Active confirmed The current fasting lipid profile shows a total cholesterol to be well within the target range. No change in treatment is needed. Problem Diabetic neuropathy (E11.40) Active confirmed 10 use and know n painful feeling in her legs. Neuropathic pain in her left leg below the knee is worse. She has orthopedic pain in both knees as well but only when kneeling. Problem 068174573 Peripheral arterial disease (I73.9) Active confirmed Her foot was pink and warm, but continued painful. Problem 606758982 Renal cyst (N28.1) Active confirmed The CT scan of the abdomen March 25, 2018 is compatible with multiple renal cysts. No solid mass was seen. There was an cyst in the upper pole of the left kidney with calcifications. Problem 50711928 Subcutaneous nodules (R22.9) Active confirmed These are unchanged and nontender and will be followed. Problem [id number] Acute gout of right ankle, unspecified cause (M10.9) Active confirmed He is being treated with prednisone for what might be gout in the left ankle. She is beginning to steadily improve. Problem 19179386 Sleep apnea in adult (G47.30) Active confirmed No change in her current regimen was needed today. She denies taking time somnolence.Her pulmonary physician has ordered another sleep study. Problem 838043078 Hepatitis C antibody test positive (R76.8) Active confirmed Her hepatitis has resolved and she is no longer on treatment. Her hepatitis C viral titers most recently were negative. Problem Neuropathic pain ([id number]) Neuropathic pain (M79.2) Active confirmed The pain is localized to the left leg below the knee. She finds the best relief from ibuprofen and gabapentin. I have made her aware of the danger of diabetic taking ibuprofen chronically. Her kidney function has remained normal however. Problem [id number] Achilles tendon avulsion (S86.019A) Active confirmed She will continue under the care of the orthopedist and follow-up with me regularly. Problem [id number] Acute abdominal pain (R10.9) Active confirmed Her examination is unremarkable. I think this is musculoskeletal pain from the impact of the dog. No injury is noted. She will be observed. Problem [id number] Coronary artery vasospasm (I20.1) Active confirmed She was continued on current medications and will see a regional marketing director next week. She is compliant with her nitroglycerin. Problem [id number] Steatosis, liver (K76.0) Active confirmed Her liver function tests have elevated slightly. This is likely due to fat deposition in the liver as well as the recent viral infection. These values will be followed carefully and investigative they do not return to normal. Vital Signs Heart Rate 78 /min 04/03/2025 Temperature 97.9 degrees Fahrenheit 04/03/2025 Respiratory Rate 16 /min 04/03/2025 Oximetry 96 % 04/03/2025 Blood pressure diastolic 56 mm Hg 04/03/2025 Height 63 in 04/03/2025 Blood pressure systolic 102 mm Hg 04/03/2025 Weight 145 lbs 04/03/2025 BMI 25.68 kg/m2 04/03/2025 Encounters Encounter Location Date Provider Diagnosis Golden Archuleta III, MD [address] [place] [address] [place] [address] 04/26/2024 Golden Archuleta Other and unspecifie d hyperlipidemia E78.5 ; Overweight E66.3 ; Subcutaneous nodules R22.9 ; Fibromyalgia M79.7 ; Peripheral arterial disease I73.9 ; Former smoker Z87.891 ; Diabetic neuropathy E11.40 ; Sleep apnea in adult G47.30 and Neuropathic pain M79.2 Golden Archuleta III, MD [address] [place] [address] [place] [address] 05/17/2024 Golden Archuleta Acute COVID-19 U07.1 ; Other and unspecified hyperlipidemia E78.5 ; Overweight E66.3 ; Carpal tunnel syndrome, right upper limb G56.01 ; Subcutaneous nodules R22.9 ; Fibromyalgia M79.7 ; Raynaud's syndrome without gangrene I73.00 and Former smoker Z87.891 Golden Archuleta III, MD [address] [place] [address] [place] [address] 05/24/2024 Golden Archuleta Encounter for immunization Z23 ; Overweight E66.3 ; DM (diabetes mellitus) E11.9 ; Other and unspecified hyperlipidemia E78.5 ; Fibromyalgia M79.7 and Former smoker Z87.891 Golden Archuleta III, MD [address] [place] [address] [place] [address] 06/29/2024 Golden Archuleta Overweight E66.3 ; D M (diabetes mellitus) E11.9 ; Vitamin D deficiency E55.9 ; Diabetic neuropathy E11.40 ; Fibromyalgia M79.7 ; Other and unspecified hyperlipidemia E78.5 ; Tobacco dependence F17.200 ; Former smoker Z87.891 and Sleep apnea in adult G47.30 Golden Archuleta III, MD [address] [place] [address] [place] [address] 07/28/2024 Golden Archuleta Overweight E66.3 ; D M (diabetes mellitus) E11.9 ; Fibromyalgia M79.7 ; Other and unspecified hyperlipidemia E78.5 ; Former smoker Z87.891 ; Subcutaneous nodules R22.9 and Neuropathic pain M79.2 Golden Archuleta III, MD [address] [place] [address] [place] [address] 09/28/2024 Golden Archuleta DM (diabetes mellitu s) E11.9 ; Acute viral syndrome B34.9 ; Overweight E66.3 ; Fibromyalgia M79.7 ; Peripheral arterial disease I73.9 ; Former smoker Z87.891 ; Sleep apnea in adult G47.30 and Neuropathic pain M79.2 Golden Archuleta III, MD [address] [place] [address] [place] [address] 10/04/2024 Golden Archuleta Chronic cough R05 ; Acute viral syndrome B34.9 ; DM (diabetes mellitus) E11.9 ; Bronchitis J40 ; Other and unspecified hyperlipidemia E78.5 ; Overweight E66.3 ; Fibromyalgia M79.7 and Former smoker Z87.891 Golden Archuleta III, MD [address] [place] [address] [place] [address] 10/07/2024 Golden Archuleta DM (diabetes mellitu s) E11.9 ; Neuropathic pain M79.2 ; Steatosis, liver K76.0 ; Overweight E66.3 ; Fibromyalgia M79.7 ; Other and unspecified hyperlipidemia E78.5 and Former smoker Z87.891 Golden Archuleta III, MD [address] [place] [address] [place] [address] 10/25/2024 Golden Archuleta DM (diabetes mellitu s) E11.9 ; Overweight E66.3 ; Other and unspecified hyperlipidemia E78.5 ; Subcutaneous nodules R22.9 ; Carpal tunnel syndrome, right upper limb G56.01 ; Fibromyalgia M79.7 ; Former smoker Z87.891 ; Neuropathic pain M79.2 and Sleep apnea in adult G47.30 Golden Archuleta III, MD [address] [place] [address] [place] [address] 11/03/2024 Golden Archuleta DM (diabetes mellitu s) E11.9 ; Overweight E66.3 ; Fibromyalgia M79.7 ; Other and unspecified hyperlipidemia E78.5 ; Peripheral arterial disease I73.9 ; Subcutaneous nodules R22.9 ; Sleep apnea in adult G47.30 and Former smoker Z87.891 Golden Archuleta III, MD [address] [place] [address] [place] [address] 12/20/2024 Golden Archuleta DM (diabetes mellitu s) E11.9 ; Overweight E66.3 ; Other and unspecified hyperlipidemia E78.5 ; Fibromyalgia M79.7 ; Raynaud's syndrome without gangrene I73.00 ; Former smoker Z87.891 and Neuropathic pain M79.2 Golden Archuleta III, MD [address] [place] [address] [place] [address] 02/01/2025 Golden Archuleta Acute gout of right ankle, unspecified cause M10.9 ; Overweight E66.3 ; Other and unspecified hyperlipidemia E78.5 ; Subcutaneous nodules R22.9 ; Carpal tunnel syndrome, right upper limb G56.01 ; DM (diabetes mellitus) E11.9 ; Peripheral arterial disease I73.9 ; Lumbago with sciatica, right side M54.41 ; Tobacco dependence F17.200 and Former smoker Z87.891 Golden Archuleta III, MD [address] [place] [address] [place] [address] 02/02/2025 Golden Archuleta DM (diabetes mellitu s) E11.9 ; Pain in right leg M79.604 ; Pain in left leg M79.605 ; Overweight E66.3 and Former smoker Z87.891 Golden Archuleta III, MD [address] [place] [address] [place] [address] 02/03/2025 Golden Archuleta DM (diabetes mellitu s) E11.9 ; Acute right ankle pain M25.571 ; Other and unspecified hyperlipidemia E78.5 ; Overweight E66.3 ; Fibromyalgia M79.7 ; Sleep apnea in adult G47.30 ; Neuropathic pain M79.2 ; Coronary artery vasospasm I20.1 and Former smoker Z87.891 Golden Archuleta III, MD [address] [place] [address] [place] [address] 02/08/2025 Golden Archuleta DM (diabetes mellitu s) E11.9 ; Acute gout of right ankle, unspecified cause M10.9 ; Overweight E66.3 ; Other and unspecified hyperlipidemia E78.5 ; Peripheral arterial disease I73.9 ; Sleep apnea in adult G47.30 ; Neuropathic pain M79.2 ; Diabetic neuropathy E11.40 and Former smoker Z87.891 Golden Archuleta III, MD [address] [place] [address] [place] [address] 02/17/2025 Golden Archuleta DM (diabetes mellitu s) E11.9 ; Pain in right foot M79.671 ; Overweight E66.3 ; Peripheral arterial disease I73.9 ; Embolism and thrombosis of unspecified artery I74.9 ; Steatosis, liver K76.0 and Former smoker Z87.891 Golden Archuleta III, MD [address] [place] [address] [place] [address] 02/23/2025 Golden Archuleta DM (diabetes mellitu s) E11.9 ; Pain in right foot M79.671 ; Fibromyalgia M79.7 ; Other and unspecified hyperlipidemia E78.5 ; Tobacco dependence F17.200 and Overweight E66.3 Golden Archuleta III, MD [address] [place] [address] [place] [address] 03/17/2025 Golden Archuleta DM (diabetes mellitu s) E11.9 ; Acute abdominal pain R10.9 ; Other and unspecified hyperlipidemia E78.5 ; Overweight E66.3 ; Fibromyalgia M79.7 ; Peripheral arterial disease I73.9 ; Diabetic neuropathy E11.40 and Former smoker Z87.891 Golden Archuleta III, MD [address] [place] [address] [place] [address] 03/21/2025 Golden Archuleta Overweight E66.3 ; O ther and unspecified hyperlipidemia E78.5 ; Carpal tunnel syndrome, right upper limb G56.01 ; Subcutaneous nodules R22.9 ; Peripheral arterial disease I73.9 ; Coronary artery vasospasm I20.1 ; Acute gout of right ankle, unspecified cause M10.9 ; Sleep apnea in adult G47.30 ; Type 2 diabetes mellitus without complications E11.9 and Former smoker Z87.891 Golden Archuleta III, MD [address] [place] [address] [place] [address] 04/03/2025 Golden Archuleta Overweight E66.3 ; D M (diabetes mellitus) E11.9 ; Other and unspecified hyperlipidemia E78.5 ; Subcutaneous nodules R22.9 ; Carpal tunnel syndrome, right upper limb G56.01 ; Fibromyalgia M79.7 ; Sleep apnea in adult G47.30 and Neuropathic pain M79.2 Golden Archuleta III, MD [address] [place] [address] [place] [address] 04/11/2025 Golden Archuleta III, MD [address] [place] [address] [place] [address] 05/10/2024 Golden Archuleta III, MD [address] [place] [address] [place] [address] 05/11/2024 Golden Archuleta III, MD [address] [place] [address] [place] [address] 05/12/2024 Golden Archuleta III, MD [address] [place] [address] [place] [address] 05/13/2024 Golden Archuleta III, MD [address] [place] [address] [place] [address] 07/12/2024 Golden Archuleta III, MD [address] [place] [address] [place] [address] 08/01/2024 Golden Archuleta III, MD [address] [place] [address] [place] [address] 08/05/2024 Golden Archuleta III, MD [address] [place] [address] [place] [address] 08/29/2024 Golden Archuleta III, MD [address] [place] [address] [place] [address] 09/19/2024 Golden Archuleta III, MD [address] [place] [address] [place] [address] 09/29/2024 Golden Archuleta III, MD [address] [place] [address] [place] [address] 09/29/2024 Golden Archuleta III, MD [address] [place] [address] [place] [address] 10/03/2024 Golden Archuleta Acute cough R05.1 Goledn Archuleta III, MD [address] [place] [address] [place] [address] 10/03/2024 Golden Archuleta III, MD [address] [place] [address] 10/03/2024 Golden Archuleta III, MD [address] [facility] [place] [address] 10/04/2024 Golden Archuleta III, MD [address] [facility] [place] [address] 10/05/2024 Golden Archuleta III, MD [address] [facility] [place] [address] 10/17/2024 Golden Archuleta III, MD [address] [facility] [place] [address] 10/31/2024 Golden Archuleta III, MD [address] [facility] [place] [address] 11/07/2024 Golden Archuleta III, MD [address] [facility] [place] [address] 12/05/2024 Golden Archuleta III, MD [address] [facility] [place] [address] 12/06/2024 Golden Archuleta III, MD [address] [facility] [place] [address] 12/20/2024 Golden Archuleta DM (diabetes mellitu s) E11.9 Golden Archuleta III, MD [address] [facility] [place] [address] 02/07/2025 Golden Archuleta III, MD [address] [facility] [place] [address] 03/01/2025 Golden Archuleta III, MD [address] [place] [address] 03/10/2025 Golden Archuleta III, MD [address] [place] [address] 03/27/2025 Golden Archuleta III, MD [address] [facility] [place] [address] 04/13/2025 Golden Archuleta III, MD [address] [facility] [place] [address] 04/17/2025 Golden Mcdermottne Immunity status test ing Z01.84 Assessments Encounter Date Diagnosis (ICD Code) Assessment Notes Treat ment Notes Treatment Clinical Notes 04/26/2024 Overweight (ICD-10 - E66.3) She has [...] weight loss program in great detail today. 12/20/2024 DM (diabetes mellitus) (ICD-10 - E11.9) She will be diligent about checking her blood glucose levels twice a day. She agreed to resume the metformin on a daily basis and to lose weight. She declined to take more medications so we will try to reduce the hemoglobin A1c was lifestyle modification weight loss and diet.Her current hemoglobin A1c is 9.1. 12/20/2024 Overweight (ICD-10 - E66.3) Her body mass index is 27.1. 02/01/2025 Overweight (ICD-10 - E66.3) Her body mass index is 27.1. 02/01/2025 Acute gout of right ankle, unspecified cause (ICD-10 - M10.9) Clinically consistent with gout. A trial of prednisone has been arranged. 02/02/2025 DM (diabetes mellitus) (ICD-10 - E11.9) She will be diligent about checking her blood glucose levels twice a day while she is ill. She will report by telephone on a daily basis she is doing. At this time she is able to eat and drink normally. She will be followed carefully In the office. 02/02/2025 Pain in right leg (ICD-10 - M79.604) She reports improvement with the prednisone which was continued. A followup visit was arranged. 02/03/2025 DM (diabetes mellitus) (ICD-10 - E11.9) She will be diligent about checking her blood glucose levels twice a day while she is ill. She will report by telephone on a daily basis she is doing. At this time she is able to eat and drink normally. She will be followed carefully In the office. 02/03/2025 Acute right ankle pain (ICD-10 - M25.571) With the use of prednisone is beginning to improve. This was continued in a follow-up visit was given to her. 02/08/2025 DM (diabetes mellitus) (ICD-10 - E11.9) She will be diligent about checking her blood glucose levels twice a day while she is ill. She will report by telephone on a daily basis she is doing. At this time she is able to eat and drink normally. She will be followed carefully In the office. 02/08/2025 Acute gout of right ankle, unspecified cause (ICD-10 - M10.9) He is being treated with prednisone for what might be gout in the left ankle. She is beginning to steadily improve. 02/17/2025 DM (diabetes mellitus) (ICD-10 - E11.9) She will be diligent about checking her blood glucose levels twice a day while she is ill. She will report by telephone on a daily basis she is doing. At this time she is able to eat and drink normally. She will be followed carefully In the office. 02/17/2025 Pain in right foot (ICD-10 - M79.671) The pain is beginning to improve. No change in her regimen was needed. A follow-up visit was arranged. She will continue on current medication. 02/23/2025 DM (diabetes mellitus) (ICD-10 - E11.9) She will be diligent about checking her blood glucose levels twice a day while she is ill. She will report by telephone on a daily basis she is doing. At this time she is able to eat and drink normally. She will be followed carefully In the office. 02/23/2025 Pain in right foot (ICD-10 - M79.671) The pain is now gone, and she will return to normal activities of daily living. 03/17/2025 DM (diabetes mellitus) (ICD-10 - E11.9) Her hemoglobin A1c is 8.6. The previous value was above 8. She refused to take any more medications. My plan is to encourage her to lose weight and consume a healthy diet. Continue to to explain the types of medications available was taken to reduce the A1c. 03/17/2025 Acute abdominal pain (ICD-10 - R10.9) Her examination is unremarkable. I think this is musculoskeletal pain from the impact of the dog. No injury is noted. She will be observed. 03/21/2025 Overweight (ICD-10 - E66.3) Her body mass index is 26. 03/21/2025 Other and unspecified hyperlipidemia (ICD-10 - E78.5) The current fasting lipid profile shows a total cholesterol to be well within the target range. No change in treatment is needed. 04/03/2025 DM (diabetes mellitus) (ICD-10 - E11.9) She was begun on trulicity because her hemoglobin A1c was 8.6. She does not wish to take the metformin and has been avoiding it. She says her fasting glucose levels are below 1:30. Conference of blood work will be done prior to her next visit.. 04/03/2025 Overweight (ICD-10 - E66.3) Her body mass index is 26.She has lost 44 pounds since her last visit. We reviewed her weight loss strategy and her diet and nutrition. 10/03/2024 Acute cough (ICD-10 - R05.1) 12/20/2024 DM (diabetes mellitus) (ICD-10 - E11.9) She will be diligent about checking her blood glucose levels twice a day while she is ill. She will report by telephone on a daily basis she is doing. At this time she is able to eat and drink normally. She will be followed carefully In the office. 04/17/2025 Immunity status testing (ICD-10 - Z01.84) 04/26/2024 Subcutaneous nodules (ICD-10 - R22.9) These [...] is currently under the pain management at [facility]. 09/28/2024 Overweight (ICD-10 - E66.3) Her weight [...] is currently under the pain management at [facility]. 12/20/2024 Other and unspecified hyperlipidemia (ICD-10 - E78.5) The current fasting lipid profile shows a total cholesterol to be well within the target range. No change in treatment is needed. 02/01/2025 Other and unspecified hyperlipidemia (ICD-10 - E78.5) The current fasting lipid profile shows a total cholesterol to be well within the target range. No change in treatment is needed. 02/02/2025 Pain in left leg (ICD-10 - M79.605) The pain was improved and the prednisone was continued. 02/03/2025 Other and unspecified hyperlipidemia (ICD-10 - E78.5) The current fasting lipid profile shows a total cholesterol to be well within the target range. No change in treatment is needed. 02/08/2025 Overweight (ICD-10 - E66.3) Her body mass index is 27.1. 02/17/2025 Overweight (ICD-10 - E66.3) Her body mass index is 27.1. 02/23/2025 Fibromyalgia (ICD-10 - M79.7) This has been stable, but present. She is currently under the pain management at [facility]. 03/17/2025 Other and unspecified hyperlipidemia (ICD-10 - E78.5) The current fasting lipid profile shows a total cholesterol to be well within the target range. No change in treatment is needed. 03/21/2025 Carpal tunnel syndrome, right upper limb (ICD-10 - G56.01) The pain in her wrist is stable and she is not complaining about it at this time. 04/03/2025 Other and unspecified hyperlipidemia (ICD-10 - E78.5) The current fasting lipid profile shows a total cholesterol to be well within the target range. No change in treatment is needed. 04/26/2024 Fibromyalgia (ICD-10 - M79.7) This has been stable, but present. She is currently under the pain management at [facility]. 05/17/2024 Carpal tunnel syndrome, right upper limb [...] is currently under the pain management at [facility]. 10/04/2024 Bronchitis (ICD-10 - J40) CT scan [...] range. No change in treatment is needed. 12/20/2024 Fibromyalgia (ICD-10 - M79.7) This has been stable, but present. She is currently under the pain management at [facility]. 02/01/2025 Subcutaneous nodules (ICD-10 - R22.9) These are unchanged and nontender and will be followed. 02/02/2025 Overweight (ICD-10 - E66.3) 02/03/2025 Overweight (ICD-10 - E66.3) Her body mass index is 27.1. 02/08/2025 Other and unspecified hyperlipidemia (ICD-10 - E78.5) The current fasting lipid profile shows a total cholesterol to be well within the target range. No change in treatment is needed. 02/17/2025 Peripheral arterial disease (ICD-10 - I73.9) Her foot was pink and warm, but continued painful. 02/23/2025 Other and unspecified hyperlipidemia (ICD-10 - E78.5) The current fasting lipid profile shows a total cholesterol to be well within the target range. No change in treatment is needed. 03/17/2025 Overweight (ICD-10 - E66.3) Her body mass index is 26. 03/21/2025 Subcutaneous nodules (ICD-10 - R22.9) These are unchanged and nontender and will be followed. 04/03/2025 Subcutaneous nodules (ICD-10 - R22.9) These are unchanged and nontender and will be followed. 04/26/2024 Peripheral arterial disease (ICD-10 - I73.9) Her foot was pink and warm, but continued painful. 05/17/2024 Subcutaneous nodules (ICD-10 - R22.9) These are unchanged and nontender and will be followed. 05/24/2024 Fibromyalgia (ICD-10 - M79.7) This has been stable, but present. She is currently under the pain management at [facility]. 06/29/2024 Fibromyalgia (ICD-10 - M79.7) This has been stable, but present. She is currently under the pain management at [facility]. 07/28/2024 Former smoker (ICD-10 - Z87.891) She [...] is currently under the pain management at [facility]. 10/25/2024 Carpal tunnel syndrome, right upper limb (ICD-10 - G56.01) The pain in her wrist is stable and she is not complaining about it at this time. 11/03/2024 Peripheral arterial disease (ICD-10 - I73.9) Her foot was pink and warm, but continued painful. 12/20/2024 Raynaud's syndrome without gangrene (ICD-10 - I73.00) This has not been a problem since last year. It was not present today and she reports no difficulty in the recent past. 02/01/2025 Carpal tunnel syndrome, right upper limb (ICD-10 - G56.01) The pain in her wrist is stable and she is not complaining about it at this time. 02/02/2025 Former smoker (ICD-10 - Z87.891) She reports that she has stopped smoking within the last 5 days. She seems motivated to continue abstinence. 02/03/2025 Fibromyalgia (ICD-10 - M79.7) This has been stable, but present. She is currently under the pain management at [facility]. 02/08/2025 Peripheral arterial disease (ICD-10 - I73.9) Her foot was pink and warm, but continued painful. 02/17/2025 Embolism and thrombosis of unspecified artery (ICD-10 - I74.9) She will remain anticoagulated at this time. 02/23/2025 Tobacco dependence (ICD-10 - F17.200) I strongly recommended smoking cessation and she has agreed to reduce number of cigarettes she uses daily. 03/17/2025 Fibromyalgia (ICD-10 - M79.7) This has been stable, but present. She is currently under the pain management at [facility]. 03/21/2025 Peripheral arterial disease (ICD-10 - I73.9) Her foot was pink and warm, but continued painful. 04/03/2025 Carpal tunnel syndrome, right upper limb (ICD-10 - G56.01) The pain in her wrist is stable and she is not complaining about it at this time. 04/26/2024 Former smoker (ICD-10 - Z87.891) She reports that she has stopped smoking within the last 5 days. She seems motivated to continue abstinence. 05/17/2024 Fibromyalgia (ICD-10 - M79.7) This has been stable, but present. She is currently under the pain management at [facility]. 05/24/2024 Former smoker (ICD-10 - Z87.891) She [...] is currently under the pain management at [facility]. 11/03/2024 Subcutaneous nodules (ICD-10 - R22.9) These are unchanged and nontender and will be followed. 12/20/2024 Former smoker (ICD-10 - Z87.891) She reports that she has stopped smoking within the last 5 days. She seems motivated to continue abstinence. 02/01/2025 DM (diabetes mellitus) (ICD-10 - E11.9) She will be diligent about checking her blood glucose levels twice a day while she is ill. She will report by telephone on a daily basis she is doing. At this time she is able to eat and drink normally. She will be followed carefully In the office. 02/03/2025 Sleep apnea in adult (ICD-10 - G47.30) No change in her current regimen was needed today. She denies taking time somnolence.Her pulmonary physician has ordered another sleep study. 02/08/2025 Sleep apnea in adult (ICD-10 - G47.30) No change in her current regimen was needed today. She denies taking time somnolence.Her pulmonary physician has ordered another sleep study. 02/17/2025 Steatosis, liver (ICD-10 - K76.0) Her liver function tests have elevated slightly. This is likely due to fat deposition in the liver as well as the recent viral infection. These values will be followed carefully and investigative they do not return to normal. 02/23/2025 Overweight (ICD-10 - E66.3) Her body mass index is 26. 03/17/2025 Peripheral arterial disease (ICD-10 - I73.9) Her foot was pink and warm, but continued painful. 03/21/2025 Coronary artery vasospasm (ICD-10 - I20.1) She was continued on current medications and will see a regional marketing director next week. She is compliant with her nitroglycerin. 04/03/2025 Fibromyalgia (ICD-10 - M79.7) This has been stable, but present. She is currently under the pain management at [facility]. 04/26/2024 Diabetic neuropathy (ICD-10 - E11.40) She [...] is currently under the pain management at [facility]. 10/07/2024 Former smoker (ICD-10 - Z87.891) She [...] pulmonary physician has ordered another sleep study. 12/20/2024 Neuropathic pain (ICD-10 - M79.2) The pain is localized to the left leg below the knee. She finds the best relief from ibuprofen and gabapentin. I have made her aware of the danger of diabetic taking ibuprofen chronically. Her kidney function has remained normal however. 02/01/2025 Peripheral arterial disease (ICD-10 - I73.9) Her foot was pink and warm, but continued painful. 02/03/2025 Neuropathic pain (ICD-10 - M79.2) The pain is localized to the left leg below the knee. She finds the best relief from ibuprofen and gabapentin. I have made her aware of the danger of diabetic taking ibuprofen chronically. Her kidney function has remained normal however. 02/08/2025 Neuropathic pain (ICD-10 - M79.2) The pain is localized to the left leg below the knee. She finds the best relief from ibuprofen and gabapentin. I have made her aware of the danger of diabetic taking ibuprofen chronically. Her kidney function has remained normal however. 02/17/2025 Former smoker (ICD-10 - Z87.891) She reports that she has stopped smoking within the last 5 days. She seems motivated to continue abstinence. 03/17/2025 Diabetic neuropathy (ICD-10 - E11.40) 10 use and known painful feeling in her legs. Neuropathic pain in her left leg below the knee is worse. She has orthopedic pain in both knees as well but only when kneeling. 03/21/2025 Acute gout of right ankle, unspecified cause (ICD-10 - M10.9) He is being treated with prednisone for what might be gout in the left ankle. She is beginning to steadily improve. 04/03/2025 Sleep apnea in adult (ICD-10 - G47.30) No change in her current regimen was needed today. She denies taking time somnolence.Her pulmonary physician has ordered another sleep study. 04/26/2024 Sleep apnea in adult (ICD-10 - [...] days. She seems motivated to continue abstinence. 02/01/2025 Lumbago with sciatica, right side (ICD-10 - M54.41) She was continued on current medication until she sees a surgeon. 02/03/2025 Coronary artery vasospasm (ICD-10 - I20.1) She was continued on current medications and will see a regional marketing director next week. She is compliant with her nitroglycerin. 02/08/2025 Diabetic neuropathy (ICD-10 - E11.40) 10 use and known painful feeling in her legs. Neuropathic pain in her left leg below the knee is worse. She has orthopedic pain in both knees as well but only when kneeling. 03/17/2025 Former smoker (ICD-10 - Z87.891) She reports that she has stopped smoking within the last 5 days. She seems motivated to continue abstinence. 03/21/2025 Sleep apnea in adult (ICD-10 - G47.30) [...] Her kidney function has remained normal however. 04/26/2024 Neuropathic pain (ICD-10 - M79.2) She [...] needed today. She denies taking time somnolence. 02/01/2025 Tobacco dependence (ICD-10 - F17.200) 02/03/2025 Former smoker (ICD-10 - Z87.891) She reports that she has stopped smoking within the last 5 days. She seems motivated to continue abstinence. 02/08/2025 Former smoker (ICD-10 - Z87.891) She reports that she has stopped smoking within the last 5 days. She seems motivated to continue abstinence. 03/21/2025 Type 2 diabetes mellitus without complications (ICD-10 - E11.9) The most recent hemoglobin A1c was 8.4. We talked her how to use the prefilled pen. She successfully injected the trulicity. A followup visit was arranged. 02/01/2025 Former smoker (ICD-10 - Z87.891) She reports that she has stopped smoking within the last 5 days. She seems motivated to continue abstinence. 03/21/2025 Former smoker (ICD-10 - Z87.891) She reports that she has stopped smoking within the last 5 days. She seems motivated to continue abstinence. Plan Of Treatment Pending Test Test Name Order Date PROFILE, FASTING (COMPREHENSIVE METABOLI C) 09/22/2023 PROFILE, FASTING (COMPREHENSIVE METABOLI C) 07/12/2018 PROFILE, FASTING (COMPREHENSIVE METABOLI C) 12/20/2024 PROFILE, FASTING (COMPREHENSIVE METABOLI C) 11/14/2020 PROFILE, FASTING (COMPREHENSIVE METABOLI C) 07/20/2017 PROFILE, FASTING (COMPREHENSIVE METABOLI C) 11/18/2019 PROFILE, FASTING (COMPREHENSIVE METABOLI C) 08/26/2019 PROFILE, FASTING (COMPREHENSIVE METABOLI C) 03/24/2023 PROFILE, FASTING (COMPREHENSIVE METABOLI C) 07/26/2019 PROFILE, FASTING (COMPREHENSIVE METABOLI C) 10/24/2022 PROFILE, FASTING (COMPREHENSIVE METABOLI C) 06/29/2024 PROFILE, FASTING (COMPREHENSIVE METABOLI C) 07/21/2022 PROFILE, FASTING (COMPREHENSIVE METABOLI C) 04/03/2025 PROFILE, FASTING (COMPREHENSIVE METABOLI C) 01/28/2022 PROFILE, FASTING (COMPREHENSIVE METABOLI C) 12/18/2021 PROFILE, RANDOM (COMPREHENSIVE METABOLIC ) 09/13/2018 PROFILE, RANDOM (COMPREHENSIVE METABOLIC ) 07/28/2024 PROFILE, RANDOM (COMPREHENSIVE METABOLIC ) 09/21/2019 PROFILE, RANDOM (COMPREHENSIVE METABOLIC ) 10/25/2024 PROFILE, RANDOM (COMPREHENSIVE METABOLIC ) 02/15/2019 PROFILE, RANDOM (COMPREHENSIVE METABOLIC ) 10/07/2024 HEMOGLOBIN A1C (GLYCOHEMOGLOBIN) 022 HEMOGLOBIN A1C (GLYCOHEMOGLOBIN) 022 HEMOGLOBIN A1C (GLYCOHEMOGLOBIN) 022 HEMOGLOBIN A1C (GLYCOHEMOGLOBIN) 019 HEMOGLOBIN A1C (GLYCOHEMOGLOBIN) 018 HEMOGLOBIN A1C (GLYCOHEMOGLOBIN) 021 HEMOGLOBIN A1C (GLYCOHEMOGLOBIN) 017 HEMOGLOBIN A1C (GLYCOHEMOGLOBIN) 020 HEMOGLOBIN A1C (GLYCOHEMOGLOBIN) 020 HEMOGLOBIN A1C (GLYCOHEMOGLOBIN) 020 HEMOGLOBIN A1C (GLYCOHEMOGLOBIN) 023 HEMOGLOBIN A1C (GLYCOHEMOGLOBIN) 019 HEMOGLOBIN A1C (GLYCOHEMOGLOBIN) 023 HEMOGLOBIN A1C (GLYCOHEMOGLOBIN) 019 MAGNESIUM 03/24/2023 LIPID PANEL 07/26/2019 LIPID PANEL 10/24/2022 LIPID PANEL 02/15/2019 LIPID PANEL 07/21/2022 LIPID PANEL 03/24/2023 LIPID PANEL 12/18/2021 LIPID PANEL 07/12/2018 LIPID PANEL 11/14/2020 LIPID PANEL 11/18/2019 LIPID PANEL 07/20/2017 LIPID PANEL 09/21/2019 LIPID PANEL 08/26/2019 GGT 10/07/2024 MICROALBUMIN, RANDOM 08/26/2019 MICROALBUMIN, RANDOM 10/24/2022 MICROALBUMIN, RANDOM 03/24/2023 MICROALBUMIN, RANDOM 12/18/2021 MICROALBUMIN, RANDOM 11/14/2020 CBC w DIFF 11/14/2020 CBC w DIFF 04/03/2025 CBC w DIFF 10/07/2024 CBC w DIFF 08/26/2019 CBC w DIFF 01/28/2022 CBC w DIFF 07/26/2019 CBC w DIFF 12/20/2024 CBC w DIFF 02/15/2019 CBC w DIFF 07/21/2022 CBC w DIFF 09/13/2018 CBC w DIFF 10/24/2022 CBC w DIFF 07/12/2018 CBC w DIFF 03/24/2023 CBC w DIFF 12/18/2021 CBC w DIFF 10/25/2024 CBC w DIFF 11/18/2019 CBC w DIFF 07/20/2017 CBC w DIFF 09/21/2019 SED RATE (ESR) 11/14/2020 ROUTINE CULTURE 04/04/2022 [...] RT PCR 07/24/2020 Magnesium 06/29/2024 Lipid Panel 04/03/2025 Lipid Panel 01/28/2022 Lipid Panel 06/29/2024 Lipid Panel 12/20/2024 Vitamin D 25-OH Total 06/29/2024 Microalbumin, Random 06/29/2024 Rubella IgG Antibody 04/17/2025 Rubeola IgG (Measles) 04/17/2025 ECG 12 lead EKG 07/22/2023 NE electromyogram (EMG) 09/02/2022 NE nerve conduction velocity 08/26/2022 Hemoglobin A1c 06/29/2024 Hemoglobin A1c 10/07/2024 Hemoglobin A1c 04/03/2025 Hemoglobin A1c 07/28/2024 Hemoglobin A1c 12/20/2024 Hemoglobin A1c 10/25/2024 NUC Stress Test 10/05/2023 Next Appt Details Provider Name:Golden Archuleta, 06/06/2025 10:15:00 AM, [address] [facility] [place], [place], [address], Provider Name:Golden Archuleta, 04/04/2026 02:00:00 PM, 10 [facility] [place], [place], [address], Insurance Providers Payer Name Payer Address Payer Phone Subscriber Number Group Number Insured Name Patient Relationship to Insured Coverage Start Date Coverage End Date MEDICARE NGS [address] [place] [address] [id number] Melva Thomas Self - patient is the insured [place] [address] [place] [id number] [phone] [id number] Melva Thomas Self - patient is the insured Medical (General) History Medical History History ICD Code atypical chest pain left fifth hammer toe 2007 hematochezia AODM carpal tunnel syndrome hemorrhoids right sciatica 2013 lisinopril-induced cough and fibromyalgia lisinopril-induced cough Surgical History Surgery Date(Month/Year) No history hammertoe repair 12/2009 Hospitalization History Reason Date(Month/Year) No history
--- OUTSIDE RECORDS SUMMARY | 2025-04-17 15:24 | XMS_ITS | Clinical Summary ---
Author Organization [facility] Address [address] [place] [address] Phone Care Team Providers Care Profiler Name Role Phone Golden Archuleta MD Primary Care Provider [phone] Allergies Active Allergy Reactions Criticality Noted Date Comments Oxycodone-Acetaminophen Nausea Only 01/16/2021 Percocet only per patient Medications cholecalciferol (VITAMIN D3) 50,000 unit capsule Take 50,000 Units by mouth once a week. 1 Active diclofenac sodium (VOLTAREN) 1 % Gel APPLY 4 G TOPICALLY 2 TIMES DAILY. 1 Active metFORMIN (GLUCOPHAGE) 1000 MG tablet Take 1,000 mg by mouth. 1 Active gabapentin (NEURONTIN) 300 MG capsule Take 300 mg by mouth. Active glipiZIDE (GLUCOTROL) 10 MG tablet TAKE 1 TABLET BY MOUTH 30 MINUTES BEFORE BREAKFAST ONCE A DAY FOR 30 DAYS 1 Active oxyCODONE 5 MG immediate release tablet Take 5 mg by mouth every 6 (six) hours as needed. 1 Active ibuprofen (ADVIL,MOTRIN) 800 MG tablet Take 400 mg by mouth every 6 (six) hours as needed for pain (specific location in comments). Active lidocaine 5 % ointmentIndicat ions:Complex regional pain syndrome type 2 of left lower extremity Apply topically as needed. 35.44 g 1 Active nitroglycerin (NITROSTAT) 0.4 MG SL tablet DIRECTED SUBLINGUAL EVERY 5 MINUTES NEEDED FOR CHEST PAIN 28 DAYS 2 Active aspirin 81 mg chewable tablet TAKE 1 TABLET BY MOUTH EVERY DAY FOR 30 DAYS 2 Active acetaminophen (TYLENOL) 500 MG tablet Take 500 mg by mouth every 6 (six) hours as needed. 1 Active calcium carbonate (OS-ROSA) 1,250 mg (500 mg elemental) tablet Take 1 tablet by mouth daily. 2 Active Active Problems Problem Noted Date Diagnosed Date Fibromyalgia 04/03/2022 Overview (04/03/2022): Suspect symptoms are likely 2/2 to fibromyalgia, however as she had a positive TIFFANY previously we will obtain additional labs as above to further evaluate. For now will plan to continue on her current regimen of gabapentin and ibuprofen prn. Assessment & Plan (04/03/2022 10:40 PM EDT): Suspect symptoms are likely 2/2 to fibromyalgia, however as she had a positive TIFFANY previously we will obtain additional labs as above to further evaluate. For now will plan to continue on her current regimen of gabapentin and ibuprofen prn. Suggested voltaren gel for hands prn Hypertension 09/12/2021 Social History Tobacco Use Types Packs/Day Years Used Date Smoking Tobacco: Former Cigarettes Q uit: 04/2020 Smokeless Tobacco: Never Alcohol Use Standard Drinks/Week Comments Not Currently 0 (1 standard drink = 0.6 oz pur e alcohol) Education Answer Date Recorded Are you interested in more education? Not on patt e 12/20/2022 Are you concerned about learning? Not on file 12/20/2022 No 12/20/2022 No 12/20/2022 Digital Access Answer Date Recorded No 01/18/2023 No 01/18/2023 No 01/18/2023 Reliable internet access at home? Not on file 01/18/2023 Device with a working camera? Not on file Comments Unknown Sex and Gender Information Value Date Recorded Sex Assigned at Not on file Legal Sex Female 10:02 AM EDT Gender Identity Not on file Sexual Orientation Not on file Last Filed Vital Signs Vital Sign Reading Time Taken Comments Blood Pressure 116/72 04/03/2022 3:43 PM EDT Pulse 72 11/13/2021 2:50 PM EDT Temperature 36.1 C (97 F) 11/13/2021 2:50 PM EDT Respiratory Rate - - Oxygen Saturation 98% 11/13/2021 2:50 PM EDT Inhaled Oxygen Concentration - - Weight 71.2 kg (157 lb) 04/03/2022 3:43 PM EDT Height 160 cm (5' 3 ) 04/03/2022 3:43 PM EDT Body Mass Index 27.81 04/03/2022 3:43 PM EDT Plan of Treatment Health Maintenance Due Date Last Done Comments Adult Td,Tdap Booster 1960 BLOOD PRESSURE 1960 LIPID PANEL 1960 DEPRESSION SCREENING 1972 SMOKING Hx and SMOKELESS TOBACCO SCREENING 1973 HEPATITIS C SCREENING 1978 HIV ONE-TIME SCREENING (18-6 5 YEARS) 1978 PAP SMEAR 1981 MAMMOGRAM 2000 COLOGUARD 2005 COLONOSCOPY 2005 COLORECTAL CANCER SCREENING 2005 FIT TEST 2005 FOBT 2005 SIGMOIDOSCOPY 2005 VIRTUAL COLONOSCOPY 2005 CREATININE LEVEL 04/14/2023 04/14/2022 PNEUMOCOCCAL VACCINES (50+ years) (3 of 3 - PCV20 or PCV21) 05/26/2023 05/26/2018, 05/25/2018 COVID-19 VACCINE (4 - 2023-2 5 season) 2024 08/04/2021, 01/18/2021, 12/21/2020 RSV VACCINE (1 - 1-dose 75+ series) 12/14/2035 HEPATITIS A VACCINES Aged Out 09/20/2018, 03/17/2018 No longer eligible based on patient's age to complete this topic ZOSTER VACCINES Completed 03/10/2022, 01/08/2022 HIB VACCINES Aged Out No longer eligi ble based on patient's age to complete this topic MENINGOCOCCAL VACCINES (ACWY) Aged Out No longer eligible based on patient's age to complete this topic MENINGOCOCCAL VACCINES (B) Aged Out N o longer eligible based on patient's age to complete this topic Medical Devices Not on file Procedures Procedure Name Priority Date/Time Associated Diagnosis Comments COMPREHENSIVE METABOLIC PANEL Routine 04/14/2022 1:01 PM EDT Fibromyalgia from Last 3 Months or Most Recently Relevant to Health Maintenance Results * (ABNORMAL) Comprehensive metabolic panel (04/14/2022 1:01 PM EDT) SODIUM 139 133 - 146 mmol/L [facility] POTASSIUM 4.3 3.3 - 5.1 mmol/L [facility] CHLORIDE 102 96 - 108 mmol/L [facility] CO2 28 21 - 35 mmol/L [facility] BUN 15 6 - 19 mg/dL [facility] CREATININE 0.60 0.5 - 1.5 mg/dL [facility] GLUCOSE 191(H) 70 - 99 mg/dL [facility] ALBUMIN 4.1 3.9 - 4.8 g/dL [facility] TOTAL PROTEIN 7.0 6.5 - 8.0 g/dL [facility] CALCIUM 9.3 8.4 - 10.3 mg/dL [facility] ALKALINE PHOSPHATASE 88 39 - 117 U/L [facility] TOTAL BILIRUBIN 0.3 0.0 - 1.2 mg/dL [facility] AST 25 0 - 37 U/L [facility] ALT 17 0 - 40 U/L [facility] GLOBULIN 2.9 1 - 4.8 g/dL [facility] EGFR 102 >59 mL/min/1.7 3m2 [facility] Comment:Estimated glomerular filtration rate calculated using the CKD-EPI refit equation. ANION GAP 13 10 - 20 mmol/L [facility] Blood 04/14/2022 1:01 PM EDT 04/14/2022 1:03 PM EDT us Sandra GODOY [facility] BLOOD ORDERABLES Fin al Result [facility] [address] [place] [address] from Last 3 Months or Most Recently Relevant to Health Maintenance Insurance [facility] MEDICARE REPLACEMENT [facility] MEDICARE [facility]PLAC[place] [facility] [facility] MEDICARE REPLACEMENT [facility] ONE CARE MEDICARE REPLACEMENT [facility] MEDICARE REPLACEMENT Care Teams Profiler Relationship Specialty Start Date End Date Golden Archuleta MD [address] [place] [id number] PCP - General Medical Oncology 03/19/21 Additional Source Comments The information contained in this document represents components of the legal health record. It is not the complete legal health record.[facility]
--- OUTSIDE RECORDS SUMMARY | 2025-04-17 15:24 | XMS_ITS | Patient Health Record ---
Author Organization [facility] Address [address] [place] [address] Care Team Providers Care Auto Former Machine Operator Name Role Phone Golden Archuleta MD Primary Care Provider Unavailab [place] Unavailable [phone] Golden Archuleta MD Unavailable Unavailable Allergies Allergen (clinical drug ingredient) Drug/Non Drug Allergy documented on EMR Reaction Allergy Type Onset Date Status hydromorphone Dilaudid Unknown Drug Allergy Act papito acetaminophen / oxycodone Percocet dizziness, nausea, vomiting Drug Allergy Active Reason For Referral No Information Medications Medication SIG (Take, Route, Fr equency, Duration) Notes Start Date End Date Status Ibuprofen 800 MG 1 tablet Orally; Dur ation: 30 day(s) Active LORazepam 1 MG 1 tablet Orally prn Active Piroxicam 20 MG 1 capsule with food Orally Once a day; Duration: 30 day(s) 07/27/2012 Active Physical Therapy . . . 2-3x/week; Duration: 6 weeks 08/27/2012 Active Problems Problem Type SNOMED Code ICD Code Onset Dates Problem Status W/U Status Risk Notes Problem Bursitis (81269546) Bursitis (727.3) Active confirmed Problem Sprain of calcaneofibular ligament (95095449) Ankle Sprain/Latera l Ankle Sprain (845.02) Active confirmed Problem Myositis (58240904) Myositis (729.1) Active confirmed Problem Pain in limb (24711047) Pain in Limb (729.5) Active confirmed Problem Plantar fasciitis (821982794) Plantar Fasciitis (728.71) Active confirmed Problem Calcaneal spur (96512337) Calcaneal spur (726.73) Active confirmed Plan Of Treatment No Information Insurance Providers Payer Name Payer Address Payer Phone Subscriber Number Group Number Insured Name Patient Relationship to Insured Coverage Start Date Coverage End Date [facility] [address] [facility] [place] [phone] [id number] LEANNE BAHENA Self - patient is the insured Medical (General) History Medical History History ICD Code gall bladder problems Surgical History Surgery Date(Month/Year) cholecystectomy neck surgery tubal ligation uterus surgery
--- OUTSIDE RECORDS SUMMARY | 2025-04-17 15:24 | XMS_ITS | Clinical Summary ---
Author Organization [facility] Address [address] [place] [address] Phone Care Team Providers Care [employer] Truck Driver Name Role Phone Golden Archuleta MD Primary Care Provider [phone] Allergies Active Allergy Reactions Criticality Noted Date Comments Lisinopril 11/12/2020 Oxycodone-Acetaminophen 11/12/2020 Medications acetaminophen (TYLENOL) 500 mg capsule Take by mouth. Active ammonium lactate (LAC-HYDRIN) 12 % lotion Apply to soles of feet daily. At night wear socks to bed 2 Active aspirin 81 mg chewable tablet TAKE 1 TABLET BY MOUTH EVERY DAY FOR 30 DAYS 2 Active cholecalciferol (VITAMIN D-3) 125 mcg (5,000 unit) capsule Take by mouth. Active clotrimazole (LOTRIMIN) 1 % cream [...] test strip by In Vitro route. Active Active Problems Problem Noted Date Diagnosed Date Atypical chest pain 10/16/2021 Carpal tunnel syndrome 10/16/2021 Fibromyalgia 10/16/2021 Hammer toe 10/16/2021 [place]peripheral artery disease) [place] [place] Peripheral neuritis 10/16/2021 T2DM (type 2 diabetes mellitus) [place] [place] [facility] V28) 10/16/2021 Encounters Date Type Department Care Team Description 04/10/2025 1:15 PM EDT Office Visit Orthopedic Surgery [place] [address] [place] [phone] Erich Harrison DPM Diabetic mononeuropathy simplex [place] [place] [place] [facility] V28) (Primary Dx); Ingrowing nail; Type II diabetes mellitus with peripheral circulatory disorder [place] [place] [place] [facility] [place] Metatarsalgia of both feet; Corns and callosities; Pain in toe of left foot; Dermatophytosis of nail; Pain in toe of right foot from Last 3 Months Surgical History Surgery Date Site/Laterality Comments OTHER SURGICAL HISTORY PROCEDURE: DENIES PREVIOUS SURGERY FOOT SURGERY PROCEDURE: CT UNLISTED PROCEDURE FOOT/TOES Medical History Medical History Date Comments Atypical chest pain DX:Atypical chest pain Hammer toe DX:Hammer toe Carpal tunnel syndrome DX:Carpal tunnel syndrome Sciatica DX:Sciatica Fibromyalgia DX:Fibromyalgia Diabetes [place] [place] [place] [facility] [place] DX:Diabetes ([facility]) Family History Medical History Relation Name [...] Oxygen Concentration - - Weight 72.1 kg (158 lb 15.2 oz) 04/10/2025 1:06 PM EDT Height 160 cm (5' 2.99 ) 04/10/2025 1:06 PM EDT Body Mass Index 28.16 04/10/2025 1:06 PM EDT Plan of Treatment Upcoming Encounters Date Type Department Care Team (Late st Contact Info) Description 07/11/2025 10:00 AM EST Office Visit Orthopedic Surgery [facility] [address] [phone] Erich Harrison, DPM [address] [address] Health Maintenance Due Date Last Done Comments Breast Cancer Screening 1960 Diabetes: Annual Foot Exam 1970 Diabetes: Annual Retina Eye Exam 1970 DTaP,Tdap,and Td Vaccines (1 - Tdap) 12/14/1979 Cervical Cancer Screening: Pap Smear 1981 RSV Immunization Adult Patients (1 - Risk 60-74 years 1-dose series) 2020 Cholesterol Screening (Lipid Panel) 07/26/2022 Colorectal Cancer Screening: Colonoscopy 07/26/2022 HIV Screening 07/26/2022 Hepatitis C Screening 07/26/2022 Medicare Annual Wellness Visit 07/26/2022 Social Influencers of Health Screening 07/26/2022 Diabetes: Annual Urine Albumin-Creatinine Ratio (uACR) 08/03/2022 Diabetes: Blood Sugar Control Test (HGBA1C) 08/03/2022 Diabetes: Annual GFR (Glomerular Filtration Rate) 04/14/2023 04/14/2022 COVID-19 Vaccine ( season) 2024 08/04/2021, 01/18/2021, 12/21/2020 Depression Screening 08/24/2024 Hypertension/CHF/CAD Annual BMP Blood Test 09/16/2024 04/14/2022 Influenza Vaccine (#1) 2025 , 05/15/2023, 06/23/2022, Additional history exists Hepatitis A Vaccines Aged Out 09/20/2018, 03/17/20 18 No longer eligible based on patient's age to complete this topic Hepatitis B Vaccines Completed 09/20/2018, 05/20/2018, 03/17/2018 Zoster Vaccines Completed 03/10/2022, 01/08/2022 Pneumococcal Vaccine: 50+ Years Completed 04/14/2023, 05/26/2018, 05/25/2018 HIB Vaccines Aged Out No longer eligi [...] Insurance MEDICARE MEDICAID - [place] Care Teams Regional [employer] Truck Driver Relationship Specialty Start Date End Date Golden Archuleta MD [address] [address] PCP - General 10/04/07
== END 2025-04-17 14:50 | disposition home or self-care (01) ==
LOC: HO.HCS 14:02
PROVIDERS: PCP Internal Medicine Medical Oncology; Visit Provider Internal Medicine
DX: I21.4 Non-ST elevation (NSTEMI) myocardial infarction (principal); I20.1 Angina pectoris with documented spasm; E11.8 Type 2 diabetes mellitus with unspecified complications
CPT/HCPCS: 99214; G2211

== ENCOUNTER → 2025-04-17 14:01 | Outpatient (BNVA) | payer MEDICARE, MEDICAID, SELFPAY | PROVIDERS: PCP Internal Medicine Medical Oncology; Visit Provider Internal Medicine | DX: I25.2 Old myocardial infarction (principal); I20.1 Angina pectoris with documented spasm; E11.8 Type 2 diabetes mellitus with unspecified complications; Z79.85 Long-term (current) use of injectable non-insulin antidiabetic drugs | CPT/HCPCS: 99212 ==

== ENCOUNTER 2025-04-26 09:38 | Outpatient (REF) | payer MEDICARE, MEDICAID, SELFPAY ==
--- OUTSIDE RECORDS SUMMARY | 2025-04-03 11:00 | XMS_ITS ---
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 Name Role Phone Golden Archuleta Primary Care Provider Allergies Allergen (clinical drug ingredient) Drug/Non Drug Allergy documented on EMR Reaction Allergy Type Onset Date Status No Known Food Allergy Unknown Drug Allergy Active acetaminophen / oxycodone Percocet nausea Drug Allergy Active lisinopril Lisinopril cough Drug Allergy Activ e REASON FOR VISIT annual exam Medications Medication SIG (Take, Route, Frequency, Duration) Notes Start Date End Date Status Magnesium Oxide 400 MG 1 tablet as neede d Orally Once a day 03/28/2024 Active glipiZIDE 10 MG TAKE 1 TABLET BY MOUTH EVERY MORNING 30 MINUTES BEFORE BREAKFAST Active predniSONE 20 MG 2 tablets Orally Once a day 02/01/2025 Active dexAMETHasone 2 MG 1 tablet Orally twice a day 11/03/2024 Active Trulicity 0.75 MG/0.5ML 0.75 mg Subcutaneous weekly 03/17/2025 Active Oyster Shell Calcium 500 MG 1 tablet with food Orally once a day 12/06/2024 Active Gabapentin 600 MG TAKE 1 TABLET BY MOUTH THREE TIMES A DAY FOR 30 DAYS Orally three times a day Active Vitamin D3 1.25 MG (02318 UT) 1 capsule Orally Once a week 12/20/2024 Active FreeStyle Lancets - to check blood sugars thursday, thursday, thursday DX: E11.9 Diabetes Mellitus 04/09/2023 Active FreeStyle Lite Test - Check blood sugar Thursday, Thursday and Thursday DX: E11.9 Diabetes Mellitus Active metFORMIN HCl 1000 MG TAKE 1 TABLET BY MOUTH TWICE A DAY WITH MEALS Active [facility] Prep 70 % Use 3 times a week Active amLODIPine Besylate 2.5 MG 1 tablet Orally Once a day Active Aspirin 81 MG 1 tablet Orally Once a day Active Lidocaine 5 % PLACE 1 PATCH ONTO SKIN EVERY 24 HOURS X112 DAYS. APPLY FOR NO MORE THAN 12 HOURS PER 24-HR PERIOD. External Active Acetaminophen Extra Strength 500 MG TAKE 1 TABLET BY MOUTH EVERY 6 HOURS NEEDED Oral Active Ibuprofen 800 MG 1 tablet with food or milk Orally every 6 hrs Active Accu-Chek Waleska Plus w/Device as directed In Vitro use to check blood sugars Thursday/09/09/2022 Active Diclofenac Sodium 1 % APPLY 4 G TOPICALL Y 2 TIMES DAILY. External Active Accu-Chek Waleska Plus - as directed In Vi tro use to check blood sugars Thursday/09/09/2022 Active guaiFENesin-Codeine 100-10 MG/5ML 10 mL as needed Orally every 4 hrs 10/03/2024 Active Social History Tobacco Use: Social History Observation Description Date Details (start date - stop date) Former Smoker NA - NA Sex Assigned At : Social History Observation Description Sex Assigned At Female Tobacco Control (Standard) Question Answer Notes Tobacco use: Former smoker How long has it been since you last smoked? 5-10 years Additional Findings: Tobacco non-user Ex-cigaret te smoker AUDIT-C (Standard) Question Answer Notes Did you have a drink containing alcohol in the p ast year? No Points 0 Interpretation Negative Vital Signs Temperature 97.9 degrees Fahrenheit 04/03/20 25 Blood pressure systolic 102 mm Hg 04/03/20 25 Blood pressure diastolic 56 mm Hg 025 Heart Rate 78 /min 04/03/2025 Respiratory Rate 16 /min 04/03/2025 Height 63 in 04/03/2025 Weight 145 lbs 04/03/2025 BMI 25.68 kg/m2 04/03/2025 Oximetry 96 % 04/03/2025 Encounters Encounter Location Date Provider Diagnosis Golden Archuleta III, MD [address] [place] [address] [place] [address] 04/03/2025 Golden Archuleta Overweight E66.3 ; D M (diabetes mellitus) E11.9 ; Other and unspecified hyperlipidemia E78.5 ; Subcutaneous nodules R22.9 ; Carpal tunnel syndrome, right upper limb G56.01 ; Fibromyalgia M79.7 ; Sleep apnea in adult G47.30 and Neuropathic pain M79.2 Assessments Encounter Date Diagnosis (ICD Code) Assessment Notes Treat ment Notes Treatment Clinical Notes 04/03/2025 Overweight (ICD-10 - E66.3) Her body mass index is 26.She has lost 44 pounds since her last visit. We reviewed her weight loss strategy and her diet and nutrition. 04/03/2025 DM (diabetes mellitus) (ICD-10 - E11.9) She was begun on trulicity because her hemoglobin A1c was 8.6. She does not wish to take the metformin and has been avoiding it. She says her fasting glucose levels are below 1:30. Conference of blood work will be done prior to her next visit.. 04/03/2025 Other and unspecifie d hyperlipidemia (ICD-10 - E78.5) The current fasting lipid profile shows a total cholesterol to be well within the target range. No change in treatment is needed. 04/03/2025 Subcutaneous nodules (ICD-10 - R22.9) These are unchanged and nontender and will be followed. 04/03/2025 Carpal tunnel syndrome, right upper limb (ICD-10 - G56.01) The pain in her wrist is stable and she is not complaining about it at this time. 04/03/2025 Fibromyalgia (ICD-10 - M79.7) This has been stable, but present. She is currently under the pain management at [facility]. 04/03/2025 Sleep apnea in adult (ICD-10 - G47.30) No change in her current regimen was needed today. She denies taking time somnolence.Her pulmonary physician has ordered another sleep study. 04/03/2025 Neuropathic pain (ICD-10 - M79.2) The pain is localized to the left leg below the knee. She finds the best relief from ibuprofen and gabapentin. I have made her aware of the danger of diabetic taking ibuprofen chronically. Her kidney function has remained normal however. Plan Of Treatment Medication Medication Name Sig Start Date Stop Date Notes Magnesium Oxide 400 MG 1 tablet as neede d Orally Once a day 03/28/2024 glipiZIDE 10 MG TAKE 1 TABLET BY ROSELINE TH EVERY MORNING 30 MINUTES BEFORE BREAKFAST predniSONE 20 MG 2 tablets Orally Onc e a day 02/01/2025 dexAMETHasone 2 MG 1 tablet Orally twic e a day 11/03/2024 Trulicity 0.75 MG/0.5ML 0.75 mg Subcutan eous weekly 03/17/2025 Oyster Shell Calcium 500 MG 1 tablet with food Orally once a day 12/06/2024 Gabapentin 600 MG TAKE 1 TABLET BY ROSELINE TH THREE TIMES A DAY FOR 30 DAYS Orally three times a day Vitamin D3 1.25 MG (50380 UT) 1 capsule Orally Once a week 12/20/2024 FreeStyle Lancets - to check blood sugar s thursday, thursday, thursday04/09/2023 DX: E11.9 Diabetes Mellitus FreeStyle Lite Test - Check blood sugar Thursday, Thursday and Thursday DX: E11.9 Diabetes Mellitus metFORMIN HCl 1000 MG TAKE 1 TABLET BY M OUTH TWICE A DAY WITH MEALS CVS Prep 70 % Use 3 times a week amLODIPine Besylate 2.5 MG 1 tablet Orally Once a day Aspirin 81 MG 1 tablet Orally Once a day Lidocaine 5 % PLACE 1 PATCH ONTO SKIN EVERY 24 HOURS X112 DAYS. APPLY FOR NO MORE THAN 12 HOURS PER 24-HR PERIOD. External Acetaminophen Extra Strength 500 MG TAKE 1 TABLET BY MOUTH EVERY 6 HOURS NEEDED Oral Ibuprofen 800 MG 1 tablet with food o r milk Orally every 6 hrs Accu-Chek Waleska Plus w/Device as directed In Vitro use to check blood sugars Thursday/Thursday/ y 09/09/2022 Diclofenac Sodium 1 % APPLY 4 G TOPICALL Y 2 TIMES DAILY. External Accu-Chek Waleska Plus - as directed In Vi tro use to check blood sugars Thursday/Thursday/ y 09/09/2022 guaiFENesin-Codeine 100-10 MG/5ML 10 mL as needed Orally every 4 hrs 10/03/2024 Pending Test Test Name Order Date PROFILE, FASTING (COMPREHENSIVE METABOLI C) 04/03/2025 CBC w DIFF 04/03/2025 Lipid Panel 04/03/2025 Hemoglobin A1c 04/03/2025 Next Appt Details Follow Up: 2 Months, Reason: OV Provider Name:Golden Archuleta, 06/06/2025 10:15:00 AM, [address] [place] [address] [address] [place], [place], [phone], Provider Name:Golden Archuleta, 04/04/2026 02:00:00 PM, [address] [place] [address] [place] [place], [place], [phone], Progress Notes * Arnold THOMASGeneOB: (64 yo F)Acc No.[id number]:04/03/2025 Progress Notes Patient: Melva HERRERA Provider: Deshawn Archuleta MD :1960 A ge:64 Y S ex:Female Date:04/03/2025 Address:[address] [place], [place] [id number] Subjective: * Chief Complaints: * A nnual exam * HPI: D epression Screening: She returns for her he moves his at the age of 64. He recently began trulicity is having no difficulty with it.She has lost 4 pounds. Her body mass index is 26. Her peripheral neuropathy continues to be painful but she is able to conduct activities of daily life. She has been compliant with all of her medications except metformin which she has not been taking. She says her fasting glucose levels are all under 130. I agreed that she could withhold the metformin for now and we will see how that turns out. She looked healthy and well today. PHQ-9 L ittle interest or pleasure in doing things?Several days F eeling down, depressed, or hopeless N ot at all T rouble falling or staying asleep, or sleeping too much N ot at all F eeling tired or having little energy N early every day P oor appetite or overeating N ot at all F eeling bad about yourself or that you are a failure, or have let yourself or your family down N ot at all T rouble concentrating on things, such as reading the newspaper or watching television N ot at all M oving or speaking so slowly that other people could have noticed; or the opposite, being so fidgety or restless that you have been moving around a lot more than usual N ot at all T houghts that you would be better off or of hurting yourself in some way N ot at all T otal Score 4 I nterpretation M inimal Depression C OVID-19 Screening: Questions H ave you had any new onset fever, chills, cough, congestion, sore throat, shortness of breath, muscle aches? N o S GARCIA Questions: SDOH Questions I n the past year have you been worried about losing your housing? N o I n the past year have you or any family members you live with been unable to get any of the following when it was really needed? Check all that apply: N one * ROS: G eneral/Constitutional: pain N europathic pain left leg arthritic pain lower lumbar spine since knees. C hills d enies. F atigue a dmits. F ever d enies. ? E NT: Decreased hearing d enies. R espiratory: Cough d enies. C ardiovascular: Chest pain with exertion d enies. D yspnea on exertion?denies. S hortness of breath d enies. G astrointestinal: Constipation o ccasional. D ecreased appetite d enies. D iarrhea d enies. H eartburn d enies. N ausea d enies. R ectal bleeding d enies. V omiting d enies. H ematology: bruising d enies. p etechiae d enies. S wollen glands n one have been noted. G enitourinary: Frequent urination a t night. M usculoskeletal: Muscle aches L eft leg. P ainful joints d enies.?Sciatica d enies. W eakness d enies. S kin: Itching d enies. R vero d enies. S kin lesion(s)?Subcutaneous nodules both forearms unchanged. N eurologic: Difficulty speaking d enies. D izziness d enies.?Headache d enies. L ow back pain d enies. P sychiatric: Depressed mood d enies. * Medical History: * Surgical History: h ammertoe repair 12/2009No history * Hospitalization/Major Diagno stic Procedure: N o history * Family History: F ather: , lung cancer, hypertension, diagnosed with Cancer, HTN. M other: alive 83 yrs, thyroid. S iblings: . M aternal uncle: type II diabetes. M aternal aunt: alzheimer. 3 brother(s) , 7 sister(s) . 2 daughter(s) - healthy. . One sibling of suicide and on of an accident. Mother had thyroid disease. Father is hypertensive and of lung cancer. She is not aware of any family history of mental illness or addiction or substance abuse other than the use of tobacco. Niece 09/2022 cardiac arrest. * Social History: T obacco Use: T obacco Control (Standard) T obacco use: F ormer smoker H ow long has it been since you last smoked??5-10 years A dditional Findings: Tobacco non-user E x-cigarette smoker D rugs/Alcohol: D rugs H ave you used drugs other than those for medical reasons in the past 12 months? N o D rug/Alcohol: A CAREN-C (Standard) D id you have a drink containing alcohol in the past year? N o P oints 0 I nterpretation N egative S he is slngle and working and lives in [place]. She was born in [place], [place]. {'Exercise': 'The patient reported having a bike at home for exercise.', 'Diet': 'The patient reported plans to start drinking a natural tea that was previously helpful for her blood sugar.'} {'Diet': 'Apple cider vinegar and lemon water for weight loss and liver health', 'Exercise': 'Goes to the gym regularly', 'Work environment': '', 'Living situation': ''}. * Medications: T akingAccu-Chek Waleska Plus - Strip as directed In Vitro use to check blood sugars Thursday/Thursday/Thursday Ibuprofen 800 MG Tablet 1 tablet with food or milk Orally every 6 hrs Acetaminophen Extra Strength 500 MG Tablet TAKE 1 TABLET BY MOUTH EVERY 6 HOURS NEEDED Oral Diclofenac Sodium 1 % Gel APPLY 4 G TOPICALLY 2 TIMES DAILY. External Accu-Chek Waleska Plus w/Device Kit as directed In Vitro use to check blood sugars Thursday/Thursday/Thursday CVS Prep 70 % Pad Use 3 times a week Aspirin 81 MG Tablet Delayed Release 1 tablet Orally Once a day amLODIPine Besylate 2.5 MG Tablet 1 tablet Orally Once a day Lidocaine [...] , Notes to Pharmacist: DX: E11.9 Diabetes MellitusGabapentin 600 MG Tablet TAKE 1 TABLET BY MOUTH THREE TIMES A DAY FOR 30 DAYS Orally three times a day Oyster Shell Calcium 500 MG Tablet 1 tablet with food Orally once a day Vitamin D3 1.25 MG (56078 UT) Capsule 1 capsule Orally Once a week Trulicity 0.75 MG/0.5ML Solution Auto-injector 0.75 mg Subcutaneous weekly glipiZIDE 10 MG Tablet TAKE 1 TABLET BY MOUTH EVERY MORNING 30 MINUTES BEFORE BREAKFAST Magnesium Oxide 400 MG Tablet 1 tablet as needed Orally Once a day dexAMETHasone 2 MG Tablet 1 tablet Orally twice a day predniSONE 20 MG Tablet 2 tablets Orally Once a day guaiFENesin-Codeine 100-10 MG/5ML Solution 10 mL as needed Orally every 4 hrs Taking Accu-Chek Waleska Plus - Strip as directed In Vitro use to check blood sugars Thursday/ Taking Ibuprofen 800 MG Tablet 1 tablet with food or milk Orally every 6 hrs Taking Acetaminophen Extra Strength 500 MG Tablet TAKE 1 TABLET BY MOUTH EVERY 6 HOURS NEEDED Oral Taking Diclofenac Sodium 1 % Gel APPLY 4 G TOPICALLY 2 TIMES DAILY. External Taking Accu-Chek Waleska Plus w/Device Kit as directed In Vitro use to check blood sugars Thursday/Thursday/Thursday Taking CVS Prep 70 % Pad Use 3 times a week Taking Aspirin 81 MG Tablet Delayed Release 1 tablet Orally Once a day Taking amLODIPine Besylate 2.5 MG Tablet 1 tablet Orally Once a day Taking Lidocaine 5 [...] Notes to Pharmacist: DX: E11.9 Diabetes MellitusTaking Gabapentin 600 MG Tablet TAKE 1 TABLET BY MOUTH THREE TIMES A DAY FOR 30 DAYS Orally three times a day Taking Oyster Shell Calcium 500 MG Tablet 1 tablet with food Orally once a day Taking Vitamin D3 1.25 MG (53134 UT) Capsule 1 capsule Orally Once a week Taking Trulicity 0.75 MG/0.5ML Solution Auto-injector 0.75 mg Subcutaneous weekly Taking glipiZIDE 10 MG Tablet TAKE 1 TABLET BY MOUTH EVERY MORNING 30 MINUTES BEFORE BREAKFAST Taking Magnesium Oxide 400 MG Tablet 1 tablet as needed Orally Once a day Taking dexAMETHasone 2 MG Tablet 1 tablet Orally twice a day Taking predniSONE 20 MG Tablet 2 tablets Orally Once a day Taking guaiFENesin-Codeine 100-10 MG/5ML Solution 10 mL as needed Orally every 4 hrs Not-Taking/PRNmetFORMIN HCl 1000 MG Tablet TAKE 1 TABLET BY MOUTH TWICE A DAY WITH MEALS Medication List reviewed and reconciled with the patientNot-Taking/PRN metFORMIN HCl 1000 MG Tablet TAKE 1 TABLET BY MOUTH TWICE A DAY WITH MEALS Medication List reviewed and reconciled with the patient * Allergies: P ercocet: nauseaLisinopril: coughNo Known Food Allergyno[Allergies Verified] Objective: * Vitals: H t: 63, Wt: 145, BMI:25.68, BP: 102/56, HR: 78, RR: 16, Temp: 97.9, Oxygen sat %: 96, Ht-cm: 160.02, Wt-k.77. * P ast Orders: Imaging:MAMMOGRAM DIGITAL BI LATERAL SCREEN * Performed Date 01/08/2015 12/01/2013 08/26/2012 11:31 AM 11:35 AM 06:26 PM Order Date 01/08/2015 12/01/2013 08/26/2012 02/09/2025 Result: undefined * Imaging:MM tomosynthesis scr eening BI * Performed Date 02/09/2025 01/12/2024 01/02/2023 10:45 AM 10:11 AM 11:00 AM Order Date 02/09/2025 01/12/2024 01/02/2023 * Lab:Complete Blood Count Aut o Diff * Collection Date 02/10/2025 12/19/2024 10/21/2024 Collection Time 11:09 AM 04:36 PM 10:15 AM Order Date 02/10/2025 12/19/2024 10/21/2024 White Blood Count 6.8 (Ref Range: 4.8-10.8 X10*3/uL) 7.2 (Ref Range: 4.8-10.8 X10*3/uL) 7.3 (Ref Range: 4.8-10.8 X10*3/uL) Red Blood Count 4.53 (Ref Range: 4.20-5.50 X10*6/uL) 4.15 L (Ref Range: 4.20-5.50 X10*6/uL) 4.15 L (Ref Range: 4.20-5.50 X10*6/uL) Hemoglobin 13.9 (Ref Range: 12.0-16.0 g/dl) 12.7 (Ref Range: 12.0-16.0 g/dl) 12.7 (Ref Range: 12.0-16.0 g/dl) Hematocrit 40.5 (Ref Range: 37.0-47.0 %) 37.4 (Ref Range: 37.0-47.0 %) 37.7 (Ref Range: 37.0-47.0 %) Mean Corpuscular Volume 89.4 (Ref Range: 80.0-98.0 fL) 90.1 (Ref Range: 80.0-98.0 fL) 90.8 (Ref Range: 80.0-98.0 fL) Mean Corpuscular Hemoglobin 30.7 (Ref Range: 27.0-33.0 pg) 30.6 (Ref Range: 27.0-33.0 pg) 30.6 (Ref Range: 27.0-33.0 pg) Mean Corpuscular HGB Conc 34.3 (Ref Range: 31.0-35.0 g/dl) 34.0 (Ref Range: 31.0-35.0 g/dl) 33.7 (Ref Range: 31.0-35.0 g/dl) Red Cell Distribution Width 11.8 (Ref Range: 11.0-16.0 %) 12.0 (Ref Range: 11.0-16.0 %) 11.9 (Ref Range: 11.0-16.0 %) Platelet Count 246 (Ref Range: 160-400 X10*3/uL) 237 (Ref Range: 160-400 X10*3/uL) 242 (Ref Range: 160-400 X10*3/uL) Mean Platelet Volume 11.0 (Ref Range: 9.4-12.3 fL) 11.1 (Ref Range: 9.4-12.3 fL) 10.7 (Ref Range: 9.4-12.3 fL) Neutrophils Percent Auto 51.7 (Ref Range: 45-73 %) 49.6 (Ref Range: 45-73 %) 63.2 (Ref Range: 45-73 %) Imm Gran Pct Auto 0.4 (Ref Range: 0.0-0.4 %) 0.1 (Ref Range: 0.0-0.4 %) 0.3 (Ref Range: 0.0-0.4 %) Lymphocytes Percent Auto 34.8 (Ref Range: 20-40 %) 37.5 (Ref Range: 20-40 %) 26.8 (Ref Range: 20-40 %) Monocytes Percent Auto 7.4 (Ref Range: 2-11 %) 6.5 (Ref Range: 2-11 %) 5.8 (Ref Range: 2-11 %) Eosinophils Percent Auto 4.7 H (Ref Range: 0-4 %) 5.2 H (Ref Range: 0-4 %) 2.9 (Ref Range: 0-4 %) Basophils Percent Auto 1.0 (Ref Range: 0-2 %) 1.1 (Ref Range: 0-2 %) 1.0 (Ref Range: 0-2 %) NRBC Pct Auto 0.0 (Ref Range: 0.0-0.2 /100WBC) 0.0 (Ref Range: 0.0-0.2 /100WBC) 0.0 (Ref Range: 0.0-0.2 /100WBC) Neutrophils Absolute Auto 3.5 (Ref Range: 2.0-8.3 x10*3/uL) 3.6 (Ref Range: 2.0-8.3 x10*3/uL) 4.6 (Ref Range: 2.0-8.3 x10*3/uL) Imm Gran Abs Auto 0.03 (Ref Range: 0.00-0.03 X10*3/uL) 0.01 (Ref Range: 0.00-0.03 X10*3/uL) 0.02 (Ref Range: 0.00-0.03 X10*3/uL) Lymphocytes Absolute Auto 2.4 (Ref Range: 1.2-4.9 X10*3/uL) 2.7 (Ref Range: 1.2-4.9 X10*3/uL) 2.0 (Ref Range: 1.2-4.9 X10*3/uL) Monocytes Absolute Auto 0.5 (Ref Range: 0.1-1.2 X10*3/uL) 0.5 (Ref Range: 0.1-1.2 X10*3/uL) 0.4 (Ref Range: 0.1-1.2 X10*3/uL) Eosinophils Absolute Auto 0.3 (Ref Range: 0.0-0.4 X10*3/uL) 0.4 (Ref Range: 0.0-0.4 X10*3/uL) 0.2 (Ref Range: 0.0-0.4 X10*3/uL) Basophils Absolute Auto 0.1 (Ref Range: 0.0-0.2 X10*3/uL) 0.1 (Ref Range: 0.0-0.2 X10*3/uL) 0.1 (Ref Range: 0.0-0.2 X10*3/uL) NRBC Abs Auto 0.000 (Ref Range: 0.0-0.012 X10*3/uL) 0.000 (Ref Range: 0.0-0.012 X10*3/uL) 0.000 (Ref Range: 0.0-0.012 X10*3/uL) * Lab:Hemoglobin A1c * Collection Date 02/10/2025 12/19/2024 10/21/2024 Collection Time 11:09 AM 04:36 PM 10:15 AM Order Date 02/10/2025 12/19/2024 10/21/2024 Hemoglobin A1c % 8.6 H (Ref Range: <6.0 %) 8.4 H (Ref Range: <6.0 %) 9.1 H (Ref Range: <6.0 %) Estimated Average Glucose 200 (Ref Range: mg/dL) 194 (Ref Range: mg/dL) 214 (Ref Range: mg/dL) * Lab:Lipid Panel * Collection Date 02/10/2025 07/12/2024 04/18/2024 Collection Time 11:09 AM 09:22 AM 10:31 AM Order Date 02/10/2025 07/12/2024 04/18/2024 Triglycerides 96 (Ref Range: <150 mg/dL) 77 (Ref Range: <150 mg/dL) 144 (Ref Range: <150 mg/dL) Cholesterol 132 (Ref Range: <200 mg/dL) 123 (Ref Range: <200 mg/dL) 214 H (Ref Range: <200 mg/dL) LDL Cholesterol Calculated 74 (Ref Range: <100 mg/dL) 71 (Ref Range: <100 mg/dL) 145 H (Ref Range: <100 mg/dL) HDL Cholesterol 39 L (Ref Range: >40 mg/dL) 37 L (Ref Range: >40 mg/dL) 41 (Ref Range: >40 mg/dL) * Lab:Comprehensive [place]. Pane l Fast * Collection Date 02/10/2025 07/12/2024 04/18/2024 Collection Time 11:09 AM 09:22 AM 10:31 AM Order Date 02/10/2025 07/12/2024 04/18/2024 Sodium 139 (Ref Range: 135-145 mmol/L) 140 (Ref Range: 135-145 mmol/L) 140 (Ref Range: 135-145 mmol/L) Bilirubin Total 0.6 (Ref Range: 0.0-1.0 mg/dL) 0.8 (Ref Range: 0.0-1.0 mg/dL) 0.6 (Ref Range: 0.0-1.0 mg/dL) Aspartate Amino Transferase 16 (Ref Range: 5-31 U/L) 21 (Ref Range: 5-31 U/L) 16 (Ref Range: 5-31 U/L) Alanine Aminotransferase 29 (Ref Range: 0-31 U/L) 30 (Ref Range: 0-31 U/L) 26 (Ref Range: 0-31 U/L) Total Protein 7.0 (Ref Range: 6.5-8.0 g/dL) 7.2 (Ref Range: 6.5-8.0 g/dL) 7.4 (Ref Range: 6.5-8.0 g/dL) Albumin Level 4.1 (Ref Range: 3.5-5.0 g/dL) 4.0 (Ref Range: 3.5-5.0 g/dL) 4.0 (Ref Range: 3.5-5.0 g/dL) Alkaline Phosphatase 76 (Ref Range: 39-117 U/L) 76 (Ref Range: 39-117 U/L) 91 (Ref Range: 39-117 U/L) Potassium 4.3 (Ref Range: 3.3-5.1 mmol/L) 4.5 (Ref Range: 3.3-5.1 mmol/L) 4.4 (Ref Range: 3.3-5.1 mmol/L) Chloride 105 (Ref Range: 96-108 mmol/L) 107 (Ref Range: 96-108 mmol/L) 106 (Ref Range: 96-108 mmol/L) Carbon Dioxide 28 (Ref Range: 22-29 mmol/L) 30 H (Ref Range: 22-29 mmol/L) 28 (Ref Range: 22-29 mmol/L) Anion Gap 10 L (Ref Range: 12-20) 8 L (Ref Range: 12-20) 10 L (Ref Range: 12-20) Blood Urea Nitrogen 9 (Ref Range: 9-16 mg/dL) 10 (Ref Range: 9-16 mg/dL) 16 (Ref Range: 9-16 mg/dL) Creatinine 0.71 (Ref Range: 0.5-1.4 mg/dL) 0.78 (Ref Range: 0.5-1.4 mg/dL) 0.78 (Ref Range: 0.5-1.4 mg/dL) Estimated Glomerular Filt Rate > 60 > 60 > 60 Glucose Fasting 222 H (Ref Range: 60-99 mg/dL) 214 H (Ref Range: 60-99 mg/dL) 232 H (Ref Range: 60-99 mg/dL) Calcium 9.3 (Ref Range: 8.4-10.2 mg/dL) 9.2 (Ref Range: 8.4-10.2 mg/dL) 9.4 (Ref Range: 8.4-10.2 mg/dL) ???Lab:Uric Acid (Order Date - 02/08/2025) (Collection Date & Time - 02/10/2025 11:09 AM)?ValueReference Range?Uric Acid4.52.4-5.7 - mg/dL ?Clinical Info: PLEASE FAX COMPLETED RESULTS TO [phone] * Examination: G eneral Examination: GENERAL APPEARANCE: p yonnyasant, well nourished, well developed, in no acute distress, calm and relaxed: overweight: woman. HEAD: a traumatic, normocephalic. EYES: e salima, perrla, anicteric, conjugate. EARS: n ormal. NOSE: s eptum intact. ORAL CAVITY: n ormal, unremarkable. NECK/THYROID: n o jugular venous distention, no carotid bruit, thyroid normal. LYMPH NODES: n o enlarged lymph nodes,spleen normal. SKIN: n o suspicious lesions, anicteric. HEART: n o clicks, gallops, murmurs, or rubs, regular rhythm, S1, S2 normal, no s3, or vascular bruits. LUNGS: c lear to auscultation . 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 ABDOMEN: b owel sounds normal, no ascites, no organomegaly, no mass: overweight. RECTAL EXAM: n ot examined. MUSCULOSKELETAL: e xtremities unremarkable, no clubbing, cyanosis or edema, Both feet pink and warm. PERIPHERAL PULSES: n ormal. NEUROLOGIC: a lert and oriented, cranial nerves 2-12 grossly intact, deep tendon reflexes 2+ symmetrical, motor strength normal upper and lower extremities, sensory exam intactNeuropathic pain to touch below left knee. PSYCH: a lert, oriented: cognitive function intact: speech clear: thought process logical, goal directed. Assessment: * Assessment: 1. D M (diabetes mellitus) - E11.9 (Primary) N otes :She was begun on trulicity because her hemoglobin A1c was 8.6. She does not wish to take the metformin and has been avoiding it. She says her fasting glucose levels are below 1:30. Conference of blood work will be done prior to her next visit.. 2 . O verweight - E66.3 N otes :Her body mass index is 26.She has lost 44 pounds since her last visit. We reviewed her weight loss strategy and her diet and nutrition. 3 . O ther and unspecified hyperlipidemia - E78.5 N otes :The current fasting lipid profile shows a total cholesterol to be well within the target range. No change in treatment is needed. 4 . S ubcutaneous nodules - R22.9 N otes :These are unchanged and nontender and will be followed. 5 . C arpal tunnel syndrome, right upper limb - G56.01 N otes :The pain in her wrist is stable and she is not complaining about it at this time. 6 . F ibromyalgia - M79.7 N otes :This has been stable, but present. She is currently under the pain management at [facility]. 7 . S leep apnea in adult - G47.30 N otes :No change in her current regimen was needed today. She denies taking time somnolence.Her pulmonary physician has ordered another sleep study. 8 . N europathic pain - M79.2 N otes :The pain is localized to the left leg below the knee. She finds the best relief from ibuprofen and gabapentin. I have made her aware of the danger of diabetic taking ibuprofen chronically. Her kidney function has remained normal however. Plan: * Treatment: 2. O verweight Continue Accu-Chek Waleska Plus Strip, -, as directed, In Vitro, use to check blood sugars Thursday/Thursday/Thursday; C ontinue Ibuprofen Tablet, 800 MG, 1 tablet with food or milk, Orally, every 6 hrs; C ontinue Acetaminophen Extra Strength Tablet, 500 MG, TAKE 1 TABLET BY MOUTH EVERY 6 HOURS NEEDED, Oral; C ontinue Diclofenac Sodium Gel, 1 %, APPLY 4 G TOPICALLY 2 TIMES DAILY., External; C ontinue Accu-Chek Waleska Plus Kit, w/Device, as directed, In Vitro, use to check blood sugars Thursday/Thursday/Thursday; C ontinue CVS Prep Pad, 70 %, Use 3 times a week; C ontinue metFORMIN HCl Tablet, 1000 MG, TAKE 1 TABLET BY MOUTH TWICE A DAY WITH MEALS; C ontinue Aspirin Tablet Delayed Release, 81 MG, 1 tablet, Orally, Once a day; C ontinue amLODIPine Besylate Tablet, 2.5 MG, 1 tablet, Orally, Once a day; C ontinue Lidocaine Patch, 5 %, PLACE 1 PATCH ONTO SKIN EVERY 24 HOURS X112 DAYS. APPLY FOR NO MORE THAN 12 HOURS PER 24-HR PERIOD., External; C ontinue FreeStyle Lite Test Strip, -, Check blood sugar Thursday, Thursday and Thursday, Notes to Pharmacist: DX: E11.9 Diabetes Mellitus; C ontinue FreeStyle Lancets Miscellaneous, -, to check blood sugars thursday, thursday, thursday, Notes to Pharmacist: DX: E11.9 Diabetes Mellitus; C ontinue Gabapentin Tablet, 600 MG, TAKE 1 TABLET BY MOUTH THREE TIMES A DAY FOR 30 DAYS, Orally, three times a day; Continue Oyster Shell Calcium Tablet, 500 MG, 1 tablet with food, Orally, once a day; C ontinue Vitamin D3 Capsule, 1.25 MG (83200 UT), 1 capsule, Orally, Once a week; C ontinue Trulicity Solution Auto-injector, 0.75 MG/0.5ML, 0.75 mg, Subcutaneous, weekly; C ontinue glipiZIDE Tablet, 10 MG, TAKE 1 TABLET BY MOUTH EVERY MORNING 30 MINUTES BEFORE BREAKFAST; C ontinue Magnesium Oxide Tablet, 400 MG, 1 tablet as needed, Orally, Once a day; C ontinue dexAMETHasone Tablet, 2 MG, 1 tablet, Orally, twice a day; C ontinue predniSONE Tablet, 20 MG, 2 tablets, Orally, Once a day; C ontinue guaiFENesin-Codeine Solution, 100-10 MG/5ML, 10 mL as needed, Orally, every 4 hrs.? L AB: PROFILE, FASTING (COMPREHENSIVE METABOLIC) L AB: CBC w DIFF L AB: Lipid Panel L AB: Hemoglobin A1c 3. O ther and unspecified hyperlipidemia L AB: PROFILE, FASTING (COMPREHENSIVE METABOLIC) L AB: CBC w DIFF L AB: Lipid Panel L AB: Hemoglobin A1c * Procedure Codes: 9 4760 MEASURE BLOOD OXYGEN LEVEL * Preventive Medicine: Counseling: C are goal follow-up plan: Counseling for abnormal BMI given Y es Above Normal BMI Follow-up D ietary management education, guidance, and counseling, Dietary needs education, Exercise promotion: strength training, Exercise promotion: stretching, Feeding regime, Giving encouragement to exercise, Lifestyle education regarding diet, Nutrition / feeding management, Nutrition therapy, Prescribed activity/exercise education, Prescribed diet education, Prescribed dietary intake, Special diet education, Weight monitoring , Intervention, Order not done: Medical or Other reason not done S moking/Tobacco Use Patient counseled on the dangers of tobacco use and urged to quit. 0 04/03/2025 DM Care Plan: P atient Lifestyle Goals P atient wants to be able to manage diabetes without too much effort. T reatment Goals B lood Sugars less than < 115, HbA1C < 7.0. B arriers n o barriers. S elf-Managment Goals W ork on weight loss, with a goal of losing 1 lb per week. * Follow Up: 2 Months (Reason: OV) * Images: * Sign off status: Completed true * Provider: Deshawn Archuleta MD Date: 0 04/03/2025 Generated for Delma mendoza/Bertin/Tamiitting on: 0 04/26/2025 10:35 AM EDT History and Physical Notes * HPI (History of Present Illness) Category Sub-Category Detail Notes Depression Screening PHQ-9 Little inte rest or pleasure in doing things: Several days Feeling down, depressed, or hopeless: No t at all Trouble falling or staying asleep, or sl eeping too much: Not at all Feeling tired or having little energy: N early every day Poor appetite or overeating: Not at all Feeling bad about yourself o r that you are a failure, or have let yourself or your family down: Not at all Trouble concentrating on thi ngs, such as reading the newspaper or watching television: Not at all Moving or speaking so slowly that other people could have noticed; or the opposite, being so fidgety or restless that you have been moving around a lot more than usual: Not at all Thoughts that you would be b umer off or of hurting yourself in some way: Not at all Total Score: 4 Interpretation: Minimal Depression COVID-19 Screening Questions Have you had any new onset fever, chills, cough, congestion, sore throat, shortness of breath, muscle aches?: No SDOH Questions SDOH Questions In the past year have you been worried about losing your housing?: No In the past year have you or any family members you live with been unable to get any of the following when it was really needed? Check all that apply:: None Examination Category Sub-Category Detail Notes General Examination GENERAL APPEARANCE: pleasant , well nourished, well developed, in no acute distress, calm and relaxed: overweight: woman HEAD: atraumatic, normocep halic EYES: eomi, perrla, anicte carmelo, conjugate EARS: normal NOSE: septum intact NECK/THYROID: no jugular venous di stention, no carotid bruit, thyroid normal HEART: no clicks, gallops, murmurs, or rubs, regular rhythm, S1, S2 normal, no s3, or vascular bruits LUNGS: clear to auscultatio n ABDOMEN: bowel sounds normal, no ascites, no organomegaly, no mass: overweight NEUROLOGIC: alert and oriented, cranial nerves 2-12 grossly intact, deep tendon reflexes 2+ symmetrical, motor strength normal upper and lower extremities, sensory exam intactNeuropathic pain to touch below left knee SKIN: no suspicious lesion s, anicteric PERIPHERAL PULSES: normal BREASTS: : Not examined, Pref ers WIND OPERATIONS MANAGER MUSCULOSKELETAL: extremities unremark able, no clubbing, cyanosis or edema, Both feet pink and warm LYMPH NODES: no enlarged lymph no von,spleen normal RECTAL EXAM: not examined PSYCH: alert, oriented: cog nitive function intact: speech clear: thought process logical, goal directed ORAL CAVITY: normal, unremarkable
--- OUTSIDE RECORDS SUMMARY | 2025-04-11 11:35 | XMS_ITS ---
Author Organization Golden Archuleta III, MD Address [address] [address] Care Team Providers Care Field Secretary Name Role Phone Golden Archuleta Primary Care Provider REASON FOR VISIT Juror Duty Letter Social History Sex Assigned At : Social History Observation Description Sex Assigned At Female Encounters Encounter Location Date Provider Diagnosis Golden Archuleta III, MD [address] [place] [address] [place] [address] 04/11/2025 Golden Archuleta Plan Of Treatment Next Appt Details Provider Name:Golden Archuleta, 06/06/2025 10:15:00 AM, [address] [place] [address] [place], [address], Provider Name:Golden Archuleta, 04/04/2026 02:00:00 PM, [address] [place] [address] [address], [place], [address], Progress Notes * Deshaun THOMASOB: 1 (64 yo F)Acc No.[id number]:04/11/2025 Patient: Tari DICKERSON Melva :1960 A ge:64 Y S ex:Female Address:[facility] [place] [address] * true * Date: Generated for Delma mendoza/Bertin/eTransmitting on: 0 04/26/2025 10:35 AM EDT
--- OUTSIDE RECORDS SUMMARY | 2025-04-13 08:17 | XMS_ITS ---
Author Organization Golden Archuleta III, MD Address [address] [facility] [place] [address] Care Team Providers Care Javascript Ui Developer Name Role Phone Golden Archuleta Primary Care Provider REASON FOR VISIT HCC Risk Codes Social History Sex Assigned At : Social History Observation Description Sex Assigned At Female Encounters Encounter Location Date Provider Diagnosis Golden Archuleta III, MD [address] [place] [address] [place] [address] 04/13/2025 Golden Archuleta Plan Of Treatment Next Appt Details Provider Name:Golden Archuleta, 06/06/2025 10:15:00 AM, [address] [place] [address] [place], [address], Provider Name:Golden Archuleta, 04/04/2026 02:00:00 PM, [address] [place] [address] [address], [place], [address], Progress Notes * Deshaun THOMASOB: (64 yo F)Acc No.[id number]:04/13/2025 Patient: Tari DICKERSON Melva :1960 A ge:64 Y S ex:Female Address:[facility] [place] [address] * true * Date: Generated for Delma mendoza/Bertin/eTransmitting on: 0 04/26/2025 10:34 AM EDT
--- OUTSIDE RECORDS SUMMARY | 2025-04-17 07:42 | XMS_ITS ---
Author Organization Golden Archuleta III, MD Address [address] [place] [address] [place] [address] Care Team Providers Care Nursing Support Worker Name Role Phone Golden Archuleta Primary Care Provider REASON FOR VISIT Lab Request Medications Medication SIG (Take, Route, Frequency, Duration) Notes Start Date End Date Status predniSONE 20 MG 2 tablets Orally Once a day 02/01/2025 Active dexAMETHasone 2 MG 1 tablet Orally twice a day 11/03/2024 Active Magnesium Oxide 400 MG 1 tablet as neede d Orally Once a day 03/28/2024 Active glipiZIDE 10 MG TAKE 1 TABLET BY MOUTH EVERY MORNING 30 MINUTES BEFORE BREAKFAST Active guaiFENesin-Codeine 100-10 MG/5ML 10 mL as needed Orally every 4 hrs 10/03/2024 Active Trulicity 0.75 MG/0.5ML 0.75 mg Subcutaneous weekly 03/17/2025 Active Vitamin D3 1.25 MG (51042 UT) 1 capsule Orally Once a week 12/20/2024 Active Oyster Shell Calcium 500 MG 1 tablet with food Orally once a day 12/06/2024 Active Gabapentin 600 MG TAKE 1 TABLET BY MOUTH THREE TIMES A DAY FOR 30 DAYS Orally three times a day Active FreeStyle Lancets - to check blood sugars thursday, thursday, thursday DX: E11.9 Diabetes Mellitus 04/09/2023 Active metFORMIN HCl 1000 MG TAKE 1 TABLET BY MOUTH TWICE A DAY WITH MEALS Active FreeStyle Lite Test - Check blood sugar Thursday, Thursday and Thursday DX: E11.9 Diabetes Mellitus Active Lidocaine 5 % PLACE 1 PATCH ONTO SKIN EVERY 24 HOURS X112 DAYS. APPLY FOR NO MORE THAN 12 HOURS PER 24-HR PERIOD. External Active amLODIPine Besylate 2.5 MG 1 tablet Orally Once a day Active Aspirin 81 MG 1 tablet Orally Once a day Active CVS Prep 70 % Use 3 times a week Active Accu-Chek Waleska Plus w/Device as directed In Vitro use to check blood sugars Thursday/Thursday/Thu09/09/2022 Active Diclofenac Sodium 1 % APPLY 4 G TOPICALL Y 2 TIMES DAILY. External Active Acetaminophen Extra Strength 500 MG TAKE 1 TABLET BY MOUTH EVERY 6 HOURS NEEDED Oral Active Ibuprofen 800 MG 1 tablet with food or milk Orally every 6 hrs Active Accu-Chek Waleska Plus - as directed In Vi tro use to check blood sugars Thursday/Thursday/Thu09/09/2022 Active Social History Sex Assigned At : Social History Observation Description Sex Assigned At Female Encounters Encounter Location Date Provider Diagnosis Golden Archuleta III, MD [address] [facility] [place] [address] 04/17/2025 Golden Archuleta Immunity status testing Z01.84 Assessments Encounter Date Diagnosis (ICD Code) Assessment Notes Treatment Notes Treatment Clinical Notes 04/17/2025 Immunity status testing (ICD-10 - Z01.84) Plan Of Treatment Pending Test Test Name Order Date Rubella IgG Antibody 04/17/2025 Rubeola IgG (Measles) 04/17/2025 Next Appt Details Provider Name:Golden Archuleta, 06/06/2025 10:15:00 AM, [address] [place] [address] [address], [place], [address], Provider Name:Golden Archuleta, 04/04/2026 02:00:00 PM, [address] [place] [address] [address] [address], [place], [address], Progress Notes * Deshaun THOMASOB: 1 (64 yo F)Acc No.[id number]:04/17/2025 Patient: Melva HERRERA :1960 A ge:64 Y S ex:Female Address:[address] [place] [address] Subjective: * Chief Complaints: * L ab Request * Medical History: * Surgical History: * Hospitalization/Major Diagno stic Procedure: * Medications: T akingAccu-Chek Waleska Plus - [...] % Pad Use 3 times a week metFORMIN HCl 1000 MG Tablet TAKE 1 [...] once a day Vitamin D3 1.25 MG (73444 UT) Capsule 1 capsule Orally Once a [...] use to check blood sugars Thursday/Thursday/Thursday Taking Ibuprofen 800 MG Tablet 1 tablet [...] Pad Use 3 times a week Taking metFORMIN HCl 1000 MG Tablet TAKE [...] a day Taking Vitamin D3 1.25 MG (10927 UT) Capsule 1 capsule Orally Once a [...] mL as needed Orally every 4 hrs Objective: * Vitals: * Physical Examination: Assessment: * Assessment: 1. I mmunity status testing - Z01.84 Plan: * Treatment: * Procedure Codes: * true * Date: Generated for Delma mendoza/Bertin/Mary Anne on: 0 04/26/2025 10:35 AM EDT
--- OUTSIDE RECORDS SUMMARY | 2025-04-26 05:10 | XMS_ITS ---
Author Organization Golden Archuleta III, MD Address [address] [place] [address] [place] [address] Care Team Providers Care Experimental Mechanic Spacecraft Name Role Phone Golden Archuleta Primary Care Provider [phone] REASON FOR VISIT Rx request Medications Medication SIG (Take, Route, Frequency, Duration) Notes Start Date End Date Status FreeStyle Tika 3 [place] - Check blood glucose 3 times a day for 30 days E11.9 DM (diabetes mellitus) 04/26/2025 Active FreeStyle Tika 3 Sensor - Check blood glucose 3 times a day for 30 days E11.9 DM (diabetes mellitus) 04/26/2025 Active Social History Sex Assigned At : Social History Observation Description Sex Assigned At Female Encounters Encounter Location Date Provider Diagnosis Golden Archuleta III, MD [address] [place] [address] [place] [address] 04/26/2025 Golden Archuleta Plan Of Treatment Medication Medication Name Sig Start Date Stop Date Notes FreeStyle Tika 3 [place] - Check blood glucose 3 times a day for 30 days 04/26/2025 E11.9 DM (diabetes mellitus) FreeStyle Tika 3 Sensor - Check blood glucose 3 times a day for 30 days 04/26/2025 E11.9 DM (diabetes mellitus) Next Appt Details Provider Name:Golden Archuleta, 06/06/2025 10:15:00 AM, [address] [place] [address] [address], [place], [phone], Provider Name:Golden Archuleta, 04/04/2026 02:00:00 PM, [address] [place] [address] [address], [place], [address], Progress Notes * Deshaun THOMASOB: (64 yo F)Acc No.[id number]:04/26/2025 Patient: Tari Melva DICKERSON :1960 A ge:64 Y S ex:Female Address:[address] [place] [id number] * Refills Start FreeStyle Tika 3 [place] Device, -, 1 Unspecified, Check blood glucose 3 times a day, 30 days, Refills=0 Start FreeStyle Tika 3 Sensor Miscellaneous, -, 1 Kit, Check blood glucose 3 times a day, 30 days, Refills=11 * * Date:
--- OUTSIDE RECORDS SUMMARY | 2025-04-26 10:34 | XMS_ITS | Clinical Summary ---
Author Organization [facility] Address [address] [place] [address] Care Team Providers Care Lead Technologist In Cytogenetics Name Role Phone Golden Archuleta Primary Care Provider [phone] Allergies Active Allergy Reactions Criticality Noted Date [...] (05/02/2021): Added automatically from request for surgery [id number] Chronic foot pain, left 05/02/2021 Overview (05/02/2021): Added automatically from request for surgery [id number] Peripheral neuralgia 05/02/2021 Overview (05/02/2021): Added automatically from request for surgery [id number] Blue toe syndrome of left lower extremity [...] needed for pain control in addition to [id number] ibuprofen. I will refer the patient to hematology for possible hypercoagulable work-up. I plan to review the patient's CT angio from [facility] at her next in-person clinic [...] patient's presentation and CT angio report from [facility] I am concerned for embolic disease resulting in blue toe syndrome that may be causing some ischemic pain in the patient's left foot. However the patient does not want to be started on any anticoagulation without a clear diagnosis for an embolic disease. I did review the CT report that she showed me from [facility] demonstrating a question of thrombus in her left popliteal artery however I am unable to give further information since I do not have access to the images. The patient reports that she will try to obtain the CT images from [facility] for me to review. In [...] - PCV20 or PCV21) 05/26/2023 05/26/2018, 05/25/2018 Alcohol/Substance Use Screening 08/24/2024 Depression Screening and Follow-Up 08/24/2024 Social Drivers of Health Annual Screening 08/24/2024 COVID-19 Vaccine ( season) 2025 08/04/2021, 01/18/2021, 12/21/2020 Influenza Vaccine (#1) 2025 , 07/11/2021, 05/29/2020, Additional history exists RSV Vaccine (60+ years old and patients) (1 - 1-dose 75+ series) 12/14/2035 Zoster Vaccines Completed 03/10/2022, 01/08/2022 Hepatitis B Vaccines Aged Out No long er eligible based on patient's age to complete this topic Insurance MEDICARE [facility] Care Teams Lead Technologist In Cytogenetics Relationship Specialty Start Date End Date Golden Archuleta [address] [place] [address] [place] [id number] PCP - General Hematology 03/14/21
--- OUTSIDE RECORDS SUMMARY | 2025-04-26 10:35 | XMS_ITS | Patient Health Record ---
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 Role Phone Golden Archuleta MD Primary Care Provider Unavailab [place] Unavailable [phone] Golden Archuleta MD Unavailable Unavailable Allergies Allergen [...] Status W/U Status Risk Notes Problem Bursitis (31163507) Bursitis (727.3) Active confirmed Problem Sprain of calcaneofibular ligament (77720347) Ankle Sprain/Latera l Ankle Sprain (845.02) Active confirmed Problem Myositis (85630657) Myositis (729.1) Active confirmed Problem Pain in limb (30360366) Pain in Limb (729.5) Active confirmed Problem Plantar fasciitis (283774334) Plantar Fasciitis (728.71) Active confirmed Problem Calcaneal spur (51606472) Calcaneal spur (726.73) Active confirmed Plan Of Treatment No Information Insurance Providers Payer Name Payer Address Payer Phone Subscriber Number Group Number Insured Name Patient Relationship to Insured Coverage Start Date Coverage End Date [facility] [address] [facility] [place] small [phone] [id number] LEANNE BAHENA Self - patient is the insured Medical (General) History Medical History History ICD Code gall bladder problems Surgical History Surgery Date(Month/Year) cholecystectomy neck surgery tubal ligation uterus surgery
--- OUTSIDE RECORDS SUMMARY | 2025-04-26 10:35 | XMS_ITS | Patient Health Record ---
Author Organization Golden Archuleta III, MD Address [address] [place] [address] Care Team Providers Care Puppet Engineer Name Role Phone Golden Archuleta Primary Care Provider [phone] Allergies Allergen (clinical drug ingredient) Drug/Non Drug Allergy documented on EMR Reaction Allergy Type Onset Date Status No Known Food Allergy Unknown Drug Allergy Active acetaminophen / oxycodone Percocet nausea Drug Allergy Active lisinopril Lisinopril cough Drug Allergy Activ e Results Component Value Reference Range Notes Uric Acid Reviewed date:02/12/2025 01:45:37 PM Interpretation: Performing Lab:[facility], [address] [place] [phone] Notes/Report: Uric Acid 4.5 2.4-5.7 mg/dL Complete Blood Count Auto Di ff Reviewed date:07/18/2024 07:45:21 AM Interpretation: Performing Lab:[facility], [address] [place] [phone] Notes/Report: White Blood Count 7.3 4.8-10.8 X10*3/uL [...] NRBC Abs Auto 0.000 0.0-0.012 X10*3/uL Comprehensive [place]. Panel Fa st Reviewed date:07/18/2024 07:45:21 AM Interpretation: Performing Lab:[facility], [address] [place] [address] Notes/Report: Sodium 140 135-145 mmol/L Potassium 4.5 [...] Magnesium Reviewed date:07/18/2024 07:45:21 AM Interpretation: Performing Lab:[facility], [address] [place] [phone] Notes/Report: Magnesium 1.8 1.6-2.6 mg/dL Lipid Panel Reviewed date:07/18/2024 07:45:21 AM Interpretation: Performing Lab:[facility], [address] [place] [phone] Notes/Report: Triglycerides 77 <150 mg/dL Desirable Triglyceride: [...] Total Reviewed date:07/18/2024 07:45:21 AM Interpretation: Performing Lab:[facility], [address] [place] [phone] Notes/Report: Vitamin D 25-OH Total 40.9 >30 [...] Random Reviewed date:07/18/2024 07:45:21 AM Interpretation: Performing Lab:[address] [phone] Notes/Report: Creatinine Urine 221.86 Microalbumin Urine 11.0 Microalbum/Creatinine Ratio Ur 4.9 <30 ug/mg cr Albumin/Creatinine Ratio Reference Ranges: Normal: < 30 ug/mg creatinine Microalbuminuria: 30 - 300 ug/mg creatinine Clinical Albuminuria: > 300 ug/mg creatinine Hemoglobin A1c Reviewed date:07/18/2024 07:45:21 AM Interpretation: Performing Lab:[facility], [address] [place] [phone] Notes/Report: Hemoglobin A1c % 9.2 <6.0 % [...] average glucose, using the formula of the U6W-Zetbngo Average Glucose study (ADAG), Diabetes Care, Vol.31,#8, 2007 Complete Blood Count Auto Di ff Reviewed date:09/30/2024 09:26:17 AM Interpretation: Performing Lab:[facility], [address] [place] [phone] Notes/Report: White Blood Count 7.4 4.8-10.8 X10*3/uL [...] Panel Reviewed date:09/30/2024 09:26:17 AM Interpretation: Performing Lab:[facility], [address] [place] [phone] Notes/Report: Sodium 135 135-145 mmol/L Potassium 4.4 [...] A1c Reviewed date:09/30/2024 09:26:17 AM Interpretation: Performing Lab:[facility], [address] [place] [phone] Notes/Report: Hemoglobin A1c % 9.2 <6.0 % [...] average glucose, using the formula of the H5S-Jeyfjvf Average Glucose study (ADAG), Diabetes Care, Vol.31,#8, Mar. 2007 XR chest 2V Reviewed date:10/16/2024 09:13:49 AM Interpretation: Performing Lab: Notes/Report: [address] [address] XRay Report Signed Patient: Melva Thomas MR#: [id number] 89 : 1960 Acct:[id number] Age/Sex: 63 / F ADM Date: 10/03/24 Loc: HO.LAURELAY Attending Dr: Golden Archuleta MD Ordering Physician: Golden Archuleta MD Date of Service: 10/03/24 Procedure(s): XR chest 2V Accession Number(s): [id number] cc: Golden Archuleta MD EXAMINATION: XR CHEST [...] by: John Anders MD 10/03/2024 04:10 PM EST Dictated By: John Anders MD Signed By: <Electronically signed by John Anders MD in OV> 10/03/24 1610 DD/ 1538 TD/TT: 10/03/24 1555 Boiler Room Operator: [place] [address] XRay Report Signed Patient: Pippa Thomas tte MR#: [id number] [birth year] : 1960 Acct:[id number] Age/Sex: 63 / F ADM Date: 10/03/24 Loc: HO.ZHENG Attending Dr: Golden Archuleta MD Ordering Physician: Golden Archuleta MD Date of Service: 10/03/24 Procedure(s): XR jose st 2V Accession Number(s): [id number] cc: Golden Archuleta MD EXAMINATION: XR CHEST [...] by: John Anders MD 10/03/2024 04:10 PM EST Dictated By: John Anders MD Signed By: <Electronically signed by John Anders MD in OV> 10/03/24 1610 DD/ 1538 TD/TT: 10/03/24 1555 Boiler Room Operator: Complete Blood Count Auto Di ff Reviewed date:10/24/2024 03:14:45 PM Interpretation: Performing Lab:[facility], [address] [place] [phone] Notes/Report: White Blood Count 7.3 4.8-10.8 X10*3/uL [...] Panel Reviewed date:10/24/2024 03:14:45 PM Interpretation: Performing Lab:[address] [phone] Notes/Report: Sodium 139 135-145 mmol/L Potassium 4.0 [...] e Reviewed date:10/24/2024 03:14:45 PM Interpretation: Performing Lab:[facility], [address] [place] [phone] Notes/Report: Gamma Glutamyl Transpeptidase 27 7-33 U/L Hemoglobin A1c Reviewed date:10/24/2024 03:14:45 PM Interpretation: Performing Lab:[address] [phone] Notes/Report: Hemoglobin A1c % 9.1 <6.0 % [...] average glucose, using the formula of the Z8A-Vtkamjz Average Glucose study (ADAG), Diabetes Care, Vol.31,#8, Mar. 2007 Urinalysis and Microscopic Reviewed date:12/03/2024 04:51:37 AM Interpretation: Performing Lab:[facility], [address] [place] [phone] Notes/Report: Color Urine Yellow Appearance Urine Clear PH 7.5 5.0-9.0 Glucose Urine UA Negative Negative mg/dL Urine Blood Negative Negative Specific [place] - Urine <= 1.005 1.005-1.025 Urine Protein [...] ff Reviewed date:12/21/2024 07:02:35 AM Interpretation: Performing Lab:[facility], [address] [place] [phone] Notes/Report: White Blood Count 7.2 4.8-10.8 X10*3/uL [...] te Reviewed date:12/21/2024 07:02:35 AM Interpretation: Performing Lab:[facility], [address] [place] [phone] Notes/Report: Erythrocyte Sedimentation Rate 23 0-20 MM/HR Patients with polycythemia and many hemoglobin abnormalities may have depressed sed rates whereas patients with anemia may have elevated sed rates. Comprehensive Met. Panel Reviewed date:12/21/2024 07:02:35 AM Interpretation: Performing Lab:[address] [phone] Notes/Report: Sodium 139 135-145 mmol/L Potassium 4.0 [...] Protein Reviewed date:12/21/2024 07:02:35 AM Interpretation: Performing Lab:[address] [phone] Notes/Report: C Reactive Protein < 0.10 < or = 0.50 mg/dL Anti DNA DS Antibody Reviewed date:01/22/2025 08:16:07 PM Interpretation: Performing Lab:[facility], [address] [place] [phone] Notes/Report: Anti DNA DS Antibody <1 IU/mL Interpretation < or = 4 Negative 5-9 Indeterminate > or = 10 Positive THIS TEST WAS PERFORMED AT: [facility] [address] [place] [phone] RADHA SUMMERS MD Complement C3 Reviewed date:01/22/2025 08:16:07 PM Interpretation: Performing Lab:[facility], [address] [place] [phone] Notes/Report: Complement C3 139 83-193 mg/dL THIS TEST WAS PERFORMED AT: [facility] [address] [place] [phone] RADHA SUMMERS MD Complement C4 Reviewed date:01/22/2025 08:16:07 PM Interpretation: Performing Lab:[facility], [address] [place] [phone] Notes/Report: Complement C4 15 15-57 mg/dL THIS TEST WAS PERFORMED AT: [facility] [address] [place] [phone] RADHA SUMMERS MD Hemoglobin A1c Reviewed date:12/21/2024 07:02:35 AM Interpretation: Performing Lab:[facility], [address] [place] [phone] Notes/Report: Hemoglobin A1c % 8.4 <6.0 % [...] average glucose, using the formula of the H0O-Srtzvhc Average Glucose study (ADAG), Diabetes Care, Vol.31,#8, Mar. 2007 MM tomosynthesis screening B I Reviewed date:02/24/2025 07:03:35 PM Interpretation: Performing Lab: Notes/Report: [address] [place] [address] Mammography Report Signed Patient: Melva Thomas MR#: [id number] [birth year] : 1960 Acct:[id number] Age/Sex: 64 / F ADM Date: 02/09/25 Loc: HO.MAMMO Attending Dr: Golden Archuleta MD Ordering Physician: Golden Archuleta MD Results: 2Benign Findings Date of Service: 02/09/25 Follow Up: 1 Year From Orig ina Mammogram Procedure(s): MM tomosynthesis screening BI Accession Number(s): [id number] cc: Golden Archuleta MD EXAMINATION: MM SCREENING [...] 02/14/25 1445 DD/ 1045 TD/TT: 02/09/25 1110 Boiler Room Operator: [facility] [address] [place] [address] [place] [address] Mammography Report Signed Patient: Pippa Thomas MR#: [id number] [birth year] : 1960 Acct:[id number] Age/Sex: 64 / F ADM Date: 02/09/25 Loc: HO.MAMMO Attending Dr: Golden Archuleta MD Ordering Physician: Golden Archuleta MD Results: 2Benign Findings Date of Service: 02/09/25 Follow Up: 1 Year From Orig ina Mammogram Procedure(s): MM tomosynthesis screening BI Accession Number(s): [id number] cc: Golden Archuleta MD EXAMINATION: MM SCREENING [...] 02/14/25 1445 DD/ 1045 TD/TT: 02/09/25 1110 Boiler Room Operator: MAMMOGRAM DIGITAL BILATERAL SCREEN Reviewed date:04/03/2025 03:10:37 PM Interpretation:undefined Performing Lab: Notes/Report: undefined Complete Blood Count Auto Di ff Reviewed date:02/12/2025 01:45:37 PM Interpretation: Performing Lab:[facility], [address] [place] [phone] Notes/Report: White Blood Count 6.8 4.8-10.8 X10*3/uL [...] NRBC Abs Auto 0.000 0.0-0.012 X10*3/uL Comprehensive [place]. Panel Fa st Reviewed date:02/12/2025 01:45:37 PM Interpretation: Performing Lab:[facility], [address] [place] [phone] Notes/Report: Sodium 139 135-145 mmol/L Potassium 4.3 [...] Panel Reviewed date:02/12/2025 01:45:37 PM Interpretation: Performing Lab:[address] [address] Notes/Report: Triglycerides 96 <150 mg/dL Desirable Triglyceride: [...] A1c Reviewed date:02/12/2025 01:45:37 PM Interpretation: Performing Lab:[facility], [address] [place] [phone] Notes/Report: Hemoglobin A1c % 8.6 <6.0 % [...] average glucose, using the formula of the H7A-Kfkmimz Average Glucose study (ADAG), Diabetes Care, Vol.31,#8, [...] use to check blood sugars Thursday/Thursday/Thu09/09/2022 Active Vitamin D3 1.25 MG (73320 UT) 1 capsule Orally Once a week [...] MG/0.5ML 0.75 mg Subcutaneous weekly 03/17/2025 Active FreeStyle Tika 3 [place] - Check blood glucose 3 times a day for 30 days E11.9 DM (diabetes mellitus) 04/26/2025 Active FreeStyle Tika 3 Sensor - Check blood glucose 3 times a day for 30 days E11.9 DM (diabetes mellitus) 04/26/2025 Active Immunizations Vaccine Route Administration Date Status [...] Problem Status W/U Status Risk Notes Problem 1834961 Former smoker (Z87.891) Active confirmed She reports markel t she has stopped smoking within the last 5 days. She seems motivated to continue abstinence. Problem 389374454 Fibromyalgia (M79.7) Active confirmed This has been stable, but present. She is currently under the pain management at [facility]. Problem DM - Diabetes mellitus (75675764) DM (diabetes mellitus) (E11.9) Active confirmed She was begun o n trulicity because her hemoglobin A1c was 8.6. She does not wish to take the metformin and has been avoiding it. She says her fasting glucose levels are below 1:30. Conference of blood work will be done prior to her next visit.. Problem 713859000 Overweight (E66.3) Active confirmed Her body mass index is 26.She has lost 44 pounds since her last visit. We reviewed her weight loss strategy and her diet and nutrition. Problem Type II diabetes mellitus without complication (208691196) Type 2 diabetes mellitus without complications (E11.9) Active confirmed The most recent hemoglobin A1c was 8.4. We talked her how to use the prefilled pen. She successfully injected the trulicity. A followup visit was arranged. Problem 58145672 Carpal tunnel syndrome, right upper limb (G56.01) Active confirmed The pain in her wrist is stable and she is not complaining about it at this time. Problem Mononeuropathy of lower limb (536084100) Unspecified mononeuropathy of left lower limb (G57.92) Active confirmed Problem 165996711 Raynaud's syndrome without gangrene (I73.00) Active confirmed This has not been a problem since last year. It was not present today and she reports no difficulty in the recent past. 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 Problem Sciatica (35051520) Lumbago with sciatica, right side (M54.41) Active confirmed She was continued on current medication until she sees a surgeon. Problem Sciatica (85118855) Lumbago with sciatica, left side (M54.42) Active confirmed She has nerve root compression and a surgical solution will be sought. Problem 56525725 Tobacco dependence (F17.200) Active confirmed I strongly recommended smoking cessation and she has agreed to reduce number of cigarettes she uses daily. Problem 21485649 Other and unspecified hyperlipidemia (E78.5) Active confirmed The current fasting lipid profile shows a total cholesterol to be well within the target range. No change in treatment is needed. Problem Diabetic neuropathy (626736287) Diabetic neuropathy (E11.40) Active confirmed 10 use and know n painful feeling in her legs. Neuropathic pain in her left leg below the knee is worse. She has orthopedic pain in both knees as well but only when kneeling. Problem 050197786 Peripheral arterial disease (I73.9) Active confirmed Her foot was pink and warm, but continued painful. Problem 261735696 Renal cyst (N28.1) Active confirmed The CT scan of the abdomen March 25, 2018 is compatible with multiple renal cysts. No solid mass was seen. There was an cyst in the upper pole of the left kidney with calcifications. Problem 96298097 Subcutaneous nodules (R22.9) Active confirmed These are unchanged and nontender and will be followed. Problem 656617505533547 Acute gout of right ankle, unspecified cause (M10.9) Active confirmed He is being treated with prednisone for what might be gout in the left ankle. She is beginning to steadily improve. Problem 95088860 Sleep apnea in adult (G47.30) Active confirmed No change in her current regimen was needed today. She denies taking time somnolence.Her pulmonary physician has ordered another sleep study. Problem 143934281 Hepatitis C antibody test positive (R76.8) Active confirmed Her hepatitis has resolved and she is no longer on treatment. Her hepatitis C viral titers most recently were negative. Problem Neuropathic pain (818896989) Neuropathic pain (M79.2) Active confirmed The pain is localized to the left leg below the knee. She finds the best relief from ibuprofen and gabapentin. I have made her aware of the danger of diabetic taking ibuprofen chronically. Her kidney function has remained normal however. Problem 729011490 Achilles tendon avulsion (S86.019A) Active confirmed She will continue under the care of the orthopedist and follow-up with me regularly. Problem 735872864 Acute abdominal pain (R10.9) Active confirmed Her examination is unremarkable. I think this is musculoskeletal pain from the impact of the dog. No injury is noted. She will be observed. Problem 12073598 Coronary artery vasospasm (I20.1) Active confirmed She was continued on current medications and will see a mail order clerk next week. She is compliant with her nitroglycerin. Problem 844197193 Steatosis, liver (K76.0) Active confirmed Her liver [...] Date Provider Diagnosis Golden Archuleta III, MD [address] [place] [address] [place] [id number] 04/26/2024 Golden Archuleta Other and unspecifie d hyperlipidemia E78.5 ; Overweight E66.3 ; Subcutaneous nodules R22.9 ; Fibromyalgia M79.7 ; Peripheral arterial disease I73.9 ; Former smoker Z87.891 ; Diabetic neuropathy E11.40 ; Sleep apnea in adult G47.30 and Neuropathic pain M79.2 Golden Archuleta III, MD [address] [place] [address] [place] [id number] 05/17/2024 Golden Archuleta Acute COVID-19 U07.1 ; Other and unspecified hyperlipidemia E78.5 ; Overweight E66.3 ; Carpal tunnel syndrome, right upper limb G56.01 ; Subcutaneous nodules R22.9 ; Fibromyalgia M79.7 ; Raynaud's syndrome without gangrene I73.00 and Former smoker Z87.891 Golden Archuleta III, MD [address] [place] [address] [place] [id number] 05/24/2024 Golden Archuleta Encounter for immunization Z23 ; Overweight E66.3 ; DM (diabetes mellitus) E11.9 ; Other and unspecified hyperlipidemia E78.5 ; Fibromyalgia M79.7 and Former smoker Z87.891 Goldne Archuleta III, MD [address] [place] [address] [place] [phone] 06/29/2024 Golden Archuleta Overweight E66.3 ; D M (diabetes mellitus) E11.9 ; Vitamin D deficiency E55.9 ; Diabetic neuropathy E11.40 ; Fibromyalgia M79.7 ; Other and unspecified hyperlipidemia E78.5 ; Tobacco dependence F17.200 ; Former smoker Z87.891 and Sleep apnea in adult G47.30 Golden Archuleta III, MD [address] [place] [address] [place] [id number] 07/28/2024 Golden Archuleta Overweight E66.3 ; D M (diabetes mellitus) E11.9 ; Fibromyalgia M79.7 ; Other and unspecified hyperlipidemia E78.5 ; Former smoker Z87.891 ; Subcutaneous nodules R22.9 and Neuropathic pain M79.2 Golden Archuleta III, MD [address] [place] [address] [place] [id number] 09/28/2024 Golden Archuleta DM (diabetes mellitu s) E11.9 ; Acute viral syndrome B34.9 ; Overweight E66.3 ; Fibromyalgia M79.7 ; Peripheral arterial disease I73.9 ; Former smoker Z87.891 ; Sleep apnea in adult G47.30 and Neuropathic pain M79.2 Golden Archuleta III, MD [address] [place] [address] [place] [phone] 10/04/2024 Golden Archuleta Chronic cough R05 ; Acute viral syndrome B34.9 ; DM (diabetes mellitus) E11.9 ; Bronchitis J40 ; Other and unspecified hyperlipidemia E78.5 ; Overweight E66.3 ; Fibromyalgia M79.7 and Former smoker Z87.891 Golden Archuleta III, MD [address] [place] [address] [place] [id number] 10/07/2024 Golden Archuleta DM (diabetes mellitu s) E11.9 ; Neuropathic pain M79.2 ; Steatosis, liver K76.0 ; Overweight E66.3 ; Fibromyalgia M79.7 ; Other and unspecified hyperlipidemia E78.5 and Former smoker Z87.891 Golden Archuleta III, MD [address] [place] [address] [place] [phone] 10/25/2024 Golden Archuleta DM (diabetes mellitu s) E11.9 ; Overweight E66.3 ; Other and unspecified hyperlipidemia E78.5 ; Subcutaneous nodules R22.9 ; Carpal tunnel syndrome, right upper limb G56.01 ; Fibromyalgia M79.7 ; Former smoker Z87.891 ; Neuropathic pain M79.2 and Sleep apnea in adult G47.30 Golden Archuleta III, MD [address] [place] [address] [place] [id number] 11/03/2024 Golden Archuleta DM (diabetes mellitu s) E11.9 ; Overweight E66.3 ; Fibromyalgia M79.7 ; Other and unspecified hyperlipidemia E78.5 ; Peripheral arterial disease I73.9 ; Subcutaneous nodules R22.9 ; Sleep apnea in adult G47.30 and Former smoker Z87.891 Golden Archuleta III, MD [address] [place] [address] [place] [phone] 12/20/2024 Golden Archuleta DM (diabetes mellitu s) E11.9 ; Overweight E66.3 ; Other and unspecified hyperlipidemia E78.5 ; Fibromyalgia M79.7 ; Raynaud's syndrome without gangrene I73.00 ; Former smoker Z87.891 and Neuropathic pain M79.2 Golden Archuleta III, MD [address] [place] [address] [place] [id number] 02/01/2025 Golden Archuleta Acute gout of right ankle, unspecified cause M10.9 ; Overweight E66.3 ; Other and unspecified hyperlipidemia E78.5 ; Subcutaneous nodules R22.9 ; Carpal tunnel syndrome, right upper limb G56.01 ; DM (diabetes mellitus) E11.9 ; Peripheral arterial disease I73.9 ; Lumbago with sciatica, right side M54.41 ; Tobacco dependence F17.200 and Former smoker Z87.891 Golden Archuleta III, MD [address] [place] [address] [place] [id number] 02/02/2025 Golden Archuleta DM (diabetes mellitu s) E11.9 ; Pain in right leg M79.604 ; Pain in left leg M79.605 ; Overweight E66.3 and Former smoker Z87.891 Golden Archuleta III, MD [address] [place] [address] [place] [id number] 02/03/2025 Golden Archuleta DM (diabetes mellitu s) E11.9 ; Acute right ankle pain M25.571 ; Other and unspecified hyperlipidemia E78.5 ; Overweight E66.3 ; Fibromyalgia M79.7 ; Sleep apnea in adult G47.30 ; Neuropathic pain M79.2 ; Coronary artery vasospasm I20.1 and Former smoker Z87.891 Golden Archuleta III, MD [address] [place] [address] [place] [id number] 02/08/2025 Golden Archuleta DM (diabetes mellitu s) E11.9 ; Acute gout of right ankle, unspecified cause M10.9 ; Overweight E66.3 ; Other and unspecified hyperlipidemia E78.5 ; Peripheral arterial disease I73.9 ; Sleep apnea in adult G47.30 ; Neuropathic pain M79.2 ; Diabetic neuropathy E11.40 and Former smoker Z87.891 Golden Archuleta III, MD [address] [place] [address] [place] [id number] 02/17/2025 Golden Archuleta DM (diabetes mellitu s) E11.9 ; Pain in right foot M79.671 ; Overweight E66.3 ; Peripheral arterial disease I73.9 ; Embolism and thrombosis of unspecified artery I74.9 ; Steatosis, liver K76.0 and Former smoker Z87.891 Golden Archuleta III, MD [address] [place] [address] [place] [id number] 02/23/2025 Golden Archuleta DM (diabetes mellitu s) E11.9 ; Pain in right foot M79.671 ; Fibromyalgia M79.7 ; Other and unspecified hyperlipidemia E78.5 ; Tobacco dependence F17.200 and Overweight E66.3 Golden Archuleta III, MD [address] [place] [address] [place] [id number] 03/17/2025 Golden Archuleta DM (diabetes mellitu s) E11.9 ; Acute abdominal pain R10.9 ; Other and unspecified hyperlipidemia E78.5 ; Overweight E66.3 ; Fibromyalgia M79.7 ; Peripheral arterial disease I73.9 ; Diabetic neuropathy E11.40 and Former smoker Z87.891 Golden Archuleta III, MD [address] [place] [address] [place] [id number] 03/21/2025 Golden Archuleta Overweight E66.3 ; O [...] Former smoker Z87.891 Golden Archuleta III, MD [address] [place] [address] [place] [id number] 04/03/2025 Golden Archuleta Overweight E66.3 ; D M (diabetes mellitus) E11.9 ; Other and unspecified hyperlipidemia E78.5 ; Subcutaneous nodules R22.9 ; Carpal tunnel syndrome, right upper limb G56.01 ; Fibromyalgia M79.7 ; Sleep apnea in adult G47.30 and Neuropathic pain M79.2 Golden Archuleta III, MD [address] [place] [address] [place] [phone] 04/26/2025 Golden Archuleta III, MD [address] [place] [address] [place] [phone] 05/10/2024 Golden Archuleta III, MD [address] [place] [address] [place] [phone] 05/11/2024 Golden Archuleta III, MD [address] [place] [address] [place] [phone] 05/12/2024 Golden Archuleta III, MD [address] [place] [address] [place] [phone] 05/13/2024 Golden Archuleta III, MD [address] [place] [address] [place] [phone] 07/12/2024 Golden Archuleta III, MD [address] [place] [address] [place] [phone] 08/01/2024 Golden Archuleta III, MD [address] [place] [address] [place] [phone] 08/05/2024 Golden Archuleta III, MD [address] [place] [address] [place] [phone] 08/29/2024 Golden Archuleta III, MD [address] [place] [address] [place] [phone] 09/19/2024 Golden Archuleta III, MD [address] [place] [address] [place] [phone] 09/29/2024 Golden Archuleta III, MD [address] [place] [address] [place] [address] 09/29/2024 Golden Archuleta III, MD [address] [place] [address] 10/03/2024 Golden Archuleta Acute cough R05.1 Golden Archuleta III, MD [address] [place] [address] 10/03/2024 Golden Archuleta III, MD [address] [facility] [place] [address] 10/03/2024 Golden Archuleta III, MD [address] [place] [address] 10/04/2024 Golden Archuleta III, MD [address] [place] [address] 10/05/2024 Golden Archuleta III, MD [address] [facility] [place] [address] 10/17/2024 Golden Archuleta III, MD [address] [facility] [place] [address] 10/31/2024 Golden Archuleta III, MD [address] [place] [address] 11/07/2024 Golden Archuleta III, MD [address] [place] [address] 12/05/2024 Golden Archuleta III, MD [address] [facility] [place] [place] [address] 12/06/2024 Golden Archuleta III, MD [address] [place] [address] 12/20/2024 Golden Archuleta DM (diabetes mellitu s) E11.9 Golden Archuleta III, MD [address] [place] [address] 02/07/2025 Golden Archuleta III, MD [address] [place] [address] 03/01/2025 Golden Archuleta III, MD [address] [facility] [place] [address] 03/10/2025 Golden Archuleta III, MD [address] [place] [address] 03/27/2025 Golden Archuleta III, MD [address] [place] [address] [address] [place] [address] 04/11/2025 Golden Archuleta III, MD [address] [place] [address] [address] [address] 04/13/2025 Golden Archuleta III, MD [address] [place] [address] [address] [place] [address] 04/17/2025 Golden Archuleta Immunity status test ing Z01.84 Assessments Encounter [...] is currently under the pain management at [facility]. 09/28/2024 Overweight (ICD-10 - E66.3) Her [...] is currently under the pain management at [facility]. 12/20/2024 Other and unspecified hyperlipidemia (ICD-10 [...] is currently under the pain management at [facility]. 03/17/2025 Other and unspecified hyperlipidemia (ICD-10 [...] is currently under the pain management at [facility]. 05/17/2024 Carpal tunnel syndrome, right upper [...] is currently under the pain management at [facility]. 10/04/2024 Bronchitis (ICD-10 - J40) CT [...] is currently under the pain management at [facility]. 02/01/2025 Subcutaneous nodules (ICD-10 - R22.9) [...] is currently under the pain management at [facility]. 06/29/2024 Fibromyalgia (ICD-10 - M79.7) This has been stable, but present. She is currently under the pain management at [facility]. 07/28/2024 Former smoker (ICD-10 - Z87.891) [...] is currently under the pain management at [facility]. 10/25/2024 Carpal tunnel syndrome, right upper [...] is currently under the pain management at [facility]. 02/08/2025 Peripheral arterial disease (ICD-10 - [...] is currently under the pain management at [facility]. 03/21/2025 Peripheral arterial disease (ICD-10 - [...] is currently under the pain management at [facility]. 05/24/2024 Former smoker (ICD-10 - Z87.891) [...] is currently under the pain management at [facility]. 11/03/2024 Subcutaneous nodules (ICD-10 - R22.9) [...] on current medications and will see a mail order clerk next week. She is compliant with her nitroglycerin. 04/03/2025 Fibromyalgia (ICD-10 - M79.7) This has been stable, but present. She is currently under the pain management at [facility]. 04/26/2024 Diabetic neuropathy (ICD-10 - E11.40) [...] is currently under the pain management at [facility]. 10/07/2024 Former smoker (ICD-10 - Z87.891) [...] on current medications and will see a mail order clerk next week. She is compliant with her [...] Details Provider Name:Golden Archuleta, 06/06/2025 10:15:00 AM, [address] [place] [address] [place], [address], Provider Name:Golden Archuleta, 04/04/2026 02:00:00 PM, [address] [place] [address] [place], [address], Insurance Providers Payer Name Payer Address Payer Phone Subscriber Number Group Number Insured Name Patient Relationship to Insured Coverage Start Date Coverage End Date MEDICARE NGS [address] [place] [address] [id number] Melva Thomas Self - patient is the insured [place] [address] [place] [id number] [phone] [id number] Melva Thomas Self - patient is the insured Medical (General) History Medical History History ICD Code atypical chest pain left fifth hammer toe 2007 hematochezia AODM carpal tunnel syndrome hemorrhoids right sciatica 2013 lisinopril-induced cough and fibromyalgia lisinopril-induced cough Surgical History Surgery Date(Month/Year) No history hammertoe repair 12/2009 Hospitalization History Reason Date(Month/Year) No history
--- OUTSIDE RECORDS SUMMARY | 2025-04-26 10:35 | XMS_ITS | Clinical Summary ---
Author Organization [address] [facility] Address [address] [place] [address] Phone Care Team Providers Care Cryptologic Technician Operator/Analyst Name Role Phone Golden Archuleta MD Primary Care Provider [phone] Allergies Active Allergy Reactions Criticality Noted Date [...] Hammer toe 10/16/2021 PAD (peripheral artery disease) ([facility] [place] Peripheral neuritis 10/16/2021 T2DM (type 2 diabetes mellitus) ([facility] [place], [facility] V28) 10/16/2021 Encounters Date Type Department Care Team Description 04/10/2025 1:15 PM EDT Office Visit Orthopedic Surgery - [place] [address] [place] [phone] Erich Harrison DPM Diabetic mononeuropathy simplex ([facility] [place], [facility] V28) (Primary Dx); Ingrowing nail; Type II diabetes mellitus with peripheral circulatory disorder ([facility] [place], [facility] V[facility]); Metatarsalgia of both feet; Corns and callosities; Pain in toe of left foot; Dermatophytosis of nail; Pain in toe of right foot from Last 3 Months Surgical History Surgery Date Site/Laterality Comments OTHER SURGICAL HISTORY PROCEDURE: DENIES PREVIOUS SURGERY FOOT SURGERY PROCEDURE: LA UNLISTED PROCEDURE FOOT/TOES Medical History Medical History Date Comments Atypical chest pain DX:Atypical chest pain Hammer toe DX:Hammer toe Carpal tunnel syndrome DX:Carpal tunnel syndrome Sciatica DX:Sciatica Fibromyalgia DX:Fibromyalgia Diabetes ([facility] [place], [facility]) DX:Diabetes ([facility]) Family History Medical History Relation Name Comments [...] 10:00 AM EST Office Visit Orthopedic Surgery [facility] [address] [address] Erich Harrison, DPM [address] [address] Health Maintenance Due Date Last Done Comments [...] Test 09/16/2024 04/14/2022 Influenza Vaccine (#1) 2025 4, 05/15/2023, 06/23/2022, Additional history exists Hepatitis A [...] Insurance MEDICARE [place]ICA[place] - [place] Care Teams Cryptologic Technician Operator/Analyst Relationship Specialty Start Date End Date Golden Archuleta MD [address] [address] PCP - General 10/04/07
--- OUTSIDE RECORDS SUMMARY | 2025-04-26 10:35 | XMS_ITS | Clinical Summary ---
Author Organization [facility] Address [address] [place] [address] Phone Care Team Providers Care Animal Shelter Clerk Name Role Phone Golden Archuleta MD Primary Care Provider [phone] Allergies Active Allergy Reactions Criticality Noted Date [...] EDT) SODIUM 139 133 - 146 mmol/L [facility] POTASSIUM 4.3 3.3 - 5.1 mmol/L [facility] CHLORIDE 102 96 - 108 mmol/L [facility] CO2 28 21 - 35 mmol/L [facility] BUN 15 6 - 19 mg/dL [facility] CREATININE 0.60 0.5 - 1.5 mg/dL [facility] GLUCOSE 191(H) 70 - 99 mg/dL [facility] ALBUMIN 4.1 3.9 - 4.8 g/dL [facility] TOTAL PROTEIN 7.0 6.5 - 8.0 g/dL [facility] CALCIUM 9.3 8.4 - 10.3 mg/dL [facility] ALKALINE PHOSPHATASE 88 39 - 117 U/L [facility] TOTAL BILIRUBIN 0.3 0.0 - 1.2 mg/dL [facility] AST 25 0 - 37 U/L [facility] ALT 17 0 - 40 U/L [facility] GLOBULIN 2.9 1 - 4.8 g/dL [facility] EGFR 102 >59 mL/min/1.7 3m2 [facility] Comment:Estimated glomerular filtration rate calculated using the CKD-EPI refit equation. ANION GAP 13 10 - 20 mmol/L [facility] Blood 04/14/2022 1:01 PM EDT 04/14/2022 1:03 PM EDT us Sandra [facility] BLOOD ORDERABLES Fin al Result [facility] [address] [place] [address] from Last 3 Months or Most Recently Relevant to Health Maintenance Insurance [facility] CARE MEDICARE REPLACEMENT [facility] CARE [place]ICARE [facility] [facility] [facility] MED[place] [facility] [facility] ONE CARE MEDICARE REPLACEMENT [facility] REPLACEMENT Care Teams Animal Shelter Clerk Relationship Specialty Start Date End Date Golden Archuleta MD [address] [place] [id number] PCP - General Medical Oncology 03/19/21 Additional Source Comments The information contained in this document represents components of the legal health record. It is not the complete legal health record.[facility]
--- OUTSIDE RECORDS SUMMARY | 2025-04-26 10:36 | XMS_ITS | Encounter Summary ---
Author Organization [facility] Address [address] [place] [address] Phone Care Team Providers Care Bundle Wrapper Name Role Phone Golden Archuleta MD Primary Care Provider [phone] Reason for Visit * Reason Comments Medication Refill Encounter Details Date Type Department Care Team (Late st Contact Info) Description 06/21/2021 Refill Moni [facility] Rheumatology [address] [place] [address] Merlin Valdes MD [address] [facility] [address] [place] [address] [email or web address] Medication Refill Social History Tobacco Use Types [...] extremity documented in this encounter Care Teams Bundle Wrapper Relationship Specialty Start Date End Date Golden Archuleta MD [address] [place] [id number] PCP - General Medical Oncology 03/19/21 documented as of this encounter Additional Source Comments The information contained in this document represents components of the legal health record. It is not the complete legal health record.[facility]
[2025-04-27 17:44] LABS: Rubeola IgG (Measles) >300.00 AU/mL
== END 2025-04-26 09:39 | disposition home or self-care (01) ==
LOC: HO.LAB 09:38
PROVIDERS: PCP Internal Medicine Medical Oncology; Visit Provider Internal Medicine Medical Oncology
DX: Z01.84 Encounter for antibody response examination (principal)
CPT/HCPCS: 36415; 86762; 86765

== ENCOUNTER 2025-05-31 09:37 | Outpatient (REF) | payer MEDICARE, MEDICAID, SELFPAY ==
[2025-05-31 10:02] LABS: MANUAL DIFF FLAG NO
[2025-05-31 10:52] LABS: Hematocrit 38.7 % (37.0-47.0); Hemoglobin 12.8 g/dl (12.0-16.0); Imm Gran Abs Auto 0.04 X10*3/uL (0.00-0.03); Imm Gran Pct Auto 0.5 % (0.0-0.4); Lymphocytes Absolute Auto 2.1 X10*3/uL (1.2-4.9); Mean Corpuscular HGB Conc 33.1 g/dl (31.0-35.0); Mean Corpuscular Hemoglobin 30.2 pg (27.0-33.0); Mean Corpuscular Volume 91.3 fL (80.0-98.0); NRBC Abs Auto 0.000 X10*3/uL (0.0-0.012); NRBC Pct Auto 0.0 /100WBC (0.0-0.2); Platelet Count 246 X10*3/uL (160-400); Red Blood Count 4.24 X10*6/uL (4.20-5.50); White Blood Count 8.7 X10*3/uL (4.8-10.8)
[2025-05-31 11:31] LABS: Alanine Aminotransferase 28 U/L (0-31); Albumin Level 4.4 g/dL (3.5-5.0); Alkaline Phosphatase 74 U/L (39-117); Anion Gap 8 (12-20); Aspartate Amino Transferase 23 U/L (5-31); Blood Urea Nitrogen 11 mg/dL (9-16); Calcium 9.3 mg/dL (8.4-10.2); Carbon Dioxide 29 mmol/L (22-29); Chloride 109 mmol/L (96-108); Cholesterol 114 mg/dL (<200); Estimated Glomerular Filt Rate > 60; HDL Cholesterol 32 mg/dL (>40); Potassium 4.1 mmol/L (3.3-5.1); Sodium 142 mmol/L (135-145); Total Protein 7.0 g/dL (6.5-8.0); Triglycerides 61 mg/dL (<150)
== END 2025-05-31 09:38 | disposition home or self-care (01) ==
LOC: HO.LAB 09:37
PROVIDERS: PCP Internal Medicine Medical Oncology; Visit Provider Internal Medicine Medical Oncology
DX: E11.9 Type 2 diabetes mellitus without complications (principal); E66.3 Overweight; E78.5 Hyperlipidemia, unspecified
CPT/HCPCS: 36415; 80053; 80061; 83036; 85025

== ENCOUNTER 2025-08-07 10:43 | Outpatient (REF) | payer MEDICARE, MEDICAID, SELFPAY ==
--- NOTE | ~2025-08-07 | US_ITS ---
EXAMINATION: US TRIPLEX LOWER EXTREMITY, RIGHT CLINICAL INFORMATION: Right calf pain COMPARISON: Ultrasound 08/27/2020 TECHNIQUE: Color-flow triplex imaging with spectral analysis and compression Doppler were performed on the right lower extremity. FINDINGS: Respiratory variation, normal compression and augmented flow are noted throughout the right lower extremity. The visualized common femoral vein, superficial femoral vein, profunda femoral vein, popliteal vein and midcalf peroneal and posterior tibial venous segments show no evidence of deep venous thrombosis. There is no Moreland's cyst. US/US venous duplex LE RT IMPRESSION: No evidence of deep venous thrombosis involving the right lower extremity. Electronically signed by: Rosendo Rondon MD 08/07/2025 11:20 AM EST
== END 2025-08-07 10:44 | disposition home or self-care (01) ==
LOC: HO.US 10:43
PROVIDERS: PCP Internal Medicine Medical Oncology; Visit Provider Internal Medicine Medical Oncology
DX: M79.661 Pain in right lower leg (principal)
CPT/HCPCS: 93971

== ENCOUNTER → 2025-08-07 10:51 | Outpatient (BNV) | payer MEDICARE, MEDICAID, SELFPAY | PROVIDERS: PCP Internal Medicine Medical Oncology; Visit Provider Radiology Diagnostic Ultrasound | DX: M79.661 Pain in right lower leg (principal) | CPT/HCPCS: 93971 ==